=== PATIENT | male | born 1960 | race Hispanic/Latino ===

== ENCOUNTER 2021-01-08 10:44 | Inpatient (IN) | payer OTHER ==
[2021-01-08] MEDS ORDERED: SODIUM CHLORIDE 0.9% 1000 ML 1,000 ML IV ONE (10:59)
[2021-01-08] MEDS ORDERED: NORepinephrine/NS 4 MG-250 ML 4 MG/250 ML BAG IV ONE ×2 (11:27→15:09)
[2021-01-08] MEDS: NORepinephrine/NS 4 MG-250 ML 4 MG/250 ML BAG IV SCH ×2 (11:29→19:00)
--- NOTE | 2021-01-08 11:44 | XRay Report ---
CHEST 1 VIEW 01/08/2021 10:37 AM INDICATION / CLINICAL INFORMATION: post-arrest. COMPARISON: None available. FINDINGS: SUPPORT DEVICES: ET tube tip is at the level of the alondra. HEART / MEDIASTINUM: Mild cardiomegaly. LUNGS / PLEURA: Mild perihilar opacification. No pneumothorax. ADDITIONAL FINDINGS: No significant additional findings. IMPRESSION: 1. Mild perihilar opacification likely indicating mild pulmonary edema. 2. Mild cardiomegaly. 3. ET tube tip is at the level of the alondra. Retraction by 4 cm is recommended. Signer Name: Julius Ho MD Signed: 01/08/2021 11:40 AM Workstation Name: [id number]
--- NOTE | 2021-01-08 11:46 | XRay Report ---
XR foot 2V LT INDICATION: swelling, great toe. COMPARISON: None available. FINDINGS: There is significant soft tissue swelling and subcutaneous gas in the great toe. There are no radiopa que foreign bodies. There is questionable lysis in the cortex of the distal tuft of the great toe dis darlene phalanx which may indicate osteomyelitis. Signer Name: Julius Ho MD Signed: 01/08/2021 11:41 AM Workstation Name: [id number]
--- NOTE | 2021-01-08 12:22 | Emergency Department Report ---
ED CPR HPI - General Stated Complaint: CARDIAC ARREST Time Seen by Provider: 01/08/21 10:57 Source: EMS - History of Present Illness Initial Comments: 61-year-old male, history of diabetes, sleep apnea, presents to ED following ca rdiac arrest. EMS reports they were called to the home because patient has been having some generalized weakness. EMS reports there was difficulty getting to the patient because of the many items in the home. EMS reports it looks like a "hoarder's house." Upon contacting patient, patient was initially awake and talking somewhat. Patient then became unresponsive and apneic. Chest compressions were initiated. O2 was administered via patient's own CPAP machine. There was approximately a 10-minute delay to intubating and giving medications due to patient's location in the home. They were unable to get patient out of the room through the door, so patient was taken out of the home through the window of the room. Patient was found to be in PEA. He was intubated by EMS. Patient was given epi x1. They achieved ROSC. Patient then lost pulses again. He was given epi x1. Accu-Chek was in the 250s. Patient presents to ED with a pulse. MD Complaint: stopped breathing Place: home Shock Advised: No Initial Findings in the Field: alert ROSC in the Field: Yes Treatments Prior to Arrival: intubation, chest compressions, epinephrine mgs # (2) - Related Data Allergies Allergy/AdvReac Type Severity Reaction Status Date / Time No Known Allergies Allergy Unverified 01/08/21 12:39 ED Review of Systems ROS: Stated complaint: CARDIAC ARREST Other details as noted in HPI Comment: Unobtainable due to pts medical conditions Constitutional: weakness ED Physical Exam - General General appearance: obese - Head Head exam: Present: atraumatic, normocephalic - Eye Eye exam: Present: normal appearance Pupils: Present: other (pinpoint bilaterally) - ENT ENT exam: Present: other (ET tube in place) - Neck Neck exam: Present: normal inspection - Respiratory Respiratory exam: Present: decreased breath sounds (left lung field, tube withdrawn 2 cm for likely R main stem intubation) - Cardiovascular Cardiovascular Exam: Present: normal rhythm, tachycardia - GI/Abdominal GI/Abdominal exam: Present: soft. Absent: distended - Extremities Exam Extremities exam: Present: other (left great toe swollen, fluctuant) - Neurological Exam Neurological exam: Present: other (GCS 4T) - Psychiatric Psychiatric exam: Present: normal affect, normal mood - Skin Skin exam: Present: warm, dry, intact, normal color ED Course Vital Signs 01/08/21 01/08/21 01/08/21 10:10 10:16 10:46 Temperature Pulse Rate 64 63 132 H Respiratory 23 29 H 17 Rate Blood Pressure 150/65 152/57 O2 Sat by Pulse Oximetry 01/08/21 01/08/21 01/08/21 11:00 11:01 11:16 Temperature Pulse Rate 106 H 92 H 96 H Respiratory 16 20 Rate Blood Pressure 106/51 57/31 84/44 O2 Sat by Pulse 99 96 98 Oximetry 01/08/21 01/08/21 01/08/21 11:30 11:45 12:00 Temperature Pulse Rate 92 H 92 H 94 H Respiratory 32 H 22 22 Rate Blood Pressure 57/31 110/69 115/68 O2 Sat by Pulse 98 99 Oximetry 01/08/21 01/08/21 01/08/21 12:15 12:30 12:45 Temperature Pulse Rate 94 H Respiratory 20 20 20 Rate Blood Pressure 129/73 127/73 128/75 O2 Sat by Pulse Oximetry 01/08/21 01/08/21 01/08/21 13:42 13:46 13:51 Temperature 99.3 F Pulse Rate 96 H Respiratory 20 Rate Blood Pressure 127/80 127/80 O2 Sat by Pulse 97 97 Oximetry 01/08/21 01/08/21 01/08/21 14:00 14:16 14:30 Temperature Pulse Rate 98 H 95 H 94 H Respiratory 20 20 21 Rate Blood Pressure 127/63 128/75 128/75 O2 Sat by Pulse 92 93 93 Oximetry 01/08/21 01/08/21 01/08/21 14:46 15:00 15:01 Temperature Pulse Rate 91 H 90 85 Respiratory 23 21 Rate Blood Pressure 118/71 131/62 137/82 O2 Sat by Pulse 93 94 98 Oximetry 01/08/21 01/08/21 01/08/21 15:15 15:30 15:46 Temperature Pulse Rate 92 H 88 86 Respiratory 16 25 H 24 Rate Blood Pressure 138/96 138/96 144/67 O2 Sat by Pulse 100 99 98 Oximetry 08/02/21 08/02/21 08/02/21 16:00 16:15 16:30 Temperature Pulse Rate 85 85 86 Respiratory 25 H 17 25 H Rate Blood Pressure 137/77 124/66 124/66 O2 Sat by Pulse 98 97 99 Oximetry 01/08/21 01/08/21 01/08/21 16:46 17:00 17:16 Temperature Pulse Rate 83 81 81 Respiratory 25 H 25 H 24 Rate Blood Pressure 122/53 111/68 130/55 O2 Sat by Pulse 99 99 98 Oximetry - Reevaluation(s) Reevaluation #1: 01/08/21 12:25 Patient's has presented to the ED. She reports that patient has had some generalized weakness since Friday, 2 days ago. States patient has no other complaints. 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 She reports patient has a history of kidney stones, sleep apnea, diabetes, PE. She believes patient may be on a blood thinner but she is not sure. She denies patient having any history of C AD, CHF, or COPD. She states patient takes about 4-5 medications but she does not know the names of them, she does not have a list with her. She reports patient received both doses of the Fillm COVID-19 vaccine approximately 3 to 4 months ago. Reevaluation #2: 01/08/21 12:28 Respiratory advised to withdraw ET tube 4 cm after viewing CXR report. - Consultations Consultation #1: 01/08/21 13:[address] Hernandez, nephrology. He is aware of patient's BUN and creatinine. Informed him that patient needs a CTA chest. States that he will he will consult on patient. Consultation #2: 01/08/21 14:30 Spoke with [place] physician, Dr. Collier. States patient should stay here at [facility]. Will call tomorrow to check on patient. She was able to tell me that patient has a past medical history of: Hypertension CHF (EF 60-65% in 2017) Staghorn calculi Renal insufficiency (baseline creatinine 1.2 but did increase to 3.2 in July) Sleep apnea " Respiratory insufficiency" Chronic back pain Medications include: Lipitor Coreg Lasix Glucophage Glimepiride Combivent inhaler Lyrica Nortriptyline Hydrocodone Consultation #3: 01/08/21 14:[address] Amaya, farm machine tender. He will consult on the patient. - Central Line Placement Right Femoral Consent Obtained: emergent situation Time Out Performed: Yes Patient Placed on Monitor/Pulse Ox: Yes MD Prep: mask, gown, gloves Central Line Prep: Chlorhexidine scrub Ultrasound Used for Placement: Yes Central Line Lumen Inserted: triple Reason for Insertion: Emergency Venous Access Bloods Obtained for Lab: Yes Central Line Position: good blood return, all ports aspirated, flus, sutured in place with 2-0 Dressing Applied: Tegaderm Patient Tolerated Procedure: well ED Medical Decision Making - Lab Data Result diagrams: 01/08/21 11:55 01/08/21 14:36 - EKG Data -: EKG Interpreted by Nv EKG shows normal: sinus rhythm, axis, intervals, QRS complexes, ST-T waves Rate: tachycardia (rate 106) - EKG Data Interpretation: no acute changes - Radiology Data Radiology results: report reviewed, image reviewed - Medical Decision Making 60-year-old male presents to ED as post cardiac arrest. Initially, patient had normal blood pressure, however he then became hypotensive. Central line was placed, Levophed was initiated. Chest x-ray showed some mild cardiomegaly with mild perihilar opacification. ET tube was at the level of the alondra and was retracted 4 cm. Labs show elevated WBCs of 23.8, with lactic acid of 4.5. Patient has some acute renal failure with BUN of 55 and creatinine of 3.9. Potassium slightly elevated at 5.3. EKG showed no ST changes. Troponin s lightly elevated 0.03. CT head was unremarkable. CTA chest was done given history of PE and unsure if patient is on any blood thinners. CT negative for PE, but shows bilateral pneumonia. Per , patient did receive both doses of the Pfizer COVID-19 vaccine a few months ago. CT abdomen pelvis shows known staghorn calculi with ureteral stent. On exam, patient has discolored left great toe with fluctuance present. X-ray shows evidence of possible osteomyelitis. Blood cultures have been drawn. Patient has been given vancomycin and cefepime, 30/kg bolus of normal saline. Boiler Technician and farm machine tender have been consulted. Patient will be admitted to hospitalist, Dr. Beck, for further management. - Differential Diagnosis PE, CVA, COVID-19, sepsis Critical Care Time: Yes Critical care time in (mins) excluding proc time.: 35 Critical care attestation.: If time is entered above; I have spent that time in minutes in the direct care of this critically ill patient, excluding procedure time. Critical Care Time: 35 min ED Disposition Clinical Impression: Cardiac arrest, Acute renal failure, Sepsis, Pneumonia, Osteomyelitis of great toe of left foot Disposition: OP ADMIT IP TO THIS HOSP Is pt being admited?: Yes Condition: Stable Time of Disposition: 14:44
[2021-01-08 12:29] LABS: INR 1.08 (0.87-1.13)
[2021-01-08 12:30] LABS: Partial Thromboplastin Time 23.3 Sec. (24.2-36.6)
[2021-01-08 12:36] LABS: Albumin 2.6 g/dL (3.9-5); Bilirubin,Direct 0.4 mg/dL (0-0.2); Calcium 7.9 mg/dL (8.4-10.2)
[2021-01-08] MEDS ORDERED: SODIUM CHLORIDE 0.9% 1000 ML IV SOLN IV ONE (12:44)
[2021-01-08 12:47] LABS: Chol/HDL Ratio 2.62 %
[2021-01-08] MEDS ORDERED: CEFEPIME/NS 2 GM/100 ML 2 GM/100 ML BAG IV ONE (13:00)
[2021-01-08] MEDS ORDERED: VANCOMYCIN 2,000 MG in SODIUM CHLORIDE 0.9% 500 ML 500 ML IV ONE (13:00)
[2021-01-08 13:30] LABS: Hematocrit 31.6 % (35.5-45.6); Hemoglobin 10.5 gm/dl (11.8-15.2); Mean Corpuscular Volume 94 fl (84-94); Red Blood Count 3.35 M/mm3 (3.65-5.03)
[2021-01-08 13:31] LABS: Mean Corpuscular HGB Conc 33 % (32-34); Red Cell Distribution Width 15.6 % (13.2-15.2)
[2021-01-08 13:33] LABS: Basophils # (Auto) 0.1 K/mm3 (0.0-0.1); Basophils % (Auto) 0.2 % (0.0-1.8); Lymphocytes % (Auto) 4.1 % (13.4-35.0); Monocytes # (Auto) 1.2 K/mm3 (0.0-0.8); Monocytes % (Auto) 5.2 % (0.0-7.3)
--- NOTE | 2021-01-08 13:53 | Cat Scan Report ---
CT head/brain wo con INDICATION / CLINICAL INFORMATION: 60 years Male; cardiac arrest. TECHNIQUE: Routine CT head without contrast. All CT scans at this location are performed using CT dos e reduction for ALARA by means of automated exposure control. COMPARISON: None. FINDINGS: BRAIN / INTRACRANIAL CONTENTS: The motion degrades the image quality. However, there appears to be mi ld cerebral white matter disease most consistent with microvascular angiopathy. The chavez-white matter differentiation appears maintained on the current study though correlation be needed given history o f cardiac arrest and follow-up as indicated. There is no CT evidence of acute intracranial hemorrhage or significant mass effect. The ventricular system is appropriate in size and configuration. ORBITS: No significant abnormality of visualized orbits. SINUSES / MASTOIDS: The patient is intubated at. There is mild opacification along the posterior righ t sphenoid sinus and within the ethmoid air cells. CRANIOCERVICAL JUNCTION: No significant abnormality. ADDITIONAL FINDINGS: None. IMPRESSION: 1. This mild microvascular angiopathy as described without clear CT evidence of acute intracranial he morrhage. Signer Name: Rafat Huggins MD Signed: 01/08/2021 1:49 PM Workstation Name: [id number]
--- NOTE | 2021-01-08 14:16 | Cat Scan Report ---
CTA CHEST WITH CONTRAST INDICATION / CLINICAL INFORMATION: Cardiac arrest. TECHNIQUE: Axial CT images were obtained through the chest after injection of Omnipaque 350, 100 cc I V contrast. 3 plane MIP and/or 3D reconstructions were produced. All CT scans at this location are pe rformed using CT dose reduction for ALARA by means of automated exposure control. COMPARISON: None available. FINDINGS: PULMONARY ARTERIES: No pulmonary emboli. THORACIC AORTA: No significant abnormality. HEART: No significant abnormality. CORONARY ARTERY CALCIFICATION: None. MEDIASTINUM / TAMRA: No significant abnormality. PLEURA: No pleural effusion. No pneumothorax. LUNGS: Moderate volume loss at both lower lobes. Patchy bilateral consolidation is somewhat nodular i n places. ADDITIONAL FINDINGS: Endotracheal tube in satisfactory position. SKELETAL STRUCTURES: No significant osseous abnormality. IMPRESSION: 1. No CT evidence for pulmonary embolism. 2. Bilateral pneumonia and basilar volume loss. CT ABDOMEN AND PELVIS WITH CONTRAST INDICATION / CLINICAL INFORMATION: Cardiac arrest. Abdominal pain. TECHNIQUE: Axial CT images were obtained through the abdomen and pelvis after Omnipaque 350, 100 cc I V contrast. All CT scans at this location are performed using CT dose reduction for ALARA by means o f automated exposure control. COMPARISON: None available. FINDINGS: LIVER: No significant abnormality. GALLBLADDER: Partially contracted. BILE DUCTS: No significant abnormality. PANCREAS: No significant abnormality. SPLEEN: No significant abnormality. ADRENALS: No significant abnormality. RIGHT KIDNEY / URETER: Staghorn calculus. Cortical scarring. Double-J stent. LEFT KIDNEY / URETER: Staghorn calculus. Dilatation of the upper/mid pole collecting system. Renal co rtical scarring. STOMACH / SMALL BOWEL: No significant abnormality. COLON: No significant abnormality. APPENDIX: No significant abnormality. PERITONEUM: No free fluid. No free air. No fluid collection. LYMPH NODES: No significant adenopathy. VASCULAR STRUCTURES: No significant abnormality. URINARY BLADDER: Cleaning catheter. REPRODUCTIVE ORGANS: Mild diffuse enlargement. ADDITIONAL FINDINGS: None. SKELETAL SYSTEM: No significant abnormality. IMPRESSION: 1. Bilateral staghorn calculi with partial obstruction on the left. Right double-J stent placement. B ilateral cortical scarring. 2. Negative for abdominal mass or fluid collection. Signer Name: Redd Johnson MD Signed: 01/08/2021 2:11 PM Workstation Name: [email or web address]
[2021-01-08 14:51] LABS: Platelet Count 224 K/mm3 (140-440)
[2021-01-08] MEDS ORDERED: NALOXONE 2 MG/2 ML INJ IV ONE (15:01)
[2021-01-08] MEDS ORDERED: SODIUM CHLORIDE 0.9% 1000 ML 1,000 ML ONE (15:03)
--- NOTE | 2021-01-08 15:04 | Consultation ---
History of Present Illness Consult date: 01/08/21 Requesting physician: ROSEMARIE PA Reason for consult: other [facility] History of present illness: PULMONARY/CCM CONSULT NOTE (Full dictation # [id number]) Please see dictated notes for full details Medications and Allergies Allergies Allergy/AdvReac Type Severity Reaction Status Date / Time No Known Allergies Allergy Unverified 01/08/21 12:39 Physical Examination Vital signs: Vital Signs Pulse Resp BP 64 23 150/65 01/08/21 10:10 01/08/21 10:10 01/08/21 10:10 Results - Laboratory Findings CBC and BMP: 01/08/21 11:55 01/08/21 14:36 ABG ABG pH 7.204 (7.320-7.450) L 01/08/21 11:01 POC ABG pCO2 50.7 mmHg (32.0-48.0) H 01/08/21 11:01 POC ABG pO2 94.3 mmHg (83-108) 01/08/21 11:01 POC ABG HCO3 19.5 01/08/21 11:01 ABG O2 Saturation 95.9 (0-100) 01/08/21 11:01 PT/INR, D-dimer PT 14.5 Sec. (12.2-14.9) 01/08/21 11:55 INR 1.08 (0.87-1.13) 01/08/21 11:55 Abnormal lab findings: Abnormal Labs 01/08/21 01/08/21 01/08/21 11:01 11:55 11:55 WBC 23.8 H RBC 3.35 L Hgb 10.5 L Hct 31.6 L RDW 15.6 H Lymph % (Auto) 4.1 L Lymph # (Auto) 1.0 L [place] # (Auto) 1.2 H Seg Neutrophils % 90.5 H Seg Neutrophils # 21.5 H APTT ABG pH 7.204 L POC ABG pCO2 50.7 H ABG Hemoglobin 11.9 L ABG Potassium 5.0 H ABG Chloride 110.0 H ABG Glucose 313 H Carboxyhemoglobin 0.1 L Potassium Chloride Carbon Dioxide BUN Creatinine Glucose Lactic Acid 4.50 H* Calcium Direct Bilirubin AST ALT Troponin T NT-Pro-B Natriuret Pep Total Protein Albumin LDL Cholesterol Direct HDL Cholesterol Arterial Blood Glucose 313 H 01/08/21 01/08/21 01/08/21 11:55 11:55 13:42 WBC RBC Hgb Hct RDW Lymph % (Auto) Lymph # (Auto) [place] # (Auto) Seg Neutrophils % Seg Neutrophils # APTT 23.3 L ABG pH POC ABG pCO2 ABG Hemoglobin ABG Potassium ABG Chloride ABG Glucose Carboxyhemoglobin Potassium 5.3 H Chloride 107.2 H Carbon Dioxide 21 L BUN 55 H Creatinine 3.9 H Glucose 274 H Lactic Acid 2.90 H* Calcium 7.9 L Direct Bilirubin 0.4 H AST 130 H ALT 70 H Troponin T 0.038 H NT-Pro-B Natriuret Pep 1157 H Total Protein 6.0 L Albumin 2.6 L LDL Cholesterol Direct 28 L HDL Cholesterol 24 L Arterial Blood Glucose
[2021-01-08] MEDS ORDERED: SODIUM CHLORIDE 0.9% 500 ML IVPB IV PRN (15:18)
[2021-01-08 15:20] LABS: C-Reactive Protein 25.4 mg/dL (0.00-1.30)
--- NOTE | 2021-01-08 15:58 | Consultation ---
History of Present Illness Consult date: 01/08/21 Requesting physician: ÁNGELA QURESHI Consult reason: cardiac arrest History of present illness: Patient is a 61-year-old male with a significant history of diabetes, sleep apnea on CPAP, unknown cardiomyopathy per . He is previously unknown to our practice and follows with [facility]. Patient presents s/p cardiac arrest PEA with ROSC. He is currently intubated and unresponsive. EMS reports patient was awake and responsive on their arrival before becoming apneic subsequently found to be in PEA and was intubated in the field. He received several rounds of CPR. Post ROSC twelve-lead ECG shows sinus tach 106 with no acute ischemic changes. reports that patient has history of congestive heart failure but last known echocardiogram was 2016 with ejection fraction of 60 to 65%. Initial labs reveal D-dimer of 7000, CTA chest is negative for PTE. Chest x-ray shows mild pulmonary edema. Cardiology is consulted for postarrest care. Patient remains unresponsive and intubated thus HPI is obtained via the chart. Of note patient is fully COVID-19 vaccinated x2 completing second injection several months prior. Past History Past Medical History: other (See HPI) Medications and Allergies Allergies Allergy/AdvReac Type Severity Reaction Status Date / Time No Known Allergies Allergy Unverified 01/08/21 12:39 Active Meds: Active Medications Famotidine (Famotidine 20 Mg/2 Ml Inj) 20 mg IV DAILY MARBELLA Hydrophilic Ointment (Lip Therapy Vaseline) 1 applic TP Q2HR PRN PRN Reason: Dry Lips Propofol (Diprivan 10 Mg/Ml) 1,000 mg in 100 mls @ 4.082 mls/hr IV TITR MARBELLA; Protocol Multi-Ingred Cream/Lotion/Oil/Oint (Mineral Oil/Petrolatum, White Ophth Oint 3.5 Gm) 1 applic OU Q4HR PRN PRN Reason: Dry Eye(s) Senna/Docusate Sodium (Sennosides/Docusate Sodium 8.6/50 Mg Tab) 1 tab FEEDTUBE BID MARBELLA Sodium Chloride (Sodium Chloride 0.9% 500 Ml Ivpb) 5 ml IV DIRECT PRN PRN 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 Review of Systems ROS unobtainable: due to endotracheal tube, due to mental status Physical Examination Last Vital Signs Temp 99.3 F 01/08/21 13:51 Pulse 94 H 01/08/21 12:00 Resp 20 01/08/21 12:30 BP 127/73 01/08/21 12:30 Pulse Ox 99 01/08/21 12:00 General appearance: other (Intubated unresponsive) HEENT: Positive: Normocephaly, Mucus Membranes Moist Neck: Positive: neck supple, trachea midline Cardiac: Positive: Regular Rhythm, S1/S2 Lungs: Positive: Oxygen, Ventilated Respirations Neuro: Positive: Other (Intubated unresponsive) Abdomen: Positive: Unremarkable, Soft Skin: Positive: Wound (Left toe osteomyelitis). Negative: Rash Musculoskeletal: other (Intubated) Extremities: Present: upper extr. pulses, lower extr. pulses. Absent: edema Results 01/08/21 11:55 01/08/21 14:36 Cardiac Enzymes 01/08/21 01/08/21 Range/Units 11:55 14:36 AST 130 H (5-40) units/L Lactate Dehydrogenase 535 H (91-180) units/L Coagulation 01/08/21 Range/Units 11:55 PT 14.5 (12.2-14.9) Sec. INR 1.08 (0.87-1.13) APTT 23.3 L (24.2-36.6) Sec. Lipids 01/08/21 Range/Units 11:55 Triglycerides 104 (2-149) mg/dL Cholesterol 63 (50-199) mg/dL HDL Cholesterol 24 L (40-59) mg/dL Cholesterol/HDL Ratio 2.62 % CBC 01/08/21 Range/Units 11:55 WBC 23.8 H (4.5-11.0) K/mm3 RBC 3.35 L (3.65-5.03) M/mm3 Hgb 10.5 L (11.8-15.2) gm/dl Hct 31.6 L (35.5-45.6) % Plt Count 224 (140-440) K/mm3 Lymph # (Auto) 1.0 L (1.2-5.4) K/mm3 [place] # (Auto) 1.2 H (0.0-0.8) K/mm3 Eos # (Auto) 0.0 (0.0-0.4) K/mm3 Baso # (Auto) 0.1 (0.0-0.1) K/mm3 Comprehensive Metabolic Panel 01/08/21 01/08/21 Range/Units 11:55 14:36 Sodium 143 (137-145) mmol/L Potassium 5.3 H (3.6-5.0) mmol/L Chloride 107.2 H (98-107) mmol/L Carbon Dioxide 21 L (22-30) mmol/L BUN 55 H (9-20) mg/dL Creatinine 3.9 H (0.8-1.3) mg/dL Glucose 274 H 306 H (75-100) mg/dL Calcium 7.9 L (8.4-10.2) mg/dL Direct Bilirubin 0.4 H (0-0.2) mg/dL Indirect Bilirubin 0.2 mg/dL AST 130 H (5-40) units/L ALT 70 H (7-56) units/L Alkaline Phosphatase 106 (35-129) units/L Total Protein 6.0 L (6.3-8.2) g/dL Albumin 2.6 L (3.9-5) g/dL - Imaging and Cardiology Echo: pending, report reviewed (Echocardiogram 2017 reported EF 60 to 65%) EKG: report reviewed, image reviewed EKG interpretations - Telemetry EKG Rhythm: Sinus Tachycardia - EKG Sinus rhythms and dysrhythmias: sinus tachycardia Assessment and Plan Cardiac arrest PEA with ROSC * Post arrest twelve-lead shows sinus tach 106 with no acute ischemic changes. Continue to monitor on telemetry * Troponin mildly elevated 0.03x1, subacute nonspecific. Continue to trend CE's. * Echocardiogram is pending Elevated D-dimer * CTA chest is negative for PTE Acute respiratory failure secondary to suspected sepsis * Currently on vancomycin * Intubated on ventilatory support * Cultures are pending DVT prophylaxis * Management per primary team Echocardiogram is pending. Continue to trend CE's. Will follow This patient was seen in conjunction with Dr Ines Liz who agrees with this assessment and plan of care - Patient Problems (1) Congestive heart failure Current Visit: Yes Status: Chronic (2) Diabetes mellitus type 2 in obese Current Visit: Yes Status: Chronic (3) Elevated d-dimer Current Visit: Yes Status: Acute (4) Acute renal failure Current Visit: Yes Status: Acute (5) Cardiac arrest Current Visit: Yes Status: Acute (6) Osteomyelitis of great toe of left foot Current Visit: Yes Status: Chronic (7) Sepsis Current Visit: Yes Status: Acute (8) Renal insufficiency Current Visit: Yes Status: Chronic
[2021-01-08] MEDS ORDERED: LIP THERAPY VASELINE TP PRN (16:00)
--- NOTE | 2021-01-08 17:02 | XRay Report ---
ABDOMEN, SINGLE VIEW INDICATION / CLINICAL INFORMATION: verify ng placement. COMPARISON: None available. FINDINGS: Radiograph obtained of the lower chest and upper abdomen does not show any NG tube in that location. I suspect NG tube is either in the upper esophagus or possibly the patient's throat. IMPRESSION: No NG tube is visualized in the lower chest or upper abdomen. Signer Name: Taylor Werner MD Signed: 01/08/2021 4:57 PM Workstation Name: [id number]
[2021-01-08] MEDS ORDERED: MINERAL OIL/PETROLATUM, WHITE OPHTH OINT 3.5 GM OU PRN (18:00)
[2021-01-08 18:13] LABS: Bacteria,Urine 3+ /HPF (Negative); Bilirubin,Urine NEG (Negative); Blood,Urine LG (Negative); Color,Urine Red (Yellow); Urobilinogen,Urine < 2.0 mg/dL (<2.0)
[2021-01-08 18:24] LABS: RBC,Urine > 182.0 /HPF (0.0-6.0); WBC,Urine > 182.0 /HPF (0.0-6.0)
--- NOTE | 2021-01-08 19:01 | XRay Report ---
ABDOMEN 1 VIEW(S) INDICATION / CLINICAL INFORMATION: verify ng placement. COMPARISON: None available. FINDINGS: TUBES / LINES: NG tube in satisfactory position. BOWEL GAS PATTERN: No significant abnormality. ADDITIONAL FINDINGS: No significant additional findings. Signer Name: Redd Johnson MD Signed: 01/08/2021 6:56 PM Workstation Name: [id number]
[2021-01-08] MEDS ORDERED: IPRATROPIUM/ALBUTEROL SULFATE 3 ML AMPUL.NEB IH PRN (19:45)
[2021-01-08] MEDS ORDERED: VANCOMYCIN PHARMACY TO DOSE IV SCH (20:00)
[2021-01-08] MEDS ORDERED: ALBUTEROL 2.5 MG/3 ML NEBU IH PRN (20:23)
--- NOTE | 2021-01-08 21:45 | Consultation ---
History of Present Illness - Reason for Consult acute renal failure - History of Present Illness Morbidly obese male with h/o DM, BIBIANA, presented to the ED post cardiac arrest with ROSC after extended period of CPR in the field. Broought in by EMS, now intubated. Labs concerning for acute renal failures, with unclear baseline renal function. Nephrology consulted for further management. Patient apparently had h/o PE reported by , and in setting of cardiac arrest and acute respiratory failure with elevated D-dimer levels, he underwent CTA with contrast indicating no evidence of PE and mild pulmonary edema. Past History Past Medical History: diabetes, hyperlipidemia, other (See HPI) Past Surgical History: No surgical history Social history: no significant social history, , lives with family Family history: no significant family history Medications and Allergies Allergies Allergy/AdvReac Type Severity Reaction Status Date / Time No Known Allergies Allergy Unverified 01/08/21 12:39 Active Meds: Active Medications Albuterol (Albuterol 2.5 Mg/3 Ml Nebu) 2.5 mg IH Q3HRT PRN PRN Reason: Shortness Of Breath Albuterol/Ipratropium (Ipratropium/Albuterol Sulfate 3 Ml Ampul.Neb) 1 ampul IH QIDRT [facility] Famotidine (Famotidine 20 Mg/2 Ml Inj) 20 mg IV DAILY [facility] Famotidine (Famotidine 20 Mg/2 Ml Inj) 20 mg IV BID [facility] Hydrophilic Ointment (Lip Therapy Vaseline) 1 applic TP Q2HR PRN PRN Reason: Dry Lips Propofol (Diprivan 10 Mg/Ml) 1,000 mg in 100 mls @ 4.082 mls/hr IV TITR [facility]; Protocol Last Titration: 01/08/21 19:30 Dose: 10 mcg/kg/min, 8.165 mls/hr Documented by: Norepinephrine (Levophed Drip 4 Mg/Ns 250 Ml) 4 mg in 250 mls @ 75 mls/hr IV TITR [facility]; Protocol Last Admin: 01/08/21 19:00 Dose: 5 mcg/min, 18.75 mls/hr Documented by: Cefepime HCl (Cefepime/Ns 1 Gm/100 Ml) 1 gm in 100 mls @ 200 mls/hr IV QPM [facility]; Protocol Methylprednisolone Sodium Succinate (Methylprednisolone Sod Succinate 125 Mg/2 Ml Inj) 80 mg IV Q8HR [facility] Multi-Ingred Cream/Lotion/Oil/Oint (Mineral Oil/Petrolatum, White Ophth Oint 3.5 Gm) 1 applic OU Q4HR PRN PRN Reason: Dry Eye(s) Senna/Docusate Sodium (Sennosides/Docusate Sodium 8.6/50 Mg Tab) 1 tab FEEDTUBE BID [facility] Sodium Chloride (Sodium Chloride 0.9% 500 Ml Ivpb) 5 ml 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 of Systems ROS unobtainable: due to endotracheal tube Exam - Vital Signs Vital signs: Vital Signs Pulse Resp BP 64 23 150/65 01/08/21 10:10 01/08/21 10:10 01/08/21 10:10 - General Appearance General appearance: obese, chronically ill, intubated EENT: ATNC Neck: Present: neck supple Respiratory: Clear to Ascultation Heart: regular Gastrointestinal: Present: normal Musculoskeletal: Present: deferred Results - Lab Results 01/08/21 11:55 01/08/21 14:36 Most recent lab results ABG pH 7.204 (7.320-7.450) L 01/08/21 11:01 ABG O2 Saturation 95.9 (0-100) 01/08/21 11:01 Calcium 7.9 mg/dL (8.4-10.2) L 01/08/21 11:55 Assessment and Plan - Patient Problems (1) Acute renal failure Current Visit: Yes Status: Acute Plan to address problem: Agree with current regimen. Woudl recommend gentle IVF hydration, maintain MAP >65 mmHg. Avoid nephrotoxins. Renal US ordered. Will also order electrolytes. (2) Cardiac arrest Current Visit: Yes Status: Acute Plan to address problem: Management and further recommendation per cardiology. (3) Elevated d-dimer Current Visit: Yes Status: Acute Plan to address problem: Likely in the setting of pneumonia. Her CTA dhest did not show any evidence of PE. (4) Pneumonia Current Visit: Yes Status: Acute Plan to address problem: Please titrate antibiotics accordingly based on diminished renal function. (5) Diabetes mellitus type 2 in obese Current Visit: Yes Status: Chronic Plan to address problem: DM management per primary attending.
[2021-01-08] MEDS ORDERED: FAMOTIDINE 20 MG/2 ML INJ IV SCH (22:00)
[2021-01-08] MEDS: methylPREDNISolone Sod Succinate 125 MG/2 ML INJ IV SCH (22:18)
[2021-01-08] MEDS: SENNOSIDES/DOCUSATE SODIUM 8.6/50 MG TAB FEEDTUBE SCH (22:29)
[2021-01-09] MEDS ORDERED: ACETAMINOPHEN 325 MG TAB PO ONE (01:44)
[2021-01-09 05:43] LABS: Hematocrit 35.9 % (35.5-45.6); Hemoglobin 11.7 gm/dl (11.8-15.2); Mean Corpuscular HGB Conc 32 % (32-34); Mean Corpuscular Volume 95 fl (84-94); Platelet Count 274 K/mm3 (140-440); Red Blood Count 3.77 M/mm3 (3.65-5.03)
[2021-01-09 06:06] LABS: Calcium 8.1 mg/dL (8.4-10.2)
[2021-01-09] MEDS: methylPREDNISolone Sod Succinate 125 MG/2 ML INJ IV SCH ×3 (06:07→22:37)
--- NOTE | 2021-01-09 07:22 | History and Physical Report ---
History of Present Illness Date of examination: 01/08/21 Date of admission: 01/08/21 14:44 Chief complaint: Unresponsive for 30 minutes prior to EMS arrival History of present illness: 61-year-old salt[place] male with history of diabetes and sleep apnea called EMS towards generalized weakness. When EMS arrived there was difficulty getting to the patient. Because of too many items in the home. Similar to a Hoarder home. Initially patient was awake and talking confused. Then patient became unresponsive and apneic. ACLS protocol was initiated and chest compressions were initiated oxygen was administered and his own CPAP machine was used. Within the next 10 minutes patient was intubated. EMS was unable to get the patient out of the room through the door so patient was taken out of the home through the window of the room. Patient was found to be in PEA. Patient was intubated by EMS they achieved a return of spontaneous circulation. After a few minutes lost her pulse again and was given amlodipine and was revived. Patient presents to the emergency room with a pulse. It is unclear what has precipitated his cardiac arrest. Patient has only diabetes and sleep apnea. No fever or chills. No exposure to coronavirus. Patient was slightly hypotensive and was initiated on Levophed in the emergency room. Levophed is at 10 mics Past History Past Medical History: diabetes, hyperlipidemia, other (See HPI) Past Surgical History: No surgical history Social history: no significant social history, , lives with family Family history: no significant family history Medications and Allergies Allergies Allergy/AdvReac Type Severity Reaction Status Date / Time No Known Allergies Allergy Unverified 01/08/21 12:39 Active Meds: Active Medications Albuterol (Albuterol 2.5 Mg/3 Ml Nebu) 2.5 mg IH Q3HRT PRN PRN Reason: Shortness Of Breath Albuterol/Ipratropium (Ipratropium/Albuterol Sulfate 3 Ml Ampul.Neb) 1 ampul IH QIDRT [facility] Famotidine (Famotidine 20 Mg/2 Ml Inj) 20 mg IV DAILY [facility] Hydrophilic Ointment (Lip Therapy Vaseline) 1 applic TP Q2HR PRN PRN Reason: Dry Lips Propofol (Diprivan 10 Mg/Ml) 1,000 mg in 100 mls @ 4.082 mls/hr IV TITR [facility]; Protocol Last Titration: 01/08/21 19:30 Dose: 10 mcg/kg/min, 8.165 mls/hr Documented by: Norepinephrine (Levophed Drip 4 Mg/Ns 250 Ml) 4 mg in 250 mls @ 75 mls/hr IV TITR [facility]; Protocol Last Admin: 01/08/21 19:00 Dose: 5 mcg/min, 18.75 mls/hr Documented by: Cefepime HCl (Cefepime/Ns 1 Gm/100 Ml) 1 gm in 100 mls @ 200 mls/hr IV QPM [facility]; Protocol Methylprednisolone Sodium Succinate (Methylprednisolone Sod Succinate 125 Mg/2 Ml Inj) 80 mg IV Q8HR [facility] Last Admin: 01/09/21 06:07 Dose: 80 mg Documented by: Multi-Ingred Cream/Lotion/Oil/Oint (Mineral Oil/Petrolatum, White Ophth Oint 3.5 Gm) 1 applic OU Q4HR PRN PRN Reason: Dry Eye(s) Senna/Docusate Sodium (Sennosides/Docusate Sodium 8.6/50 Mg Tab) 1 tab FEEDTUBE BID [facility] Last Admin: 01/08/21 22:29 Dose: 1 tab Documented by: Sodium Chloride (Sodium Chloride 0.9% 500 Ml Ivpb) 5 ml 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 Review of Systems All systems: negative Constitutional: fatigue, lethargy, no weight loss, no weight gain, no fever, no chills, no sweats, no night sweats Ears, nose, mouth and throat: deferred Cardiovascular: shortness of breath, other (Cardiac arrest), no chest pain, no orthopnea, no palpitations, no edema, no syncope Respiratory: no cough, no cough with sputum, no excessive sputum, no hemoptysis, no shortness of breath, no dyspnea on exertion Genitourinary Male: no dysuria, no hematuria, no flank pain, no discharge, no urinary frequency, no urinary hesitancy, no nocturia Rectal: no incontinence, no bleeding Musculoskeletal: no neck stiffness, no neck pain, no shooting arm pain, no arm numbness/tingling, no low back pain, no shooting leg pain, no leg nu mbness/tingling, no redness of joints Integumentary: no rash, no pruritis, no redness, no sores, no wounds, no blisters Neurological: confusion, other Psychiatric: no anxiety, no memory loss Endocrine: no cold intolerance, no heat intolerance, no polyphagia Hematologic/Lymphatic: no easy bruising, no easy bleeding Allergic/Immunologic: no urticaria, no allergic rhinitis, no wheezing Exam - Constitutional Vitals: Temp Pulse Resp BP Pulse Ox 99 F 83 28 H 118/88 95 01/09/21 03:30 01/09/21 06:30 01/09/21 06:30 01/09/21 06:30 01/09/21 06:30 General appearance: Present: no acute distress, well-nourished - EENT Eyes: Present: PERRL ENT: hearing intact, clear oral mucosa - Neck Neck: Present: supple, normal ROM - Respiratory Respiratory effort: normal Respiratory: bilateral: CTA - Cardiovascular Heart rate: 78 Rhythm: regular Heart Sounds: Present: S1 & S2. Absent: rub, click - Extremities Extremities: no ischemia, pulses intact, pulses symmetrical, No edema Peripheral Pulses: within normal limits - Abdominal General gastrointestinal: Present: soft, non-tender, non-distended, normal bowel sounds Male genitourinary: Present: normal - Integumentary Integumentary: Present: clear, warm, dry - Musculoskeletal Musculoskeletal: gait normal, strength equal bilaterally - Psychiatric Psychiatric: appropriate mood/affect, intact judgment & insight - Neurologic Neurologic: CNII-XII intact, moves all extremities HEART Score - HEART Score History: Highly suspicious Age: 45-65 Risk factors: 1-2 risk factors Troponin: Troponin T 0.017 ng/mL (0.00-0.029) 01/09/21 05:18 - Critical Actions Critical Actions: 4-6 pts:12-16.6% risk of adverse cardiac event. Should be admitted Results - Labs CBC & Chem 7: 01/09/21 05:18 01/09/21 05:18 Labs: Laboratory Last Values WBC 19.0 K/mm3 (4.5-11.0) H 01/09/21 05:18 RBC 3.77 M/mm3 (3.65-5.03) 01/09/21 05:18 Hgb 11.7 gm/dl (11.8-15.2) L 01/09/21 05:18 Hct 35.9 % (35.5-45.6) 01/09/21 05:18 MCV 95 fl (84-94) H 01/09/21 05:18 MCH 31 pg (28-32) 01/09/21 05:18 MCHC 32 % (32-34) 01/09/21 05:18 RDW 16.0 % (13.2-15.2) H 01/09/21 05:18 Plt Count 274 K/mm3 (140-440) 01/09/21 05:18 Lymph % (Auto) 4.1 % (13.4-35.0) L 01/08/21 11:55 [place] % (Auto) 5.2 % (0.0-7.3) 01/08/21 11:55 Eos % (Auto) 0.0 % (0.0-4.3) 01/08/21 11:55 Baso % (Auto) 0.2 % (0.0-1.8) 01/08/21 11:55 Lymph # (Auto) 1.0 K/mm3 (1.2-5.4) L 01/08/21 11:55 [place] # (Auto) 1.2 K/mm3 (0.0-0.8) H 01/08/21 11:55 Eos # (Auto) 0.0 K/mm3 (0.0-0.4) 01/08/21 11:55 Baso # (Auto) 0.1 K/mm3 (0.0-0.1) 01/08/21 11:55 Add Manual Diff Complete 01/08/21 11:55 Seg Neutrophils % 90.5 % (40.0-70.0) H 01/08/21 11:55 Seg Neutrophils # 21.5 K/mm3 (1.8-7.7) H 01/08/21 11:55 PT 14.5 Sec. (12.2-14.9) 01/08/21 11:55 INR 1.08 (0.87-1.13) 01/08/21 11:55 APTT 23.3 Sec. (24.2-36.6) L 01/08/21 11:55 D-Dimer 7104.83 ng/mlDDU (0-234) H 01/08/21 14:36 ABG pH 7.323 (7.320-7.450) 01/09/21 05:02 POC ABG pCO2 33.8 mmHg (32.0-48.0) 01/09/21 05:02 POC ABG pO2 82.7 mmHg (83-108) L 01/09/21 05:02 POC ABG HCO3 17.1 01/09/21 05:02 ABG O2 Saturation 95.8 (0-100) 01/09/21 05:02 POC ABG Base Excess -8.0 01/09/21 05:02 ABG Hemoglobin 12.2 (12.0-17.5) 01/09/21 05:02 ABG Oxyhemoglobin 95.2 (94-98) 01/09/21 05:02 ABG Methemoglobin 0.3 (0.0-1.5) 01/09/21 05:02 ABG Sodium 142.6 mmol/L (136.0-145.0) 01/09/21 05:02 ABG Potassium 4.8 mmol/L (3.40-4.50) H 01/09/21 05:02 ABG Chloride 114.0 mmol/L (98-107) H 01/09/21 05:02 ABG Glucose 283 mg/dL (65-95) H 01/09/21 05:02 Carboxyhemoglobin 0.3 (0.5-1.5) L 01/09/21 05:02 FiO2 % 86.0 01/09/21 05:02 Sodium 146 mmol/L (137-145) H 01/09/21 05:18 Potassium 5.1 mmol/L (3.6-5.0) H 01/09/21 05:18 Chloride 112.0 mmol/L (98-107) H 01/09/21 05:18 Carbon Dioxide 20 mmol/L (22-30) L 01/09/21 05:18 Anion Gap 19 mmol/L 01/09/21 05:18 BUN 63 mg/dL (9-20) H 01/09/21 05:18 Creatinine 3.0 mg/dL (0.8-1.3) H 01/09/21 05:18 Estimated GFR 21 ml/min 01/09/21 05:18 BUN/Creatinine Ratio 21 % 01/09/21 05:18 Glucose 282 mg/dL (75-100) H 01/09/21 05:18 Lactic Acid 2.90 mmol/L (0.7-2.0) H* 01/08/21 13:42 Calcium 8.1 mg/dL (8.4-10.2) L 01/09/21 05:18 Ferritin 624.8 ng/mL (30.0-300.0) H 01/08/21 14:36 Total Bilirubin 0.60 mg/dL (0.1-1.2) 01/08/21 11:55 Direct Bilirubin 0.4 mg/dL (0-0.2) H 01/08/21 11:55 Indirect Bilirubin 0.2 mg/dL 01/08/21 11:55 AST 130 units/L (5-40) H 01/08/21 11:55 ALT 70 units/L (7-56) H 01/08/21 11:55 Alkaline Phosphatase 106 units/L (35-129) 01/08/21 11:55 Lactate Dehydrogenase 535 units/L (91-180) H 01/08/21 14:36 Troponin T 0.017 ng/mL (0.00-0.029) 01/09/21 05:18 C-Reactive Protein 25.40 mg/dL (0.00-1.30) H 01/08/21 14:36 NT-Pro-B Natriuret Pep 1157 pg/mL (0-900) H 01/08/21 11:55 Total Protein 6.0 g/dL (6.3-8.2) L 01/08/21 11:55 Albumin 2.6 g/dL (3.9-5) L 01/08/21 11:55 Albumin/Globulin Ratio 0.8 % 01/08/21 11:55 Triglycerides 104 mg/dL (2-149) 01/08/21 11:55 Cholesterol 63 mg/dL (50-199) 01/08/21 11:55 LDL Cholesterol Direct 28 mg/dL (50-130) L 01/08/21 11:55 HDL Cholesterol 24 mg/dL (40-59) L 01/08/21 11:55 Cholesterol/HDL Ratio 2.62 % 01/08/21 11:55 Arterial Blood Glucose 283 mg/dL (65-95) H 01/09/21 05:02 Urine Color Red (Yellow) 01/08/21 Unknown Urine Turbidity Turbid (Clear) 01/08/21 Unknown Urine pH 7.0 (5.0-7.0) 01/08/21 Unknown Ur Specific [place] 1.013 (1.003-1.030) 01/08/21 Unknown Urine Protein 100 mg/dl mg/dL (Negative) 01/08/21 Unknown Urine Glucose (UA) Neg mg/dL (Negative) 01/08/21 Unknown Urine Ketones Neg mg/dL (Negative) 01/08/21 Unknown Urine Blood Lg (Negative) 01/08/21 Unknown Urine Nitrite Neg (Negative) 01/08/21 Unknown Urine Bilirubin Neg (Negative) 01/08/21 Unknown Urine Urobilinogen < 2.0 mg/dL (<2.0) 01/08/21 Unknown Ur Leukocyte Esterase Mod (Negative) 01/08/21 Unknown Urine WBC (Auto) > 182.0 /HPF (0.0-6.0) H 01/08/21 Unknown Urine RBC (Auto) > 182.0 /HPF (0.0-6.0) 01/08/21 Unknown Urine Bacteria (Auto) 3+ /HPF (Negative) 01/08/21 Unknown Urine WBC Clumps 3+ /HPF 01/08/21 Unknown Urine Yeast (Budding) 3+ /HPF 01/08/21 Unknown Short CBC 01/08/21 01/09/21 Range/Units 11:55 05:18 WBC 23.8 H 19.0 H (4.5-11.0) K/mm3 Hgb 10.5 L 11.7 L (11.8-15.2) gm/dl Hct 31.6 L 35.9 (35.5-45.6) % Plt Count 224 274 (140-440) K/mm3 BMP 01/08/21 01/08/21 01/09/21 11:55 14:36 05:18 Sodium 143 146 H Potassium 5.3 H 5.1 H Chloride 107.2 H 112.0 H Carbon Dioxide 21 L 20 L BUN 55 H 63 H Creatinine 3.9 H 3.0 H Glucose 274 H 306 H 282 H Calcium 7.9 L 8.1 L Cardiac Enzymes 01/08/21 01/09/21 Range/Units 11:55 05:18 Troponin T 0.038 H 0.017 (0.00-0.029) ng/mL Liver Function 01/08/21 Range/Units 11:55 Total Bilirubin 0.60 (0.1-1.2) mg/dL Direct Bilirubin 0.4 H (0-0.2) mg/dL AST 130 H (5-40) units/L ALT 70 H (7-56) units/L Alkaline Phosphatase 106 (35-129) units/L Albumin 2.6 L (3.9-5) g/dL Urine 01/08/21 Range/Units Unknown Urine Color Red (Yellow) Urine pH 7.0 (5.0-7.0) Ur Specific [place] 1.013 (1.003-1.030) Urine Protein 100 mg/dl (Negative) mg/dL Urine Glucose (UA) Neg (Negative) mg/dL Microbiology: Microbiology 01/08/21 11:55 Peripheral/Venous Blood Culture - Preliminary Culture in Progress 01/08/21 11:55 Peripheral/Venous Blood Culture - Preliminary Culture in Progress - Imaging and Cardiology EKG: report reviewed (Sinus tachycardia no acute ST-T wave changes) Imaging and Cardiology: Chest x-ray Mild perihilar opacification likely indicating mild pulmonary edema Mild cardiomegaly Foot x-ray left Abdominal pelvis CT no No CT evidence of pulmonary embolism Bilateral pneumonia and basilar volume loss CT of the chest Bilateral staghorn calculi with obstruction of the left right double-J stent placement bilateral cortical scarring Negative for abdominal mass or fluid collection Head CT There is mild microvascular angiopathy as described without clear CT evidence of acute intracranial hemorrhage There is significant soft tissue swelling and subcutaneous gas in the great toe. There are no radiopaque foreign bodies. There is questionable lighters in the cortex of the distal tuft of the great toe distal phalanx which may indicate osteomyelitis Assessment and Plan Assessment and plan: Critical care statement The high probability OF a clinically significant sudden or life-threatening deterioration of the cardiorespiratory system and endocrine system required my full and direct attention, intervention and postoperative management. The aggregate critical care time was 40 minutes. The time is in addition to time spent performing reported procedures but includes the followin: Data review and interpretation 2: Patient assessment and monitoring of vital signs 3: Documentation 4:: Medication orders and management Advance Directives: Yes (Full code) VTE prophylaxis?: Chemical Plan of care discussed with patient/family: No - Patient Problems (1) Acute respiratory failure with hypoxia and hypercapnia Current Visit: Yes Status: Acute Plan to address problem: Patient on vent Patient has history of COPD Patient initiated on duo nebs [id number] and as needed IV Solu-Medrol 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 (2) Cardiac arrest Current Visit: Yes Status: Acute Plan to address problem: S/p cardiac arrest Revived Hypotensive On Levophed at 10 mics Possible septic shock with hypotension Vent support and IV antibiotics (3) Septic shock Current Visit: Yes Status: Acute Plan to address problem: Patient on IV antibiotics and Levophed Patient has bilateral pneumonia Possible aspiration pneumonia Patient initiated on cefepime and vancomycin ID consult requested (4) Bilateral pneumonia Current Visit: Yes Status: Acute Plan to address problem: Differential diagnosis of community-acquired pneumonia/aspiration pneumonia/Covid pneumonia IV antibiotics and IV steroids for now ID consult requested (5) Urinary tract infection Current Visit: Yes Status: Acute Qualifiers: Urinary tract infection type: acute cystitis Plan to address problem: Patient is on cefepime and vancomycin for the pneumonia Wait for urine cultures (6) Acute kidney injury superimposed on CKD Current Visit: Yes Status: Acute Plan to address problem: Gentle IV hydration for now Nephrology consulted (7) Congestive heart failure Current Visit: Yes Status: Chronic Qualifiers: Heart failure type: combined systolic and diastolic Plan to address problem: We will get echocardiogram for ejection fraction BNP is elevated at 1157 (8) Transaminitis Current Visit: Yes Status: Acute Plan to address problem: Possible secondary to sepsis Check to get hepatitis panel (9) Elevated troponin Current Visit: Yes Status: Acute Plan to address problem: Secondary to cardiac arrest and possible troponin leak We will get CK and CK-MB (10) Person under investigation for COVID-19 Current Visit: Yes Status: Acute Plan to address problem: Coronavirus PCR requested Possible Covid pneumonia (11) Malnutrition Current Visit: Yes Status: Chronic Qualifiers: Protein-calorie malnutrition severity: mild Plan to address problem: Albumin is 2.7 Dietary supplements once extubated (12) DVT prophylaxis Current Visit: Yes Status: Acute Plan to address problem: On heparin GI prophylaxis
--- NOTE | 2021-01-09 10:17 | XRay Report ---
CHEST 1 VIEW 01/09/2021 9:05 AM INDICATION / CLINICAL INFORMATION: follow up respiratory failure. COMPARISON: 01/08/2021 FINDINGS: SUPPORT DEVICES: Endotracheal tube is in good position approximately 5 cm proximal to the alondra. Eso phagogastric tube is in place. HEART / MEDIASTINUM: Stable. LUNGS / PLEURA: Bilateral patchy airspace opacities have slightly worsened. Left basilar atelectasis versus small effusion. No pneumothorax ADDITIONAL FINDINGS: No significant additional findings. IMPRESSION: 1. Interval slight worsening of bilateral patchy airspace opacities. Signer Name: David Mckeon MD Signed: 01/09/2021 10:12 AM Workstation Name: [id number]
--- NOTE | 2021-01-09 11:32 | Progress Note ---
Assessment and Plan Cardiac Arrest with ROSC Acute Hypooxemic Respiratory Failure Septic Shock Bilateral pneumonia SHERICE BIBIANA Morbid Obesity Urinary tract infection Congestive heart failure Transaminitis NSTEMI / Elevated troponin Person under investigation for COVID-19 - get bilateral lower extremity dopplers to complete VTE w/up - neurology evaluation ongoing - continue Daily SAT and SBT assessment as tolerated - continue to wean supplemental oxygen for target O2 sat's > 90% acutely - VAP bundle addressed - continue lung protective strategies - continue bronchodilators with pulmonary hygiene per RT - wean per pulmonary driven protocols otherwise - continue accuchecks with glycemic control per SSI (While critically ill target blood glucose of 140-180 mg/dL; avoid hypoglycemia) - sedation prn for target RASS 0 to -1 - avoid nephrotoxins, renally dose all medications - continue to avoid benzodiazepine's, reduce the possibility of delirium - complete AB's per ID rec's - prn analgesia per CPOT score - Maintenance of sleep-wake cycle, avoid delirium - continue enteral nutritional support at goal rate as tolerated - G.I. & VTE prophylaxis - PT/OT/ROM exercises - continue mobility protocols for pressure ulcer prophylaxis - Monitor hemodynamics closely - continue other care per attending / other consultants - discharge planning ongoing concurrently COVID SPECIFIC INTERVENTIONS - continue empiric contact and airborne isolation - await COVID-19 test result .... Re-evaluate in am & prn CONDITION: CRITICAL PROGNOSIS: GUARDED CODE STATUS: FULL CODE The high probability of a clinically significant, sudden or life-threatening deterioration of the [respiratory, cardiovascular, renal & neurologic] system(s) required my full and direct attention, intervention and personal management. The aggregate critical care time was [35] minutes without overlap. Time includes spent on; [x] Data Review and interpretation [x] Patient assessment and monitoring of vital signs [x] Documentation [x] Medication orders and management Subjective Date of service: 01/09/21 Principal diagnosis: Cardiac Arrest; Ac Hypoxemic Resp Failure; SepticShock; PNA; SHERICE; PUI COVID Interval history: Patient is seen today for: Cardiac Arrest with ROSC; Acute Hypoxemic Respiratory Failure; Septic Shock; Pneumonia; SHERICE; UTI; CHF; PUI COVID-19 Seen and examined at bedside; 24hour events reviewed; nursing and respiratory care staff consulted; no adverse overnight events reported to me; resting in bed; remains on MVS; AMS is persistent; no seizures; remains on Propofol and Levophed; no emesis or overt aspiration Objective Vital Signs - 12hr 01/09/21 01/09/21 01/09/21 00:00 00:30 01:00 Temperature Pulse Rate 85 85 84 Respiratory 12 25 H 25 H Rate Blood Pressure 117/78 111/71 114/71 O2 Sat by Pulse 98 96 96 Oximetry 01/09/21 01/09/21 01/09/21 01:30 02:00 02:30 Temperature 101.3 F H Pulse Rate 85 85 84 Respiratory 19 27 H 25 H Rate Blood Pressure 115/72 116/73 119/74 O2 Sat by Pulse 96 96 96 Oximetry 01/09/21 01/09/21 01/09/21 03:00 03:30 04:00 Temperature 99 F Pulse Rate 82 83 80 Respiratory 25 H 28 H 25 H Rate Blood Pressure 116/75 111/69 124/77 O2 Sat by Pulse 96 96 97 Oximetry 01/09/21 01/09/21 01/09/21 04:30 05:00 05:30 Temperature Pulse Rate 80 78 78 Respiratory 27 H 23 18 Rate Blood Pressure 126/78 129/79 124/82 O2 Sat by Pulse 97 97 96 Oximetry 01/09/21 01/09/21 01/09/21 06:00 06:30 07:00 Temperature Pulse Rate 83 83 80 Respiratory 19 28 H 32 H Rate Blood Pressure 118/88 118/88 136/80 O2 Sat by Pulse 95 95 95 Oximetry 01/09/21 01/09/21 01/09/21 07:30 08:00 08:30 Temperature Pulse Rate 80 80 78 Respiratory 29 H 30 H 27 H Rate Blood Pressure 134/78 139/87 141/87 O2 Sat by Pulse 96 96 95 Oximetry 01/09/21 01/09/21 01/09/21 08:56 09:00 09:30 Temperature Pulse Rate 80 78 78 Respiratory 29 H 30 H Rate Blood Pressure 142/83 142/84 143/84 O2 Sat by Pulse 96 96 96 Oximetry 01/09/21 10:00 Temperature Pulse Rate 79 Respiratory 31 H Rate Blood Pressure 153/93 O2 Sat by Pulse 96 Oximetry Constitutional: other (elderly obese male with mildly increased respiratory effort at rest on MVS) Eyes: non-icteric ENT: oropharynx moist, other (ETT 24 cm ASHA) Neck: supple, no lymphadenopathy, no JVD Effort: mildly labored Ascultation: Bilateral: diminished breath sounds, rhonchi Percussion: Bilateral: not dull Cardiovascular: regular rate and rhythm Gastrointestinal: normoactive bowel sounds, soft, non-tender, non-distended Integumentary: erythema (patchy mild) Extremities: no cyanosis, pink and warm, pulses normal, no ischemia or petechiae, edema (trace) Neurologic: pupils equal and round, unable to assess Psychiatric: other (encephalopathic) CBC and BMP: 01/10/21 10:46 01/10/21 10:46 ABG, PT/INR, D-dimer: ABG ABG pH 7.323 (7.320-7.450) 01/09/21 05:02 POC ABG pCO2 33.8 mmHg (32.0-48.0) 01/09/21 05:02 POC ABG pO2 82.7 mmHg (83-108) L 01/09/21 05:02 POC ABG HCO3 17.1 01/09/21 05:02 ABG O2 Saturation 95.8 (0-100) 01/09/21 05:02 PT/INR, D-dimer PT 14.5 Sec. (12.2-14.9) 01/08/21 11:55 INR 1.08 (0.87-1.13) 01/08/21 11:55 D-Dimer 7104.83 ng/mlDDU (0-234) H 01/08/21 14:36 Abnormal lab findings: Abnormal Labs 01/08/21 01/08/21 01/08/21 11:01 11:55 11:55 WBC 23.8 H RBC 3.35 L Hgb 10.5 L Hct 31.6 L MCV RDW 15.6 H Lymph % (Auto) 4.1 L Lymph # (Auto) 1.0 L Young # (Auto) 1.2 H Seg Neutrophils % 90.5 H Seg Neutrophils # 21.5 H APTT D-Dimer ABG pH 7.204 L POC ABG pCO2 50.7 H POC ABG pO2 ABG Hemoglobin 11.9 L ABG Potassium 5.0 H ABG Chloride 110.0 H ABG Glucose 313 H Carboxyhemoglobin 0.1 L Sodium Potassium Chloride Carbon Dioxide BUN Creatinine Glucose Lactic Acid 4.50 H* Calcium Ferritin Direct Bilirubin AST ALT Lactate Dehydrogenase Troponin T C-Reactive Protein NT-Pro-B Natriuret Pep Total Protein Albumin LDL Cholesterol Direct HDL Cholesterol Arterial Blood Glucose 313 H Urine WBC (Auto) 01/08/21 01/08/21 01/08/21 11:55 11:55 13:42 WBC RBC Hgb Hct MCV RDW Lymph % (Auto) Lymph # (Auto) Young # (Auto) Seg Neutrophils % Seg Neutrophils # APTT 23.3 L D-Dimer ABG pH POC ABG pCO2 POC ABG pO2 ABG Hemoglobin ABG Potassium ABG Chloride ABG Glucose Carboxyhemoglobin Sodium Potassium 5.3 H Chloride 107.2 H Carbon Dioxide 21 L BUN 55 H Creatinine 3.9 H Glucose 274 H Lactic Acid 2.90 H* Calcium 7.9 L Ferritin Direct Bilirubin 0.4 H AST 130 H ALT 70 H Lactate Dehydrogenase Troponin T 0.038 H C-Reactive Protein NT-Pro-B Natriuret Pep 1157 H Total Protein 6.0 L Albumin 2.6 L LDL Cholesterol Direct 28 L HDL Cholesterol 24 L Arterial Blood Glucose Urine WBC (Auto) 01/08/21 01/08/21 01/08/21 14:36 14:36 14:36 WBC RBC Hgb Hct MCV RDW Lymph % (Auto) Lymph # (Auto) Young # (Auto) Seg Neutrophils % Seg Neutrophils # APTT D-Dimer 7104.83 H ABG pH POC ABG pCO2 POC ABG pO2 ABG Hemoglobin ABG Potassium ABG Chloride ABG Glucose Carboxyhemoglobin Sodium Potassium Chloride Carbon Dioxide BUN Creatinine Glucose 306 H Lactic Acid Calcium Ferritin 624.8 H Direct Bilirubin AST ALT Lactate Dehydrogenase 535 H Troponin T C-Reactive Protein 25.40 H NT-Pro-B Natriuret Pep Total Protein Albumin LDL Cholesterol Direct HDL Cholesterol Arterial Blood Glucose Urine WBC (Auto) 01/08/21 01/08/21 01/09/21 21:00 Unknown 05:02 WBC RBC Hgb Hct MCV RDW Lymph % (Auto) Lymph # (Auto) Young # (Auto) Seg Neutrophils % Seg Neutrophils # APTT D-Dimer ABG pH POC ABG pCO2 POC ABG pO2 111.6 H 82.7 L ABG Hemoglobin 11.6 L ABG Potassium 4.6 H 4.8 H ABG Chloride 112.0 H 114.0 H ABG Glucose 256 H 283 H Carboxyhemoglobin 0.3 L 0.3 L Sodium Potassium Chloride Carbon Dioxide BUN Creatinine Glucose Lactic Acid Calcium Ferritin Direct Bilirubin AST ALT Lactate Dehydrogenase Troponin T C-Reactive Protein NT-Pro-B Natriuret Pep Total Protein Albumin LDL Cholesterol Direct HDL Cholesterol Arterial Blood Glucose 256 H 283 H Urine WBC (Auto) > 182.0 H 01/09/21 01/09/21 05:18 05:18 WBC 19.0 H RBC Hgb 11.7 L Hct MCV 95 H RDW 16.0 H Lymph % (Auto) Lymph # (Auto) Young # (Auto) Seg Neutrophils % Seg Neutrophils # APTT D-Dimer ABG pH POC ABG pCO2 POC ABG pO2 ABG Hemoglobin ABG Potassium ABG Chloride ABG Glucose Carboxyhemoglobin Sodium 146 H Potassium 5.1 H Chloride 112.0 H Carbon Dioxide 20 L BUN 63 H Creatinine 3.0 H Glucose 282 H Lactic Acid Calcium 8.1 L Ferritin Direct Bilirubin AST ALT Lactate Dehydrogenase Troponin T C-Reactive Protein NT-Pro-B Natriuret Pep Total Protein Albumin LDL Cholesterol Direct HDL Cholesterol Arterial Blood Glucose Urine WBC (Auto) Chest x-ray: image reviewed (perihilar infiltrate) CT scan - chest: image reviewed (poor contrast timing but no gross Pulmonary Emboli) Prior PFT's, U/S of legs: pending Allied health notes reviewed: nursing
[2021-01-09] MEDS: FAMOTIDINE 20 MG/2 ML INJ IV SCH (13:07)
--- NOTE | 2021-01-09 15:17 | Progress Note ---
Assessment and Plan Critical care statement The high probability OF a clinically significant sudden or life-threatening deterioration of the cardiorespiratory system and endocrine system required my full and direct attention, intervention and postoperative management. The aggregate critical care time was 35 minutes. The time is in addition to time spent performing reported procedures but includes the followin: Data review and interpretation 2: Patient assessment and monitoring of vital signs 3: Documentation 4:: Medication orders and management - Patient Problems (1) Acute respiratory failure with hypoxia and hypercapnia Current Visit: Yes Status: Acute Plan to address problem: Patient on vent Patient has history of COPD Patient initiated on duo nebs [id number] and as needed IV Solu-Medrol Vent support Patient Access Director consult requested (2) Cardiac arrest Current Visit: Yes Status: Acute Plan to address problem: S/p cardiac arrest Revived Hypotensive On Levophed at 10 mics Possible septic shock with hypotension Vent support and IV antibiotics (3) Septic shock Current Visit: Yes Status: Acute Plan to address problem: Patient on IV antibiotics and Levophed Patient has bilateral pneumonia Possible aspiration pneumonia Patient initiated on cefepime and vancomycin ID consult requested (4) Bilateral pneumonia Current Visit: Yes Status: Acute Plan to address problem: Differential diagnosis of community-acquired pneumonia/aspiration pneumoni a/Covid pneumonia IV antibiotics and IV steroids for now ID consult requested (5) Urinary tract infection Current Visit: Yes Status: Acute Qualifiers: Urinary tract infection type: acute cystitis Plan to address problem: Patient is on cefepime and vancomycin for the pneumonia Wait for urine cultures (6) Acute kidney injury superimposed on CKD Current Visit: Yes Status: Acute Plan to address problem: Gentle IV hydration for now Nephrology consulted Some improvement in the creatinine from 3.9-3.0 Per nephrology-- Woudl recommend gentle IVF hydration, maintain MAP >65 mmHg. Avoid nephrotoxins. Renal US did not show any acute abnormalities but likely does have evidence of underlying chronic kidney disease. overall renal function is stable this morning and he remains nonoliguric. We will continue to closely monitor. No acute indications for renal replacement therapy at present time. (7) Congestive heart failure Current Visit: Yes Status: Chronic Qualifiers: Heart failure type: combined systolic and diastolic Plan to address problem: We will get echocardiogram for ejection fraction BNP is elevated at 1157 (8) Transaminitis Current Visit: Yes Status: Acute Plan to address problem: Possible secondary to sepsis Check to get hepatitis panel (9) Elevated troponin Current Visit: Yes Status: Acute Plan to address problem: Secondary to cardiac arrest and possible troponin leak We will get CK and CK-MB (10) Person under investigation for COVID-19 Current Visit: Yes Status: Acute Plan to address problem: Coronavirus PCR positive (11) Malnutrition Current Visit: Yes Status: Chronic Qualifiers: Protein-calorie malnutrition severity: mild Plan to address problem: Albumin is 2.7 Dietary supplements once extubated (12) DVT prophylaxis Current Visit: Yes Status: Acute Plan to address problem: On heparin GI prophylaxis Subjective Date of service: 01/09/21 Principal diagnosis: Cardiac Arrest; Ac Hypoxemic Resp Failure; SepticShock; PNA; SHERICE; PUI COVID Interval history: 61-year-old salt[place] male with history of diabetes and sleep apnea called EMS towards generalized weakness. When EMS arrived there was difficulty getting to the patient. Because of too many items in the home. Similar to a Hoarder home. Initially patient was awake and talking confused. Then patient became unresponsive and apneic. ACLS protocol was initiated and chest compressions were initiated oxygen was administered and his own CPAP machine was used. Within the next 10 minutes patient was intubated. EMS was unable to get the patient out of the room through the door so patient was taken out of the home through the window of the room. Patient was found to be in PEA. Patient was intubated by EMS they achieved a return of spontaneous circulation. After a few minutes lost her pulse again and was given amlodipine and was revived. Patient presents to the emergency room with a pulse. It is unclear what has precipitated his cardiac arrest. Patient has only diabetes and sleep apnea. No fever or chills. No exposure to coronavirus. Patient was slightly hypotensive and was initiated on Levophed in the emergency room. Levophed is at 10 mics 01/09/2021 Patient still intubated Weaning in progress Covid positive Objective - Exam Narrative Exam: Patient is intubated - Constitutional Vitals: Vital Signs - 12hr 01/09/21 01/09/21 01/09/21 03:30 04:00 04:30 Temperature 99 F Pulse Rate 83 80 80 Respiratory 28 H 25 H 27 H Rate Blood Pressure 111/69 124/77 126/78 O2 Sat by Pulse 96 97 97 Oximetry 01/09/21 01/09/2121 05:00 05:30 06:00 Temperature Pulse Rate 78 78 83 Respiratory 23 18 19 Rate Blood Pressure 129/79 124/82 118/88 O2 Sat by Pulse 97 96 95 Oximetry 01/09/21 01/09/21 01/09/21 06:30 07:00 07:30 Temperature Pulse Rate 83 80 80 Respiratory 28 H 32 H 29 H Rate Blood Pressure 118/88 136/80 134/78 O2 Sat by Pulse 95 95 96 Oximetry 01/09/21 01/09/21 01/09/21 08:00 08:30 08:56 Temperature Pulse Rate 80 78 80 Respiratory 30 H 27 H Rate Blood Pressure 139/87 141/87 142/83 O2 Sat by Pulse 96 95 96 Oximetry 01/09/21 01/09/21 01/09/21 09:00 09:30 10:00 Temperature Pulse Rate 78 78 79 Respiratory 29 H 30 H 31 H Rate Blood Pressure 142/84 143/84 153/93 O2 Sat by Pulse 96 96 96 Oximetry 01/09/21 01/09/21 01/09/21 10:30 11:00 11:30 Temperature Pulse Rate 78 79 81 Respiratory 22 28 H 24 Rate Blood Pressure 154/90 150/93 145/88 O2 Sat by Pulse 96 96 96 Oximetry 01/09/21 12:55 Temperature Pulse Rate 79 Respiratory Rate Blood Pressure O2 Sat by Pulse 96 Oximetry General appearance: Present: no acute distress, well-nourished - EENT Eyes: PERRL, EOM intact ENT: hearing intact, clear oral mucosa Ears: bilateral: normal - Neck Neck: supple, normal ROM - Respiratory Respiratory effort: normal Respiratory: bilateral: CTA, rhonchi - Breasts Breasts: normal - Cardiovascular Heart rate: 80 Rhythm: regular Heart Sounds: Present: S1 & S2. Absent: gallop, rub Extremities: pulses intact, No edema, normal color, Full ROM - Gastrointestinal General gastrointestinal: Present: soft, non-tender, non-distended, normal bowel sounds - Genitourinary Male genitourinary: normal - Integumentary Integumentary: clear, warm, dry - Musculoskeletal Musculoskeletal: 1, strength equal bilaterally - Neurologic Neurologic: other (Patient sedated) - Psychiatric Psychiatric: other (Patient sedated) - Labs CBC & Chem 7: 01/09/21 05:18 01/09/21 05:18 Labs: Abnormal lab results 01/08/21 01/08/21 01/08/21 Range/Units 14:36 14:36 14:36 WBC (4.5-11.0) K/mm3 Hgb (11.8-15.2) gm/dl MCV (84-94) fl RDW (13.2-15.2) % D-Dimer 7104.83 H (0-234) ng/mlDDU POC ABG pO2 (83-108) mmHg ABG Hemoglobin (12.0-17.5) ABG Potassium (3.40-4.50) mmol/L ABG Chloride (98-107) mmol/L ABG Glucose (65-95) mg/dL Carboxyhemoglobin (0.5-1.5) Sodium (137-145) mmol/L Potassium (3.6-5.0) mmol/L Chloride (98-107) mmol/L Carbon Dioxide (22-30) mmol/L BUN (9-20) mg/dL Creatinine (0.8-1.3) mg/dL Glucose 306 H (75-100) mg/dL POC Glucose (70-105) mg/dL Calcium (8.4-10.2) mg/dL Ferritin 624.8 H (30.0-300.0) ng/mL Lactate Dehydrogenase 535 H (91-180) units/L C-Reactive Protein 25.40 H (0.00-1.30) mg/dL Arterial Blood Glucose (65-95) mg/dL Urine WBC (Auto) (0.0-6.0) /HPF 01/08/21 01/08/21 01/09/21 Range/Units 21:00 Unknown 05:02 WBC (4.5-11.0) K/mm3 Hgb (11.8-15.2) gm/dl MCV (84-94) fl RDW (13.2-15.2) % D-Dimer (0-234) ng/mlDDU POC ABG pO2 111.6 H 82.7 L (83-108) mmHg ABG Hemoglobin 11.6 L (12.0-17.5) ABG Potassium 4.6 H 4.8 H (3.40-4.50) mmol/L ABG Chloride 112.0 H 114.0 H (98-107) mmol/L ABG Glucose 256 H 283 H (65-95) mg/dL Carboxyhemoglobin 0.3 L 0.3 L (0.5-1.5) Sodium (137-145) mmol/L Potassium (3.6-5.0) mmol/L Chloride (98-107) mmol/L Carbon Dioxide (22-30) mmol/L BUN (9-20) mg/dL Creatinine (0.8-1.3) mg/dL Glucose (75-100) mg/dL POC Glucose (70-105) mg/dL Calcium (8.4-10.2) mg/dL Ferritin (30.0-300.0) ng/mL Lactate Dehydrogenase (91-180) units/L C-Reactive Protein (0.00-1.30) mg/dL Arterial Blood Glucose 256 H 283 H (65-95) mg/dL Urine WBC (Auto) > 182.0 H (0.0-6.0) /HPF 01/09/21 01/09/21 01/09/21 Range/Units 05:18 05:18 13:24 WBC 19.0 H (4.5-11.0) K/mm3 Hgb 11.7 L (11.8-15.2) gm/dl MCV 95 H (84-94) fl RDW 16.0 H (13.2-15.2) % D-Dimer (0-234) ng/mlDDU POC ABG pO2 (83-108) mmHg ABG Hemoglobin (12.0-17.5) ABG Potassium (3.40-4.50) mmol/L ABG Chloride (98-107) mmol/L ABG Glucose (65-95) mg/dL Carboxyhemoglobin (0.5-1.5) Sodium 146 H (137-145) mmol/L Potassium 5.1 H (3.6-5.0) mmol/L Chloride 112.0 H (98-107) mmol/L Carbon Dioxide 20 L (22-30) mmol/L BUN 63 H (9-20) mg/dL Creatinine 3.0 H (0.8-1.3) mg/dL Glucose 282 H (75-100) mg/dL POC Glucose 282 H (70-105) mg/dL Calcium 8.1 L (8.4-10.2) mg/dL Ferritin (30.0-300.0) ng/mL Lactate Dehydrogenase (91-180) units/L C-Reactive Protein (0.00-1.30) mg/dL Arterial Blood Glucose (65-95) mg/dL Urine WBC (Auto) (0.0-6.0) /HPF HEART Score - HEART Score Age: 45-65 Risk factors: 1-2 risk factors Troponin: Troponin T 0.017 ng/mL (0.00-0.029) 01/09/21 05:18 - Critical Actions Critical Actions: 4-6 pts:12-16.6% risk of adverse cardiac event. Should be admitted
--- NOTE | 2021-01-09 15:41 | Progress Note ---
Assessment and Plan Cardiac arrest PEA with ROSC * Post arrest twelve-lead shows sinus tach 106 with no acute ischemic changes. Continue to monitor on telemetry * Troponin mildly elevated 0.03->0.017 subacute nonspecific. Continue to trend CE's. * Echocardiogram is pending Elevated D-dimer * CTA chest is negative for PTE Acute respiratory failure secondary to suspected sepsis * Currently on vancomycin * Intubated on ventilatory support * Cultures are pending DVT prophylaxis * Management per primary team Echocardiogram is pending. Continue to trend CE's. Will follow This patient was seen in conjunction with Dr Ines Liz who agrees with this assessment and plan of care - Patient Problems (1) Acute respiratory failure with hypoxia and hypercapnia Current Visit: Yes Status: Acute (2) Cardiac arrest Current Visit: Yes Status: Acute (3) DVT prophylaxis Current Visit: Yes Status: Acute (4) Elevated d-dimer Current Visit: Yes Status: Acute (5) Elevated troponin Current Visit: Yes Status: Acute (6) Person under investigation for COVID-19 Current Visit: Yes Status: Acute (7) Sepsis Current Visit: Yes Status: Acute (8) Osteomyelitis of great toe of left foot Current Visit: Yes Status: Chronic Subjective Date of service: 01/09/21 Principal diagnosis: Cardiac Arrest; Ac Hypoxemic Resp Failure; SepticShock; PNA; SHERICE; PUI COVID Interval history: Patient intubated Objective Last Vital Signs Temp 99 F 01/09/21 03:30 Pulse 79 01/09/21 15:00 Resp 30 H 01/09/21 15:00 BP 145/87 01/09/21 15:00 Pulse Ox 96 01/09/21 15:00 - Physical Examination General: Other (intubated) HEENT: Positive: Normocephaly, Mucus Membranes Moist Neck: Positive: neck supple Cardiac: Positive: Reg Rate and Rhythm Lungs: Positive: Ventilated Respirations Neuro: Positive: Other (Intubated unresponsive) Abdomen: Positive: Unremarkable, Soft Skin: Positive: Wound (Left toe osteomyelitis). Negative: Rash Musculoskeletal: other (Intubated) Extremities: Present: upper extr. pulses, lower extr. pulses. Absent: edema - Labs and Meds CBC 01/09/21 Range/Units 05:18 WBC 19.0 H (4.5-11.0) K/mm3 RBC 3.77 (3.65-5.03) M/mm3 Hgb 11.7 L (11.8-15.2) gm/dl Hct 35.9 (35.5-45.6) % Plt Count 274 (140-440) K/mm3 Comprehensive Metabolic Panel 01/09/21 Range/Units 05:18 Sodium 146 H (137-145) mmol/L Potassium 5.1 H (3.6-5.0) mmol/L Chloride 112.0 H (98-107) mmol/L Carbon Dioxide 20 L (22-30) mmol/L BUN 63 H (9-20) mg/dL Creatinine 3.0 H (0.8-1.3) mg/dL Glucose 282 H (75-100) mg/dL Calcium 8.1 L (8.4-10.2) mg/dL - Imaging and Cardiology EKG: report reviewed (Sinus tachycardia no acute ST-T wave changes) Echo: pending, report reviewed (Echocardiogram 2017 reported EF 60 to 65%) - Telemetry EKG Rhythm: Sinus Rhythm - EKG Sinus rhythms and dysrhythmias: sinus rhythm - Allied health notes Allied health notes reviewed: nursing
--- NOTE | 2021-01-09 16:03 | Progress Note ---
Assessment and Plan - Patient Problems (1) Acute renal failure Current Visit: Yes Status: Acute Plan to address problem: Agree with current regimen. Woudl recommend gentle IVF hydration, maintain MAP >65 mmHg. Avoid nephrotoxins. Renal US did not show any acute abnormalities but likely does have evidence of underlying chronic kidney disease. overall renal function is stable this morning and he remains nonoliguric. We will continue to closely monitor. No acute indications for renal replacement therapy at present time. (2) Cardiac arrest Current Visit: Yes Status: Acute Plan to address problem: Management and further recommendation per cardiology. (3) Elevated d-dimer Current Visit: Yes Status: Acute Plan to address problem: Likely in the setting of pneumonia. His CTA dhest did not show any evidence of PE. being ruled out for COVID-19 pneumonia at this time. (4) Pneumonia Current Visit: Yes Status: Acute Plan to address problem: Please titrate antibiotics accordingly based on diminished renal function. (5) Diabetes mellitus type 2 in obese Current Visit: Yes Status: Chronic Plan to address problem: DM management per primary attending. Subjective Date of service: 01/09/21 Principal diagnosis: Cardiac Arrest; Ac Hypoxemic Resp Failure; SepticShock; PNA; SHERICE; PUI COVID Interval history: no acute changes overnight. Remains intubated and on pressor support with levophed. blood cultures are showing gram-positive cocci in clusters and are pending sp eciation at this time. Objective - Vital Signs Vital signs: Vital Signs - 12hr 01/09/21 01/09/21 01/09/21 04:30 05:00 05:30 Pulse Rate 80 78 78 Respiratory 27 H 23 18 Rate Blood Pressure 126/78 129/79 124/82 O2 Sat by Pulse 97 97 96 Oximetry 01/09/21 01/09/21 01/09/21 06:00 06:30 07:00 Pulse Rate 83 83 80 Respiratory 19 28 H 32 H Rate Blood Pressure 118/88 118/88 136/80 O2 Sat by Pulse 95 95 95 Oximetry 01/09/21 01/09/21 01/09/21 07:30 08:00 08:30 Pulse Rate 80 80 78 Respiratory 29 H 30 H 27 H Rate Blood Pressure 134/78 139/87 141/87 O2 Sat by Pulse 96 96 95 Oximetry 01/09/21 01/09/21 01/09/21 08:56 09:00 09:30 Pulse Rate 80 78 78 Respiratory 29 H 30 H Rate Blood Pressure 142/83 142/84 143/84 O2 Sat by Pulse 96 96 96 Oximetry 01/09/21 01/09/21 01/09/21 10:00 10:30 11:00 Pulse Rate 79 78 79 Respiratory 31 H 22 28 H Rate Blood Pressure 153/93 154/90 150/93 O2 Sat by Pulse 96 96 96 Oximetry 01/09/21 01/09/21 01/09/21 11:30 12:00 12:30 Pulse Rate 81 79 81 Respiratory 24 26 H 22 Rate Blood Pressure 145/88 143/89 145/93 O2 Sat by Pulse 96 96 96 Oximetry 01/09/21 01/09/21 01/09/21 12:55 13:00 13:30 Pulse Rate 79 78 79 Respiratory 27 H 28 H Rate Blood Pressure 143/87 145/90 O2 Sat by Pulse 96 97 96 Oximetry 01/09/21 01/09/21 01/09/21 14:00 14:30 15:00 Pulse Rate 81 79 79 Respiratory 29 H 22 30 H Rate Blood Pressure 147/88 145/88 145/87 O2 Sat by Pulse 97 96 96 Oximetry 01/09/21 15:47 Pulse Rate 81 Respiratory 6 L Rate Blood Pressure O2 Sat by Pulse 96 Oximetry - General Appearance General appearance: obese, chronically ill, intubated EENT: ATNC Neck: no JVD Respiratory: Present: Decreased Breath Sounds Cardiology: regular Gastrointestinal: normal Musculoskeletal: deferred - Lab 01/09/21 05:18 01/09/21 05:18 Most recent lab results ABG pH 7.323 (7.320-7.450) 01/09/21 05:02 ABG O2 Saturation 95.8 (0-100) 01/09/21 05:02 Calcium 8.1 mg/dL (8.4-10.2) L 01/09/21 05:18 Medications & Allergies - Medications Allergies/Adverse Reactions: Allergies No Known Allergies Allergy (Verified 01/09/21 10:10) Active Medications: Generic Name Dose Route Start Last Admin Trade Name Freq PRN Reason Stop Dose Admin Albuterol 2.5 mg 01/08/21 20:23 Albuterol 2.5 Mg/3 Ml Nebu IH Q3HRT PRN Shortness Of Breath Albuterol/Ipratropium 1 ampul 08/02/21 20:00 Ipratropium/Albuterol Sulfate 3 Ml Ampul.Neb IH QIDRT MARBELLA Famotidine 20 mg 01/09/21 10:00 01/09/21 13:07 Famotidine 20 Mg/2 Ml Inj IV 20 mg DAILY MARBELLA Administration Hydrophilic Ointment 1 applic 01/08/21 16:00 Lip Therapy Vaseline TP Q2HR PRN Dry Lips Propofol 1,000 mg in 100 mls @ 4.082 mls/hr 01/08/21 16:00 01/09/21 15:16 Diprivan 10 Mg/Ml IV 10 mcg/kg/min TITR MARBELLA 8.165 mls/hr Titration Protocol 5 MCG/KG/MIN Norepinephrine 4 mg in 250 mls @ 75 mls/hr 01/08/21 11:28 01/09/21 15:14 Levophed Drip 4 Mg/Ns 250 Ml IV Infused TITR MARBELLA Titration Protocol 20 MCG/MIN Cefepime HCl 1 gm in 100 mls @ 200 mls/hr 01/09/21 18:00 Cefepime/Ns 1 Gm/100 Ml IV QPM MARBELLA Protocol Insulin Human Lispro 0 unit 01/09/21 12:00 Insulin Lispro 100 Unit/Ml SUB-Q Q6HR [facility] Protocol Methylprednisolone Sodium Succinate 80 mg 01/08/21 22:00 01/09/21 13:08 Methylprednisolone Sod Succinate 125 Mg/2 Ml Inj IV 80 mg Q8HR MARBELLA Administration Multi-Ingred Cream/Lotion/Oil/Oint 1 applic 01/08/21 18:00 Mineral Oil/Petrolatum, White Ophth Oint 3.5 Gm OU Q4HR PRN Dry Eye(s) Senna/Docusate Sodium 1 tab 01/08/21 22:00 01/08/21 22:29 Sennosides/Docusate Sodium 8.6/50 Mg Tab FEEDTUBE 1 tab BID MARBELLA Administration Sodium Chloride 5 ml 01/08/21 15:18 Sodium Chloride 0.9% 500 Ml Ivpb IV DIRECT PRN [employer]
--- NOTE | 2021-01-09 18:02 | Consultation ---
DATE OF CONSULTATION: 01/08/2021 PULMONARY CRITICAL CARE CONSULT NOTE CONSULTING PHYSICIAN: Dr. Parham, Emergency Room physician. REASON FOR CONSULTATION: Cardiac arrest with return of spontaneous circulation; acute hypoxemic respiratory failure, on mechanical ventilator. CHIEF COMPLAINT/HISTORY OF PRESENT ILLNESS: As follows: The patient is a now 60-year-old obese male with past medical history significant amongst other things for a diagnosis of obstructive sleep apnea, who was brought in to the Emergency Room following a cardiac arrest. According to the records, EMS was called to the patient's house because he had been having some generalized weakness. Family had been having difficulty trying to get the patient to the hospital. There was a lot of furniture and household items that made it difficult for emergency medical services to get to the house. When they got there, the patient was initially awake and talking. He then became unresponsive, became apneic. CPR was started. Oxygen was administered via the patient's own CPAP machine that was about 10-minute time elapse before he was intubated and given medications due to the patient's location in the home. They were actually only able to get the patient out of the house through a window. He was found to be in PEA. He was intubated by EMS. He received one round of epinephrine. There was return of spontaneous circulation. He lost his pulse again, another round of CPR and epinephrine was given. Accu-Cheks showed blood sugars in the 250s. When he got to the Emergency Room, he had a pulse. He was stabilized, placed on mechanical ventilator. We are asked to assist with management. When I stopped by to see him, he was resting in bed. He was having intermittent myoclonic-type jerks to the right side of the face and body. I do not have any history of vomiting or overt aspiration. I do not see any food particles around his mouth. With regard to the patient's tobacco use/abuse history, that history is unknown. The above is much of the history of presentation as I have. PAST MEDICAL HISTORY: Diabetes, obstructive sleep apnea. He is morbidly obese. PAST SURGICAL HISTORY: Unknown. MEDICATIONS: He was on at the time I stopped by to see him, according to the medication administration record included the following: He was actually at the time I saw him on epinephrine drip. I believe he was going around 16 mcg/min. ALLERGIES: No known drug allergies. DIET: Morbidly obese gentleman, acute weight loss or gain history is unknown. SOCIAL HISTORY: Lives in the community. Alcohol, tobacco or illicit drug use/abuse history unknown. FAMILY HISTORY: Otherwise unknown. REVIEW OF SYSTEMS: Unobtainable secondary to the patient's medical and mental condition. Since he has been in the Emergency Room, no gross hematochezia or melena, no gross hematuria, no hematemesis, no bloody tracheal secretions, no witnessed grand mal seizures. Review of systems otherwise unobtainable or as in body of history above. PHYSICAL EXAMINATION: VITAL SIGNS: Initial temperature 99.3 degrees Fahrenheit, pulse was 64, respiratory rate was 23, blood pressure was 150/65, O2 sats were 93%. When I saw him, he was on the assist control mode of ventilation, tidal volume 450, rate of 20, PEEP of 10 on 100% FiO2. GENERAL: He is a morbidly obese male. Normocephalic, atraumatic, resting on the mechanical ventilator with mildly increased respiratory effort at rest. HEAD, EYES, EARS, NOSE AND THROAT: Anicteric. No conjunctival erythema. Oropharynx was moist. ET tube was taped at the lips around 24 cm. NECK: He has a large neck circumference. No gross jugular venous distention, no thyromegaly. Grossly, there were no palpable lymph nodes in the supraclavicular or submandibular lymph node chains. LUNGS: Auscultation of both lung barone significant mostly for good bilateral breath sounds. Occasional rhonchi/referred upper airway sounds, no wheezing. HEART: Heart sounds 1 and 2 are heard at the time of my evaluation, regular rate and rhythm without overt rubs or murmurs. ABDOMEN: Soft, full, protuberant. Bowel sounds are positive, nontender, no palpable hepatosplenomegaly. EXTREMITIES: Without overt digital clubbing, no cyanosis, no pedal edema. His left great toe was swollen and fluctuant. No actual pus drainage. Pedal pulses were 2+ bilaterally. NEUROLOGIC: Pupils were equal, about 1-2 mm, sluggishly reactive to light. Extraocular muscle movements could not be assessed. He had intermittent myoclonic-type jerks to his upper body and right side. He was not following commands. He did not have spontaneous movements to his extremities otherwise. SKIN: Normal turgor in the areas examined without overt cellulitis or rash. Please see the wound care nurses' notes for full description of his skin. PSYCHIATRIC: Mood and affect could not be assessed. LABORATORY DATA: From my review: White cell count 23,800, hemoglobin 10.5, hematocrit 31.6, platelet count 224. No manual differential. INR 1.08. D-dimer 7104. Arterial blood gas showed a pH of 7.20, pCO2 of 51, pO2 of 94 on the above-mentioned vent settings. Serum sodium was 143, potassium 5.3, chloride 107, bicarbonate 21. BUN 55, creatinine 3.9. Glucose was 274. Lactic acid level on presentation was 4.5, down to 2.9 now. Ferritin 625. AST was 130, ALT was 70. Troponin 0.038. BNP was elevated. Albumin was low at 2.6. LDL cholesterol was 28. Urinalysis showed moderate leukocyte esterase with greater than 182 white cells per high-power field. Two sets of blood cultures were no growth to date Chest x-ray has been reviewed. ET tube taped at the time of review showed the ET tube, I believe it was just at the tip of the right mainstem, mild left lower lobe atelectasis. The film is rotated, very difficult to interpret, defibrillator pads obscuring the view, no gross pneumothorax, no gross bony fracture that I can see. X-rays were done of the foot, suggestive of possible osteomyelitis. No radiopaque foreign bodies. A CT scan of the head had been done. Mild microvascular angiopathy without a clear evidence of an acute intracranial bleed. The CTA of the chest had been done and the report was pending, images pending. ASSESSMENT: 1. Cardiac arrest with return of spontaneous circulation. 2. Acute hypoxemic respiratory failure, on mechanical ventilatory support. 3. Severe sepsis with shock. 4. Possible cardiomyopathy with cardiomegaly. 5. History of diabetes. 6. Morbid obesity. 7. Obstructive sleep apnea. 8. Anemia that is normocytic. 9. Leukocytosis. 10. Mixed acidosis, metabolic and hypercapnic and respiratory. 11. Hyperkalemia. 12. Acute kidney injury, possibly on chronic. 13. Oropharyngeal dysphagia. 14. Acute encephalopathy. 15. Non-ST elevation myocardial infarction. 16. Possible seizure activity. 17. Pneumonia. 18. Urinary tract infection. PLAN: I will begin him on Levaquin for sedation, but also for control of the myoclonic-type jerks. Neurology evaluation is certainly appropriate. Oxygen will be weaned to keep sats greater than or equal to above 92%. The patient under investigation for COVID-19. He will remain in empiric, airborne and contact isolation. We will await the COVID PCR test before further interventions with regard to COVID. I note the elevated D-dimer. We will wait on the CT angiogram. For now, I believe DVT prophylaxis, dosage of anticoagulation appropriate. I will hold on full anticoagulation at this point. He certainly is at risk for possible pulmonary embolus or the venous thromboembolic disorder, but also need to make sure that this pneumonia on the chest x-ray is not the reason for his symptoms. Empiric broad spectrum antibiotic therapy including community-acquired pneumonia coverage will be started. I will be adding azithromycin. I believe he has been started on cefepime. I also note the urinary tract infection. The cefepime should certainly cover for that. I will give him one dose of vancomycin. Infectious Disease consultation will be of benefit. Random vancomycin level will be ordered in the morning. Nephrology consult has been placed. Urine electrolytes will be followed. I will defer to the crime prevention worker in terms of azotemia and management of the hyperkalemia at this time. ER doctor had spoken with crime prevention worker. Volume resuscitation will be continued while keeping an eye on the lactic acid levels as well as his blood pressure. Vasopressors will be weaned to keep mean arterial pressures greater than or equal to about 65 mmHg. I will increase the set minute ventilation, increasing the rate to 25 at this point to try and improve the acidosis, down the CO2. Nonetheless, I will repeat the arterial blood gas later in the evening of my seeing him after about 6 hours and adjust, address as necessary. Enteral nutrition will be the feeding modality of choice. He is on GI prophylaxis with Pepcid. Now, he will be placed on DVT prophylaxis. Flu and pneumonia vaccination will be addressed per protocol. Thank you very much for the consult. We will follow along and make further recommendations as picture progresses/becomes clearer. He is critically ill on life-sustaining interventions including mechanical ventilatory support and vasopressors at very high risk of from cardiopulmonary system and renal system decompensation. At this time, I spent about 40 minutes of critical care time without overlap and excluding any procedural time that may be necessary. Of note, he also has a right femoral central line that was earlier placed. We will try and wean him off pressors and if he is still needing that line in the next 24-48 hours, it will be repositioned to reduce the risk of infection. I then spent about 40 minutes of critical care time without overlap and excluding any procedural time that may be necessary. TID: [id number] RECEIPT: [id number] PRETTY/TUNDE/MARILUZ
--- NOTE | 2021-01-09 18:06 | Electrocardiograph Report ---
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
[2021-01-09] MEDS: IPRATROPIUM/ALBUTEROL SULFATE 3 ML AMPUL.NEB IH SCH ×3 (19:30→23:13)
[2021-01-09] MEDS: INSULIN LISPRO 100 UNIT/ML SUB-Q SCH ×2 (20:16→23:57)
[2021-01-09] MEDS: CEFEPIME/NS 1 GM/100 ML 1 GM/100 ML BAG IV SCH (20:17)
[2021-01-09] MEDS: NORepinephrine/NS 4 MG-250 ML 4 MG/250 ML BAG IV SCH (21:45)
[2021-01-09] MEDS: SENNOSIDES/DOCUSATE SODIUM 8.6/50 MG TAB FEEDTUBE SCH (22:38)
--- NOTE | 2021-01-10 05:20 | XRay Report ---
CHEST 1 VIEW 01/10/2021 4:14 AM INDICATION / CLINICAL INFORMATION: follow up respiratory failure. COMPARISON: 01/09/21 FINDINGS: SUPPORT DEVICES: Unchanged. HEART / MEDIASTINUM: Stable. LUNGS / PLEURA: Bilateral pulmonary opacities are unchanged. No pneumothorax. ADDITIONAL FINDINGS: No significant additional findings. IMPRESSION: 1. No significant change. Signer Name: Abdoulaye Rene MD Signed: 01/10/2021 5:15 AM Workstation Name: [id number]
[2021-01-10] MEDS: methylPREDNISolone Sod Succinate 125 MG/2 ML INJ IV SCH ×2 (05:32→08:34)
[2021-01-10] MEDS: INSULIN LISPRO 100 UNIT/ML SUB-Q SCH ×4 (05:44→19:00)
[2021-01-10] MEDS: IPRATROPIUM/ALBUTEROL SULFATE 3 ML AMPUL.NEB IH SCH ×4 (07:55→19:34)
--- NOTE | 2021-01-10 07:56 | Progress Note ---
Assessment and Plan Critical care statement The high probability OF a clinically significant sudden or life-threatening deterioration of the cardiorespiratory system and endocrine system required my full and direct attention, intervention and postoperative management. The aggregate critical care time was 35 minutes. The time is in addition to time spent performing reported procedures but includes the followin: Data review and interpretation 2: Patient assessment and monitoring of vital signs 3: Documentation 4:: Medication orders and management - Patient Problems (1) Acute respiratory failure with hypoxia and hypercapnia Current Visit: Yes Status: Acute Plan to address problem: Patient on vent Patient has history of COPD Patient initiated on duo nebs [id number] and as needed IV Solu-Medrol Vent support Manager Paid consult requested (2) Cardiac arrest Current Visit: Yes Status: Acute Plan to address problem: S/p cardiac arrest Revived Hypotensive On Levophed at 10 mics Possible septic shock with hypotension Vent support and IV antibiotics (3) Septic shock Current Visit: Yes Status: Acute Plan to address problem: Patient on IV antibiotics and Levophed Patient has bilateral pneumonia Possible aspiration pneumonia Patient initiated on cefepime and vancomycin ID consult requested (4) Bilateral pneumonia Current Visit: Yes Status: Acute Plan to address problem: Differential diagnosis of community-acquired pneumonia/aspiration pneumoni a/Covid pneumonia IV antibiotics and IV steroids for now ID consult requested (5) Urinary tract infection Current Visit: Yes Status: Acute Qualifiers: Urinary tract infection type: acute cystitis Plan to address problem: Patient is on cefepime and vancomycin for the pneumonia Wait for urine cultures (6) Acute kidney injury superimposed on CKD Current Visit: Yes Status: Acute Plan to address problem: Gentle IV hydration for now Nephrology consulted Some improvement in the creatinine from 3.9-3.0 Per nephrology-- Woudl recommend gentle IVF hydration, maintain MAP >65 mmHg. Avoid nephrotoxins. Renal US did not show any acute abnormalities but likely does have evidence of underlying chronic kidney disease. overall renal function is stable this morning and he remains nonoliguric. We will continue to closely monitor. No acute indications for renal replacement therapy at present time. (7) Congestive heart failure Current Visit: Yes Status: Chronic Qualifiers: Heart failure type: combined systolic and diastolic Plan to address problem: We will get echocardiogram for ejection fraction BNP is elevated at 1157 (8) Transaminitis Current Visit: Yes Status: Acute Plan to address problem: Possible secondary to sepsis Check to get hepatitis panel (9) Elevated troponin Current Visit: Yes Status: Acute Plan to address problem: Secondary to cardiac arrest and possible troponin leak We will get CK and CK-MB (10) Person under investigation for COVID-19 Current Visit: Yes Status: Acute Plan to address problem: Coronavirus PCR positive (11) Malnutrition Current Visit: Yes Status: Chronic Qualifiers: Protein-calorie malnutrition severity: mild Plan to address problem: Albumin is 2.7 Dietary supplements once extubated (12) DVT prophylaxis Current Visit: Yes Status: Acute Plan to address problem: On heparin GI prophylaxis Subjective Date of service: 01/10/21 Principal diagnosis: Cardiac Arrest; Ac Hypoxemic Resp Failure; SepticShock; PNA; SHERICE; PUI COVID Interval history: 61-year-old salt[place] male with history of diabetes and sleep apnea called EMS towards generalized weakness. When EMS arrived there was difficulty getting to the patient. Because of too many items in the home. Similar to a Hoarder home. Initially patient was awake and talking confused. Then patient became unresponsive and apneic. ACLS protocol was initiated and chest compressions were initiated oxygen was administered and his own CPAP machine was used. Within the next 10 minutes patient was intubated. EMS was unable to get the patient out of the room through the door so patient was taken out of the home through the window of the room. Patient was found to be in PEA. Patient was intubated by EMS they achieved a return of spontaneous circulation. After a few minutes lost her pulse again and was given amlodipine and was revived. Patient presents to the emergency room with a pulse. It is unclear what has precipitated his cardiac arrest. Patient has only diabetes and sleep apnea. No fever or chills. No exposure to coronavirus. Patient was slightly hypotensive and was initiated on Levophed in the emergency room. Levophed is at 10 mics 01/09/2021 Patient still intubated Weaning in progress Covid positive 01/10/2021 Covid positive Objective - Exam Narrative Exam: Patient is intubated - Constitutional Vitals: Vital Signs - 12hr 01/09/21 01/09/21 01/09/21 20:00 21:32 21:51 Temperature 0 F L Pulse Rate 87 90 Respiratory 25 H 25 H Rate Blood Pressure 127/71 Blood Pressure 130/78 [Right] O2 Sat by Pulse 94 90 Oximetry 01/09/21 01/09/21 01/09/21 21:52 22:06 22:15 Temperature 100.0 F H Pulse Rate 93 H 92 H Respiratory 25 H 25 H Rate Blood Pressure 126/72 Blood Pressure [Right] O2 Sat by Pulse 91 91 Oximetry 01/09/21 01/09/21 01/09/21 22:20 22:30 22:45 Temperature Pulse Rate 91 H 91 H 91 H Respiratory 25 H 26 H 25 H Rate Blood Pressure 127/71 121/72 125/74 Blood Pressure [Right] O2 Sat by Pulse 92 92 96 Oximetry 01/09/21 01/09/21 01/09/21 23:00 23:15 23:30 Temperature Pulse Rate 91 H 90 91 H Respiratory 25 H 26 H 25 H Rate Blood Pressure 124/72 126/71 126/73 Blood Pressure [Right] O2 Sat by Pulse 91 91 92 Oximetry 01/09/21 01/09/21 01/10/21 23:45 23:46 00:00 Temperature 100.2 F H Pulse Rate 91 H 93 H Respiratory 25 H 25 H Rate Blood Pressure 122/73 123/74 Blood Pressure [Right] O2 Sat by Pulse 92 95 Oximetry 01/10/21 01/10/21 01/10/21 00:15 00:30 00:45 Temperature Pulse Rate 92 H 92 H 93 H Respiratory 26 H 25 H 27 H Rate Blood Pressure 125/74 129/74 127/73 Blood Pressure [Right] O2 Sat by Pulse 92 93 92 Oximetry 01/10/21 01/10/21 01/10/21 01:00 01:15 01:30 Temperature Pulse Rate 93 H 93 H 92 H Respiratory 27 H 25 H 26 H Rate Blood Pressure 128/75 127/74 125/74 Blood Pressure [Right] O2 Sat by Pulse 92 92 92 Oximetry 01/10/21 01/10/21 01/10/21 01:45 02:00 02:15 Temperature Pulse Rate 94 H 93 H 94 H Respiratory 26 H 26 H 27 H Rate Blood Pressure 130/77 126/76 133/75 Blood Pressure [Right] O2 Sat by Pulse 92 92 93 Oximetry 01/10/21 01/10/21 01/10/21 02:30 02:45 03:00 Temperature Pulse Rate 100 H 100 H 101 H Respiratory 28 H 27 H 29 H Rate Blood Pressure 121/69 124/73 121/72 Blood Pressure [Right] O2 Sat by Pulse 91 92 Oximetry 01/10/21 01/10/21 01/10/21 03:15 03:30 03:44 Temperature Pulse Rate 102 H 101 H 94 H Respiratory 26 H 29 H Rate Blood Pressure 126/74 128/71 Blood Pressure [Right] O2 Sat by Pulse 92 Oximetry 01/10/21 01/10/21 01/10/21 03:45 04:00 04:15 Temperature 100.2 F H Pulse Rate 101 H 101 H 100 H Respiratory 29 H 29 H 30 H Rate Blood Pressure 123/74 123/73 125/75 Blood Pressure [Right] O2 Sat by Pulse 94 93 93 Oximetry 01/10/21 01/10/21 01/10/21 04:30 04:45 05:00 Temperature Pulse Rate 101 H 99 H 100 H Respiratory 30 H 30 H 29 H Rate Blood Pressure 119/73 123/71 121/73 Blood Pressure [Right] O2 Sat by Pulse 92 93 94 Oximetry 01/10/21 01/10/21 01/10/21 05:15 05:30 05:45 Temperature Pulse Rate 99 H 99 H 106 H Respiratory 29 H 30 H 31 H Rate Blood Pressure 118/71 121/73 118/66 Blood Pressure [Right] O2 Sat by Pulse 92 92 Oximetry 01/10/21 01/10/21 01/10/21 06:00 06:15 06:30 Temperature Pulse Rate 106 H 105 H 106 H Respiratory 29 H 31 H 32 H Rate Blood Pressure 109/66 116/65 116/65 Blood Pressure [Right] O2 Sat by Pulse 93 95 92 Oximetry General appearance: Present: no acute distress, well-nourished - EENT Eyes: PERRL, EOM intact ENT: hearing intact, clear oral mucosa Ears: bilateral: normal - Neck Neck: supple, normal ROM - Respiratory Respiratory effort: normal Respiratory: bilateral: CTA - Breasts Breasts: normal - Cardiovascular Heart rate: 78 Rhythm: regular Heart Sounds: Present: S1 & S2. Absent: gallop, rub Extremities: pulses intact, No edema, normal color, Full ROM - Gastrointestinal General gastrointestinal: Present: soft, non-tender, non-distended, normal bowel sounds - Genitourinary Male genitourinary: normal - Integumentary Integumentary: clear, warm, dry - Musculoskeletal Musculoskeletal: generalized weakness - Neurologic Neurologic: other (Sedated) - Psychiatric Psychiatric: other (Sedated) - Labs CBC & Chem 7: 01/09/21 05:18 01/09/21 05:18 Labs: Abnormal lab results 01/08/21 01/09/21 01/09/21 Range/Units Unknown 13:24 20:05 POC ABG pO2 (83-108) mmHg ABG Oxyhemoglobin (94-98) ABG Sodium (136.0-145.0) mmol/L ABG Potassium (3.40-4.50) mmol/L ABG Chloride (98-107) mmol/L ABG Glucose (65-95) mg/dL Carboxyhemoglobin (0.5-1.5) POC Glucose 282 H 317 H (70-105) mg/dL Arterial Blood Glucose (65-95) mg/dL Coronavirus (PCR) Positive A (Negative) 01/09/21 01/10/21 01/10/21 Range/Units 23:24 02:56 05:31 POC ABG pO2 73.8 L (83-108) mmHg ABG Oxyhemoglobin 93.5 L (94-98) ABG Sodium 149.1 H (136.0-145.0) mmol/L ABG Potassium 4.6 H (3.40-4.50) mmol/L ABG Chloride 119.0 H (98-107) mmol/L ABG Glucose 311 H (65-95) mg/dL Carboxyhemoglobin 0.4 L (0.5-1.5) POC Glucose 325 H 278 H (70-105) mg/dL Arterial Blood Glucose 311 H (65-95) mg/dL Coronavirus (PCR) (Negative) HEART Score - HEART Score Age: 45-65 Risk factors: 1-2 risk factors Troponin: Troponin T 0.017 ng/mL (0.00-0.029) 01/09/21 05:18 - Critical Actions Critical Actions: 4-6 pts:12-16.6% risk of adverse cardiac event. Should be admitted
[2021-01-10] MEDS: SENNOSIDES/DOCUSATE SODIUM 8.6/50 MG TAB FEEDTUBE SCH ×3 (08:33→21:05)
[2021-01-10] MEDS: ACETAMINOPHEN 325 MG/10.15 ML ORAL LIQD UNIT DOSE FEEDTUBE PRN (09:32)
[2021-01-10] MEDS: dexAMETHasone 4 MG/ML VIAL IV SCH (09:35)
[2021-01-10] MEDS: FAMOTIDINE 20 MG/2 ML INJ IV SCH (09:36)
[2021-01-10] MEDS ORDERED: INSULIN GLARGINE 100 UNITS/ML SUB-Q SCH (10:00)
--- NOTE | 2021-01-10 10:53 | Progress Note ---
Assessment and Plan - Patient Problems (1) Acute renal failure Current Visit: Yes Status: Acute Plan to address problem: Agree with current regimen. Avoid nephrotoxins. Renal US did not show any acute abnormalities but likely does have evidence of underlying chronic kidney disease. overall renal function is stable this morning and he remains nonoliguric. We will continue to closely monitor. No acute indications for renal replacement therapy at present time. Pending AM labs today. (2) Cardiac arrest Current Visit: Yes Status: Acute Plan to address problem: Management and further recommendation per cardiology. (3) Elevated d-dimer Current Visit: Yes Status: Acute Plan to address problem: Likely in the setting of pneumonia. His CTA dhest did not show any evidence of PE. being ruled out for COVID-19 pneumonia at this time. (4) Pneumonia Current Visit: Yes Status: Acute Plan to address problem: Please titrate antibiotics accordingly based on diminished renal function. (5) Diabetes mellitus type 2 in obese Current Visit: Yes Status: Chronic Plan to address problem: DM management per primary attending. (6) Pneumonia due to COVID-19 virus Current Visit: Yes Status: Acute Plan to address problem: Treatment per primary team/ID recommendations. (7) Gram-positive bacteremia Current Visit: Yes Status: Acute Plan to address problem: Currently receiving cefepime. Please ensure that antibiotics are dosed based on diminished renal function. Subjective Date of service: 01/10/21 Principal diagnosis: Cardiac Arrest; Ac Hypoxemic Resp Failure; SepticShock; PNA; SHERICE; PUI COVID Interval history: Now has been weaned off pressor support. Remains intubated, FiO2 75%. No acute changes per nursing staff. COVID-19 (+). has penn catheter, and per documentation he has remains non-oliguric over the last 24 hours. Pending am labs. Objective - Exam Narrative Exam: Patient not directly examined in order to preserve PPE and reduce transmission risk of COVID-19. Physical examination by primary team reviewed. - Vital Signs Vital signs: Vital Signs - 12hr 01/09/21 01/09/21 01/09/21 23:00 23:15 23:30 Temperature Pulse Rate 91 H 90 91 H Pulse Rate [ Bilateral Throughout] Respiratory 25 H 26 H 25 H Rate Respiratory Rate [Bilateral Throughout] Blood Pressure 124/72 126/71 126/73 O2 Sat by Pulse 91 91 92 Oximetry 0801/09/21 01/10/21 23:45 23:46 00:00 Temperature 100.2 F H Pulse Rate 91 H 93 H Pulse Rate [ Bilateral Throughout] Respiratory 25 H 25 H Rate Respiratory Rate [Bilateral Throughout] Blood Pressure 122/73 123/74 O2 Sat by Pulse 92 95 Oximetry 01/10/21 01/10/21 01/10/21 00:15 00:30 00:45 Temperature Pulse Rate 92 H 92 H 93 H Pulse Rate [ Bilateral Throughout] Respiratory 26 H 25 H 27 H Rate Respiratory Rate [Bilateral Throughout] Blood Pressure 125/74 129/74 127/73 O2 Sat by Pulse 92 93 92 Oximetry 01/10/21 01/10/21 01/10/21 01:00 01:15 01:30 Temperature Pulse Rate 93 H 93 H 92 H Pulse Rate [ Bilateral Throughout] Respiratory 27 H 25 H 26 H Rate Respiratory Rate [Bilateral Throughout] Blood Pressure 128/75 127/74 125/74 O2 Sat by Pulse 92 92 92 Oximetry 01/10/21 01/10/21 01/10/21 01:45 02:00 02:15 Temperature Pulse Rate 94 H 93 H 94 H Pulse Rate [ Bilateral Throughout] Respiratory 26 H 26 H 27 H Rate Respiratory Rate [Bilateral Throughout] Blood Pressure 130/77 126/76 133/75 O2 Sat by Pulse 92 92 93 Oximetry 01/10/21 01/10/21 01/10/21 02:30 02:45 03:00 Temperature Pulse Rate 100 H 100 H 101 H Pulse Rate [ Bilateral Throughout] Respiratory 28 H 27 H 29 H Rate Respiratory Rate [Bilateral Throughout] Blood Pressure 121/69 124/73 121/72 O2 Sat by Pulse 91 92 Oximetry 01/10/21 01/10/21 01/10/21 03:15 03:30 03:44 Temperature Pulse Rate 102 H 101 H 94 H Pulse Rate [ Bilateral Throughout] Respiratory 26 H 29 H Rate Respiratory Rate [Bilateral Throughout] Blood Pressure 126/74 128/71 O2 Sat by Pulse 92 Oximetry 01/10/21 01/10/21 01/10/21 03:45 04:00 04:15 Temperature 100.2 F H Pulse Rate 101 H 101 H 100 H Pulse Rate [ Bilateral Throughout] Respiratory 29 H 29 H 30 H Rate Respiratory Rate [Bilateral Throughout] Blood Pressure 123/74 123/73 125/75 O2 Sat by Pulse 94 93 93 Oximetry 01/10/21 01/10/21 01/10/21 04:30 04:45 05:00 Temperature Pulse Rate 101 H 99 H 100 H Pulse Rate [ Bilateral Throughout] Respiratory 30 H 30 H 29 H Rate Respiratory Rate [Bilateral Throughout] Blood Pressure 119/73 123/71 121/73 O2 Sat by Pulse 92 93 94 Oximetry 01/10/21 01/10/21 01/10/21 05:15 05:30 05:45 Temperature Pulse Rate 99 H 99 H 106 H Pulse Rate [ Bilateral Throughout] Respiratory 29 H 30 H 31 H Rate Respiratory Rate [Bilateral Throughout] Blood Pressure 118/71 121/73 118/66 O2 Sat by Pulse 92 92 Oximetry 01/10/21 01/10/21 01/10/21 06:00 06:15 06:30 Temperature Pulse Rate 106 H 105 H 106 H Pulse Rate [ Bilateral Throughout] Respiratory 29 H 31 H 32 H Rate Respiratory Rate [Bilateral Throughout] Blood Pressure 109/66 116/65 116/65 O2 Sat by Pulse 93 95 92 Oximetry 01/10/21 01/10/21 01/10/21 06:45 07:00 07:15 Temperature Pulse Rate 106 H 108 H 106 H Pulse Rate [ Bilateral Throughout] Respiratory 32 H 35 H 32 H Rate Respiratory Rate [Bilateral Throughout] Blood Pressure 114/68 115/70 117/69 O2 Sat by Pulse 92 91 Oximetry 01/10/21 01/10/21 01/10/21 07:30 07:45 07:55 Temperature Pulse Rate 106 H 108 H Pulse Rate [ 92 H Bilateral Throughout] Respiratory 31 H 32 H Rate Respiratory 30 H Rate [Bilateral Throughout] Blood Pressure 116/69 119/75 O2 Sat by Pulse 93 90 Oximetry 01/10/21 01/10/21 01/10/21 08:00 08:18 08:23 Temperature 101.2 F H Pulse Rate 108 H 106 H 108 H Pulse Rate [ Bilateral Throughout] Respiratory 31 H 74 H Rate Respiratory Rate [Bilateral Throughout] Blood Pressure 111/65 O2 Sat by Pulse 97 92 90 Oximetry - Lab 01/09/21 05:18 01/09/21 05:18 Most recent lab results ABG pH 7.347 (7.320-7.450) 01/10/21 02:56 ABG O2 Saturation 94.2 (0-100) 01/10/21 02:56 Calcium 8.1 mg/dL (8.4-10.2) L 01/09/21 05:18 Medications & Allergies - Medications Allergies/Adverse Reactions: Allergies No Known Allergies Allergy (Verified 01/09/21 10:10) Active Medications: Generic Name Dose Route Start Last Admin Trade Name Freq PRN Reason Stop Dose Admin Acetaminophen 650 mg 01/10/21 08:18 01/10/21 09:32 Acetaminophen 325 Mg/10.15 Ml Oral Liqd Unit Dose FEEDTUBE 650 mg Q6H PRN Administration TEMP >/=100.4 Albuterol 2.5 mg 01/08/21 20:23 Albuterol 2.5 Mg/3 Ml Nebu IH Q3HRT PRN Shortness Of Breath Albuterol/Ipratropium 1 ampul 01/08/21 20:00 01/10/21 07:55 Ipratropium/Albuterol Sulfate 3 Ml Ampul.Neb IH 1 ampul QIDRT MARBELLA Administration Dexamethasone 6 mg 01/10/21 10:00 01/10/21 09:35 Dexamethasone 4 Mg/Ml Vial IV 01/19/21 10:01 6 mg Q24HR MARBELLA Administration Famotidine 20 mg 01/09/21 10:00 01/10/21 09:36 Famotidine 20 Mg/2 Ml Inj IV 20 mg DAILY MARBELLA Administration Hydrophilic Ointment 1 applic 01/08/21 16:00 Lip Therapy Vaseline TP Q2HR PRN Dry Lips Propofol 1,000 mg in 100 mls @ 4.082 mls/hr 01/08/21 16:00 01/10/21 05:32 Diprivan 10 Mg/Ml IV 20 mcg/kg/min TITR MARBELLA 16.329 mls/hr Administration Protocol 5 MCG/KG/MIN Norepinephrine 4 mg in 250 mls @ 75 mls/hr 01/08/21 11:28 01/10/21 02:15 Levophed Drip 4 Mg/Ns 250 Ml IV 0 mcg/min TITR MARBELLA 0 mls/hr Titration Protocol 20 MCG/MIN Cefepime HCl 1 gm in 100 mls @ 200 mls/hr 01/09/21 18:00 01/09/21 20:17 Cefepime/Ns 1 Gm/100 Ml IV 200 mls/hr QPM MARBELLA Administration Protocol Insulin Glargine 5 units 01/10/21 10:00 01/10/21 09:45 Insulin Glargine 100 Units/Ml SUB-Q 5 units DAILY MARBELLA Administration Insulin Human Lispro 0 unit 01/09/21 12:00 01/10/21 08:34 Insulin Lispro 100 Unit/Ml SUB-Q Not Given Q6HR MARBELLA Protocol Multi-Ingred Cream/Lotion/Oil/Oint 1 applic 01/08/21 18:00 Mineral Oil/Petrolatum, White Ophth Oint 3.5 Gm OU Q4HR PRN Dry Eye(s) Senna/Docusate Sodium 1 tab 01/08/21 22:00 01/10/21 09:35 Sennosides/Docusate Sodium 8.6/50 Mg Tab FEEDTUBE 1 tab BID MARBELLA Administration Sodium Chloride 5 ml 01/08/21 15:18 Sodium Chloride 0.9% 500 Ml Ivpb IV DIRECT PRN [employer] IN[employer] SPECIALIST
[2021-01-10 11:20] LABS: Hemoglobin 11.2 gm/dl (11.8-15.2); Mean Corpuscular HGB Conc 32 % (32-34); Mean Corpuscular Volume 94 fl (84-94); Platelet Count 279 K/mm3 (140-440); Red Blood Count 3.72 M/mm3 (3.65-5.03); Red Cell Distribution Width 15.4 % (13.2-15.2)
[2021-01-10 11:46] LABS: Albumin 2.7 g/dL (3.9-5); Calcium 8.7 mg/dL (8.4-10.2)
[2021-01-10 11:48] LABS: C-Reactive Protein 10.5 mg/dL (0.00-1.30)
[2021-01-10] MEDS ORDERED: VANCOMYCIN/NS 1 GM/250 ML 1 GM/250 ML BAG IV ONE (14:00)
--- NOTE | 2021-01-10 14:33 | Progress Note ---
Assessment and Plan Cardiac arrest PEA with ROSC * Post arrest twelve-lead shows sinus tach 106 with no acute ischemic changes. Continue to monitor on telemetry * Troponin is nonspecific, subacute trending downward. * Echocardiogram 01/08/21: LVEF 50 to 55%. LV SF normal. Mild diastolic dysfunction. RV normal size. No valvular abnormalities. Elevated D-dimer * CTA chest is negative for PTE Acute respiratory failure in setting of COVID-19 and MRSA sepsis * Currently on vancomycin * Intubated on ventilatory support DVT prophylaxis * Recommend anticoagulation for DVT prophylaxis and positive COVID-19 status. Discussed with primary team who will manage. Will follow This patient was seen in conjunction with Dr Ines Liz who agrees with this assessment and plan of care - Patient Problems (1) Congestive heart failure Current Visit: Yes Status: Chronic Qualifiers: Heart failure type: combined systolic and diastolic (2) Diabetes mellitus type 2 in obese Current Visit: Yes Status: Chronic (3) Elevated d-dimer Current Visit: Yes Status: Acute (4) Acute renal failure Current Visit: Yes Status: Acute (5) Cardiac arrest Current Visit: Yes Status: Acute (6) Osteomyelitis of great toe of left foot Current Visit: Yes Status: Chronic (7) Sepsis Current Visit: Yes Status: Acute (8) Renal insufficiency Current Visit: Yes Status: Chronic Subjective Date of service: 01/10/21 Principal diagnosis: Cardiac Arrest; Ac Hypoxemic Resp Failure; SepticShock; PNA; SHERICE; Covid+ Interval history: Patient remains intubated and sedated Telemetry reviewed: Sinus tach 103. No events Objective Last Vital Signs Temp 99.6 F 01/10/21 12:00 Pulse 101 H 01/10/21 14:30 Resp 33 H 01/10/21 14:30 BP 137/81 01/10/21 14:30 Pulse Ox 92 01/10/21 14:30 - Physical Examination Narrative exam: Patient not directly examined in order to preserve PPE and reduce transmission risk of COVID-19. Physical examination by primary team reviewed. General: Other (intubated) Cardiac: Positive: Regular Rhythm Lungs: Positive: Ventilated Respirations Neuro: Positive: Other (Intubated unresponsive) Skin: Positive: Wound (Left toe osteomyelitis). Negative: Rash Musculoskeletal: other (Intubated) - Labs and Meds Cardiac Enzymes 01/10/21 01/10/21 Range/Units 10:46 10:46 AST 104 H (5-40) units/L Lactate Dehydrogenase 448 H (91-180) units/L CBC 01/10/21 Range/Units 10:46 WBC 22.0 H (4.5-11.0) K/mm3 RBC 3.72 (3.65-5.03) M/mm3 Hgb 11.2 L (11.8-15.2) gm/dl Hct 35.0 L (35.5-45.6) % Plt Count 279 (140-440) K/mm3 Comprehensive Metabolic Panel 01/10/21 Range/Units 10:46 Sodium 155 H D (137-145) mmol/L Potassium 4.7 (3.6-5.0) mmol/L Chloride 121.6 H (98-107) mmol/L Carbon Dioxide 23 (22-30) mmol/L BUN 65 H (9-20) mg/dL Creatinine 2.2 H (0.8-1.3) mg/dL Glucose 330 H (75-100) mg/dL Calcium 8.7 (8.4-10.2) mg/dL AST 104 H (5-40) units/L ALT 63 H (7-56) units/L Alkaline Phosphatase 99 (35-129) units/L Total Protein 6.4 (6.3-8.2) g/dL Albumin 2.7 L (3.9-5) g/dL - Imaging and Cardiology EKG: report reviewed (Sinus tachycardia no acute ST-T wave changes) Echo: pending, report reviewed (Echocardiogram 2017 reported EF 60 to 65%) - Telemetry EKG Rhythm: Sinus Tachycardia - EKG Sinus rhythms and dysrhythmias: sinus rhythm - Allied health notes Allied health notes reviewed: nursing
--- NOTE | 2021-01-10 16:07 | Progress Note ---
Assessment and Plan Cardiac Arrest with ROSC Acute Hypooxemic Respiratory Failure Septic Shock Bilateral pneumonia SHERICE BIBIANA Morbid Obesity Urinary tract infection Congestive heart failure Transaminitis NSTEMI / Elevated troponin Person under investigation for COVID-19 - US tech reports Femoral clot that appears related to groin CVL - will consult vascular team - continue Cefepime and Vancomycin and consult ID (MRSA reported) - get EEG and consult neurologist - get General surgery consult re: right foot / toe - follow bilateral lower extremity dopplers to complete VTE w/up - continue care as below otherwise; - continue Daily SAT and SBT assessment as tolerated - continue to wean supplemental oxygen for target O2 sat's > 90% acutely - VAP bundle addressed - continue lung protective strategies - continue bronchodilators with pulmonary hygiene per RT - wean per pulmonary driven protocols otherwise - continue accuchecks with glycemic control per SSI (While critically ill target blood glucose of 140-180 mg/dL; avoid hypoglycemia) - sedation prn for target RASS 0 to -1 - avoid nephrotoxins, renally dose all medications - continue to avoid benzodiazepine's, reduce the possibility of delirium - complete AB's per ID rec's - prn analgesia per CPOT score - Maintenance of sleep-wake cycle, avoid delirium - continue enteral nutritional support at goal rate as tolerated - G.I. & VTE prophylaxis - PT/OT/ROM exercises - continue mobility protocols for pressure ulcer prophylaxis - Monitor hemodynamics closely - continue other care per attending / other consultants - discharge planning ongoing concurrently COVID SPECIFIC INTERVENTIONS - continue empiric contact and airborne isolation - await COVID-19 test result .... Re-evaluate in am & prn CONDITION: CRITICAL PROGNOSIS: GUARDED CODE STATUS: FULL CODE The high probability of a clinically significant, sudden or life-threatening deterioration of the [respiratory, cardiovascular, renal & neurologic] system(s) required my full and direct attention, intervention and personal management. The aggregate critical care time was [33] minutes without overlap. Time includes spent on; [x] Data Review and interpretation [x] Patient assessment and monitoring of vital signs [x] Documentation [x] Medication orders and management Subjective Date of service: 01/10/21 Principal diagnosis: Cardiac Arrest; Ac Hypoxemic Resp Failure; SepticShock; PNA ; SHERICE; PUI COVID Interval history: Patient is seen today for: Cardiac Arrest with ROSC; Acute Hypoxemic Respiratory Failure; Septic Shock; Pneumonia; SHERICE; UTI; CHF; PUI COVID-19 Seen and examined at bedside; 24hour events reviewed; nursing and respiratory care staff consulted; no adverse overnight events reported to me; resting in b ed; remains on MVS; AMS is persistent; Right foot and big toe swelling is increased; Objective Vital Signs - 12hr 01/10/21 01/10/21 01/10/21 04:15 04:30 04:45 Temperature Pulse Rate 100 H 101 H 99 H Pulse Rate [ Bilateral Throughout] Respiratory 30 H 30 H 30 H Rate Respiratory Rate [Bilateral Throughout] Blood Pressure 125/75 119/73 123/71 O2 Sat by Pulse 93 92 93 Oximetry 01/10/21 01/10/21 01/10/21 05:00 05:15 05:30 Temperature Pulse Rate 100 H 99 H 99 H Pulse Rate [ Bilateral Throughout] Respiratory 29 H 29 H 30 H Rate Respiratory Rate [Bilateral Throughout] Blood Pressure 121/73 118/71 121/73 O2 Sat by Pulse 94 92 Oximetry 01/10/21 01/10/21 01/10/21 05:45 06:00 06:15 Temperature Pulse Rate 106 H 106 H 105 H Pulse Rate [ Bilateral Throughout] Respiratory 31 H 29 H 31 H Rate Respiratory Rate [Bilateral Throughout] Blood Pressure 118/66 109/66 116/65 O2 Sat by Pulse 92 93 95 Oximetry 01/10/21 01/10/21 01/10/21 06:30 06:45 07:00 Temperature Pulse Rate 106 H 106 H 108 H Pulse Rate [ Bilateral Throughout] Respiratory 32 H 32 H 35 H Rate Respiratory Rate [Bilateral Throughout] Blood Pressure 116/65 114/68 115/70 O2 Sat by Pulse 92 92 91 Oximetry 01/10/21 01/10/21 01/10/21 07:15 07:30 07:45 Temperature Pulse Rate 106 H 106 H 108 H Pulse Rate [ Bilateral Throughout] Respiratory 32 H 31 H 32 H Rate Respiratory Rate [Bilateral Throughout] Blood Pressure 117/69 116/69 119/75 O2 Sat by Pulse 93 90 Oximetry 01/10/21 01/10/21 01/10/21 07:55 08:00 08:18 Temperature 101.2 F H Pulse Rate 108 H 106 H Pulse Rate [ 92 H Bilateral Throughout] Respiratory 31 H Rate Respiratory 30 H Rate [Bilateral Throughout] Blood Pressure 111/65 O2 Sat by Pulse 97 92 Oximetry 08/09/2701/10/21 01/10/21 08:23 08:30 08:45 Temperature Pulse Rate 108 H 109 H 111 H Pulse Rate [ Bilateral Throughout] Respiratory 74 H 77 H 36 H Rate Respiratory Rate [Bilateral Throughout] Blood Pressure 122/66 112/65 O2 Sat by Pulse 90 92 87 Oximetry 01/10/21 01/10/21 01/10/21 09:00 09:15 09:30 Temperature Pulse Rate 108 H 107 H 108 H Pulse Rate [ Bilateral Throughout] Respiratory 34 H 35 H 36 H Rate Respiratory Rate [Bilateral Throughout] Blood Pressure 114/68 117/63 120/69 O2 Sat by Pulse 91 92 Oximetry 01/10/21 01/10/21 01/10/21 09:45 10:00 10:15 Temperature Pulse Rate 106 H 109 H 106 H Pulse Rate [ Bilateral Throughout] Respiratory 31 H 21 31 H Rate Respiratory Rate [Bilateral Throughout] Blood Pressure 112/66 112/66 118/71 O2 Sat by Pulse 92 87 90 Oximetry 01/10/21 01/10/21 01/10/21 10:30 10:45 11:00 Temperature Pulse Rate 105 H 102 H 102 H Pulse Rate [ Bilateral Throughout] Respiratory 30 H 30 H 30 H Rate Respiratory Rate [Bilateral Throughout] Blood Pressure 110/67 116/64 109/67 O2 Sat by Pulse 90 90 92 Oximetry 01/10/21 01/10/21 01/10/21 11:15 11:30 11:39 Temperature Pulse Rate 103 H 102 H Pulse Rate [ 96 H Bilateral Throughout] Respiratory 29 H 32 H Rate Respiratory 30 H Rate [Bilateral Throughout] Blood Pressure 115/64 110/67 O2 Sat by Pulse 91 90 Oximetry 01/10/21 01/10/21 01/10/21 11:45 12:00 12:15 Temperature 99.6 F Pulse Rate 100 H 100 H 98 H Pulse Rate [ Bilateral Throughout] Respiratory 26 H 31 H 31 H Rate Respiratory Rate [Bilateral Throughout] Blood Pressure 118/67 113/65 113/64 O2 Sat by Pulse 93 92 Oximetry 01/10/21 01/10/21 01/10/21 12:30 12:45 13:00 Temperature Pulse Rate 100 H 100 H 99 H Pulse Rate [ Bilateral Throughout] Respiratory 34 H 34 H 30 H Rate Respiratory Rate [Bilateral Throughout] Blood Pressure 124/78 134/80 129/77 O2 Sat by Pulse 92 93 95 Oximetry 01/10/21 01/10/21 01/10/21 13:15 13:30 13:45 Temperature Pulse Rate 100 H 99 H 100 H Pulse Rate [ Bilateral Throughout] Respiratory 32 H 32 H 31 H Rate Respiratory Rate [Bilateral Throughout] Blood Pressure 130/79 132/79 130/80 O2 Sat by Pulse 93 93 93 Oximetry 01/10/21 01/10/21 01/10/21 14:00 14:15 14:30 Temperature Pulse Rate 103 H 100 H 101 H Pulse Rate [ Bilateral Throughout] Respiratory 29 H 32 H 33 H Rate Respiratory Rate [Bilateral Throughout] Blood Pressure 135/83 135/79 137/81 O2 Sat by Pulse 94 93 92 Oximetry 01/10/21 01/10/21 01/10/21 14:45 15:01 15:26 Temperature Pulse Rate 106 H 107 H Pulse Rate [ 97 H Bilateral Throughout] Respiratory 33 H 32 H Rate Respiratory 30 H Rate [Bilateral Throughout] Blood Pressure 127/66 137/72 O2 Sat by Pulse 93 93 Oximetry 01/10/21 15:47 Temperature Pulse Rate 107 H Pulse Rate [ Bilateral Throughout] Respiratory Rate Respiratory Rate [Bilateral Throughout] Blood Pressure O2 Sat by Pulse 93 Oximetry Constitutional: other (elderly obese male with mildly increased respiratory effort at rest on MVS) Eyes: non-icteric ENT: oropharynx moist, other (ETT 24 cm ASHA) Neck: supple, no lymphadenopathy, no JVD Effort: mildly labored Ascultation: Bilateral: diminished breath sounds, rhonchi Percussion: Bilateral: not dull Cardiovascular: regular rate and rhythm Gastrointestinal: normoactive bowel sounds, soft, non-tender, non-distended Integumentary: erythema (patchy mild) Extremities: no cyanosis, pink and warm, pulses normal, no ischemia or petechiae, edema (trace) Neurologic: pupils equal and round, unable to assess Psychiatric: other (encephalopathic) CBC and BMP: 01/11/21 04:50 01/11/21 04:50 ABG, PT/INR, D-dimer: ABG ABG pH 7.347 (7.320-7.450) 01/10/21 02:56 POC ABG pCO2 34.9 mmHg (32.0-48.0) 01/10/21 02:56 POC ABG pO2 73.8 mmHg (83-108) L 01/10/21 02:56 POC ABG HCO3 18.7 01/10/21 02:56 ABG O2 Saturation 94.2 (0-100) 01/10/21 02:56 PT/INR, D-dimer PT 14.5 Sec. (12.2-14.9) 01/08/21 11:55 INR 1.08 (0.87-1.13) 01/08/21 11:55 D-Dimer 5636.29 ng/mlDDU (0-234) H 01/10/21 10:46 Abnormal lab findings: Abnormal Labs 01/08/21 01/08/21 01/08/21 11:01 11:55 11:55 WBC 23.8 H RBC 3.35 L Hgb 10.5 L Hct 31.6 L MCV RDW 15.6 H Lymph % (Auto) 4.1 L Lymph # (Auto) 1.0 L [place] # (Auto) 1.2 H Seg Neutrophils % 90.5 H Seg Neutrophils # 21.5 H APTT D-Dimer ABG pH 7.204 L POC ABG pCO2 50.7 H POC ABG pO2 ABG Hemoglobin 11.9 L ABG Oxyhemoglobin ABG Sodium ABG Potassium 5.0 H ABG Chloride 110.0 H ABG Glucose 313 H Carboxyhemoglobin 0.1 L Sodium Potassium Chloride Carbon Dioxide BUN Creatinine Glucose POC Glucose Lactic Acid 4.50 H* Calcium Ferritin Direct Bilirubin AST ALT Lactate Dehydrogenase Troponin T C-Reactive Protein NT-Pro-B Natriuret Pep Total Protein Albumin LDL Cholesterol Direct HDL Cholesterol Arterial Blood Glucose 313 H Urine WBC (Auto) Coronavirus (PCR) 01/08/21 01/08/21 01/08/21 11:55 11:55 13:42 WBC RBC Hgb Hct MCV RDW Lymph % (Auto) Lymph # (Auto) [place] # (Auto) Seg Neutrophils % Seg Neutrophils # APTT 23.3 L D-Dimer ABG pH POC ABG pCO2 POC ABG pO2 ABG Hemoglobin ABG Oxyhemoglobin ABG Sodium ABG Potassium ABG Chloride ABG Glucose Carboxyhemoglobin Sodium Potassium 5.3 H Chloride 107.2 H Carbon Dioxide 21 L BUN 55 H Creatinine 3.9 H Glucose 274 H POC Glucose Lactic Acid 2.90 H* Calcium 7.9 L Ferritin Direct Bilirubin 0.4 H AST 130 H ALT 70 H Lactate Dehydrogenase Troponin T 0.038 H C-Reactive Protein NT-Pro-B Natriuret Pep 1157 H Total Protein 6.0 L Albumin 2.6 L LDL Cholesterol Direct 28 L HDL Cholesterol 24 L Arterial Blood Glucose Urine WBC (Auto) Coronavirus (PCR) 01/08/21 01/08/21 01/08/21 14:36 14:36 14:36 WBC RBC Hgb Hct MCV RDW Lymph % (Auto) Lymph # (Auto) [place] # (Auto) Seg Neutrophils % Seg Neutrophils # APTT D-Dimer 7104.83 H ABG pH POC ABG pCO2 POC ABG pO2 ABG Hemoglobin ABG Oxyhemoglobin ABG Sodium ABG Potassium ABG Chloride ABG Glucose Carboxyhemoglobin Sodium Potassium Chloride Carbon Dioxide BUN Creatinine Glucose 306 H POC Glucose Lactic Acid Calcium Ferritin 624.8 H Direct Bilirubin AST ALT Lactate Dehydrogenase 535 H Troponin T C-Reactive Protein 25.40 H NT-Pro-B Natriuret Pep Total Protein Albumin LDL Cholesterol Direct HDL Cholesterol Arterial Blood Glucose Urine WBC (Auto) Coronavirus (PCR) 01/08/21 01/08/21 01/08/21 21:00 Unknown Unknown WBC RBC Hgb Hct MCV RDW Lymph % (Auto) Lymph # (Auto) [place] # (Auto) Seg Neutrophils % Seg Neutrophils # APTT D-Dimer ABG pH POC ABG pCO2 POC ABG pO2 111.6 H ABG Hemoglobin 11.6 L ABG Oxyhemoglobin ABG Sodium ABG Potassium 4.6 H ABG Chloride 112.0 H ABG Glucose 256 H Carboxyhemoglobin 0.3 L Sodium Potassium Chloride Carbon Dioxide BUN Creatinine Glucose POC Glucose Lactic Acid Calcium Ferritin Direct Bilirubin AST ALT Lactate Dehydrogenase Troponin T C-Reactive Protein NT-Pro-B Natriuret Pep Total Protein Albumin LDL Cholesterol Direct HDL Cholesterol Arterial Blood Glucose 256 H Urine WBC (Auto) > 182.0 H Coronavirus (PCR) Positive A 01/09/21 01/09/21 01/09/21 05:02 05:18 05:18 WBC 19.0 H RBC Hgb 11.7 L Hct MCV 95 H RDW 16.0 H Lymph % (Auto) Lymph # (Auto) [place] # (Auto) Seg Neutrophils % Seg Neutrophils # APTT D-Dimer ABG pH POC ABG pCO2 POC ABG pO2 82.7 L ABG Hemoglobin ABG Oxyhemoglobin ABG Sodium ABG Potassium 4.8 H ABG Chloride 114.0 H ABG Glucose 283 H Carboxyhemoglobin 0.3 L Sodium 146 H Potassium 5.1 H Chloride 112.0 H Carbon Dioxide 20 L BUN 63 H Creatinine 3.0 H Glucose 282 H POC Glucose Lactic Acid Calcium 8.1 L Ferritin Direct Bilirubin AST ALT Lactate Dehydrogenase Troponin T C-Reactive Protein NT-Pro-B Natriuret Pep Total Protein Albumin LDL Cholesterol Direct HDL Cholesterol Arterial Blood Glucose 283 H Urine WBC (Auto) Coronavirus (PCR) 01/09/21 01/09/21 01/09/21 13:24 20:05 23:24 WBC RBC Hgb Hct MCV RDW Lymph % (Auto) Lymph # (Auto) [place] # (Auto) Seg Neutrophils % Seg Neutrophils # APTT D-Dimer ABG pH POC ABG pCO2 POC ABG pO2 ABG Hemoglobin ABG Oxyhemoglobin ABG Sodium ABG Potassium ABG Chloride ABG Glucose Carboxyhemoglobin Sodium Potassium Chloride Carbon Dioxide BUN Creatinine Glucose POC Glucose 282 H 317 H 325 H Lactic Acid Calcium Ferritin Direct Bilirubin AST ALT Lactate Dehydrogenase Troponin T C-Reactive Protein NT-Pro-B Natriuret Pep Total Protein Albumin LDL Cholesterol Direct HDL Cholesterol Arterial Blood Glucose Urine WBC (Auto) Coronavirus (PCR) 01/10/21 01/10/21 01/10/21 02:56 05:31 10:46 WBC 22.0 H RBC Hgb 11.2 L Hct 35.0 L MCV RDW 15.4 H Lymph % (Auto) Lymph # (Auto) [place] # (Auto) Seg Neutrophils % Seg Neutrophils # APTT D-Dimer ABG pH POC ABG pCO2 POC ABG pO2 73.8 L ABG Hemoglobin ABG Oxyhemoglobin 93.5 L ABG Sodium 149.1 H ABG Potassium 4.6 H ABG Chloride 119.0 H ABG Glucose 311 H Carboxyhemoglobin 0.4 L Sodium Potassium Chloride Carbon Dioxide BUN Creatinine Glucose POC Glucose 278 H Lactic Acid Calcium Ferritin Direct Bilirubin AST ALT Lactate Dehydrogenase Troponin T C-Reactive Protein NT-Pro-B Natriuret Pep Total Protein Albumin LDL Cholesterol Direct HDL Cholesterol Arterial Blood Glucose 311 H Urine WBC (Auto) Coronavirus (PCR) 01/10/21 01/10/21 01/10/21 10:46 10:46 10:46 WBC RBC Hgb Hct MCV RDW Lymph % (Auto) Lymph # (Auto) [place] # (Auto) Seg Neutrophils % Seg Neutrophils # APTT D-Dimer 5636.29 H ABG pH POC ABG pCO2 POC ABG pO2 ABG Hemoglobin ABG Oxyhemoglobin ABG Sodium ABG Potassium ABG Chloride ABG Glucose Carboxyhemoglobin Sodium 155 H D Potassium Chloride 121.6 H Carbon Dioxide BUN 65 H Creatinine 2.2 H Glucose 330 H POC Glucose Lactic Acid Calcium Ferritin 347.2 H Direct Bilirubin AST 104 H ALT 63 H Lactate Dehydrogenase Troponin T C-Reactive Protein NT-Pro-B Natriuret Pep Total Protein Albumin 2.7 L LDL Cholesterol Direct HDL Cholesterol Arterial Blood Glucose Urine WBC (Auto) Coronavirus (PCR) 01/10/21 01/10/21 10:46 11:39 WBC RBC Hgb Hct MCV RDW Lymph % (Auto) Lymph # (Auto) [place] # (Auto) Seg Neutrophils % Seg Neutrophils # APTT D-Dimer ABG pH POC ABG pCO2 POC ABG pO2 ABG Hemoglobin ABG Oxyhemoglobin ABG Sodium ABG Potassium ABG Chloride ABG Glucose Carboxyhemoglobin Sodium Potassium Chloride Carbon Dioxide BUN Creatinine Glucose POC Glucose 289 H Lactic Acid Calcium Ferritin Direct Bilirubin AST ALT Lactate Dehydrogenase 448 H Troponin T C-Reactive Protein 10.50 H NT-Pro-B Natriuret Pep Total Protein Albumin LDL Cholesterol Direct HDL Cholesterol Arterial Blood Glucose Urine WBC (Auto) Coronavirus (PCR) Chest x-ray: image reviewed Allied health notes reviewed: nursing
[2021-01-10] MEDS ORDERED: SIMPLE SYRUP 15 ML FEEDTUBE PRN ×2 (17:40)
[2021-01-10] MEDS ORDERED: SODIUM BICARBONATE 325 MG TAB FEEDTUBE PRN (17:40)
[2021-01-10] MEDS ORDERED: LIPASE 10,500/PROTEASE 25,000/AMYLASE 43,750 (UNITS) DR CAP FEEDTUBE PRN (17:40)
[2021-01-10] MEDS: CEFEPIME/NS 1 GM/100 ML 1 GM/100 ML BAG IV SCH (18:57)
--- NOTE | 2021-01-10 19:11 | Vascular Lab Report ---
DUPLEX DOPPLER LOWER EXTREMITY VEINS, BILATERAL INDICATION / CLINICAL INFORMATION: swelling. TECHNIQUE: Duplex doppler imaging was performed through the veins of both lower extremities using venous vanessa madeline and other maneuvers. COMPARISON: None available. FINDINGS: RIGHT COMMON FEMORAL VEIN: Acute DVT in the right external iliac vein and right common femoral vein RIGHT FEMORAL VEIN: Negative. RIGHT POPLITEAL VEIN: Negative. RIGHT CALF VEINS: Negative. LEFT COMMON FEMORAL VEIN: Negative. LEFT FEMORAL VEIN: Negative. LEFT POPLITEAL VEIN: Negative. LEFT CALF VEINS: Negative. ADDITIONAL FINDINGS: None. IMPRESSION: 1. Acute DVT in the right external iliac vein and right common femoral vein. The sonographic [facility] informed the ordering physician of the findings at the time of the exam. Signer Name: Julius Ho MD Signed: 01/10/2021 7:06 PM Workstation Name: [id number]
--- NOTE | 2021-01-10 20:26 | Consultation ---
History of Present Illness - Reason for Consult Consult date: 01/10/21 Right Lower Extremity DVT Requesting physician: JUD BECKER - History of Present Illness The patient is a 60-year-old male with a history of diabetes, sleep apnea, and morbid obesity who was brought to the emergency department during active CPR. EMS was called to his house secondary to generalized weakness and some mental status changes. When he initially arrived the patient was answering questions however he lost consciousness and went into PEA arrest requiring ACLS protocol. There was an apparent 10-minute delay in administering medications and obtaining the airway via endotracheal tube secondary to a home that looked like a "hoarder's house "that delayed EMS workers from being able to reach the patient. They were eventually able to regain a pulse and the patient has since been in the intensive care unit on pressor support as well as ventilatory support. The patient required central venous access through a triple-lumen catheter in his right femoral vein. He was noted to have some swelling of the right lower extremity and an elevated D-dimer despite no evidence of a pulmonary embolus. A venous duplex of the bilateral lower extremities revealed an acute nonocclusive DVT in the right external iliac vein as well as an acute nonocclusive DVT in the right common femoral vein. There were no additional significant findings on the duplex. Past History Past Medical History: diabetes, hyperlipidemia, other (Morbid obesity, sleep apnea) Past Surgical History: No surgical history Social history: no significant social history, , lives with family Family history: no significant family history Medications and Allergies Allergies Allergy/AdvReac Type Severity Reaction Status Date / Time No Known Allergies Allergy Verified 01/09/21 10:10 Active Meds: Active Medications Acetaminophen (Acetaminophen 325 Mg/10.15 Ml Oral Liqd Unit Dose) 650 mg FEEDTUBE Q6H PRN PRN Reason: TEMP >/=100.4 Last Admin: 01/10/21 09:32 Dose: 650 mg Documented by: Albuterol (Albuterol 2.5 Mg/3 Ml Nebu) 2.5 mg IH Q3HRT PRN PRN Reason: Shortness Of Breath Albuterol/Ipratropium (Ipratropium/Albuterol Sulfate 3 Ml Ampul.Neb) 1 ampul IH QIDRT [facility] Last Admin: 01/10/21 19:34 Dose: 1 ampul Documented by: Lipase/Protease/Amylase (Lipase 10,500/Protease 25,000/Amylase 43,750 (Units) Dr Cap) 1 each FEEDTUBE PRN PRN PRN Reason: For Clogged Feeding Tube Dexamethasone (Dexamethasone 4 Mg/Ml Vial) 6 mg IV Q24HR [facility] Stop: 01/19/21 10:01 Last Admin: 01/10/21 09:35 Dose: 6 mg Documented by: Famotidine (Famotidine 20 Mg/2 Ml Inj) 20 mg IV DAILY [facility] Last Admin: 01/10/21 09:36 Dose: 20 mg Documented by: Heparin Sodium (Porcine) (Heparin 5,000 Unit/1 Ml Vial) 5,000 unit SUB-Q Q12HR [facility] Hydrophilic Ointment (Lip Therapy Vaseline) 1 applic TP Q2HR PRN PRN Reason: Dry Lips Propofol (Diprivan 10 Mg/Ml) 1,000 mg in 100 mls @ 4.082 mls/hr IV TITR [facility]; Protocol Last Admin: 01/10/21 05:32 Dose: 20 mcg/kg/min, 16.329 mls/hr Documented by: Norepinephrine (Levophed Drip 4 Mg/Ns 250 Ml) 4 mg in 250 mls @ 75 mls/hr IV TITR [facility]; Protocol Last Titration: 01/10/21 02:15 Dose: 0 mcg/min, 0 mls/hr Documented by: Cefepime HCl (Cefepime/Ns 1 Gm/100 Ml) 1 gm in 100 mls @ 200 mls/hr IV QPM [facility]; Protocol Last Admin: 01/10/21 18:57 Dose: 200 mls/hr Documented by: Insulin Glargine (Insulin Glargine 100 Units/Ml) 5 units SUB-Q DAILY [facility] Last Admin: 01/10/21 09:45 Dose: 5 units Documented by: Insulin Human Lispro (Insulin Lispro 100 Unit/Ml) 0 unit SUB-Q Q6HR [facility]; Protocol Last Admin: 01/10/21 19:00 Dose: 8 unit Documented by: Multi-Ingred Cream/Lotion/Oil/Oint (Mineral Oil/Petrolatum, White Ophth Oint 3.5 Gm) 1 applic OU Q4HR PRN PRN Reason: Dry Eye(s) Senna/Docusate Sodium (Sennosides/Docusate Sodium 8.6/50 Mg Tab) 1 tab FEEDTUBE BID [facility] Last Admin: 01/10/21 09:35 Dose: 1 tab Documented by: Simple Syrup (Simple Syrup 15 Ml) 15 ml FEEDTUBE PRN PRN PRN Reason: Hypoglycemia Simple Syrup (Simple Syrup 15 Ml) 30 ml FEEDTUBE PRN PRN PRN Reason: Hypoglycemia Sodium Bicarbonate (Sodium Bicarbonate 325 Mg Tab) 325 mg FEEDTUBE PRN PRN PRN Reason: For Clogged Feeding Tube Sodium Chloride (Sodium Chloride 0.9% 500 Ml Ivpb) 5 ml IV DIRECT PRN PRN Reason: [employer]ERIAL SLEEPING [employer] Review of Systems ROS unobtainable: due to endotracheal tube Exam - Constitutional Vitals: Temp Pulse Resp BP Pulse Ox 99.1 F 101 H 30 H 127/78 96 01/10/21 16:00 01/10/21 19:38 01/10/21 19:38 01/10/21 19:36 01/10/21 19:36 General appearance: Present: other (Sedated) - Respiratory Respiratory effort: other (Ventilator assisted) - Cardiovascular Rhythm: regular - Extremities Extremities: pulses intact (Palpable posterior tibial pulses bilaterally) Extremity abnormal: black (Left first toe with ischemic changes and a superficial fluid collection at the distal tip), other (Right leg with dermatosclerosis and changes consistent with chronic venous insufficiency) - Abdominal General gastrointestinal: Present: soft, other (Protuberant) Male genitourinary: Present: deferred - Rectal Rectal Exam: deferred Results - Labs CBC & Chem 7: 01/10/21 10:46 01/10/21 10:46 Labs: Abnormal lab results 01/08/21 01/09/21 01/10/21 Range/Units Unknown 23:24 02:56 WBC (4.5-11.0) K/mm3 Hgb (11.8-15.2) gm/dl Hct (35.5-45.6) % RDW (13.2-15.2) % D-Dimer (0-234) ng/mlDDU POC ABG pO2 73.8 L (83-108) mmHg ABG Oxyhemoglobin 93.5 L (94-98) ABG Sodium 149.1 H (136.0-145.0) mmol/L ABG Potassium 4.6 H (3.40-4.50) mmol/L ABG Chloride 119.0 H (98-107) mmol/L ABG Glucose 311 H (65-95) mg/dL Carboxyhemoglobin 0.4 L (0.5-1.5) Sodium (137-145) mmol/L Chloride (98-107) mmol/L BUN (9-20) mg/dL Creatinine (0.8-1.3) mg/dL Glucose (75-100) mg/dL POC Glucose 325 H (70-105) mg/dL Ferritin (30.0-300.0) ng/mL AST (5-40) units/L ALT (7-56) units/L Lactate Dehydrogenase (91-180) units/L C-Reactive Protein (0.00-1.30) mg/dL Albumin (3.9-5) g/dL Arterial Blood Glucose 311 H (65-95) mg/dL Coronavirus (PCR) Positive A (Negative) 01/10/21 01/10/21 01/10/21 Range/Units 05:31 10:46 10:46 WBC 22.0 H (4.5-11.0) K/mm3 Hgb 11.2 L (11.8-15.2) gm/dl Hct 35.0 L (35.5-45.6) % RDW 15.4 H (13.2-15.2) % D-Dimer (0-234) ng/mlDDU POC ABG pO2 (83-108) mmHg ABG Oxyhemoglobin (94-98) ABG Sodium (136.0-145.0) mmol/L ABG Potassium (3.40-4.50) mmol/L ABG Chloride (98-107) mmol/L ABG Glucose (65-95) mg/dL Carboxyhemoglobin (0.5-1.5) Sodium 155 H D (137-145) mmol/L Chloride 121.6 H (98-107) mmol/L BUN 65 H (9-20) mg/dL Creatinine 2.2 H (0.8-1.3) mg/dL Glucose 330 H (75-100) mg/dL POC Glucose 278 H (70-105) mg/dL Ferritin (30.0-300.0) ng/mL AST 104 H (5-40) units/L ALT 63 H (7-56) units/L Lactate Dehydrogenase (91-180) units/L C-Reactive Protein (0.00-1.30) mg/dL Albumin 2.7 L (3.9-5) g/dL Arterial Blood Glucose (65-95) mg/dL Coronavirus (PCR) (Negative) 01/10/21 01/10/21 01/10/21 Range/Units 10:46 10:46 10:46 WBC (4.5-11.0) K/mm3 Hgb (11.8-15.2) gm/dl Hct (35.5-45.6) % RDW (13.2-15.2) % D-Dimer 5636.29 H (0-234) ng/mlDDU POC ABG pO2 (83-108) mmHg ABG Oxyhemoglobin (94-98) ABG Sodium (136.0-145.0) mmol/L ABG Potassium (3.40-4.50) mmol/L ABG Chloride (98-107) mmol/L ABG Glucose (65-95) mg/dL Carboxyhemoglobin (0.5-1.5) Sodium (137-145) mmol/L Chloride (98-107) mmol/L BUN (9-20) mg/dL Creatinine (0.8-1.3) mg/dL Glucose (75-100) mg/dL POC Glucose (70-105) mg/dL Ferritin 347.2 H (30.0-300.0) ng/mL AST (5-40) units/L ALT (7-56) units/L Lactate Dehydrogenase 448 H (91-180) units/L C-Reactive Protein 10.50 H (0.00-1.30) mg/dL Albumin (3.9-5) g/dL Arterial Blood Glucose (65-95) mg/dL Coronavirus (PCR) (Negative) 01/10/21 01/10/21 Range/Units 11:39 18:06 WBC (4.5-11.0) K/mm3 Hgb (11.8-15.2) gm/dl Hct (35.5-45.6) % RDW (13.2-15.2) % D-Dimer (0-234) ng/mlDDU POC ABG pO2 (83-108) mmHg ABG Oxyhemoglobin (94-98) ABG Sodium (136.0-145.0) mmol/L ABG Potassium (3.40-4.50) mmol/L ABG Chloride (98-107) mmol/L ABG Glucose (65-95) mg/dL Carboxyhemoglobin (0.5-1.5) Sodium (137-145) mmol/L Chloride (98-107) mmol/L BUN (9-20) mg/dL Creatinine (0.8-1.3) mg/dL Glucose (75-100) mg/dL POC Glucose 289 H 294 H (70-105) mg/dL Ferritin (30.0-300.0) ng/mL AST (5-40) units/L ALT (7-56) units/L Lactate Dehydrogenase (91-180) units/L C-Reactive Protein (0.00-1.30) mg/dL Albumin (3.9-5) g/dL Arterial Blood Glucose (65-95) mg/dL Coronavirus (PCR) (Negative) - Imaging and Cardiology Venous US: image reviewed Assessment and Plan The patient is a 60-year-old male diagnosed with COVID infection who required CPR and is now on a ventilator and pressors to support his blood pressure. He required placement of a central venous line in his right femoral vein for fluids and medications. He was found to have an acute nonocclusive DVT in his right external iliac vein that is associated with the right femoral central venous line. I will recommend starting the patient on a heparin drip for the acute DVT, unless there is a contraindication in this patient for anticoagulation. I would not remove the line unless the patient is no longer in need of the line. There is no need for an IVC filter unless the patient is unable to tolerate blood thinners.
[2021-01-10] MEDS ORDERED: HEPARIN 5,000 UNIT/1 ML VIAL SUB-Q SCH (22:00)
[2021-01-11] MEDS: INSULIN LISPRO 100 UNIT/ML SUB-Q SCH ×4 (01:07→19:00)
[2021-01-11] MEDS: ACETAMINOPHEN 325 MG/10.15 ML ORAL LIQD UNIT DOSE FEEDTUBE PRN ×2 (04:16→10:14)
[2021-01-11 05:18] LABS: Hematocrit 35.9 % (35.5-45.6); Hemoglobin 11.2 gm/dl (11.8-15.2); Mean Corpuscular HGB Conc 31 % (32-34); Mean Corpuscular Volume 95 fl (84-94); Platelet Count 300 K/mm3 (140-440); Red Blood Count 3.78 M/mm3 (3.65-5.03); Red Cell Distribution Width 16.5 % (13.2-15.2)
[2021-01-11 05:40] LABS: Albumin 2.7 g/dL (3.9-5)
[2021-01-11] MEDS ORDERED: FREE WATER PO SCH (09:00)
[2021-01-11] MEDS ORDERED: HEPARIN 10,000 UNITS/10 ML VIAL IV PRN (09:09)
--- NOTE | 2021-01-11 09:15 | XRay Report ---
CHEST 1 VIEW INDICATION: follow up respiratory failure. COMPARISON: One day prior. FINDINGS: Support devices: Unchanged. Heart: Stable. Lungs/Pleura: Bilateral airspace disease has significantly improved. No pneumothorax. IMPRESSION: 1. Significant improvement in previously seen bilateral pulmonary opacities. Signer Name: Josue Johnson MD Signed: 01/11/2021 9:11 AM Workstation Name: [email or web address]
[2021-01-11] MEDS ORDERED: HEPARIN 10,000 UNITS/10 ML VIAL IV ONE (09:30)
[2021-01-11] MEDS: IPRATROPIUM/ALBUTEROL SULFATE 3 ML AMPUL.NEB IH SCH ×4 (09:44→20:08)
--- NOTE | 2021-01-11 09:49 | Consultation ---
History of Present Illness Consult date: 01/11/21 Reason for Consult: Post cardiac arrest on 01/08 History of present illness: Unresponsive for 30 minutes prior to EMS arrival History of present illness: 61-year-old male with history of diabetes and sleep apnea called EMS towards generalized weakness. When EMS arrived there was difficulty getting to the patient. Because of too many items in the home. Initially patient was awake and talking confused. Then patient became unresponsive and apneic. ACLS protocol was initiated and chest compressions were initiated oxygen was administered and his own CPAP machine was used. Within the next 10 minutes patient was intubated. EMS was unable to get the patient out of the room through the door so patient was taken out of the home through the window of the room. Patient was found to be in PEA. Patient was intubated by EMS they achieved a return of spontaneous circulation. After a few minutes lost pulse again and was given amlodipine and was revived. Patient presents to the emergency room with a pulse. It is unclear what has precipitated his cardiac arrest. Patient has only diabetes and sleep apnea. No fever or chills. Patient was slightly hypotensive and was initiated on Levophed in the emergency room. Levophed is at 10 mics -In Er Ct brain is remarkable for angiopathy CTA lung is remarkable for bilateral Pneumonia COVID-19 PCR is positive -he is currently ob decadron,propofol# 5 Mc. and levofed -Echo is remarkable for Ef#50-55% Past History Past Medical History: diabetes, hyperlipidemia, other (See HPI) Past Surgical History: No surgical history Social history: no significant social history, , lives with family Family history: no significant family history Medications and Allergies Allergies Allergy/AdvReac Type Severity Reaction Status Date / Time No Known Allergies Allergy Unverified 01/08/21 12:39 Active Meds: Active Medications Albuterol (Albuterol 2.5 Mg/3 Ml Nebu) 2.5 mg IH Q3HRT PRN PRN Reason: Shortness Of Breath Albuterol/Ipratropium (Ipratropium/Albuterol Sulfate 3 Ml Ampul.Neb) 1 ampul IH QIDRT MARBELLA Famotidine (Famotidine 20 Mg/2 Ml Inj) 20 mg IV DAILY MARBELLA Hydrophilic Ointment (Lip Therapy Vaseline) 1 applic TP Q2HR PRN PRN Reason: Dry Lips Propofol (Diprivan 10 Mg/Ml) 1,000 mg in 100 mls @ 4.082 mls/hr IV TITR MARBELLA; Protocol Last Titration: 01/08/21 19:30 Dose: 10 mcg/kg/min, 8.165 mls/hr Documented by: Norepinephrine (Levophed Drip 4 Mg/Ns 250 Ml) 4 mg in 250 mls @ 75 mls/hr IV TITR MARBELLA; Protocol Last Admin: 01/08/21 19:00 Dose: 5 mcg/min, 18.75 mls/hr Documented by: Cefepime HCl (Cefepime/Ns 1 Gm/100 Ml) 1 gm in 100 mls @ 200 mls/hr IV QPM MARBELLA; Protocol Methylprednisolone Sodium Succinate (Methylprednisolone Sod Succinate 125 Mg/2 Ml Inj) 80 mg IV Q8HR MARBELLA Last Admin: 01/09/21 06:07 Dose: 80 mg Documented by: Multi-Ingred Cream/Lotion/Oil/Oint (Mineral Oil/Petrolatum, White Ophth Oint 3.5 Gm) 1 applic OU Q4HR PRN PRN Reason: Dry Eye(s) Senna/Docusate Sodium (Sennosides/Docusate Sodium 8.6/50 Mg Tab) 1 tab FEEDTUBE BID MARBELLA Last Admin: 01/08/21 22:29 Dose: 1 tab Documented by: Sodium Chloride (Sodium Chloride 0.9% 500 Ml Ivpb) 5 ml IV DIRECT PRN 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 Past History Past Medical History: diabetes, hyperlipidemia, other (Morbid obesity, sleep apnea) Past Surgical History: No surgical history Social history: no significant social history, , lives with family Family history: no significant family history Medications and Allergies Allergies Allergy/AdvReac Type Severity Reaction Status Date / Time No Known Allergies Allergy Verified 01/09/21 10:10 Home Medications Medication Instructions Recorded Confirmed Last Taken Type Unobtainable 01/10/21 01/10/21 Unknown History Active Meds: Active Medications Acetaminophen (Acetaminophen 325 Mg/10.15 Ml Oral Liqd Unit Dose) 650 mg FEEDTUBE Q6H PRN PRN Reason: TEMP >/=100.4 Last Admin: 01/11/21 04:16 Dose: 650 mg Documented by: Albuterol (Albuterol 2.5 Mg/3 Ml Nebu) 2.5 mg IH Q3HRT PRN PRN Reason: Shortness Of Breath Albuterol/Ipratropium (Ipratropium/Albuterol Sulfate 3 Ml Ampul.Neb) 1 ampul IH QIDRT MARBELLA Last Admin: 01/11/21 09:44 Dose: 1 ampul Documented by: Lipase/Protease/Amylase (Lipase 10,500/Protease 25,000/Amylase 43,750 (Units) Dr Cap) 1 each FEEDTUBE PRN PRN PRN Reason: For Clogged Feeding Tube Dexamethasone (Dexamethasone 4 Mg/Ml Vial) 6 mg IV Q24HR MARBELLA Stop: 01/19/21 10:01 Last Admin: 01/10/21 09:35 Dose: 6 mg Documented by: Famotidine (Famotidine 20 Mg Tab) 20 mg PO BID MARBELLA Heparin Sodium (Porcine) (Heparin 10,000 Units/10 Ml Vial) 5,400 unit 40 unit/kg (5400 unit) IV Q6H PRN PRN Reason: Anti-Xa Assay < 0.1 units/ml Hydrophilic Ointment (Lip Therapy Vaseline) 1 applic TP Q2HR PRN PRN Reason: Dry Lips Propofol (Diprivan 10 Mg/Ml) 1,000 mg in 100 mls @ 4.082 mls/hr IV TITR MARBELLA; Protocol Last Titration: 01/11/21 08:28 Dose: 5 mcg/kg/min, 4.082 mls/hr Documented by: Norepinephrine (Levophed Drip 4 Mg/Ns 250 Ml) 4 mg in 250 mls @ 75 mls/hr IV TITR MARBELLA; Protocol Last Titration: 01/10/21 02:15 Dose: 0 mcg/min, 0 mls/hr Documented by: Cefepime HCl (Cefepime/Ns 2 Gm/100 Ml) 2 gm in 100 mls @ 200 mls/hr IV Q12H MARBELLA; Protocol Heparin Sodium/Sodium Chloride (Heparin/ 0.45% Nacl-25,000 Unit/500 Ml) 25,000 unit in 500 mls @ 30 mls/hr IV TITR [facility]BELLA; Protocol Insulin Glargine (Insulin Glargine 100 Units/Ml) 15 units SUB-Q DAILY MARBELLA Insulin Human Lispro (Insulin Lispro 100 Unit/Ml) 0 unit SUB-Q Q6HR [facility]BELLA; Protocol Last Admin: 01/11/21 06:04 Dose: 10 unit Documented by: Multi-Ingred Cream/Lotion/Oil/Oint (Mineral Oil/Petrolatum, White Ophth Oint 3.5 Gm) 1 applic OU Q4HR PRN PRN Reason: Dry Eye(s) Senna/Docusate Sodium (Sennosides/Docusate Sodium 8.6/50 Mg Tab) 1 tab FEEDTUBE BID MARBELLA Last Admin: 01/10/21 21:05 Dose: 1 tab Documented by: Simple Syrup (Simple Syrup 15 Ml) 15 ml FEEDTUBE PRN PRN PRN Reason: Hypoglycemia Simple Syrup (Simple Syrup 15 Ml) 30 ml FEEDTUBE PRN PRN PRN Reason: Hypoglycemia Sodium Bicarbonate (Sodium Bicarbonate 325 Mg Tab) 325 mg FEEDTUBE PRN PRN PRN Reason: For Clogged Feeding Tube Sodium Chloride (Sodium Chloride 0.9% 500 Ml Ivpb) 5 ml IV DIRECT PRN PRN 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 Physical Examination - Vital Signs Vital Signs: Vital Signs Pulse Resp BP 64 23 150/65 01/08/21 10:10 01/08/21 10:10 01/08/21 10:10 - Constitutional General appearance: comfortable, other (intubated and sedated) - EENT EENT: Present: PERRL, mucous membranes moist - Respiratory Respiratory: Present: chest non-tender, lungs clear, rhonchi - Cardiovascular Cardiovascular: Present: regular rate, normal S1, normal S2 Extremities: Present: no peripheral edema bilatateraly, no clubbing, cyanosis - Gastrointestinal Gastrointestinal: Present: normoactive bowel sounds - Integumentary Integumentary: Present: normal - Neurologic Cranial nerve examination: PERRL, other (absent EOM and corneal reflexes pupil 2mm constricted reactive, no gag reflex is noted) Sensorimotor examination: other (no movment to sternal rub.planter is down going) Results - Laboratory Findings CBC and BMP: 01/11/21 04:50 01/11/21 04:50 Abnormal Lab Findings: Abnormal Labs 01/08/21 01/08/21 01/08/21 11:01 11:55 11:55 WBC 23.8 H RBC 3.35 L Hgb 10.5 L Hct 31.6 L MCV MCHC RDW 15.6 H Lymph % (Auto) 4.1 L Lymph # (Auto) 1.0 L [place] # (Auto) 1.2 H Seg Neutrophils % 90.5 H Seg Neutrophils # 21.5 H APTT D-Dimer ABG pH 7.204 L POC ABG pCO2 50.7 H POC ABG pO2 ABG Hemoglobin 11.9 L ABG Oxyhemoglobin ABG Sodium ABG Potassium 5.0 H ABG Chloride 110.0 H ABG Glucose 313 H Carboxyhemoglobin 0.1 L Sodium Potassium Chloride Carbon Dioxide BUN Creatinine Glucose POC Glucose Lactic Acid 4.50 H* Calcium Ferritin Direct Bilirubin AST ALT Lactate Dehydrogenase Troponin T C-Reactive Protein NT-Pro-B Natriuret Pep Total Protein Albumin Triglycerides LDL Cholesterol Direct HDL Cholesterol Arterial Blood Glucose 313 H Urine WBC (Auto) Coronavirus (PCR) 01/08/21 01/08/21 01/08/21 11:55 11:55 13:42 WBC RBC Hgb Hct MCV MCHC RDW Lymph % (Auto) Lymph # (Auto) [place] # (Auto) Seg Neutrophils % Seg Neutrophils # APTT 23.3 L D-Dimer ABG pH POC ABG pCO2 POC ABG pO2 ABG Hemoglobin ABG Oxyhemoglobin ABG Sodium ABG Potassium ABG Chloride ABG Glucose Carboxyhemoglobin Sodium Potassium 5.3 H Chloride 107.2 H Carbon Dioxide 21 L BUN 55 H Creatinine 3.9 H Glucose 274 H POC Glucose Lactic Acid 2.90 H* Calcium 7.9 L Ferritin Direct Bilirubin 0.4 H AST 130 H ALT 70 H Lactate Dehydrogenase Troponin T 0.038 H C-Reactive Protein NT-Pro-B Natriuret Pep 1157 H Total Protein 6.0 L Albumin 2.6 L Triglycerides LDL Cholesterol Direct 28 L HDL Cholesterol 24 L Arterial Blood Glucose Urine WBC (Auto) Coronavirus (PCR) 01/08/21 01/08/21 01/08/21 14:36 14:36 14:36 WBC RBC Hgb Hct MCV MCHC RDW Lymph % (Auto) Lymph # (Auto) [place] # (Auto) Seg Neutrophils % Seg Neutrophils # APTT D-Dimer 7104.83 H ABG pH POC ABG pCO2 POC ABG pO2 ABG Hemoglobin ABG Oxyhemoglobin ABG Sodium ABG Potassium ABG Chloride ABG Glucose Carboxyhemoglobin Sodium Potassium Chloride Carbon Dioxide BUN Creatinine Glucose 306 H POC Glucose Lactic Acid Calcium Ferritin 624.8 H Direct Bilirubin AST ALT Lactate Dehydrogenase 535 H Troponin T C-Reactive Protein 25.40 H NT-Pro-B Natriuret Pep Total Protein Albumin Triglycerides LDL Cholesterol Direct HDL Cholesterol Arterial Blood Glucose Urine WBC (Auto) Coronavirus (PCR) 01/08/21 01/08/21 01/08/21 21:00 Unknown Unknown WBC RBC Hgb Hct MCV MCHC RDW Lymph % (Auto) Lymph # (Auto) [place] # (Auto) Seg Neutrophils % Seg Neutrophils # APTT D-Dimer ABG pH POC ABG pCO2 POC ABG pO2 111.6 H ABG Hemoglobin 11.6 L ABG Oxyhemoglobin ABG Sodium ABG Potassium 4.6 H ABG Chloride 112.0 H ABG Glucose 256 H Carboxyhemoglobin 0.3 L Sodium Potassium Chloride Carbon Dioxide BUN Creatinine Glucose POC Glucose Lactic Acid Calcium Ferritin Direct Bilirubin AST ALT Lactate Dehydrogenase Troponin T C-Reactive Protein NT-Pro-B Natriuret Pep Total Protein Albumin Triglycerides LDL Cholesterol Direct HDL Cholesterol Arterial Blood Glucose 256 H Urine WBC (Auto) > 182.0 H Coronavirus (PCR) Positive A 01/09/21 01/09/21 01/09/21 05:02 05:18 05:18 WBC 19.0 H RBC Hgb 11.7 L Hct MCV 95 H MCHC RDW 16.0 H Lymph % (Auto) Lymph # (Auto) [place] # (Auto) Seg Neutrophils % Seg Neutrophils # APTT D-Dimer ABG pH POC ABG pCO2 POC ABG pO2 82.7 L ABG Hemoglobin ABG Oxyhemoglobin ABG Sodium ABG Potassium 4.8 H ABG Chloride 114.0 H ABG Glucose 283 H Carboxyhemoglobin 0.3 L Sodium 146 H Potassium 5.1 H Chloride 112.0 H Carbon Dioxide 20 L BUN 63 H Creatinine 3.0 H Glucose 282 H POC Glucose Lactic Acid Calcium 8.1 L Ferritin Direct Bilirubin AST ALT Lactate Dehydrogenase Troponin T C-Reactive Protein NT-Pro-B Natriuret Pep Total Protein Albumin Triglycerides LDL Cholesterol Direct HDL Cholesterol Arterial Blood Glucose 283 H Urine WBC (Auto) Coronavirus (PCR) 01/09/21 01/09/21 01/09/21 13:24 20:05 23:24 WBC RBC Hgb Hct MCV MCHC RDW Lymph % (Auto) Lymph # (Auto) [place] # (Auto) Seg Neutrophils % Seg Neutrophils # APTT D-Dimer ABG pH POC ABG pCO2 POC ABG pO2 ABG Hemoglobin ABG Oxyhemoglobin ABG Sodium ABG Potassium ABG Chloride ABG Glucose Carboxyhemoglobin Sodium Potassium Chloride Carbon Dioxide BUN Creatinine Glucose POC Glucose 282 H 317 H 325 H Lactic Acid Calcium Ferritin Direct Bilirubin AST ALT Lactate Dehydrogenase Troponin T C-Reactive Protein NT-Pro-B Natriuret Pep Total Protein Albumin Triglycerides LDL Cholesterol Direct HDL Cholesterol Arterial Blood Glucose Urine WBC (Auto) Coronavirus (PCR) 01/10/21 01/10/21 01/10/21 02:56 05:31 10:46 WBC 22.0 H RBC Hgb 11.2 L Hct 35.0 L MCV MCHC RDW 15.4 H Lymph % (Auto) Lymph # (Auto) [place] # (Auto) Seg Neutrophils % Seg Neutrophils # APTT D-Dimer ABG pH POC ABG pCO2 POC ABG pO2 73.8 L ABG Hemoglobin ABG Oxyhemoglobin 93.5 L ABG Sodium 149.1 H ABG Potassium 4.6 H ABG Chloride 119.0 H ABG Glucose 311 H Carboxyhemoglobin 0.4 L Sodium Potassium Chloride Carbon Dioxide BUN Creatinine Glucose POC Glucose 278 H Lactic Acid Calcium Ferritin Direct Bilirubin AST ALT Lactate Dehydrogenase Troponin T C-Reactive Protein NT-Pro-B Natriuret Pep Total Protein Albumin Triglycerides LDL Cholesterol Direct HDL Cholesterol Arterial Blood Glucose 311 H Urine WBC (Auto) Coronavirus (PCR) 01/10/21 01/10/21 01/10/21 10:46 10:46 10:46 WBC RBC Hgb Hct MCV MCHC RDW Lymph % (Auto) Lymph # (Auto) [place] # (Auto) Seg Neutrophils % Seg Neutrophils # APTT D-Dimer 5636.29 H ABG pH POC ABG pCO2 POC ABG pO2 ABG Hemoglobin ABG Oxyhemoglobin ABG Sodium ABG Potassium ABG Chloride ABG Glucose Carboxyhemoglobin Sodium 155 H D Potassium Chloride 121.6 H Carbon Dioxide BUN 65 H Creatinine 2.2 H Glucose 330 H POC Glucose Lactic Acid Calcium Ferritin 347.2 H Direct Bilirubin AST 104 H ALT 63 H Lactate Dehydrogenase Troponin T C-Reactive Protein NT-Pro-B Natriuret Pep Total Protein Albumin 2.7 L Triglycerides LDL Cholesterol Direct HDL Cholesterol Arterial Blood Glucose Urine WBC (Auto) Coronavirus (PCR) 01/10/21 01/10/21 01/10/21 10:46 11:39 18:06 WBC RBC Hgb Hct MCV MCHC RDW Lymph % (Auto) Lymph # (Auto) [place] # (Auto) Seg Neutrophils % Seg Neutrophils # APTT D-Dimer ABG pH POC ABG pCO2 POC ABG pO2 ABG Hemoglobin ABG Oxyhemoglobin ABG Sodium ABG Potassium ABG Chloride ABG Glucose Carboxyhemoglobin Sodium Potassium Chloride Carbon Dioxide BUN Creatinine Glucose POC Glucose 289 H 294 H Lactic Acid Calcium Ferritin Direct Bilirubin AST ALT Lactate Dehydrogenase 448 H Troponin T C-Reactive Protein 10.50 H NT-Pro-B Natriuret Pep Total Protein Albumin Triglycerides LDL Cholesterol Direct HDL Cholesterol Arterial Blood Glucose Urine WBC (Auto) Coronavirus (PCR) 01/11/21 01/11/21 01/11/21 00:57 03:09 04:50 WBC 23.8 H RBC Hgb 11.2 L Hct MCV 95 H MCHC 31 L RDW 16.5 H Lymph % (Auto) Lymph # (Auto) [place] # (Auto) Seg Neutrophils % Seg Neutrophils # APTT D-Dimer ABG pH POC ABG pCO2 POC ABG pO2 ABG Hemoglobin ABG Oxyhemoglobin ABG Sodium 154.3 H ABG Potassium 4.8 H ABG Chloride 124.0 H ABG Glucose 381 H Carboxyhemoglobin Sodium Potassium Chloride Carbon Dioxide BUN Creatinine Glucose POC Glucose 300 H Lactic Acid Calcium Ferritin Direct Bilirubin AST ALT Lactate Dehydrogenase Troponin T C-Reactive Protein NT-Pro-B Natriuret Pep Total Protein Albumin Triglycerides LDL Cholesterol Direct HDL Cholesterol Arterial Blood Glucose 381 H Urine WBC (Auto) Coronavirus (PCR) 01/11/21 01/11/21 04:50 05:46 WBC RBC Hgb Hct MCV MCHC RDW Lymph % (Auto) Lymph # (Auto) [place] # (Auto) Seg Neutrophils % Seg Neutrophils # APTT D-Dimer ABG pH POC ABG pCO2 POC ABG pO2 ABG Hemoglobin ABG Oxyhemoglobin ABG Sodium ABG Potassium ABG Chloride ABG Glucose Carboxyhemoglobin Sodium 158 H Potassium Chloride 124.1 H Carbon Dioxide BUN 72 H Creatinine 2.1 H Glucose 371 H POC Glucose 384 H Lactic Acid Calcium Ferritin Direct Bilirubin AST 78 H ALT Lactate Dehydrogenase Troponin T C-Reactive Protein NT-Pro-B Natriuret Pep Total Protein Albumin 2.7 L Triglycerides 394 H LDL Cholesterol Direct HDL Cholesterol Arterial Blood Glucose Urine WBC (Auto) Coronavirus (PCR) Assessment and Plan Assessment and Plan Assessment and plan: - Patient Problems # Post Cardiac arrest -S/p cardiac arrest -Revived -Hypotensive -On Levophed at 10 mics -Possible septic shock with hypotension -Vent support and IV antibiotics -Need EEG and Brain MRI when stable -Hold Sedation as possible. # Acute respiratory failure with hypoxia and hypercapnia -Patient on vent -Patient has history of COPD -IV Solu-Medrol -Vent support #COVID-19 positive -Coronavirus PCR is positive -Possible Covid pneumonia -See CTA lung # Septic shock -Patient on IV antibiotics and Levophed -Patient has bilateral pneumonia -Patient initiated on cefepime and vancomycin # Bilateral pneumonia -Differential diagnosis of community-acquired pneumonia/aspiration pneumonia/Covid pneumonia -IV antibiotics and IV steroids for now -ID consult requested # Urinary tract infection -Patient is on cefepime and vancomycin for the pneumonia -Wait for urine cultures -Creat#2.1 -Hypernatremia with NA#155 # Acute kidney injury superimposed on CKD -Gentle IV hydration for now # Congestive heart failure -Echocardiogram Ef#50-55% -BNP is elevated at 1157 # Transaminitis -Possible secondary to sepsis -Check to get hepatitis panel # Elevated troponin -Secondary to cardiac arrest and possible troponin leak - CK and CK-MB noted # Malnutrition -Albumin is 2.7 -Dietary supplements once extubated # DVT prophylaxis -On heparin SC. GI prophylaxis Critical care statement The high probability OF a clinically significant sudden or life-threatening deterioration of the cardiorespiratory system and endocrine system required my full and direct attention, intervention and postoperative management. The aggregate critical care time was 40 minutes. The time is in addition to time spent performing reported procedures but includes the followin: Data review and interpretation 2: Patient assessment and monitoring of vital signs 3: Documentation 4:: Medication orders and management Advance Directives: Yes (Full code) VTE prophylaxis?: Chemical Plan of care discussed with patient/family: No PLAN 1= EEG 2- Hold sedation if possible 3- MRI brain when stable 4- Treat underlying infection 5- Correct electrolytes abn. will follow
[2021-01-11] MEDS ORDERED: CEFEPIME/NS 2 GM/100 ML 2 GM/100 ML BAG IV SCH (10:00)
[2021-01-11] MEDS: dexAMETHasone 4 MG/ML VIAL IV SCH (10:15)
[2021-01-11] MEDS: SENNOSIDES/DOCUSATE SODIUM 8.6/50 MG TAB FEEDTUBE SCH ×2 (10:16→21:25)
[2021-01-11] MEDS: INSULIN GLARGINE 100 UNITS/ML SUB-Q SCH (10:17)
[2021-01-11] MEDS: FAMOTIDINE 20 MG TAB PO SCH ×2 (10:17→21:25)
[2021-01-11] MEDS: HEPARIN/ 0.45% NACL DRIP 25,000 UNIT/500 ML BAG IV SCH (10:25)
[2021-01-11 10:51] LABS: INR 1.15 (0.87-1.13)
--- NOTE | 2021-01-11 12:57 | Progress Note ---
Assessment and Plan Cardiac arrest PEA with ROSC * Post arrest twelve-lead shows sinus tach 106 with no acute ischemic changes. Continue to monitor on telemetry * Troponin mildly elevated 0.03->0.017 subacute nonspecific. Continue to trend CE's. * Echocardiogram 01/08/21: LVEF 50 to 55%. LV SF normal. Mild diastolic dysfunction. RV normal size. No valvular abnormalities. Elevated D-dimer * CTA chest is negative for PTE Acute respiratory failure secondary Sepsis * Currently on cefepime * Intubated on ventilatory support * Cultures found to be positive for MRSA DVT prophylaxis * Management per primary team * On heparin gtt Will follow continue to follow. This patient was seen in conjunction with Dr Ines Liz who agrees with this assessment and plan of care 30min of critical care time spent for care and coordination of this patient - Patient Problems (1) Acute respiratory failure with hypoxia and hypercapnia Current Visit: Yes Status: Acute (2) Cardiac arrest Current Visit: Yes Status: Acute (3) DVT prophylaxis Current Visit: Yes Status: Acute (4) Elevated d-dimer Current Visit: Yes Status: Acute (5) Elevated troponin Current Visit: Yes Status: Acute (6) Person under investigation for COVID-19 Current Visit: Yes Status: Acute (7) Sepsis Current Visit: Yes Status: Acute (8) Osteomyelitis of great toe of left foot Current Visit: Yes Status: Chronic Subjective Date of service: 01/11/21 Principal diagnosis: Cardiac Arrest; Ac Hypoxemic Resp Failure; SepticShock; PNA; SHERICE; PUI COVID Interval history: Patient intubated sinus tachy 100s on monitor Objective Last Vital Signs Temp 100.8 F H 01/11/21 12:00 Pulse 96 H 01/11/21 12:15 Resp 30 H 01/11/21 12:15 BP 109/57 01/11/21 12:15 Pulse Ox 99 01/11/21 12:15 - Physical Examination General: Other (intubated) HEENT: Positive: Normocephaly, Mucus Membranes Moist Neck: Positive: neck supple Cardiac: Positive: Reg Rate and Rhythm Lungs: Positive: Ventilated Respirations Neuro: Positive: Other (Intubated unresponsive) Abdomen: Positive: Unremarkable, Soft Skin: Positive: Wound (Left toe osteomyelitis). Negative: Rash Musculoskeletal: other (Intubated) Extremities: Present: upper extr. pulses, lower extr. pulses. Absent: edema - Labs and Meds Cardiac Enzymes 01/11/21 Range/Units 04:50 AST 78 H (5-40) units/L Coagulation 01/11/21 Range/Units 10:05 PT 15.2 H (12.2-14.9) Sec. INR 1.15 H (0.87-1.13) Lipids 01/11/21 Range/Units 04:50 Triglycerides 394 H (2-149) mg/dL CBC 01/11/21 Range/Units 04:50 WBC 23.8 H (4.5-11.0) K/mm3 RBC 3.78 (3.65-5.03) M/mm3 Hgb 11.2 L (11.8-15.2) gm/dl Hct 35.9 (35.5-45.6) % Plt Count 300 (140-440) K/mm3 Comprehensive Metabolic Panel 01/11/21 Range/Units 04:50 Sodium 158 H (137-145) mmol/L Potassium 5.0 (3.6-5.0) mmol/L Chloride 124.1 H (98-107) mmol/L Carbon Dioxide 23 (22-30) mmol/L BUN 72 H (9-20) mg/dL Creatinine 2.1 H (0.8-1.3) mg/dL Glucose 371 H (75-100) mg/dL Calcium 9.0 (8.4-10.2) mg/dL AST 78 H (5-40) units/L ALT 54 (7-56) units/L Alkaline Phosphatase 94 (35-129) units/L Total Protein 6.3 (6.3-8.2) g/dL Albumin 2.7 L (3.9-5) g/dL - Imaging and Cardiology EKG: report reviewed (Sinus tachycardia no acute ST-T wave changes) Echo: pending, report reviewed (Echocardiogram 2017 reported EF 60 to 65%) - Telemetry EKG Rhythm: Sinus Rhythm - EKG Sinus rhythms and dysrhythmias: sinus rhythm - Allied health notes Allied health notes reviewed: nursing
--- NOTE | 2021-01-11 13:57 | Consultation ---
History of Present Illness - Reason for Consult Consult date: 01/11/21 - History of Present Illness 51-year-old male past medical history diabetes, morbid obesity, sleep apnea presented to hospital with generalized weakness. It is noted that EMS was struggling to get to the patient due being in a hoarder home. He was confused when EMS arrived and then became unresponsive and apneic. Resuscitation was started and was intubated in the field. Remains persistently with a 23.8. Covid positive. Decreased renal function. Elevated procalcitonin. Currently on cefepime, dexamethasone, vancomycin. Imaging personally reviewed: Chest CTA: No PE; bilateral PNA Chest x-ray: Improving bilateral Past History Past Medical History: diabetes, hyperlipidemia, other (Morbid obesity, sleep apnea) Past Surgical History: No surgical history Social history: no significant social history, , lives with family Family history: no significant family history Medications and Allergies Allergies Allergy/AdvReac Type Severity Reaction Status Date / Time No Known Allergies Allergy Verified 01/09/21 10:10 Home Medications Medication Instructions Recorded Confirmed Last Taken Type Unobtainable 01/10/21 01/10/21 Unknown History Active Meds: Active Medications Acetaminophen (Acetaminophen 325 Mg/10.15 Ml Oral Liqd Unit Dose) 650 mg FEEDTUBE Q6H PRN PRN Reason: TEMP >/=100.4 Last Admin: 01/11/21 10:14 Dose: 650 mg Documented by: Albuterol (Albuterol 2.5 Mg/3 Ml Nebu) 2.5 mg IH Q3HRT PRN PRN Reason: Shortness Of Breath Albuterol/Ipratropium (Ipratropium/Albuterol Sulfate 3 Ml Ampul.Neb) 1 ampul IH QIDRT [facility] Last Admin: 01/11/21 11:26 Dose: Not Given Documented by: Lipase/Protease/Amylase (Lipase 10,500/Protease 25,000/Amylase 43,750 (Units) Dr Kearney) 1 each FEEDTUBE PRN PRN PRN Reason: For Clogged Feeding Tube Dexamethasone (Dexamethasone 4 Mg/Ml Vial) 6 mg IV Q24HR [facility] Stop: 01/19/21 10:01 Last Admin: 01/11/21 10:15 Dose: 6 mg Documented by: Famotidine (Famotidine 20 Mg Tab) 20 mg PO BID [facility] Last Admin: 01/11/21 10:17 Dose: 20 mg Documented by: Heparin Sodium (Porcine) (Heparin 10,000 Units/10 Ml Vial) 5,400 unit 40 unit/k g (5400 unit) IV Q6H PRN PRN Reason: Anti-Xa Assay < 0.1 units/ml Hydrophilic Ointment (Lip Therapy Vaseline) 1 applic TP Q2HR PRN PRN Reason: Dry Lips Propofol (Diprivan 10 Mg/Ml) 1,000 mg in 100 mls @ 4.082 mls/hr IV TITR [facility]; Protocol Last Admin: 01/11/21 13:10 Dose: 5 mcg/kg/min, 4.082 mls/hr Documented by: Norepinephrine (Levophed Drip 4 Mg/Ns 250 Ml) 4 mg in 250 mls @ 75 mls/hr IV T ITR [facility]; Protocol Last Titration: 01/10/21 02:15 Dose: 0 mcg/min, 0 mls/hr Documented by: Cefepime HCl (Cefepime/Ns 2 Gm/100 Ml) 2 gm in 100 mls @ 200 mls/hr IV Q12H [facility]; Protocol Last Admin: 01/11/21 10:16 Dose: 200 mls/hr Documented by: Heparin Sodium/Sodium Chloride (Heparin/ 0.45% Nacl-25,000 Unit/500 Ml) 25,000 unit in 500 mls @ 30 mls/hr IV TITR [facility]; Protocol Last Admin: 01/11/21 10:25 Dose: 1,500 units/hr, 30 mls/hr Documented by: Insulin Glargine (Insulin Glargine 100 Units/Ml) 15 units SUB-Q DAILY [facility] Last Admin: 01/11/21 10:17 Dose: 15 units Documented by: Insulin Human Lispro (Insulin Lispro 100 Unit/Ml) 0 unit SUB-Q Q6HR [facility]; Protocol Last Admin: 01/11/21 12:50 Dose: 10 unit Documented by: Multi-Ingred Cream/Lotion/Oil/Oint (Mineral Oil/Petrolatum, White Ophth Oint 3.5 Gm) 1 applic OU Q4HR PRN PRN Reason: Dry Eye(s) Senna/Docusate Sodium (Sennosides/Docusate Sodium 8.6/50 Mg Tab) 1 tab FEEDTUBE BID [facility] Last Admin: 01/11/21 10:16 Dose: 1 tab Documented by: Simple Syrup (Simple Syrup 15 Ml) 15 ml FEEDTUBE PRN PRN PRN Reason: Hypoglycemia Simple Syrup (Simple Syrup 15 Ml) 30 ml FEEDTUBE PRN PRN PRN Reason: Hypoglycemia Sodium Bicarbonate (Sodium Bicarbonate 325 Mg Tab) 325 mg FEEDTUBE PRN PRN PRN Reason: For Clogged Feeding Tube Sodium Chloride (Sodium Chloride 0.9% 500 Ml Ivpb) 5 ml IV 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 Please refer to primary team's note. - Constitutional Vitals: Vital Signs Temp Pulse Resp BP Pulse Ox 100.8 F H 94 H 28 H 109/59 98 01/11/21 12:00 01/11/21 13:15 01/11/21 13:15 01/11/21 13:15 01/11/21 13:15 Temperature -Last 24 Hours Temperature 100.8 F Temperature 100.8 F Temperature 101.1 F Temperature 102.9 F Temperature 101.1 F Temperature 100.8 F Temperature 100.2 F Temperature 99.7 F Temperature 99.1 F Results - Labs CBC & Chem 7: 01/11/21 04:50 01/11/21 04:50 Labs: Abnormal lab results 01/10/21 01/11/21 01/11/21 Range/Units 18:06 00:57 03:09 WBC (4.5-11.0) K/mm3 Hgb (11.8-15.2) gm/dl MCV (84-94) fl MCHC (32-34) % RDW (13.2-15.2) % PT (12.2-14.9) Sec. INR (0.87-1.13) ABG Sodium 154.3 H (136.0-145.0) mmol/L ABG Potassium 4.8 H (3.40-4.50) mmol/L ABG Chloride 124.0 H (98-107) mmol/L ABG Glucose 381 H (65-95) mg/dL Sodium (137-145) mmol/L Chloride (98-107) mmol/L BUN (9-20) mg/dL Creatinine (0.8-1.3) mg/dL Glucose (75-100) mg/dL POC Glucose 294 H 300 H (70-105) mg/dL AST (5-40) units/L Albumin (3.9-5) g/dL Triglycerides (2-149) mg/dL Arterial Blood Glucose 381 H (65-95) mg/dL 01/11/21 01/11/21 01/11/21 Range/Units 04:50 04:50 05:46 WBC 23.8 H (4.5-11.0) K/mm3 Hgb 11.2 L (11.8-15.2) gm/dl MCV 95 H (84-94) fl MCHC 31 L (32-34) % RDW 16.5 H (13.2-15.2) % PT (12.2-14.9) Sec. INR (0.87-1.13) ABG Sodium (136.0-145.0) mmol/L ABG Potassium (3.40-4.50) mmol/L ABG Chloride (98-107) mmol/L ABG Glucose (65-95) mg/dL Sodium 158 H (137-145) mmol/L Chloride 124.1 H (98-107) mmol/L BUN 72 H (9-20) mg/dL Creatinine 2.1 H (0.8-1.3) mg/dL Glucose 371 H (75-100) mg/dL POC Glucose 384 H (70-105) mg/dL AST 78 H (5-40) units/L Albumin 2.7 L (3.9-5) g/dL Triglycerides 394 H (2-149) mg/dL Arterial Blood Glucose (65-95) mg/dL 01/11/21 01/11/21 Range/Units 10:05 12:04 WBC (4.5-11.0) K/mm3 Hgb (11.8-15.2) gm/dl MCV (84-94) fl MCHC (32-34) % RDW (13.2-15.2) % PT 15.2 H (12.2-14.9) Sec. INR 1.15 H (0.87-1.13) ABG Sodium (136.0-145.0) mmol/L ABG Potassium (3.40-4.50) mmol/L ABG Chloride (98-107) mmol/L ABG Glucose (65-95) mg/dL Sodium (137-145) mmol/L Chloride (98-107) mmol/L BUN (9-20) mg/dL Creatinine (0.8-1.3) mg/dL Glucose (75-100) mg/dL POC Glucose 351 H (70-105) mg/dL AST (5-40) units/L Albumin (3.9-5) g/dL Triglycerides (2-149) mg/dL Arterial Blood Glucose (65-95) mg/dL Assessment and Plan Cultures: Blood culture 01/08/21 MRSA COVID PCE: positive A/P: 60-year-old man past medical history diabetes, sleep apnea admitted with COVID-19 pneumonia #Severe COVID-19 pneumonia: Patient presented with a week of symptoms, chest x- ray with diffuse bilateral infiltrates, arrived intubated. Inflammatory markers elevated #Acute hypoxemic respiratory failure: Likely secondary to COVID-19 infection. Currently on the vent #MRSA bacteremia: unclear source. #Diabetes: tight glycemic control for best outcomes. #Morbid obesity #SHERICE: renally dose medications Recs: -Steroids per pulmonary for 10 days -Borderline renal function, if continues to improve would start remdesivir. -Given MRSA bacteremia not a candidate for Actemra at present. -Obtain q48-72h inflammatory markers - ferritin, Ddimer, CRP, LDH -Continue vancomycin goal trough 10-20 -Ordered repeat blood cultures -Ordered TTE -Stopped cefepime. -Anticoagulation per hospital protocol -Proning as able Thank you for the consult, we will continue to follow. MD Angela [facility] ([facility] O: [phone] F: [phone]
--- NOTE | 2021-01-11 15:46 | Ultrasound Report ---
ULTRASOUND RENAL INDICATION / CLINICAL INFORMATION: SHERICE. COMPARISON: CT dated 01/08/2021. FINDINGS: Right kidney measures 12.7 x 6.8 x 5.6 cm. There is mild cortical thinning. Extensive staghorn calcul us obscures findings in the renal hilum. No definite hydronephrosis. No right ureteral stent is not v isualized. No solid renal mass. Portions of the left kidney are obscured due to shadowing bowel gas. Left kidney measures 14.2 x 6.2 x 5.3 cm. Mild cortical thinning. Extensive staghorn calculus obscures findings in the left renal hil um. No definite hydronephrosis. No evidence of solid renal mass. 2 cm left renal cyst. Cleaning catheter decompresses the bladder. IMPRESSION: 1. Bilateral staghorn calculi, which appears findings in the renal do. No definite hydronephrosis. 2. Mild bilateral renal atrophy. Signer Name: Ashkan Crews MD Signed: 01/11/2021 2:16 PM Workstation Name: [id number]
--- NOTE | 2021-01-11 16:15 | Progress Note ---
Assessment and Plan Cardiac Arrest with ROSC Acute Hypooxemic Respiratory Failure Septic Shock Bilateral pneumonia SHERICE BIBIANA Morbid Obesity Urinary tract infection Congestive heart failure Transaminitis NSTEMI / Elevated troponin Person under investigation for COVID-19 - pull Right groin CVL - await surgery input - hold IV heparin if surgery planned - H&H stable despite hematuria; will continue for now - begin Nepro @ 45 cc/hr till re-evaluated by banquet lead - repeat BC's X 2 - ID evaluation ongoing - vascular surgery input noted - continue Cefepime and Vancomycin for now - follow EEG - Neurology evaluation ongoing - continue care as below otherwise; - continue Daily SAT and SBT assessment as tolerated - continue to wean supplemental oxygen for target O2 sat's > 90% acutely - VAP bundle addressed - continue lung protective strategies - continue bronchodilators with pulmonary hygiene per RT - wean per pulmonary driven protocols otherwise - continue accuchecks with glycemic control per SSI (While critically ill target blood glucose of 140-180 mg/dL; avoid hypoglycemia) - sedation prn for target RASS 0 to -1 - avoid nephrotoxins, renally dose all medications - continue to avoid benzodiazepine's, reduce the possibility of delirium - complete AB's per ID rec's - prn analgesia per CPOT score - Maintenance of sleep-wake cycle, avoid delirium - continue enteral nutritional support at goal rate as tolerated - G.I. & VTE prophylaxis - PT/OT/ROM exercises - continue mobility protocols for pressure ulcer prophylaxis - Monitor hemodynamics closely - continue other care per attending / other consultants - discharge planning ongoing concurrently COVID SPECIFIC INTERVENTIONS - continue empiric contact and airborne isolation - await COVID-19 test result .... Re-evaluate in am & prn CONDITION: CRITICAL PROGNOSIS: GUARDED CODE STATUS: FULL CODE The high probability of a clinically significant, sudden or life-threatening deterioration of the [respiratory, cardiovascular, renal & neurologic] system(s) required my full and direct attention, intervention and personal management. The aggregate critical care time was [35] minutes without overlap. Time includes spent on; [x] Data Review and interpretation [x] Patient assessment and monitoring of vital signs [x] Documentation [x] Medication orders and management Subjective Date of service: 01/11/21 Principal diagnosis: Cardiac Arrest; Ac Hypoxemic Resp Failure; SepticShock; PNA; SHERICE; PUI COVID Interval history: Patient is seen today for: Cardiac Arrest with ROSC; Acute Hypoxemic Respiratory Failure; Septic Shock; Pneumonia; SHERICE; UTI; CHF; PUI COVID-19 Seen and examined at bedside; 24hour events reviewed; nursing and respiratory care staff consulted; no adverse overnight events reported to me; resting in bed; remains on MVS; AMS is persistent; + hematuria; await surgery evaluation of right foot; growing MRSA in 2 bottles Objective Vital Signs - 12hr 01/11/21 01/11/21 01/11/21 04:30 04:45 05:00 Temperature Pulse Rate 105 H 104 H 103 H Pulse Rate [ Bilateral Throughout] Pulse Rate [ From Monitor] Respiratory 29 H 29 H 29 H Rate Respiratory Rate [Bilateral Throughout] Blood Pressure 114/64 112/68 112/68 O2 Sat by Pulse 96 96 97 Oximetry 01/11/21 01/11/21 01/11/21 05:15 05:30 05:45 Temperature Pulse Rate 105 H 105 H 103 H Pulse Rate [ Bilateral Throughout] Pulse Rate [ From Monitor] Respiratory 27 H 29 H 27 H Rate Respiratory Rate [Bilateral Throughout] Blood Pressure 115/64 109/65 104/63 O2 Sat by Pulse 96 96 96 Oximetry 01/11/21 01/11/21 01/11/21 06:00 06:15 06:30 Temperature Pulse Rate 103 H 102 H 100 H Pulse Rate [ Bilateral Throughout] Pulse Rate [ From Monitor] Respiratory 27 H 27 H 29 H Rate Respiratory Rate [Bilateral Throughout] Blood Pressure 103/62 105/61 106/67 O2 Sat by Pulse 95 94 94 Oximetry 01/11/21 01/11/21 01/11/21 06:45 07:00 07:15 Temperature 102.9 F H Pulse Rate 101 H 101 H 100 H Pulse Rate [ Bilateral Throughout] Pulse Rate [ From Monitor] Respiratory 27 H 27 H 29 H Rate Respiratory Rate [Bilateral Throughout] Blood Pressure 115/63 106/63 108/64 O2 Sat by Pulse 95 95 95 Oximetry 01/11/21 01/11/21 01/11/21 07:30 07:45 08:00 Temperature Pulse Rate 102 H 102 H 102 H Pulse Rate [ Bilateral Throughout] Pulse Rate [ From Monitor] Respiratory 29 H 29 H 30 H Rate Respiratory Rate [Bilateral Throughout] Blood Pressure 108/62 102/53 119/70 O2 Sat by Pulse 98 98 99 Oximetry 01/11/21 01/11/21 01/11/21 08:01 08:15 08:30 Temperature Pulse Rate 102 H 102 H 98 H Pulse Rate [ Bilateral Throughout] Pulse Rate [ 100 H From Monitor] Respiratory 29 H 29 H Rate Respiratory Rate [Bilateral Throughout] Blood Pressure 119/70 102/61 O2 Sat by Pulse 99 98 Oximetry 01/11/21 01/11/21 01/11/21 08:34 08:45 09:00 Temperature 101.1 F H Pulse Rate 100 H 98 H Pulse Rate [ Bilateral Throughout] Pulse Rate [ From Monitor] Respiratory 29 H 28 H Rate Respiratory Rate [Bilateral Throughout] Blood Pressure 110/65 109/61 O2 Sat by Pulse 99 98 Oximetry 01/11/21 01/11/21 01/11/21 09:15 09:30 09:45 Temperature Pulse Rate 97 H 98 H 98 H Pulse Rate [ Bilateral Throughout] Pulse Rate [ From Monitor] Respiratory 28 H 29 H 33 H Rate Respiratory Rate [Bilateral Throughout] Blood Pressure 109/65 105/65 110/66 O2 Sat by Pulse 98 100 98 Oximetry 01/11/21 01/11/21 01/11/21 09:46 10:00 10:15 Temperature Pulse Rate 96 H 98 H Pulse Rate [ 96 H Bilateral Throughout] Pulse Rate [ From Monitor] Respiratory 28 H 28 H Rate Respiratory 30 H Rate [Bilateral Throughout] Blood Pressure 113/65 108/64 O2 Sat by Pulse 98 100 Oximetry 01/11/21 01/11/21 01/11/21 10:30 10:45 11:00 Temperature Pulse Rate 103 H 104 H 102 H Pulse Rate [ Bilateral Throughout] Pulse Rate [ From Monitor] Respiratory 27 H 24 25 H Rate Respiratory Rate [Bilateral Throughout] Blood Pressure 111/58 118/71 106/59 O2 Sat by Pulse 99 95 100 Oximetry 01/11/21 01/11/21 01/11/21 11:15 11:17 11:30 Temperature Pulse Rate 100 H 96 H 100 H Pulse Rate [ Bilateral Throughout] Pulse Rate [ From Monitor] Respiratory 26 H 26 H Rate Respiratory Rate [Bilateral Throughout] Blood Pressure 102/62 113/65 112/58 O2 Sat by Pulse 99 98 100 Oximetry 01/11/21 01/11/21 01/11/21 11:45 12:00 12:08 Temperature 100.8 F H Pulse Rate 97 H 96 H Pulse Rate [ Bilateral Throughout] Pulse Rate [ 98 H From Monitor] Respiratory 30 H 26 H 28 H Rate Respiratory Rate [Bilateral Throughout] Blood Pressure 101/59 105/58 O2 Sat by Pulse 99 98 100 Oximetry 01/11/21 01/11/21 01/11/21 12:15 12:30 12:45 Temperature Pulse Rate 96 H 97 H 97 H Pulse Rate [ Bilateral Throughout] Pulse Rate [ From Monitor] Respiratory 30 H 26 H 24 Rate Respiratory Rate [Bilateral Throughout] Blood Pressure 109/57 107/54 108/53 O2 Sat by Pulse 99 99 98 Oximetry 01/11/21 01/11/21 01/11/21 13:00 13:15 13:30 Temperature Pulse Rate 97 H 94 H 93 H Pulse Rate [ Bilateral Throughout] Pulse Rate [ From Monitor] Respiratory 27 H 28 H 27 H Rate Respiratory Rate [Bilateral Throughout] Blood Pressure 114/55 109/59 122/56 O2 Sat by Pulse 98 98 99 Oximetry 01/11/21 01/11/21 01/11/21 13:45 14:00 14:15 Temperature Pulse Rate 93 H 94 H 94 H Pulse Rate [ Bilateral Throughout] Pulse Rate [ From Monitor] Respiratory 27 H 29 H 26 H Rate Respiratory Rate [Bilateral Throughout] Blood Pressure 114/61 109/58 106/57 O2 Sat by Pulse 98 98 98 Oximetry 01/11/21 01/11/21 01/11/21 14:30 14:45 15:00 Temperature Pulse Rate 96 H 96 H 95 H Pulse Rate [ Bilateral Throughout] Pulse Rate [ From Monitor] Respiratory 29 H 29 H 27 H Rate Respiratory Rate [Bilateral Throughout] Blood Pressure 116/59 106/57 114/55 O2 Sat by Pulse 98 99 98 Oximetry 01/11/21 15:50 Temperature Pulse Rate 98 H Pulse Rate [ Bilateral Throughout] Pulse Rate [ From Monitor] Respiratory Rate Respiratory Rate [Bilateral Throughout] Blood Pressure 114/55 O2 Sat by Pulse 98 Oximetry Constitutional: appears uncomfortable, other (elderly obese male with mildly increased respiratory effort at rest on MVS) Eyes: non-icteric ENT: oropharynx moist, other (ETT 24 cm ASHA) Neck: supple, no lymphadenopathy, no JVD Effort: mildly labored Ascultation: Bilateral: diminished breath sounds, rhonchi Percussion: Bilateral: not dull Cardiovascular: regular rate and rhythm Gastrointestinal: normoactive bowel sounds, soft, non-tender, non-distended Integumentary: erythema (patchy mild) Extremities: no cyanosis, pink and warm, pulses normal, no ischemia or petechiae, edema (trace) Neurologic: pupils equal and round, unable to assess Psychiatric: other (encephalopathic) CBC and BMP: 01/12/21 04:29 01/12/21 04:29 ABG, PT/INR, D-dimer: ABG ABG pH 7.385 (7.320-7.450) 01/11/21 03:09 POC ABG pCO2 32.7 mmHg (32.0-48.0) 01/11/21 03:09 POC ABG pO2 88.8 mmHg (83-108) 01/11/21 03:09 POC ABG HCO3 19.1 01/11/21 03:09 ABG O2 Saturation 96.7 (0-100) 01/11/21 03:09 PT/INR, D-dimer PT 15.2 Sec. (12.2-14.9) H 01/11/21 10:05 INR 1.15 (0.87-1.13) H 01/11/21 10:05 D-Dimer 5636.29 ng/mlDDU (0-234) H 01/10/21 10:46 Abnormal lab findings: Abnormal Labs 01/08/21 01/08/21 01/08/21 11:01 11:55 11:55 WBC 23.8 H RBC 3.35 L Hgb 10.5 L Hct 31.6 L MCV MCHC RDW 15.6 H Lymph % (Auto) 4.1 L Lymph # (Auto) 1.0 L [place] # (Auto) 1.2 H Seg Neutrophils % 90.5 H Seg Neutrophils # 21.5 H PT INR APTT D-Dimer ABG pH 7.204 L POC ABG pCO2 50.7 H POC ABG pO2 ABG Hemoglobin 11.9 L ABG Oxyhemoglobin ABG Sodium ABG Potassium 5.0 H ABG Chloride 110.0 H ABG Glucose 313 H Carboxyhemoglobin 0.1 L Sodium Potassium Chloride Carbon Dioxide BUN Creatinine Glucose POC Glucose Lactic Acid 4.50 H* Calcium Ferritin Direct Bilirubin AST ALT Lactate Dehydrogenase Troponin T C-Reactive Protein NT-Pro-B Natriuret Pep Total Protein Albumin Triglycerides LDL Cholesterol Direct HDL Cholesterol Arterial Blood Glucose 313 H Urine WBC (Auto) Coronavirus (PCR) 01/08/21 01/08/21 01/08/21 11:55 11:55 13:42 WBC RBC Hgb Hct MCV MCHC RDW Lymph % (Auto) Lymph # (Auto) [place] # (Auto) Seg Neutrophils % Seg Neutrophils # PT INR APTT 23.3 L D-Dimer ABG pH POC ABG pCO2 POC ABG pO2 ABG Hemoglobin ABG Oxyhemoglobin ABG Sodium ABG Potassium ABG Chloride ABG Glucose Carboxyhemoglobin Sodium Potassium 5.3 H Chloride 107.2 H Carbon Dioxide 21 L BUN 55 H Creatinine 3.9 H Glucose 274 H POC Glucose Lactic Acid 2.90 H* Calcium 7.9 L Ferritin Direct Bilirubin 0.4 H AST 130 H ALT 70 H Lactate Dehydrogenase Troponin T 0.038 H C-Reactive Protein NT-Pro-B Natriuret Pep 1157 H Total Protein 6.0 L Albumin 2.6 L Triglycerides LDL Cholesterol Direct 28 L HDL Cholesterol 24 L Arterial Blood Glucose Urine WBC (Auto) Coronavirus (PCR) 01/08/21 01/08/21 01/08/21 14:36 14:36 14:36 WBC RBC Hgb Hct MCV MCHC RDW Lymph % (Auto) Lymph # (Auto) [place] # (Auto) Seg Neutrophils % Seg Neutrophils # PT INR APTT D-Dimer 7104.83 H ABG pH POC ABG pCO2 POC ABG pO2 ABG Hemoglobin ABG Oxyhemoglobin ABG Sodium ABG Potassium ABG Chloride ABG Glucose Carboxyhemoglobin Sodium Potassium Chloride Carbon Dioxide BUN Creatinine Glucose 306 H POC Glucose Lactic Acid Calcium Ferritin 624.8 H Direct Bilirubin AST ALT Lactate Dehydrogenase 535 H Troponin T C-Reactive Protein 25.40 H NT-Pro-B Natriuret Pep Total Protein Albumin Triglycerides LDL Cholesterol Direct HDL Cholesterol Arterial Blood Glucose Urine WBC (Auto) Coronavirus (PCR) 01/08/21 01/08/21 01/08/21 21:00 Unknown Unknown WBC RBC Hgb Hct MCV MCHC RDW Lymph % (Auto) Lymph # (Auto) [place] # (Auto) Seg Neutrophils % Seg Neutrophils # PT INR APTT D-Dimer ABG pH POC ABG pCO2 POC ABG pO2 111.6 H ABG Hemoglobin 11.6 L ABG Oxyhemoglobin ABG Sodium ABG Potassium 4.6 H ABG Chloride 112.0 H ABG Glucose 256 H Carboxyhemoglobin 0.3 L Sodium Potassium Chloride Carbon Dioxide BUN Creatinine Glucose POC Glucose Lactic Acid Calcium Ferritin Direct Bilirubin AST ALT Lactate Dehydrogenase Troponin T C-Reactive Protein NT-Pro-B Natriuret Pep Total Protein Albumin Triglycerides LDL Cholesterol Direct HDL Cholesterol Arterial Blood Glucose 256 H Urine WBC (Auto) > 182.0 H Coronavirus (PCR) Positive A 01/09/21 01/09/21 01/09/21 05:02 05:18 05:18 WBC 19.0 H RBC Hgb 11.7 L Hct MCV 95 H MCHC RDW 16.0 H Lymph % (Auto) Lymph # (Auto) [place] # (Auto) Seg Neutrophils % Seg Neutrophils # PT INR APTT D-Dimer ABG pH POC ABG pCO2 POC ABG pO2 82.7 L ABG Hemoglobin ABG Oxyhemoglobin ABG Sodium ABG Potassium 4.8 H ABG Chloride 114.0 H ABG Glucose 283 H Carboxyhemoglobin 0.3 L Sodium 146 H Potassium 5.1 H Chloride 112.0 H Carbon Dioxide 20 L BUN 63 H Creatinine 3.0 H Glucose 282 H POC Glucose Lactic Acid Calcium 8.1 L Ferritin Direct Bilirubin AST ALT Lactate Dehydrogenase Troponin T C-Reactive Protein NT-Pro-B Natriuret Pep Total Protein Albumin Triglycerides LDL Cholesterol Direct HDL Cholesterol Arterial Blood Glucose 283 H Urine WBC (Auto) Coronavirus (PCR) 01/09/21 01/09/21 01/09/21 13:24 20:05 23:24 WBC RBC Hgb Hct MCV MCHC RDW Lymph % (Auto) Lymph # (Auto) [place] # (Auto) Seg Neutrophils % Seg Neutrophils # PT INR APTT D-Dimer ABG pH POC ABG pCO2 POC ABG pO2 ABG Hemoglobin ABG Oxyhemoglobin ABG Sodium ABG Potassium ABG Chloride ABG Glucose Carboxyhemoglobin Sodium Potassium Chloride Carbon Dioxide BUN Creatinine Glucose POC Glucose 282 H 317 H 325 H Lactic Acid Calcium Ferritin Direct Bilirubin AST ALT Lactate Dehydrogenase Troponin T C-Reactive Protein NT-Pro-B Natriuret Pep Total Protein Albumin Triglycerides LDL Cholesterol Direct HDL Cholesterol Arterial Blood Glucose Urine WBC (Auto) Coronavirus (PCR) 01/10/21 01/10/21 01/10/21 02:56 05:31 10:46 WBC 22.0 H RBC Hgb 11.2 L Hct 35.0 L MCV MCHC RDW 15.4 H Lymph % (Auto) Lymph # (Auto) [place] # (Auto) Seg Neutrophils % Seg Neutrophils # PT INR APTT D-Dimer ABG pH POC ABG pCO2 POC ABG pO2 73.8 L ABG Hemoglobin ABG Oxyhemoglobin 93.5 L ABG Sodium 149.1 H ABG Potassium 4.6 H ABG Chloride 119.0 H ABG Glucose 311 H Carboxyhemoglobin 0.4 L Sodium Potassium Chloride Carbon Dioxide BUN Creatinine Glucose POC Glucose 278 H Lactic Acid Calcium Ferritin Direct Bilirubin AST ALT Lactate Dehydrogenase Troponin T C-Reactive Protein NT-Pro-B Natriuret Pep Total Protein Albumin Triglycerides LDL Cholesterol Direct HDL Cholesterol Arterial Blood Glucose 311 H Urine WBC (Auto) Coronavirus (PCR) 01/10/21 01/10/21 01/10/21 10:46 10:46 10:46 WBC RBC Hgb Hct MCV MCHC RDW Lymph % (Auto) Lymph # (Auto) [place] # (Auto) Seg Neutrophils % Seg Neutrophils # PT INR APTT D-Dimer 5636.29 H ABG pH POC ABG pCO2 POC ABG pO2 ABG Hemoglobin ABG Oxyhemoglobin ABG Sodium ABG Potassium ABG Chloride ABG Glucose Carboxyhemoglobin Sodium 155 H D Potassium Chloride 121.6 H Carbon Dioxide BUN 65 H Creatinine 2.2 H Glucose 330 H POC Glucose Lactic Acid Calcium Ferritin 347.2 H Direct Bilirubin AST 104 H ALT 63 H Lactate Dehydrogenase Troponin T C-Reactive Protein NT-Pro-B Natriuret Pep Total Protein Albumin 2.7 L Triglycerides LDL Cholesterol Direct HDL Cholesterol Arterial Blood Glucose Urine WBC (Auto) Coronavirus (PCR) 01/10/21 01/10/21 01/10/21 10:46 11:39 18:06 WBC RBC Hgb Hct MCV MCHC RDW Lymph % (Auto) Lymph # (Auto) [place] # (Auto) Seg Neutrophils % Seg Neutrophils # PT INR APTT D-Dimer ABG pH POC ABG pCO2 POC ABG pO2 ABG Hemoglobin ABG Oxyhemoglobin ABG Sodium ABG Potassium ABG Chloride ABG Glucose Carboxyhemoglobin Sodium Potassium Chloride Carbon Dioxide BUN Creatinine Glucose POC Glucose 289 H 294 H Lactic Acid Calcium Ferritin Direct Bilirubin AST ALT Lactate Dehydrogenase 448 H Troponin T C-Reactive Protein 10.50 H NT-Pro-B Natriuret Pep Total Protein Albumin Triglycerides LDL Cholesterol Direct HDL Cholesterol Arterial Blood Glucose Urine WBC (Auto) Coronavirus (PCR) 01/11/21 01/11/21 01/11/21 00:57 03:09 04:50 WBC 23.8 H RBC Hgb 11.2 L Hct MCV 95 H MCHC 31 L RDW 16.5 H Lymph % (Auto) Lymph # (Auto) [place] # (Auto) Seg Neutrophils % Seg Neutrophils # PT INR APTT D-Dimer ABG pH POC ABG pCO2 POC ABG pO2 ABG Hemoglobin ABG Oxyhemoglobin ABG Sodium 154.3 H ABG Potassium 4.8 H ABG Chloride 124.0 H ABG Glucose 381 H Carboxyhemoglobin Sodium Potassium Chloride Carbon Dioxide BUN Creatinine Glucose POC Glucose 300 H Lactic Acid Calcium Ferritin Direct Bilirubin AST ALT Lactate Dehydrogenase Troponin T C-Reactive Protein NT-Pro-B Natriuret Pep Total Protein Albumin Triglycerides LDL Cholesterol Direct HDL Cholesterol Arterial Blood Glucose 381 H Urine WBC (Auto) Coronavirus (PCR) 01/11/21 01/11/21 01/11/21 04:50 05:46 10:05 WBC RBC Hgb Hct MCV MCHC RDW Lymph % (Auto) Lymph # (Auto) [place] # (Auto) Seg Neutrophils % Seg Neutrophils # PT 15.2 H INR 1.15 H APTT D-Dimer ABG pH POC ABG pCO2 POC ABG pO2 ABG Hemoglobin ABG Oxyhemoglobin ABG Sodium ABG Potassium ABG Chloride ABG Glucose Carboxyhemoglobin Sodium 158 H Potassium Chloride 124.1 H Carbon Dioxide BUN 72 H Creatinine 2.1 H Glucose 371 H POC Glucose 384 H Lactic Acid Calcium Ferritin Direct Bilirubin AST 78 H ALT Lactate Dehydrogenase Troponin T C-Reactive Protein NT-Pro-B Natriuret Pep Total Protein Albumin 2.7 L Triglycerides 394 H LDL Cholesterol Direct HDL Cholesterol Arterial Blood Glucose Urine WBC (Auto) Coronavirus (PCR) 01/11/21 12:04 WBC RBC Hgb Hct MCV MCHC RDW Lymph % (Auto) Lymph # (Auto) [place] # (Auto) Seg Neutrophils % Seg Neutrophils # PT INR APTT D-Dimer ABG pH POC ABG pCO2 POC ABG pO2 ABG Hemoglobin ABG Oxyhemoglobin ABG Sodium ABG Potassium ABG Chloride ABG Glucose Carboxyhemoglobin Sodium Potassium Chloride Carbon Dioxide BUN Creatinine Glucose POC Glucose 351 H Lactic Acid Calcium Ferritin Direct Bilirubin AST ALT Lactate Dehydrogenase Troponin T C-Reactive Protein NT-Pro-B Natriuret Pep Total Protein Albumin Triglycerides LDL Cholesterol Direct HDL Cholesterol Arterial Blood Glucose Urine WBC (Auto) Coronavirus (PCR) Chest x-ray: image reviewed (no new infiltrate) Allied health notes reviewed: nursing
--- NOTE | 2021-01-11 17:56 | Progress Note ---
Assessment and Plan Critical care statement The high probability OF a clinically significant sudden or life-threatening deterioration of the cardiorespiratory system and endocrine system required my full and direct attention, intervention and postoperative management. The aggregate critical care time was 35 minutes. The time is in addition to time spent performing reported procedures but includes the followin: Data review and interpretation 2: Patient assessment and monitoring of vital signs 3: Documentation 4:: Medication orders and management - Patient Problems (1) Acute respiratory failure with hypoxia and hypercapnia Current Visit: Yes Status: Acute Plan to address problem: Patient on vent Patient has history of COPD Patient initiated on duo nebs [id number] and as needed IV Solu-Medrol Vent support Roll Tube Setter consult requested (2) Cardiac arrest Current Visit: Yes Status: Acute Plan to address problem: S/p cardiac arrest Revived Hypotensive On Levophed at 10 mics Possible septic shock with hypotension Vent support and IV antibiotics (3) Septic shock Current Visit: Yes Status: Acute Plan to address problem: Patient on IV antibiotics and Levophed Patient has bilateral pneumonia Possible aspiration pneumonia Patient initiated on cefepime and vancomycin ID consult requested (4) Bilateral pneumonia Current Visit: Yes Status: Acute Plan to address problem: Differential diagnosis of community-acquired pneumonia/aspiration pneumoni a/Covid pneumonia IV antibiotics and IV steroids for now ID consult requested (5) Urinary tract infection Current Visit: Yes Status: Acute Qualifiers: Urinary tract infection type: acute cystitis Plan to address problem: Patient is on cefepime and vancomycin for the pneumonia Wait for urine cultures (6) Acute kidney injury superimposed on CKD Current Visit: Yes Status: Acute Plan to address problem: Gentle IV hydration for now Nephrology consulted Some improvement in the creatinine from 3.9-3.0 Per nephrology-- Woudl recommend gentle IVF hydration, maintain MAP >65 mmHg. Avoid nephrotoxins. Renal US did not show any acute abnormalities but likely does have evidence of underlying chronic kidney disease. overall renal function is stable this morning and he remains nonoliguric. We will continue to closely monitor. No acute indications for renal replacement therapy at present time. (7) Congestive heart failure Current Visit: Yes Status: Chronic Qualifiers: Heart failure type: combined systolic and diastolic Plan to address problem: We will get echocardiogram for ejection fraction BNP is elevated at 1157 (8) Transaminitis Current Visit: Yes Status: Acute Plan to address problem: Possible secondary to sepsis Check to get hepatitis panel (9) Elevated troponin Current Visit: Yes Status: Acute Plan to address problem: Secondary to cardiac arrest and possible troponin leak We will get CK and CK-MB (10) Person under investigation for COVID-19 Current Visit: Yes Status: Acute Plan to address problem: Coronavirus PCR positive (11) Malnutrition Current Visit: Yes Status: Chronic Qualifiers: Protein-calorie malnutrition severity: mild Plan to address problem: Albumin is 2.7 Dietary supplements once extubated (12) DVT prophylaxis Current Visit: Yes Status: Acute Plan to address problem: On heparin GI prophylaxis Subjective Date of service: 01/11/21 Principal diagnosis: Cardiac Arrest; Ac Hypoxemic Resp Failure; SepticShock; PNA; SHERICE; PUI COVID Interval history: 61-year-old salt[place] male with history of diabetes and sleep apnea called EMS towards generalized weakness. When EMS arrived there was difficulty getting to the patient. Because of too many items in the home. Similar to a Hoarder home. Initially patient was awake and talking confused. Then patient became unresponsive and apneic. ACLS protocol was initiated and chest compressions were initiated oxygen was administered and his own CPAP machine was used. Within the next 10 minutes patient was intubated. EMS was unable to get the patient out of the room through the door so patient was taken out of the home through the window of the room. Patient was found to be in PEA. Patient was intubated by EMS they achieved a return of spontaneous circulation. After a few minutes lost her pulse again and was given amlodipine and was revived. Patient presents to the emergency room with a pulse. It is unclear what has precipitated his cardiac arrest. Patient has only diabetes and sleep apnea. No fever or chills. No exposure to coronavirus. Patient was slightly hypotensive and was initiated on Levophed in the emergency room. Levophed is at 10 mics 01/09/2021 Patient still intubated Weaning in progress Covid positive 01/10/2021 Covid positive 01/11/2021 Covid positive On ventilator Weaning in progress Objective - Exam Narrative Exam: Patient is intubated - Constitutional Vitals: Vital Signs - 12hr 01/11/21 01/11/21 01/11/21 06:00 06:15 06:30 Temperature Pulse Rate 103 H 102 H 100 H Pulse Rate [ Bilateral Throughout] Pulse Rate [ From Monitor] Respiratory 27 H 27 H 29 H Rate Respiratory Rate [Bilateral Throughout] Blood Pressure 103/62 105/61 106/67 O2 Sat by Pulse 95 94 94 Oximetry 01/11/21 01/11/21 01/11/21 06:45 07:00 07:15 Temperature 102.9 F H Pulse Rate 101 H 101 H 100 H Pulse Rate [ Bilateral Throughout] Pulse Rate [ From Monitor] Respiratory 27 H 27 H 29 H Rate Respiratory Rate [Bilateral Throughout] Blood Pressure 115/63 106/63 108/64 O2 Sat by Pulse 95 95 95 Oximetry 01/11/21 01/11/21 01/11/21 07:30 07:45 08:00 Temperature Pulse Rate 102 H 102 H 102 H Pulse Rate [ Bilateral Throughout] Pulse Rate [ From Monitor] Respiratory 29 H 29 H 30 H Rate Respiratory Rate [Bilateral Throughout] Blood Pressure 108/62 102/53 119/70 O2 Sat by Pulse 98 98 99 Oximetry 01/11/21 01/11/21 01/11/21 08:01 08:15 08:30 Temperature Pulse Rate 102 H 102 H 98 H Pulse Rate [ Bilateral Throughout] Pulse Rate [ 100 H From Monitor] Respiratory 29 H 29 H Rate Respiratory Rate [Bilateral Throughout] Blood Pressure 119/70 102/61 O2 Sat by Pulse 99 98 Oximetry 01/11/21 01/11/21 01/11/21 08:34 08:45 09:00 Temperature 101.1 F H Pulse Rate 100 H 98 H Pulse Rate [ Bilateral Throughout] Pulse Rate [ From Monitor] Respiratory 29 H 28 H Rate Respiratory Rate [Bilateral Throughout] Blood Pressure 110/65 109/61 O2 Sat by Pulse 99 98 Oximetry 01/11/21 01/11/21 01/11/21 09:15 09:30 09:45 Temperature Pulse Rate 97 H 98 H 98 H Pulse Rate [ Bilateral Throughout] Pulse Rate [ From Monitor] Respiratory 28 H 29 H 33 H Rate Respiratory Rate [Bilateral Throughout] Blood Pressure 109/65 105/65 110/66 O2 Sat by Pulse 98 100 98 Oximetry 01/11/21 01/11/21 01/11/21 09:46 10:00 10:15 Temperature Pulse Rate 96 H 98 H Pulse Rate [ 96 H Bilateral Throughout] Pulse Rate [ From Monitor] Respiratory 28 H 28 H Rate Respiratory 30 H Rate [Bilateral Throughout] Blood Pressure 113/65 108/64 O2 Sat by Pulse 98 100 Oximetry 01/11/21 01/11/21 01/11/21 10:30 10:45 11:00 Temperature Pulse Rate 103 H 104 H 102 H Pulse Rate [ Bilateral Throughout] Pulse Rate [ From Monitor] Respiratory 27 H 24 25 H Rate Respiratory Rate [Bilateral Throughout] Blood Pressure 111/58 118/71 106/59 O2 Sat by Pulse 99 95 100 Oximetry 01/11/21 01/11/21 01/11/21 11:15 11:17 11:30 Temperature Pulse Rate 100 H 96 H 100 H Pulse Rate [ Bilateral Throughout] Pulse Rate [ From Monitor] Respiratory 26 H 26 H Rate Respiratory Rate [Bilateral Throughout] Blood Pressure 102/62 113/65 112/58 O2 Sat by Pulse 99 98 100 Oximetry 01/11/21 01/11/21 01/11/21 11:45 12:00 12:08 Temperature 100.8 F H Pulse Rate 97 H 96 H Pulse Rate [ Bilateral Throughout] Pulse Rate [ 98 H From Monitor] Respiratory 30 H 26 H 28 H Rate Respiratory Rate [Bilateral Throughout] Blood Pressure 101/59 105/58 O2 Sat by Pulse 99 98 100 Oximetry 01/11/21 01/11/21 01/11/21 12:15 12:30 12:45 Temperature Pulse Rate 96 H 97 H 97 H Pulse Rate [ Bilateral Throughout] Pulse Rate [ From Monitor] Respiratory 30 H 26 H 24 Rate Respiratory Rate [Bilateral Throughout] Blood Pressure 109/57 107/54 108/53 O2 Sat by Pulse 99 99 98 Oximetry 01/11/21 01/11/21 01/11/21 13:00 13:15 13:30 Temperature Pulse Rate 97 H 94 H 93 H Pulse Rate [ Bilateral Throughout] Pulse Rate [ From Monitor] Respiratory 27 H 28 H 27 H Rate Respiratory Rate [Bilateral Throughout] Blood Pressure 114/55 109/59 122/56 O2 Sat by Pulse 98 98 99 Oximetry 01/11/21 01/11/21 01/11/21 13:45 14:00 14:15 Temperature Pulse Rate 93 H 94 H 94 H Pulse Rate [ Bilateral Throughout] Pulse Rate [ From Monitor] Respiratory 27 H 29 H 26 H Rate Respiratory Rate [Bilateral Throughout] Blood Pressure 114/61 109/58 106/57 O2 Sat by Pulse 98 98 98 Oximetry 01/11/21 01/11/21 01/11/21 14:30 14:45 15:00 Temperature Pulse Rate 96 H 96 H 95 H Pulse Rate [ Bilateral Throughout] Pulse Rate [ From Monitor] Respiratory 29 H 29 H 27 H Rate Respiratory Rate [Bilateral Throughout] Blood Pressure 116/59 106/57 114/55 O2 Sat by Pulse 98 99 98 Oximetry 01/11/21 01/11/21 01/11/21 15:15 15:30 15:45 Temperature Pulse Rate 95 H 96 H 101 H Pulse Rate [ Bilateral Throughout] Pulse Rate [ From Monitor] Respiratory 29 H 29 H 27 H Rate Respiratory Rate [Bilateral Throughout] Blood Pressure 105/63 108/60 106/73 O2 Sat by Pulse 99 98 100 Oximetry 01/11/21 01/11/21 01/11/21 15:50 16:00 16:17 Temperature 101.1 F H Pulse Rate 98 H 98 H Pulse Rate [ Bilateral Throughout] Pulse Rate [ 97 H From Monitor] Respiratory 27 H 26 H Rate Respiratory Rate [Bilateral Throughout] Blood Pressure 114/55 108/61 O2 Sat by Pulse 98 99 99 Oximetry General appearance: Present: no acute distress, mild distress, well-nourished - EENT Eyes: PERRL, EOM intact ENT: hearing intact, clear oral mucosa Ears: bilateral: normal - Neck Neck: supple, normal ROM - Respiratory Respiratory effort: normal Respiratory: bilateral: CTA - Breasts Breasts: normal - Cardiovascular Heart rate: 88 Rhythm: regular Heart Sounds: Present: S1 & S2. Absent: gallop, rub Extremities: pulses intact, No edema, normal color, Full ROM - Gastrointestinal General gastrointestinal: Present: soft, non-tender, non-distended, normal bowel sounds - Genitourinary Male genitourinary: normal - Integumentary Integumentary: clear, warm, dry - Musculoskeletal Musculoskeletal: 1, strength equal bilaterally - Neurologic Neurologic: moves all extremities - Psychiatric Psychiatric: memory intact, appropriate mood/affect, intact judgment & insight - Labs CBC & Chem 7: 01/12/21 04:29 01/12/21 04:29 Labs: Abnormal lab results 01/10/21 01/11/21 01/11/21 Range/Units 18:06 00:57 03:09 WBC (4.5-11.0) K/mm3 Hgb (11.8-15.2) gm/dl MCV (84-94) fl MCHC (32-34) % RDW (13.2-15.2) % PT (12.2-14.9) Sec. INR (0.87-1.13) ABG Sodium 154.3 H (136.0-145.0) mmol/L ABG Potassium 4.8 H (3.40-4.50) mmol/L ABG Chloride 124.0 H (98-107) mmol/L ABG Glucose 381 H (65-95) mg/dL Sodium (137-145) mmol/L Chloride (98-107) mmol/L BUN (9-20) mg/dL Creatinine (0.8-1.3) mg/dL Glucose (75-100) mg/dL POC Glucose 294 H 300 H (70-105) mg/dL AST (5-40) units/L Albumin (3.9-5) g/dL Triglycerides (2-149) mg/dL Arterial Blood Glucose 381 H (65-95) mg/dL 01/11/21 01/11/21 01/11/21 Range/Units 04:50 04:50 05:46 WBC 23.8 H (4.5-11.0) K/mm3 Hgb 11.2 L (11.8-15.2) gm/dl MCV 95 H (84-94) fl MCHC 31 L (32-34) % RDW 16.5 H (13.2-15.2) % PT (12.2-14.9) Sec. INR (0.87-1.13) ABG Sodium (136.0-145.0) mmol/L ABG Potassium (3.40-4.50) mmol/L ABG Chloride (98-107) mmol/L ABG Glucose (65-95) mg/dL Sodium 158 H (137-145) mmol/L Chloride 124.1 H (98-107) mmol/L BUN 72 H (9-20) mg/dL Creatinine 2.1 H (0.8-1.3) mg/dL Glucose 371 H (75-100) mg/dL POC Glucose 384 H (70-105) mg/dL AST 78 H (5-40) units/L Albumin 2.7 L (3.9-5) g/dL Triglycerides 394 H (2-149) mg/dL Arterial Blood Glucose (65-95) mg/dL 01/11/21 01/11/2101/11/21 Range/Units 10:05 12:04 17:17 WBC (4.5-11.0) K/mm3 Hgb (11.8-15.2) gm/dl MCV (84-94) fl MCHC (32-34) % RDW (13.2-15.2) % PT 15.2 H (12.2-14.9) Sec. INR 1.15 H (0.87-1.13) ABG Sodium (136.0-145.0) mmol/L ABG Potassium (3.40-4.50) mmol/L ABG Chloride (98-107) mmol/L ABG Glucose (65-95) mg/dL Sodium (137-145) mmol/L Chloride (98-107) mmol/L BUN (9-20) mg/dL Creatinine (0.8-1.3) mg/dL Glucose (75-100) mg/dL POC Glucose 351 H 330 H (70-105) mg/dL AST (5-40) units/L Albumin (3.9-5) g/dL Triglycerides (2-149) mg/dL Arterial Blood Glucose (65-95) mg/dL HEART Score - HEART Score Age: 45-65 Risk factors: 1-2 risk factors Troponin: Troponin T < 0.010 ng/mL (0.00-0.029) 01/10/21 10:46 - Critical Actions Critical Actions: 4-6 pts:12-16.6% risk of adverse cardiac event. Should be admitted
--- NOTE | 2021-01-11 19:04 | Progress Note ---
Assessment and Plan - Patient Problems (1) Acute renal failure Current Visit: Yes Status: Acute Plan to address problem: Agree with current regimen. Avoid nephrotoxins. Renal US did not show any acute abnormalities but likely does have evidence of underlying chronic kidney disease. overall renal function is stable this morning and he remains nonoliguric. We will continue to closely monitor. No acute indications for renal replacement therapy at present time. Labs this am shows improvement in renal function. (2) Cardiac arrest Current Visit: Yes Status: Acute Plan to address problem: Management and further recommendation per cardiology. (3) Elevated d-dimer Current Visit: Yes Status: Acute Plan to address problem: Likely in the setting of pneumonia. His CTA dhest did not show any evidence of PE. being ruled out for COVID-19 pneumonia at this time. (4) Pneumonia Current Visit: Yes Status: Acute Plan to address problem: Please titrate antibiotics accordingly based on diminished renal function. (5) Diabetes mellitus type 2 in obese Current Visit: Yes Status: Chronic Plan to address problem: DM management per primary attending. (6) Pneumonia due to COVID-19 virus Current Visit: Yes Status: Acute Plan to address problem: Treatment per primary team/ID recommendations. (7) Gram-positive bacteremia Current Visit: Yes Status: Acute Plan to address problem: Now on vancomycin and cefepime. Cultures are indicating MRSA. ID recommendations appreciated. Subjective Date of service: 01/11/21 Principal diagnosis: Cardiac Arrest; Ac Hypoxemic Resp Failure; SepticShock; PNA; SHERICE; PUI COVID Interval history: Remains intubated. Continues off pressor support. Labs reviewed, renal function showing improvement. Objective - Exam Narrative Exam: Patient not directly examined in order to preserve PPE and reduce transmission risk of COVID-19. Physical examination by primary team reviewed. - Vital Signs Vital signs: Vital Signs - 12hr 01/11/21 01/11/21 01/11/21 07:15 07:30 07:45 Temperature Pulse Rate 100 H 102 H 102 H Pulse Rate [ Bilateral Throughout] Pulse Rate [ From Monitor] Respiratory 29 H 29 H 29 H Rate Respiratory Rate [Bilateral Throughout] Blood Pressure 108/64 108/62 102/53 O2 Sat by Pulse 95 98 98 Oximetry 01/11/21 01/11/21 01/11/21 08:00 08:01 08:15 Temperature Pulse Rate 102 H 102 H 102 H Pulse Rate [ Bilateral Throughout] Pulse Rate [ From Monitor] Respiratory 30 H 29 H Rate Respiratory Rate [Bilateral Throughout] Blood Pressure 119/70 119/70 O2 Sat by Pulse 99 99 Oximetry 01/11/21 01/11/21 01/11/21 08:30 08:34 08:45 Temperature 101.1 F H Pulse Rate 98 H 100 H Pulse Rate [ Bilateral Throughout] Pulse Rate [ 100 H From Monitor] Respiratory 29 H 29 H Rate Respiratory Rate [Bilateral Throughout] Blood Pressure 102/61 110/65 O2 Sat by Pulse 98 99 Oximetry 01/11/21 01/11/21 01/11/21 09:00 09:15 09:30 Temperature Pulse Rate 98 H 97 H 98 H Pulse Rate [ Bilateral Throughout] Pulse Rate [ From Monitor] Respiratory 28 H 28 H 29 H Rate Respiratory Rate [Bilateral Throughout] Blood Pressure 109/61 109/65 105/65 O2 Sat by Pulse 98 98 100 Oximetry 01/11/21 01/11/21 01/11/21 09:45 09:46 10:00 Temperature Pulse Rate 98 H 96 H Pulse Rate [ 96 H Bilateral Throughout] Pulse Rate [ From Monitor] Respiratory 33 H 28 H Rate Respiratory 30 H Rate [Bilateral Throughout] Blood Pressure 110/66 113/65 O2 Sat by Pulse 98 98 Oximetry 01/11/21 01/11/21 01/11/21 10:15 10:30 10:45 Temperature Pulse Rate 98 H 103 H 104 H Pulse Rate [ Bilateral Throughout] Pulse Rate [ From Monitor] Respiratory 28 H 27 H 24 Rate Respiratory Rate [Bilateral Throughout] Blood Pressure 108/64 111/58 118/71 O2 Sat by Pulse 100 99 95 Oximetry 01/11/21 01/11/21 01/11/21 11:00 11:15 11:17 Temperature Pulse Rate 102 H 100 H 96 H Pulse Rate [ Bilateral Throughout] Pulse Rate [ From Monitor] Respiratory 25 H 26 H Rate Respiratory Rate [Bilateral Throughout] Blood Pressure 106/59 102/62 113/65 O2 Sat by Pulse 100 99 98 Oximetry 01/11/21 01/11/21 01/11/21 11:30 11:45 12:00 Temperature 100.8 F H Pulse Rate 100 H 97 H 96 H Pulse Rate [ Bilateral Throughout] Pulse Rate [ From Monitor] Respiratory 26 H 30 H 26 H Rate Respiratory Rate [Bilateral Throughout] Blood Pressure 112/58 101/59 105/58 O2 Sat by Pulse 100 99 98 Oximetry 01/11/21 01/11/21 01/11/21 12:08 12:15 12:30 Temperature Pulse Rate 96 H 97 H Pulse Rate [ Bilateral Throughout] Pulse Rate [ 98 H From Monitor] Respiratory 28 H 30 H 26 H Rate Respiratory Rate [Bilateral Throughout] Blood Pressure 109/57 107/54 O2 Sat by Pulse 100 99 99 Oximetry 01/11/21 01/11/21 01/11/21 12:45 13:00 13:15 Temperature Pulse Rate 97 H 97 H 94 H Pulse Rate [ Bilateral Throughout] Pulse Rate [ From Monitor] Respiratory 24 27 H 28 H Rate Respiratory Rate [Bilateral Throughout] Blood Pressure 108/53 114/55 109/59 O2 Sat by Pulse 98 98 98 Oximetry 01/11/21 01/11/21 01/11/21 13:30 13:45 14:00 Temperature Pulse Rate 93 H 93 H 94 H Pulse Rate [ Bilateral Throughout] Pulse Rate [ From Monitor] Respiratory 27 H 27 H 29 H Rate Respiratory Rate [Bilateral Throughout] Blood Pressure 122/56 114/61 109/58 O2 Sat by Pulse 99 98 98 Oximetry 01/11/21 01/11/21 01/11/21 14:15 14:30 14:45 Temperature Pulse Rate 94 H 96 H 96 H Pulse Rate [ Bilateral Throughout] Pulse Rate [ From Monitor] Respiratory 26 H 29 H 29 H Rate Respiratory Rate [Bilateral Throughout] Blood Pressure 106/57 116/59 106/57 O2 Sat by Pulse 98 98 99 Oximetry 01/11/21 01/11/21 01/11/21 15:00 15:15 15:30 Temperature Pulse Rate 95 H 95 H 96 H Pulse Rate [ Bilateral Throughout] Pulse Rate [ From Monitor] Respiratory 27 H 29 H 29 H Rate Respiratory Rate [Bilateral Throughout] Blood Pressure 114/55 105/63 108/60 O2 Sat by Pulse 98 99 98 Oximetry 01/11/21 01/11/21 01/11/21 15:45 15:50 16:00 Temperature 101.1 F H Pulse Rate 101 H 98 H 98 H Pulse Rate [ Bilateral Throughout] Pulse Rate [ From Monitor] Respiratory 27 H 27 H Rate Respiratory Rate [Bilateral Throughout] Blood Pressure 106/73 114/55 108/61 O2 Sat by Pulse 100 98 99 Oximetry 01/11/21 16:17 Temperature Pulse Rate Pulse Rate [ Bilateral Throughout] Pulse Rate [ 97 H From Monitor] Respiratory 26 H Rate Respiratory Rate [Bilateral Throughout] Blood Pressure O2 Sat by Pulse 99 Oximetry - Lab 01/11/21 04:50 01/11/21 04:50 Most recent lab results ABG pH 7.385 (7.320-7.450) 01/11/21 03:09 ABG O2 Saturation 96.7 (0-100) 01/11/21 03:09 Calcium 9.0 mg/dL (8.4-10.2) 01/11/21 04:50 Medications & Allergies - Medications Allergies/Adverse Reactions: Allergies No Known Allergies Allergy (Verified 01/09/21 10:10) Home Medications: Home Medications Medication Instructions Recorded Confirmed Last Taken Type Unobtainable 01/10/21 01/10/21 Unknown History Active Medications: Generic Name Dose Route Start Last Admin Trade Name Freq PRN Reason Stop Dose Admin Acetaminophen 650 mg 01/10/21 08:18 01/11/21 10:14 Acetaminophen 325 Mg/10.15 Ml Oral Liqd Unit Dose FEEDTUBE 650 mg Q6H PRN Administration TEMP >/=100.4 Albuterol 2.5 mg 01/08/21 20:23 Albuterol 2.5 Mg/3 Ml Nebu IH Q3HRT PRN Shortness Of Breath Albuterol/Ipratropium 1 ampul 01/08/21 20:00 01/11/21 15:59 Ipratropium/Albuterol Sulfate 3 Ml Ampul.Neb IH Not Given QIDRT MARBELLA Lipase/Protease/Amylase 1 each 01/10/21 17:40 Lipase 10,500/Protease 25,000/Amylase 43,750 (Units) Dr Kearney FEEDTUBE PRN PRN For Clogged Feeding Tube Dexamethasone 6 mg 01/10/21 10:00 01/11/21 10:15 Dexamethasone 4 Mg/Ml Vial IV 01/19/21 10:01 6 mg Q24HR MARBELLA Administration Famotidine 20 mg 01/11/21 10:00 01/11/21 10:17 Famotidine 20 Mg Tab PO 20 mg BID MARBELLA Administration Heparin Sodium (Porcine) 5,400 unit 01/11/21 09:09 Heparin 10,000 Units/10 Ml Vial 40 unit/kg (5400 unit) IV Q6H PRN Anti-Xa Assay < 0.1 units/ml Hydrophilic Ointment 1 applic 08/02/21 16:00 Lip Therapy Vaseline TP Q2HR PRN Dry Lips Propofol 1,000 mg in 100 mls @ 4.082 mls/hr 01/08/21 16:00 01/11/21 13:10 Diprivan 10 Mg/Ml IV 5 mcg/kg/min TITR MARBELLA 4.082 mls/hr Administration Protocol 5 MCG/KG/MIN Norepinephrine 4 mg in 250 mls @ 75 mls/hr 01/08/21 11:28 01/10/21 02:15 Levophed Drip 4 Mg/Ns 250 Ml IV 0 mcg/min TITR MARBELLA 0 mls/hr Titration Protocol 20 MCG/MIN Heparin Sodium/Sodium Chloride 25,000 unit in 500 mls @ 30 mls/hr 01/11/21 10:00 01/11/21 10:25 Heparin/ 0.45% Nacl-25,000 Unit/500 Ml IV 1,500 units/hr TITR MARBELLA 30 mls/hr Administration Protocol 1,500 UNITS/HR Insulin Glargine 15 units 01/11/21 10:00 01/11/21 10:17 Insulin Glargine 100 Units/Ml SUB-Q 15 units DAILY MARBELLA Administration Insulin Human Lispro 0 unit 01/09/21 12:00 01/11/21 12:50 Insulin Lispro 100 Unit/Ml SUB-Q 10 unit Q6HR MARBELLA Administration Protocol Multi-Ingred Cream/Lotion/Oil/Oint 1 applic 01/08/21 18:00 Mineral Oil/Petrolatum, White Ophth Oint 3.5 Gm OU Q4HR PRN Dry Eye(s) Senna/Docusate Sodium 1 tab 01/08/21 22:00 01/11/21 10:16 Sennosides/Docusate Sodium 8.6/50 Mg Tab FEEDTUBE 1 tab BID MARBELLA Administration Simple Syrup 15 ml 01/10/21 17:40 Simple Syrup 15 Ml FEEDTUBE PRN PRN Hypoglycemia Simple Syrup 30 ml 01/10/21 17:40 Simple Syrup 15 Ml FEEDTUBE PRN PRN Hypoglycemia Sodium Bicarbonate 325 mg 01/10/21 17:40 Sodium Bicarbonate 325 Mg Tab FEEDTUBE PRN PRN For Clogged Feeding Tube Sodium Chloride 5 ml 01/08/21 15:18 Sodium Chloride 0.9% 500 Ml Ivpb IV DIRECT PRN ARTERIAL [employer]IG[employer]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
--- NOTE | 2021-01-11 19:15 | Consultation ---
History of Present Illness Consult date: 01/11/21 Chief complaint: Left great toe infection/abscess - History of present illness History of present illness: 60 yo diabetic male with left great toe infection and right external iliac vein DVT diagnosed yesterday. Currently on a Heparin drip. Also on Levophed. Past History Past Medical History: diabetes, hyperlipidemia, other (Morbid obesity, sleep apnea) Past Surgical History: No surgical history Social history: no significant social history, , lives with family Family history: no significant family history Medications and Allergies Allergies Allergy/AdvReac Type Severity Reaction Status Date / Time No Known Allergies Allergy Verified 01/09/21 10:10 Home Medications Medication Instructions Recorded Confirmed Last Taken Type Unobtainable 01/10/21 01/10/21 Unknown History Active Meds: Active Medications Acetaminophen (Acetaminophen 325 Mg/10.15 Ml Oral Liqd Unit Dose) 650 mg FEEDTUBE Q6H PRN PRN Reason: TEMP >/=100.4 Last Admin: 01/11/21 10:14 Dose: 650 mg Documented by: Albuterol (Albuterol 2.5 Mg/3 Ml Nebu) 2.5 mg IH Q3HRT PRN PRN Reason: Shortness Of Breath Albuterol/Ipratropium (Ipratropium/Albuterol Sulfate 3 Ml Ampul.Neb) 1 ampul IH QIDRT [facility] Last Admin: 01/11/21 15:59 Dose: Not Given Documented by: Lipase/Protease/Amylase (Lipase 10,500/Protease 25,000/Amylase 43,750 (Units) Dr Cap) 1 each FEEDTUBE PRN PRN PRN Reason: For Clogged Feeding Tube Dexamethasone (Dexamethasone 4 Mg/Ml Vial) 6 mg IV Q24HR [facility] Stop: 01/19/21 10:01 Last Admin: 01/11/21 10:15 Dose: 6 mg Documented by: Famotidine (Famotidine 20 Mg Tab) 20 mg PO BID [facility] Last Admin: 01/11/21 10:17 Dose: 20 mg Documented by: Heparin Sodium (Porcine) (Heparin 10,000 Units/10 Ml Vial) 5,400 unit 40 unit/kg (5400 unit) IV Q6H PRN PRN Reason: Anti-Xa Assay < 0.1 units/ml Hydrophilic Ointment (Lip Therapy Vaseline) 1 applic TP Q2HR PRN PRN Reason: Dry Lips Propofol (Diprivan 10 Mg/Ml) 1,000 mg in 100 mls @ 4.082 mls/hr IV TITR [facility]; Protocol Last Admin: 01/11/21 13:10 Dose: 5 mcg/kg/min, 4.082 mls/hr Documented by: Norepinephrine (Levophed Drip 4 Mg/Ns 250 Ml) 4 mg in 250 mls @ 75 mls/hr IV TITR [facility]; Protocol Last Titration: 01/10/21 02:15 Dose: 0 mcg/min, 0 mls/hr Documented by: Heparin Sodium/Sodium Chloride (Heparin/ 0.45% Nacl-25,000 Unit/500 Ml) 25,000 unit in 500 mls @ 30 mls/hr IV TITR [facility]; Protocol Last Admin: 01/11/21 10:25 Dose: 1,500 units/hr, 30 mls/hr Documented by: Insulin Glargine (Insulin Glargine 100 Units/Ml) 15 units SUB-Q DAILY [facility] Last Admin: 01/11/21 10:17 Dose: 15 units Documented by: Insulin Human Lispro (Insulin Lispro 100 Unit/Ml) 0 unit SUB-Q Q6HR [facility]; Protocol Last Admin: 01/11/21 19:00 Dose: 10 unit Documented by: Multi-Ingred Cream/Lotion/Oil/Oint (Mineral Oil/Petrolatum, White Ophth Oint 3.5 Gm) 1 applic OU Q4HR PRN PRN Reason: Dry Eye(s) Senna/Docusate Sodium (Sennosides/Docusate Sodium 8.6/50 Mg Tab) 1 tab FEEDTUBE BID [facility] Last Admin: 01/11/21 10:16 Dose: 1 tab Documented by: Simple Syrup (Simple Syrup 15 Ml) 15 ml FEEDTUBE PRN PRN PRN Reason: Hypoglycemia Simple Syrup (Simple Syrup 15 Ml) 30 ml FEEDTUBE PRN PRN PRN Reason: Hypoglycemia Sodium Bicarbonate (Sodium Bicarbonate 325 Mg Tab) 325 mg FEEDTUBE PRN PRN PRN Reason: For Clogged Feeding Tube Sodium Chloride (Sodium Chloride 0.9% 500 Ml Ivpb) 5 ml IV DIRECT PRN PRN Reason: [employer] Review of Systems ROS unobtainable: due to endotracheal tube Exam Vital Signs Pulse Resp BP 64 23 150/65 01/08/21 10:10 01/08/21 10:10 01/08/21 10:10 - General physical appearance Positive: well developed, well nourished, no distress - Eyes Positive: PERRL, normal occular movement - ENT Positive: normal pinna, normal nares, normal mucosa, no hearing loss, no congestion - Neck Positive: no masses, no bruits, trachea midline, no venous distension - Respiratory Positive: normal expansion, normal respiratory effort, clear to auscultation - Cardiovascular Rhythm: regular Heart Sounds: Present: S1 & S2. Absent: rub, click - Extremities Extremities: no ischemia, pulses symmetrical, No edema - Breasts Breasts: normal, no mass, no skin changes - Abdomen Abdomen: Present: soft, bowel sounds normal. Absent: tender, distended Hernia: none - Genitourinary Male Genitourinary: normal Female Genitourinary: normal - Integumentary no rash, no growths, no abnormal pigmentation, other (Left DP pulse is non- palpable. Left foot is edematous. The plantar aspect of the tuft of the left great toe is gangrenous and there is a draining abscess emanating from the lateral aspect of the IP joint of the left great toe.) Results - Labs 01/11/21 04:50 01/11/21 04:50 Abnormal lab results 01/11/21 01/11/21 01/11/21 Range/Units 00:57 03:09 04:50 WBC 23.8 H (4.5-11.0) K/mm3 Hgb 11.2 L (11.8-15.2) gm/dl MCV 95 H (84-94) fl MCHC 31 L (32-34) % RDW 16.5 H (13.2-15.2) % PT (12.2-14.9) Sec. INR (0.87-1.13) ABG Sodium 154.3 H (136.0-145.0) mmol/L ABG Potassium 4.8 H (3.40-4.50) mmol/L ABG Chloride 124.0 H (98-107) mmol/L ABG Glucose 381 H (65-95) mg/dL Sodium (137-145) mmol/L Chloride (98-107) mmol/L BUN (9-20) mg/dL Creatinine (0.8-1.3) mg/dL Glucose (75-100) mg/dL POC Glucose 300 H (70-105) mg/dL AST (5-40) units/L Albumin (3.9-5) g/dL Triglycerides (2-149) mg/dL Arterial Blood Glucose 381 H (65-95) mg/dL 01/11/21 01/11/21 01/11/21 Range/Units 04:50 05:46 10:05 WBC (4.5-11.0) K/mm3 Hgb (11.8-15.2) gm/dl MCV (84-94) fl MCHC (32-34) % RDW (13.2-15.2) % PT 15.2 H (12.2-14.9) Sec. INR 1.15 H (0.87-1.13) ABG Sodium (136.0-145.0) mmol/L ABG Potassium (3.40-4.50) mmol/L ABG Chloride (98-107) mmol/L ABG Glucose (65-95) mg/dL Sodium 158 H (137-145) mmol/L Chloride 124.1 H (98-107) mmol/L BUN 72 H (9-20) mg/dL Creatinine 2.1 H (0.8-1.3) mg/dL Glucose 371 H (75-100) mg/dL POC Glucose 384 H (70-105) mg/dL AST 78 H (5-40) units/L Albumin 2.7 L (3.9-5) g/dL Triglycerides 394 H (2-149) mg/dL Arterial Blood Glucose (65-95) mg/dL 01/11/21 01/11/21 Range/Units 12:04 17:17 WBC (4.5-11.0) K/mm3 Hgb (11.8-15.2) gm/dl MCV (84-94) fl MCHC (32-34) % RDW (13.2-15.2) % PT (12.2-14.9) Sec. INR (0.87-1.13) ABG Sodium (136.0-145.0) mmol/L ABG Potassium (3.40-4.50) mmol/L ABG Chloride (98-107) mmol/L ABG Glucose (65-95) mg/dL Sodium (137-145) mmol/L Chloride (98-107) mmol/L BUN (9-20) mg/dL Creatinine (0.8-1.3) mg/dL Glucose (75-100) mg/dL POC Glucose 351 H 330 H (70-105) mg/dL AST (5-40) units/L Albumin (3.9-5) g/dL Triglycerides (2-149) mg/dL Arterial Blood Glucose (65-95) mg/dL Diabetes panel 01/11/21 Range/Units 04:50 Sodium 158 H (137-145) mmol/L Potassium 5.0 (3.6-5.0) mmol/L Chloride 124.1 H (98-107) mmol/L Carbon Dioxide 23 (22-30) mmol/L BUN 72 H (9-20) mg/dL Creatinine 2.1 H (0.8-1.3) mg/dL Glucose 371 H (75-100) mg/dL Calcium 9.0 (8.4-10.2) mg/dL AST 78 H (5-40) units/L ALT 54 (7-56) units/L Alkaline Phosphatase 94 (35-129) units/L Total Protein 6.3 (6.3-8.2) g/dL Albumin 2.7 L (3.9-5) g/dL Triglycerides 394 H (2-149) mg/dL Calcium panel 01/11/21 Range/Units 04:50 Calcium 9.0 (8.4-10.2) mg/dL Albumin 2.7 L (3.9-5) g/dL Pituitary panel 01/11/21 Range/Units 04:50 Sodium 158 H (137-145) mmol/L Potassium 5.0 (3.6-5.0) mmol/L Chloride 124.1 H (98-107) mmol/L Carbon Dioxide 23 (22-30) mmol/L BUN 72 H (9-20) mg/dL Creatinine 2.1 H (0.8-1.3) mg/dL Glucose 371 H (75-100) mg/dL Calcium 9.0 (8.4-10.2) mg/dL Adrenal panel 01/11/21 Range/Units 04:50 Sodium 158 H (137-145) mmol/L Potassium 5.0 (3.6-5.0) mmol/L Chloride 124.1 H (98-107) mmol/L Carbon Dioxide 23 (22-30) mmol/L BUN 72 H (9-20) mg/dL Creatinine 2.1 H (0.8-1.3) mg/dL Glucose 371 H (75-100) mg/dL Calcium 9.0 (8.4-10.2) mg/dL Total Bilirubin 0.30 (0.1-1.2) mg/dL AST 78 H (5-40) units/L ALT 54 (7-56) units/L Alkaline Phosphatase 94 (35-129) units/L Total Protein 6.3 (6.3-8.2) g/dL Albumin 2.7 L (3.9-5) g/dL - Imaging Additional studies: X-ray of the left foot was reviewed. Assessment and Plan - Patient Problems (1) Abscess of left foot including toes Current Visit: Yes Status: Acute Plan to address problem: 1) NPO after MN 2) Hold Heparin at 0800 am in the morning. 3) LLE arterial dopplers 4) MRI of the LLE without contrast b/o elevated Cr. 5) Drain abscess/debride left great toe tomorrow in the OR.
[2021-01-12] MEDS: ACETAMINOPHEN 325 MG/10.15 ML ORAL LIQD UNIT DOSE FEEDTUBE PRN ×4 (01:03→21:08)
[2021-01-12] MEDS ORDERED: SODIUM CHLORIDE 0.9% 1000 ML 1,000 ML ONE (02:32)
--- NOTE | 2021-01-12 02:55 | XRay Report ---
CHEST 1 VIEW 01/12/2021 1:27 AM INDICATION / CLINICAL INFORMATION: follow up respiratory failure. COMPARISON: 01/11/21 FINDINGS: SUPPORT DEVICES: Unchanged. HEART / MEDIASTINUM: Stable. LUNGS / PLEURA: Bibasilar densities are unchanged. No pneumothorax. ADDITIONAL FINDINGS: No significant additional findings. IMPRESSION: 1. No significant change. Signer Name: Abdoulaye Rene MD Signed: 01/12/2021 2:51 AM Workstation Name: [id number]
[2021-01-12 05:41] LABS: Mean Corpuscular HGB Conc 31 % (32-34); Mean Corpuscular Volume 99 fl (84-94); Platelet Count 279 K/mm3 (140-440); Red Blood Count 3.78 M/mm3 (3.65-5.03)
[2021-01-12 05:45] LABS: Hematocrit 37.2 % (35.5-45.6); Hemoglobin 11.4 gm/dl (11.8-15.2)
[2021-01-12] MEDS: INSULIN LISPRO 100 UNIT/ML SUB-Q SCH ×3 (05:49→18:24)
[2021-01-12] MEDS: IPRATROPIUM/ALBUTEROL SULFATE 3 ML AMPUL.NEB IH SCH ×4 (07:44→22:22)
[2021-01-12] MEDS ORDERED: FUROSEMIDE 40 MG/4 ML INJ IV NR (08:54)
[2021-01-12] MEDS: dexAMETHasone 4 MG/ML VIAL IV SCH (09:09)
[2021-01-12] MEDS: FAMOTIDINE 20 MG TAB PO SCH ×2 (09:09→21:08)
[2021-01-12] MEDS: SENNOSIDES/DOCUSATE SODIUM 8.6/50 MG TAB FEEDTUBE SCH ×2 (09:09→21:08)
[2021-01-12] MEDS: INSULIN GLARGINE 100 UNITS/ML SUB-Q SCH (09:09)
--- NOTE | 2021-01-12 09:28 | Progress Note ---
Assessment and Plan - Patient Problems (1) Acute renal failure Current Visit: Yes Status: Acute Plan to address problem: Agree with current regimen. Avoid nephrotoxins. Renal US did not show any acute abnormalities but likely does have evidence of underlying chronic kidney disease. overall renal function is stable this morning and he remains nonoliguric. We will continue to closely monitor. No acute indications for renal replacement therapy at present time. Labs this am shows stable renal function parameters with hyperkalemia. Will administer dose of lasix 40 mg IV today which should aid in potassium secretion, but also in reviewing latest chest xray. (2) Cardiac arrest Current Visit: Yes Status: Acute Plan to address problem: Management and further recommendation per cardiology. (3) Elevated d-dimer Current Visit: Yes Status: Acute Plan to address problem: Likely in the setting of pneumonia. His CTA dhest did not show any evidence of PE. He is COVID-19 (+). (4) Pneumonia Current Visit: Yes Status: Acute Plan to address problem: Please titrate antibiotics accordingly based on diminished renal function. (5) Diabetes mellitus type 2 in obese Current Visit: Yes Status: Chronic Plan to address problem: DM management per primary attending. (6) Pneumonia due to COVID-19 virus Current Visit: Yes Status: Acute Plan to address problem: Treatment per primary team/ID recommendations. (7) Gram-positive bacteremia Current Visit: Yes Status: Acute Plan to address problem: Now on vancomycin and cefepime. Cultures are indicating MRSA. ID recommendations appreciated. Subjective Date of service: 01/12/21 Principal diagnosis: Cardiac Arrest; Ac Hypoxemic Resp Failure; SepticShock; PNA; SHERICE; PUI COVID Interval history: Events overnight reviewed. Pressures have become more labile and plan is sto restart him on levophed this am. Pending OR for debridement of left great toe ulcer with surgery. Per nursing staff, urine output has become more progressively oliguric over the last 24 hours. Labs noted, renal function stable, but hyperkalemia is present this am. Chest Xray reviewed, with persistent b/l opacities. Remains intubated. Objective - Exam Narrative Exam: Patient not directly examined in order to preserve PPE and reduce transmission risk of COVID-19. Physical examination by primary team reviewed. - Vital Signs Vital signs: Vital Signs - 12hr 01/11/21 01/11/21 01/11/21 21:30 21:45 22:00 Temperature Pulse Rate 100 H 98 H 101 H Pulse Rate [ From Monitor] Respiratory 33 H 35 H 34 H Rate Blood Pressure 111/59 97/59 114/57 O2 Sat by Pulse 98 98 98 Oximetry 01/11/21 01/11/21 01/11/21 22:09 22:15 22:31 Temperature Pulse Rate 102 H 99 H 101 H Pulse Rate [ From Monitor] Respiratory 36 H 35 H 36 H Rate Blood Pressure 114/57 120/61 112/58 O2 Sat by Pulse 99 98 98 Oximetry 01/11/21 01/11/21 01/11/21 22:45 23:00 23:15 Temperature Pulse Rate 101 H 102 H 101 H Pulse Rate [ From Monitor] Respiratory 34 H 34 H 34 H Rate Blood Pressure 116/59 123/56 118/47 O2 Sat by Pulse 98 98 98 Oximetry 01/11/21 01/11/21 01/11/21 23:31 23:43 23:45 Temperature 103.3 F H Pulse Rate 104 H 105 H Pulse Rate [ From Monitor] Respiratory 35 H 35 H Rate Blood Pressure 104/60 107/58 O2 Sat by Pulse 98 97 Oximetry 01/12/21 01/12/21 01/12/21 00:00 00:15 00:30 Temperature Pulse Rate 106 H 106 H 104 H Pulse Rate [ From Monitor] Respiratory 35 H 22 18 Rate Blood Pressure 103/60 111/63 125/59 O2 Sat by Pulse 99 98 97 Oximetry 01/12/21 01/12/21 01/12/21 00:45 01:00 01:15 Temperature Pulse Rate 105 H 107 H 108 H Pulse Rate [ From Monitor] Respiratory 16 18 14 Rate Blood Pressure 112/63 117/58 106/59 O2 Sat by Pulse 98 98 100 Oximetry 01/12/21 01/12/21 01/12/21 01:30 01:45 02:00 Temperature Pulse Rate 110 H 109 H 109 H Pulse Rate [ From Monitor] Respiratory 14 16 28 H Rate Blood Pressure 113/57 118/58 111/51 O2 Sat by Pulse 99 98 98 Oximetry 01/12/21 01/12/21 01/12/21 02:15 02:30 02:45 Temperature Pulse Rate 111 H 109 H 109 H Pulse Rate [ From Monitor] Respiratory 42 H 41 H 43 H Rate Blood Pressure 125/63 124/60 120/63 O2 Sat by Pulse 97 96 96 Oximetry 01/12/21 01/12/21 01/12/21 03:00 03:15 03:20 Temperature 102.8 F H Pulse Rate 109 H 107 H Pulse Rate [ From Monitor] Respiratory 42 H 41 H Rate Blood Pressure 115/63 109/61 O2 Sat by Pulse 95 96 Oximetry 01/12/21 01/12/21 01/12/21 03:30 03:45 04:00 Temperature Pulse Rate 108 H 108 H 108 H Pulse Rate [ From Monitor] Respiratory 41 H 42 H 42 H Rate Blood Pressure 119/62 114/63 114/63 O2 Sat by Pulse 96 96 97 Oximetry 01/12/21 01/12/21 01/12/21 04:15 04:20 04:31 Temperature Pulse Rate 108 H 108 H 108 H Pulse Rate [ From Monitor] Respiratory 13 20 Rate Blood Pressure 121/51 121/44 121/51 O2 Sat by Pulse 97 98 97 Oximetry 01/12/21 01/12/21 01/12/21 04:45 05:01 05:15 Temperature Pulse Rate 110 H 107 H 109 H Pulse Rate [ From Monitor] Respiratory 18 24 25 H Rate Blood Pressure 121/51 121/51 121/51 O2 Sat by Pulse 97 97 98 Oximetry 01/12/21 01/12/21 01/12/21 05:31 05:45 06:01 Temperature Pulse Rate 108 H 106 H 107 H Pulse Rate [ From Monitor] Respiratory 29 H 27 H 28 H Rate Blood Pressure 121/51 121/51 121/51 O2 Sat by Pulse 97 98 97 Oximetry 01/12/21 01/12/21 01/12/21 06:15 06:31 06:46 Temperature Pulse Rate 108 H 109 H 110 H Pulse Rate [ From Monitor] Respiratory 27 H 26 H 26 H Rate Blood Pressure 121/51 121/51 O2 Sat by Pulse 97 97 97 Oximetry 01/12/21 01/12/21 01/12/21 07:01 07:15 07:31 Temperature Pulse Rate 110 H 112 H 111 H Pulse Rate [ From Monitor] Respiratory 27 H 26 H 21 Rate Blood Pressure O2 Sat by Pulse 98 98 97 Oximetry 01/12/21 01/12/21 01/12/21 07:41 07:44 07:45 Temperature 103.2 F H Pulse Rate 111 H 111 H Pulse Rate [ From Monitor] Respiratory 21 Rate Blood Pressure 112/47 O2 Sat by Pulse 96 96 Oximetry 01/12/21 01/12/21 01/12/21 08:01 08:14 08:15 Temperature 102.6 F H Pulse Rate 113 H 116 H Pulse Rate [ From Monitor] Respiratory 38 H 39 H Rate Blood Pressure O2 Sat by Pulse 93 92 Oximetry 01/12/21 01/12/21 01/12/21 08:31 08:45 09:00 Temperature Pulse Rate 114 H 116 H 118 H Pulse Rate [ From Monitor] Respiratory 41 H 39 H 39 H Rate Blood Pressure 114/50 O2 Sat by Pulse 92 92 93 Oximetry 01/12/21 09:10 Temperature Pulse Rate Pulse Rate [ 118 H From Monitor] Respiratory 37 H Rate Blood Pressure O2 Sat by Pulse 92 Oximetry - Lab 01/12/21 04:29 01/12/21 04:29 Most recent lab results ABG pH 7.308 (7.320-7.450) L 01/12/21 01:46 ABG O2 Saturation 95.4 (0-100) 01/12/21 01:46 Calcium 9.0 mg/dL (8.4-10.2) 01/12/21 04:29 Medications & Allergies - Medications Allergies/Adverse Reactions: Allergies No Known Allergies Allergy (Verified 01/09/21 10:10) Home Medications: Home Medications Medication Instructions Recorded Confirmed Last Taken Type Unobtainable 01/10/21 01/10/21 Unknown History Active Medications: Generic Name Dose Route Start Last Admin Trade Name Freq PRN Reason Stop Dose Admin Acetaminophen 650 mg 01/10/21 08:18 01/12/21 09:08 Acetaminophen 325 Mg/10.15 Ml Oral Liqd Unit Dose FEEDTUBE 650 mg Q6H PRN Administration TEMP >/=100.4 Albuterol 2.5 mg 01/08/21 20:23 Albuterol 2.5 Mg/3 Ml Nebu IH Q3HRT PRN Shortness Of Breath Albuterol/Ipratropium 1 ampul 01/08/21 20:00 01/12/21 07:44 Ipratropium/Albuterol Sulfate 3 Ml Ampul.Neb IH Not Given QIDRT [facility] Lipase/Protease/Amylase 1 each 01/10/21 17:40 Lipase 10,500/Protease 25,000/Amylase 43,750 (Units) Dr Cap FEEDTUBE PRN PRN For Clogged Feeding Tube Dexamethasone 6 mg 01/10/21 10:00 01/12/21 09:09 Dexamethasone 4 Mg/Ml Vial IV 01/19/21 10:01 6 mg Q24HR [facility] Administration Famotidine 20 mg 01/11/21 10:00 01/12/21 09:09 Famotidine 20 Mg Tab PO 20 mg BID [facility] Administration Furosemide 40 mg 01/12/21 08:54 01/12/21 09:09 Furosemide 40 Mg/4 Ml Inj IV 01/12/21 12:00 40 mg ONCE NR Administration Heparin Sodium (Porcine) 5,400 unit 01/11/21 09:09 Heparin 10,000 Units/10 Ml Vial 40 unit/kg (5400 unit) IV Q6H PRN Anti-Xa Assay < 0.1 units/ml Hydrophilic Ointment 1 applic 01/08/21 16:00 Lip Therapy Vaseline TP Q2HR PRN Dry Lips Propofol 1,000 mg in 100 mls @ 4.082 mls/hr 01/08/21 16:00 01/11/21 13:10 Diprivan 10 Mg/Ml IV 5 mcg/kg/min TITR [facility] 4.082 mls/hr Administration Protocol 5 MCG/KG/MIN Norepinephrine 4 mg in 250 mls @ 75 mls/hr 01/08/21 11:28 01/10/21 02:15 Levophed Drip 4 Mg/Ns 250 Ml IV 0 mcg/min TITR [facility] 0 mls/hr Titration Protocol 20 MCG/MIN Heparin Sodium/Sodium Chloride 25,000 unit in 500 mls @ 30 mls/hr 01/11/21 10:00 01/11/21 21:27 Heparin/ 0.45% Nacl-25,000 Unit/500 Ml IV 0 units/hr TITR [facility] 0 mls/hr Titration Protocol 1,500 UNITS/HR Insulin Glargine 15 units 01/11/21 10:00 01/12/21 09:09 Insulin Glargine 100 Units/Ml SUB-Q 15 units DAILY [facility] Administration Insulin Human Lispro 0 unit 01/09/21 12:00 01/12/21 05:49 Insulin Lispro 100 Unit/Ml SUB-Q 10 unit Q6HR [facility] Administration Protocol Multi-Ingred Cream/Lotion/Oil/Oint 1 applic 01/08/21 18:00 Mineral Oil/Petrolatum, White Ophth Oint 3.5 Gm OU Q4HR PRN Dry Eye(s) Senna/Docusate Sodium 1 tab 01/08/21 22:00 01/12/21 09:09 Sennosides/Docusate Sodium 8.6/50 Mg Tab FEEDTUBE 1 tab BID [facility] Administration Simple Syrup 15 ml 01/10/21 17:40 Simple Syrup 15 Ml FEEDTUBE PRN PRN Hypoglycemia Simple Syrup 30 ml 01/10/21 17:40 Simple Syrup 15 Ml FEEDTUBE PRN PRN Hypoglycemia Sodium Bicarbonate 325 mg 01/10/21 17:40 Sodium Bicarbonate 325 Mg Tab FEEDTUBE PRN PRN For Clogged Feeding Tube Sodium Chloride 5 ml 01/08/21 15:18 Sodium Chloride 0.9% 500 Ml Ivpb IV DIRECT PRN [employer]
[2021-01-12 09:36] LABS: C-Reactive Protein 4.5 mg/dL (0.00-1.30)
--- NOTE | 2021-01-12 11:45 | Progress Note ---
Assessment and Plan Cultures: Blood culture 01/08/21 MRSA COVID PCE: positive A/P: 60-year-old man past medical history diabetes, sleep apnea admitted with COVID-19 pneumonia #Severe COVID-19 pneumonia: Patient presented with a week of symptoms, chest x- ray with diffuse bilateral infiltrates, arrived intubated. Inflammatory markers elevated #Acute hypoxemic respiratory failure: Likely secondary to COVID-19 infection. Currently on the vent #MRSA bacteremia: Source of the left great toe infection TTE without vegetation. #Left great toe infection: Pending debridement in OR #Diabetes: tight glycemic control for best outcomes. #Morbid obesity #SHERICE: renally dose medications Recs: -Steroids per pulmonary for 10 days -Borderline renal function, if continues to improve would start remdesivir. -Given MRSA bacteremia not a candidate for Actemra at present. -Obtain q48-72h inflammatory markers - ferritin, Ddimer, CRP, LDH -Continue vancomycin goal trough 10-20 -Follow-up repeat blood cultures -Anticoagulation per hospital protocol -Proning as able Thank you for the consult, we will continue to follow. Fran Hubbard MD [facility] O: [phone] F: [phone] Subjective Date of service: 01/12/21 Principal diagnosis: Cardiac Arrest; Ac Hypoxemic Resp Failure; SepticShock; PNA; SHERICE; PUI COVID Interval history: Febrile to 103.2 with a white count of 24. Imaging her cervical Chest x-ray: Bibasilar densities. Objective - Exam Narrative Exam: Physical exam deferred to reduce risk of transmission of COVID-19. Please refer to primary team's note. - Constitutional Vitals: Vital Signs Temp Pulse Resp BP Pulse Ox 102.6 F H 113 H 40 H 104/59 92 01/12/21 08:14 01/12/21 11:30 01/12/21 11:30 01/12/21 11:30 01/12/21 11:30 Temperature -Last 24 Hours Temperature 102.6 F Temperature 103.2 F Temperature 102.8 F Temperature 103.3 F Temperature 102.8 F Temperature 101.1 F Temperature 100.8 F Temperature 100.8 F - Labs CBC & Chem 7: 01/12/21 04:29 01/12/21 04:29 Labs: Abnormal lab results 01/11/21 01/11/21 01/11/21 Range/Units 12:04 17:17 18:55 WBC (4.5-11.0) K/mm3 Hgb (11.8-15.2) gm/dl MCV (84-94) fl MCHC (32-34) % RDW (13.2-15.2) % D-Dimer (0-234) ng/mlDDU Heparin Anti-Xa Level 1.42 H (0.3-0.7) U.I./ml ABG pH (7.320-7.450) ABG Sodium (136.0-145.0) mmol/L ABG Potassium (3.40-4.50) mmol/L ABG Chloride (98-107) mmol/L ABG Glucose (65-95) mg/dL Carboxyhemoglobin (0.5-1.5) Sodium (137-145) mmol/L Potassium (3.6-5.0) mmol/L Chloride (98-107) mmol/L BUN (9-20) mg/dL Creatinine (0.8-1.3) mg/dL Glucose (75-100) mg/dL POC Glucose 351 H 330 H (70-105) mg/dL Ferritin (30.0-300.0) ng/mL Lactate Dehydrogenase (91-180) units/L C-Reactive Protein (0.00-1.30) mg/dL Arterial Blood Glucose (65-95) mg/dL 01/11/21 01/12/21 01/12/21 Range/Units 23:29 01:46 04:29 WBC 24.0 H (4.5-11.0) K/mm3 Hgb 11.4 L (11.8-15.2) gm/dl MCV 99 H (84-94) fl MCHC 31 L (32-34) % RDW 17.0 H (13.2-15.2) % D-Dimer (0-234) ng/mlDDU Heparin Anti-Xa Level (0.3-0.7) U.I./ml ABG pH 7.308 L (7.320-7.450) ABG Sodium 155.1 H (136.0-145.0) mmol/L ABG Potassium 5.2 H (3.40-4.50) mmol/L ABG Chloride 124.0 H (98-107) mmol/L ABG Glucose 399 H (65-95) mg/dL Carboxyhemoglobin 0.2 L (0.5-1.5) Sodium (137-145) mmol/L Potassium (3.6-5.0) mmol/L Chloride (98-107) mmol/L BUN (9-20) mg/dL Creatinine (0.8-1.3) mg/dL Glucose (75-100) mg/dL POC Glucose 328 H (70-105) mg/dL Ferritin (30.0-300.0) ng/mL Lactate Dehydrogenase (91-180) units/L C-Reactive Protein (0.00-1.30) mg/dL Arterial Blood Glucose 399 H (65-95) mg/dL 01/12/21 01/12/21 01/12/21 Range/Units 04:29 05:24 08:30 WBC (4.5-11.0) K/mm3 Hgb (11.8-15.2) gm/dl MCV (84-94) fl MCHC (32-34) % RDW (13.2-15.2) % D-Dimer 4813.23 H (0-234) ng/mlDDU Heparin Anti-Xa Level (0.3-0.7) U.I./ml ABG pH (7.320-7.450) ABG Sodium (136.0-145.0) mmol/L ABG Potassium (3.40-4.50) mmol/L ABG Chloride (98-107) mmol/L ABG Glucose (65-95) mg/dL Carboxyhemoglobin (0.5-1.5) Sodium 155 H (137-145) mmol/L Potassium 5.4 H (3.6-5.0) mmol/L Chloride 121.2 H (98-107) mmol/L BUN 91 H (9-20) mg/dL Creatinine 2.3 H (0.8-1.3) mg/dL Glucose 427 H (75-100) mg/dL POC Glucose 394 H (70-105) mg/dL Ferritin (30.0-300.0) ng/mL Lactate Dehydrogenase (91-180) units/L C-Reactive Protein (0.00-1.30) mg/dL Arterial Blood Glucose (65-95) mg/dL 01/12/21 01/12/21 01/12/21 Range/Units 08:30 08:30 11:32 WBC (4.5-11.0) K/mm3 Hgb (11.8-15.2) gm/dl MCV (84-94) fl MCHC (32-34) % RDW (13.2-15.2) % D-Dimer (0-234) ng/mlDDU Heparin Anti-Xa Level (0.3-0.7) U.I./ml ABG pH (7.320-7.450) ABG Sodium (136.0-145.0) mmol/L ABG Potassium (3.40-4.50) mmol/L ABG Chloride (98-107) mmol/L ABG Glucose (65-95) mg/dL Carboxyhemoglobin (0.5-1.5) Sodium (137-145) mmol/L Potassium (3.6-5.0) mmol/L Chloride (98-107) mmol/L BUN (9-20) mg/dL Creatinine (0.8-1.3) mg/dL Glucose (75-100) mg/dL POC Glucose 385 H (70-105) mg/dL Ferritin 379.5 H (30.0-300.0) ng/mL Lactate Dehydrogenase 576 H (91-180) units/L C-Reactive Protein 4.50 H (0.00-1.30) mg/dL Arterial Blood Glucose (65-95) mg/dL
--- NOTE | 2021-01-12 11:53 | Progress Note ---
Assessment and Plan Cardiac arrest PEA with ROSC * Patient is sinus tach 120s on telemetry. This is most likely physiologic secondary to sepsis. Continue to monitor on telemetry * Post arrest twelve-lead shows sinus tach 106 with no acute ischemic changes. Troponin is currently negative x2. AMI ruled out * Echocardiogram 01/08/21: LVEF 50 to 55%. LV SF normal. Mild diastolic dysfunction. RV normal size. No valvular abnormalities. Elevated D-dimer * CTA chest is negative for PTE Acute respiratory failure in setting of COVID-19 and MRSA sepsis * Currently on vancomycin * Intubated on ventilatory support DVT prophylaxis * Currently on heparin drip. Currently guarded cardiac status. Will follow as needed over the weekend. This patient was seen in conjunction with Dr Ines Liz who agrees with this assessment and plan of care - Patient Problems (1) Congestive heart failure Current Visit: Yes Status: Chronic Qualifiers: Heart failure type: combined systolic and diastolic (2) Diabetes mellitus type 2 in obese Current Visit: Yes Status: Chronic (3) Elevated d-dimer Current Visit: Yes Status: Acute (4) Acute renal failure Current Visit: Yes Status: Acute (5) Cardiac arrest Current Visit: Yes Status: Acute (6) Osteomyelitis of great toe of left foot Current Visit: Yes Status: Chronic (7) Sepsis Current Visit: Yes Status: Acute (8) Renal insufficiency Current Visit: Yes Status: Chronic Subjective Date of service: 01/12/21 Principal diagnosis: Cardiac Arrest; Ac Hypoxemic Resp Failure; SepticShock; PNA; SHERICE; PUI COVID Interval history: Patient remains intubated and sedated. Telemetry reviewed: Sinus tach 120. No events Objective Last Vital Signs Temp 101.7 F H 01/12/21 11:47 Pulse 113 H 01/12/21 11:30 Resp 40 H 01/12/21 11:30 BP 104/59 01/12/21 11:30 Pulse Ox 92 01/12/21 11:30 - Physical Examination General: Other (intubated) HEENT: Positive: Normocephaly, Mucus Membranes Moist Neck: Positive: neck supple Cardiac: Positive: Regular Rhythm, S1/S2 Lungs: Positive: Oxygen, Ventilated Respirations Neuro: Positive: Other (Intubated unresponsive) Abdomen: Positive: Unremarkable, Soft Skin: Positive: Wound (Left toe osteomyelitis). Negative: Rash Musculoskeletal: other (Intubated) Extremities: Present: upper extr. pulses, lower extr. pulses. Absent: edema - Labs and Meds Cardiac Enzymes 01/12/21 Range/Units 08:30 Lactate Dehydrogenase 576 H (91-180) units/L CBC 01/12/21 Range/Units 04:29 WBC 24.0 H (4.5-11.0) K/mm3 RBC 3.78 (3.65-5.03) M/mm3 Hgb 11.4 L (11.8-15.2) gm/dl Hct 37.2 (35.5-45.6) % Plt Count 279 (140-440) K/mm3 Comprehensive Metabolic Panel 01/12/21 Range/Units 04:29 Sodium 155 H (137-145) mmol/L Potassium 5.4 H (3.6-5.0) mmol/L Chloride 121.2 H (98-107) mmol/L Carbon Dioxide 24 (22-30) mmol/L BUN 91 H (9-20) mg/dL Creatinine 2.3 H (0.8-1.3) mg/dL Glucose 427 H (75-100) mg/dL Calcium 9.0 (8.4-10.2) mg/dL - Imaging and Cardiology EKG: report reviewed (Sinus tachycardia no acute ST-T wave changes) Echo: report reviewed (Echocardiogram 01-27: LVEF 50 to 55%. LV normal size. LV SF normal. Mild diastolic dysfunction. RV SF is normal. No valvular abnormalities.) - Telemetry EKG Rhythm: Sinus Tachycardia - EKG Sinus rhythms and dysrhythmias: sinus rhythm - Allied health notes Allied health notes reviewed: nursing
--- NOTE | 2021-01-12 11:57 | Vascular Lab Report ---
DUPLEX DOPPLER LOWER EXTREMITY ARTERIAL, LEFT INDICATION / CLINICAL INFORMATION: Left great toe abscess. TECHNIQUE: Arterial duplex examination of the left lower extremity performed using B-mode, color flow and spectr al Doppler assessment. FINDINGS: LEFT: - Atherosclerotic Plaque & Vessel: There is atherosclerotic calcification in the calf, mild. - Elevated Velocity (>200 cm/s) & Vessel: None. - Abnormal Waveform & Vessel: None. ADDITIONAL FINDINGS: None. LAKISHA was not calculated. IMPRESSION: 1. No significant left lower extremity peripheral artery disease. Signer Name: Josue Johnson MD Signed: 01/12/2021 11:52 AM Workstation Name: [id number]
[2021-01-12] MEDS ORDERED: VANCOMYCIN/NS 1 GM/250 ML 1 GM/250 ML BAG IV ONE (12:00)
[2021-01-12] MEDS ORDERED: HEPARIN 10,000 UNITS/10 ML VIAL IV PRN (12:00)
[2021-01-12] MEDS: NORepinephrine/NS 4 MG-250 ML 4 MG/250 ML BAG IV SCH ×3 (12:02→21:41)
--- NOTE | 2021-01-12 12:10 | Progress Note ---
Assessment and Plan Assessment and Plan Assessment and plan: - Patient Problems # Post Cardiac arrest -S/p cardiac arrest -Revived -Hypotensive -On Levophed at 10 mics -Possible septic shock with hypotension -Vent support and IV antibiotics - EEG is remarkable for diffuse slowing low voltage no seizure - Brain MRI when stable -Hold Sedation as possible.no on 5 mc propofol # Acute respiratory failure with hypoxia and hypercapnia -Patient on vent -Patient has history of COPD -IV Solu-Medrol -Vent support #COVID-19 positive -Coronavirus PCR is positive -Possible Covid pneumonia -See CTA lung # Septic shock -Patient on IV antibiotics and Levophed -Patient has bilateral pneumonia -Patient initiated on cefepime and vancomycin # Bilateral pneumonia -Differential diagnosis of community-acquired pneumonia/aspiration pneumonia/Covid pneumonia -IV antibiotics and IV steroids for now -ID consult requested # Urinary tract infection -Patient is on cefepime and vancomycin for the pneumonia -Wait for urine cultures -Creat#2.1 -Hypernatremia with [id number] # Acute kidney injury superimposed on CKD -Gentle IV hydration for now -Creat#2.3 # Congestive heart failure -Echocardiogram Ef#50-55% -BNP is elevated at 1157 # Transaminitis -Possible secondary to sepsis -Check to get hepatitis panel # Elevated troponin -Secondary to cardiac arrest and possible troponin leak - CK and CK-MB noted # Malnutrition -Albumin is 2.7 -Dietary supplements once extubated # DVT prophylaxis -On heparin SC. GI prophylaxis Critical care statement The high probability OF a clinically significant sudden or life-threatening deterioration of the cardiorespiratory system and endocrine system required my full and direct attention, intervention and postoperative management. The aggregate critical care time was 40 minutes. The time is in addition to time spent performing reported procedures but includes the followin: Data review and interpretation 2: Patient assessment and monitoring of vital signs 3: Documentation 4:: Medication orders and management Advance Directives: Yes (Full code) VTE prophylaxis?: Chemical Plan of care discussed with patient/family: No PLAN 1= EEG noted 2- Hold sedation if possible 3- MRI brain when stable 4- Treat underlying infection 5- Correct electrolytes abn.[id number] Over all prognosis is guarded will follow as needed Subjective Date of service: 01/12/21 Principal diagnosis: Cardiac Arrest; Ac Hypoxemic Resp Failure; SepticShock; PNA; SHERICE; PUI COVID Interval history: status same , only on 4 mc propfol no response to command inflammatory marker are elevated not stable to have MRI Objective - Vital Sign Vital Signs - 12hr 01/12/21 01/12/21 01/12/21 00:15 00:30 00:45 Temperature Pulse Rate 106 H 104 H 105 H Pulse Rate [ From Monitor] Respiratory 22 18 16 Rate Blood Pressure 111/63 125/59 112/63 O2 Sat by Pulse 98 97 98 Oximetry 01/12/21 01/12/21 01/12/21 01:00 01:15 01:30 Temperature Pulse Rate 107 H 108 H 110 H Pulse Rate [ From Monitor] Respiratory 18 14 14 Rate Blood Pressure 117/58 106/59 113/57 O2 Sat by Pulse 98 100 99 Oximetry 01/12/21 01/12/21 01/12/21 01:45 02:00 02:15 Temperature Pulse Rate 109 H 109 H 111 H Pulse Rate [ From Monitor] Respiratory 16 28 H 42 H Rate Blood Pressure 118/58 111/51 125/63 O2 Sat by Pulse 98 98 97 Oximetry 01/12/21 01/12/21 01/12/21 02:30 02:45 03:00 Temperature Pulse Rate 109 H 109 H 109 H Pulse Rate [ From Monitor] Respiratory 41 H 43 H 42 H Rate Blood Pressure 124/60 120/63 115/63 O2 Sat by Pulse 96 96 95 Oximetry 01/12/21 01/12/21 01/12/21 03:15 03:20 03:30 Temperature 102.8 F H Pulse Rate 107 H 108 H Pulse Rate [ From Monitor] Respiratory 41 H 41 H Rate Blood Pressure 109/61 119/62 O2 Sat by Pulse 96 96 Oximetry 01/12/21 01/12/21 01/12/21 03:45 04:00 04:15 Temperature Pulse Rate 108 H 108 H 108 H Pulse Rate [ From Monitor] Respiratory 42 H 42 H 13 Rate Blood Pressure 114/63 114/63 121/51 O2 Sat by Pulse 96 97 97 Oximetry 01/12/21 01/12/21 01/12/21 04:20 04:31 04:45 Temperature Pulse Rate 108 H 108 H 110 H Pulse Rate [ From Monitor] Respiratory 20 18 Rate Blood Pressure 121/44 121/51 121/51 O2 Sat by Pulse 98 97 97 Oximetry 01/12/21 01/12/21 01/12/21 05:01 05:15 05:31 Temperature Pulse Rate 107 H 109 H 108 H Pulse Rate [ From Monitor] Respiratory 24 25 H 29 H Rate Blood Pressure 121/51 121/51 121/51 O2 Sat by Pulse 97 98 97 Oximetry 01/12/21 01/12/21 01/12/21 05:45 06:01 06:15 Temperature Pulse Rate 106 H 107 H 108 H Pulse Rate [ From Monitor] Respiratory 27 H 28 H 27 H Rate Blood Pressure 121/51 121/51 121/51 O2 Sat by Pulse 98 97 97 Oximetry 01/12/21 01/12/21 01/12/21 06:31 06:46 07:01 Temperature Pulse Rate 109 H 110 H 110 H Pulse Rate [ From Monitor] Respiratory 26 H 26 H 27 H Rate Blood Pressure 121/51 O2 Sat by Pulse 97 97 98 Oximetry 01/12/21 01/12/21 01/12/21 07:15 07:31 07:41 Temperature 103.2 F H Pulse Rate 112 H 111 H Pulse Rate [ From Monitor] Respiratory 26 H 21 Rate Blood Pressure O2 Sat by Pulse 98 97 Oximetry 01/12/21 01/12/21 01/12/21 07:44 07:45 08:01 Temperature Pulse Rate 111 H 111 H 113 H Pulse Rate [ From Monitor] Respiratory 21 38 H Rate Blood Pressure 112/47 O2 Sat by Pulse 96 96 93 Oximetry 01/12/21 01/12/21 01/12/21 08:14 08:15 08:31 Temperature 102.6 F H Pulse Rate 116 H 114 H Pulse Rate [ From Monitor] Respiratory 39 H 41 H Rate Blood Pressure O2 Sat by Pulse 92 92 Oximetry 01/12/21 01/12/21 01/12/21 08:45 09:00 09:10 Temperature Pulse Rate 116 H 118 H Pulse Rate [ 118 H From Monitor] Respiratory 39 H 39 H 37 H Rate Blood Pressure 114/50 O2 Sat by Pulse 92 93 92 Oximetry 01/12/21 01/12/21 01/12/21 09:15 09:30 09:45 Temperature Pulse Rate 116 H 117 H 117 H Pulse Rate [ From Monitor] Respiratory 39 H 38 H 37 H Rate Blood Pressure 114/56 111/62 117/56 O2 Sat by Pulse 96 92 92 Oximetry 01/12/21 01/12/21 01/12/21 10:00 10:15 10:30 Temperature Pulse Rate 117 H 117 H 115 H Pulse Rate [ From Monitor] Respiratory 35 H 38 H 37 H Rate Blood Pressure 116/57 114/57 115/58 O2 Sat by Pulse 93 93 93 Oximetry 01/12/21 01/12/21 01/12/21 10:45 11:00 11:10 Temperature 101.7 F H Pulse Rate 115 H 116 H 114 H Pulse Rate [ From Monitor] Respiratory 39 H 39 H Rate Blood Pressure 113/54 121/53 91/31 O2 Sat by Pulse 92 92 92 Oximetry 01/12/21 01/12/21 01/12/21 11:15 11:30 11:47 Temperature 101.7 F H Pulse Rate 114 H 113 H Pulse Rate [ From Monitor] Respiratory 38 H 40 H Rate Blood Pressure 109/52 104/59 O2 Sat by Pulse 93 92 Oximetry - General Apperance Constitutional: uncomfortable, other (on vent.) - EENT EENT: PERRL, mucous membranes moist - Respiratory Respiratory: chest non-tender, lungs clear, rales, rhonchi - Cardiovascular Cardiovascular: regular rate, normal S1, normal S2 Extremities: non-pitting edema, other (ischemia left big toe) - Gastrointestinal Gastrointestinal: normoactive bowel sounds - Integumentary Integumentary: normal - Neurologic Cranial nerve examination: PERRL, intact (left pupil consricted right slightly dilated both reactive , no EOM , no corneal,no gag ) Detailed motor examination: other (no movment to stimuli) - Laboratory Findings CBC and BMP: 01/12/21 04:29 01/12/21 04:29 Abnormal Lab Findings: Abnormal Labs 01/08/21 01/08/21 01/08/21 11:01 11:55 11:55 WBC 23.8 H RBC 3.35 L Hgb 10.5 L Hct 31.6 L MCV MCHC RDW 15.6 H Lymph % (Auto) 4.1 L Lymph # (Auto) 1.0 L Weber # (Auto) 1.2 H Seg Neutrophils % 90.5 H Seg Neutrophils # 21.5 H PT INR APTT D-Dimer Heparin Anti-Xa Level ABG pH 7.204 L POC ABG pCO2 50.7 H POC ABG pO2 ABG Hemoglobin 11.9 L ABG Oxyhemoglobin ABG Sodium ABG Potassium 5.0 H ABG Chloride 110.0 H ABG Glucose 313 H Carboxyhemoglobin 0.1 L Sodium Potassium Chloride Carbon Dioxide BUN Creatinine Glucose POC Glucose Lactic Acid 4.50 H* Calcium Ferritin Direct Bilirubin AST ALT Lactate Dehydrogenase Troponin T C-Reactive Protein NT-Pro-B Natriuret Pep Total Protein Albumin Triglycerides LDL Cholesterol Direct HDL Cholesterol Arterial Blood Glucose 313 H Urine WBC (Auto) Coronavirus (PCR) 01/08/21 01/08/21 01/08/21 11:55 11:55 13:42 WBC RBC Hgb Hct MCV MCHC RDW Lymph % (Auto) Lymph # (Auto) Weber # (Auto) Seg Neutrophils % Seg Neutrophils # PT INR APTT 23.3 L D-Dimer Heparin Anti-Xa Level ABG pH POC ABG pCO2 POC ABG pO2 ABG Hemoglobin ABG Oxyhemoglobin ABG Sodium ABG Potassium ABG Chloride ABG Glucose Carboxyhemoglobin Sodium Potassium 5.3 H Chloride 107.2 H Carbon Dioxide 21 L BUN 55 H Creatinine 3.9 H Glucose 274 H POC Glucose Lactic Acid 2.90 H* Calcium 7.9 L Ferritin Direct Bilirubin 0.4 H AST 130 H ALT 70 H Lactate Dehydrogenase Troponin T 0.038 H C-Reactive Protein NT-Pro-B Natriuret Pep 1157 H Total Protein 6.0 L Albumin 2.6 L Triglycerides LDL Cholesterol Direct 28 L HDL Cholesterol 24 L Arterial Blood Glucose Urine WBC (Auto) Coronavirus (PCR) 01/08/21 01/08/21 01/08/21 14:36 14:36 14:36 WBC RBC Hgb Hct MCV MCHC RDW Lymph % (Auto) Lymph # (Auto) Weber # (Auto) Seg Neutrophils % Seg Neutrophils # PT INR APTT D-Dimer 7104.83 H Heparin Anti-Xa Level ABG pH POC ABG pCO2 POC ABG pO2 ABG Hemoglobin ABG Oxyhemoglobin ABG Sodium ABG Potassium ABG Chloride ABG Glucose Carboxyhemoglobin Sodium Potassium Chloride Carbon Dioxide BUN Creatinine Glucose 306 H POC Glucose Lactic Acid Calcium Ferritin 624.8 H Direct Bilirubin AST ALT Lactate Dehydrogenase 535 H Troponin T C-Reactive Protein 25.40 H NT-Pro-B Natriuret Pep Total Protein Albumin Triglycerides LDL Cholesterol Direct HDL Cholesterol Arterial Blood Glucose Urine WBC (Auto) Coronavirus (PCR) 01/08/21 01/08/21 01/08/21 21:00 Unknown Unknown WBC RBC Hgb Hct MCV MCHC RDW Lymph % (Auto) Lymph # (Auto) Weber # (Auto) Seg Neutrophils % Seg Neutrophils # PT INR APTT D-Dimer Heparin Anti-Xa Level ABG pH POC ABG pCO2 POC ABG pO2 111.6 H ABG Hemoglobin 11.6 L ABG Oxyhemoglobin ABG Sodium ABG Potassium 4.6 H ABG Chloride 112.0 H ABG Glucose 256 H Carboxyhemoglobin 0.3 L Sodium Potassium Chloride Carbon Dioxide BUN Creatinine Glucose POC Glucose Lactic Acid Calcium Ferritin Direct Bilirubin AST ALT Lactate Dehydrogenase Troponin T C-Reactive Protein NT-Pro-B Natriuret Pep Total Protein Albumin Triglycerides LDL Cholesterol Direct HDL Cholesterol Arterial Blood Glucose 256 H Urine WBC (Auto) > 182.0 H Coronavirus (PCR) Positive A 01/09/21 01/09/21 01/09/21 05:02 05:18 05:18 WBC 19.0 H RBC Hgb 11.7 L Hct MCV 95 H MCHC RDW 16.0 H Lymph % (Auto) Lymph # (Auto) Weber # (Auto) Seg Neutrophils % Seg Neutrophils # PT INR APTT D-Dimer Heparin Anti-Xa Level ABG pH POC ABG pCO2 POC ABG pO2 82.7 L ABG Hemoglobin ABG Oxyhemoglobin ABG Sodium ABG Potassium 4.8 H ABG Chloride 114.0 H ABG Glucose 283 H Carboxyhemoglobin 0.3 L Sodium 146 H Potassium 5.1 H Chloride 112.0 H Carbon Dioxide 20 L BUN 63 H Creatinine 3.0 H Glucose 282 H POC Glucose Lactic Acid Calcium 8.1 L Ferritin Direct Bilirubin AST ALT Lactate Dehydrogenase Troponin T C-Reactive Protein NT-Pro-B Natriuret Pep Total Protein Albumin Triglycerides LDL Cholesterol Direct HDL Cholesterol Arterial Blood Glucose 283 H Urine WBC (Auto) Coronavirus (PCR) 01/09/21 01/09/21 01/09/21 13:24 20:05 23:24 WBC RBC Hgb Hct MCV MCHC RDW Lymph % (Auto) Lymph # (Auto) Weber # (Auto) Seg Neutrophils % Seg Neutrophils # PT INR APTT D-Dimer Heparin Anti-Xa Level ABG pH POC ABG pCO2 POC ABG pO2 ABG Hemoglobin ABG Oxyhemoglobin ABG Sodium ABG Potassium ABG Chloride ABG Glucose Carboxyhemoglobin Sodium Potassium Chloride Carbon Dioxide BUN Creatinine Glucose POC Glucose 282 H 317 H 325 H Lactic Acid Calcium Ferritin Direct Bilirubin AST ALT Lactate Dehydrogenase Troponin T C-Reactive Protein NT-Pro-B Natriuret Pep Total Protein Albumin Triglycerides LDL Cholesterol Direct HDL Cholesterol Arterial Blood Glucose Urine WBC (Auto) Coronavirus (PCR) 01/10/21 01/10/21 01/10/21 02:56 05:31 10:46 WBC 22.0 H RBC Hgb 11.2 L Hct 35.0 L MCV MCHC RDW 15.4 H Lymph % (Auto) Lymph # (Auto) Weber # (Auto) Seg Neutrophils % Seg Neutrophils # PT INR APTT D-Dimer Heparin Anti-Xa Level ABG pH POC ABG pCO2 POC ABG pO2 73.8 L ABG Hemoglobin ABG Oxyhemoglobin 93.5 L ABG Sodium 149.1 H ABG Potassium 4.6 H ABG Chloride 119.0 H ABG Glucose 311 H Carboxyhemoglobin 0.4 L Sodium Potassium Chloride Carbon Dioxide BUN Creatinine Glucose POC Glucose 278 H Lactic Acid Calcium Ferritin Direct Bilirubin AST ALT Lactate Dehydrogenase Troponin T C-Reactive Protein NT-Pro-B Natriuret Pep Total Protein Albumin Triglycerides LDL Cholesterol Direct HDL Cholesterol Arterial Blood Glucose 311 H Urine WBC (Auto) Coronavirus (PCR) 01/10/21 01/10/21 01/10/21 10:46 10:46 10:46 WBC RBC Hgb Hct MCV MCHC RDW Lymph % (Auto) Lymph # (Auto) Weber # (Auto) Seg Neutrophils % Seg Neutrophils # PT INR APTT D-Dimer 5636.29 H Heparin Anti-Xa Level ABG pH POC ABG pCO2 POC ABG pO2 ABG Hemoglobin ABG Oxyhemoglobin ABG Sodium ABG Potassium ABG Chloride ABG Glucose Carboxyhemoglobin Sodium 155 H D Potassium Chloride 121.6 H Carbon Dioxide BUN 65 H Creatinine 2.2 H Glucose 330 H POC Glucose Lactic Acid Calcium Ferritin 347.2 H Direct Bilirubin AST 104 H ALT 63 H Lactate Dehydrogenase Troponin T C-Reactive Protein NT-Pro-B Natriuret Pep Total Protein Albumin 2.7 L Triglycerides LDL Cholesterol Direct HDL Cholesterol Arterial Blood Glucose Urine WBC (Auto) Coronavirus (PCR) 01/10/21 01/10/21 01/10/21 10:46 11:39 18:06 WBC RBC Hgb Hct MCV MCHC RDW Lymph % (Auto) Lymph # (Auto) Weber # (Auto) Seg Neutrophils % Seg Neutrophils # PT INR APTT D-Dimer Heparin Anti-Xa Level ABG pH POC ABG pCO2 POC ABG pO2 ABG Hemoglobin ABG Oxyhemoglobin ABG Sodium ABG Potassium ABG Chloride ABG Glucose Carboxyhemoglobin Sodium Potassium Chloride Carbon Dioxide BUN Creatinine Glucose POC Glucose 289 H 294 H Lactic Acid Calcium Ferritin Direct Bilirubin AST ALT Lactate Dehydrogenase 448 H Troponin T C-Reactive Protein 10.50 H NT-Pro-B Natriuret Pep Total Protein Albumin Triglycerides LDL Cholesterol Direct HDL Cholesterol Arterial Blood Glucose Urine WBC (Auto) Coronavirus (PCR) 01/11/21 01/11/21 01/11/21 00:57 03:09 04:50 WBC 23.8 H RBC Hgb 11.2 L Hct MCV 95 H MCHC 31 L RDW 16.5 H Lymph % (Auto) Lymph # (Auto) Weber # (Auto) Seg Neutrophils % Seg Neutrophils # PT INR APTT D-Dimer Heparin Anti-Xa Level ABG pH POC ABG pCO2 POC ABG pO2 ABG Hemoglobin ABG Oxyhemoglobin ABG Sodium 154.3 H ABG Potassium 4.8 H ABG Chloride 124.0 H ABG Glucose 381 H Carboxyhemoglobin Sodium Potassium Chloride Carbon Dioxide BUN Creatinine Glucose POC Glucose 300 H Lactic Acid Calcium Ferritin Direct Bilirubin AST ALT Lactate Dehydrogenase Troponin T C-Reactive Protein NT-Pro-B Natriuret Pep Total Protein Albumin Triglycerides LDL Cholesterol Direct HDL Cholesterol Arterial Blood Glucose 381 H Urine WBC (Auto) Coronavirus (PCR) 01/11/21 01/11/21 01/11/21 04:50 05:46 10:05 WBC RBC Hgb Hct MCV MCHC RDW Lymph % (Auto) Lymph # (Auto) Weber # (Auto) Seg Neutrophils % Seg Neutrophils # PT 15.2 H INR 1.15 H APTT D-Dimer Heparin Anti-Xa Level ABG pH POC ABG pCO2 POC ABG pO2 ABG Hemoglobin ABG Oxyhemoglobin ABG Sodium ABG Potassium ABG Chloride ABG Glucose Carboxyhemoglobin Sodium 158 H Potassium Chloride 124.1 H Carbon Dioxide BUN 72 H Creatinine 2.1 H Glucose 371 H POC Glucose 384 H Lactic Acid Calcium Ferritin Direct Bilirubin AST 78 H ALT Lactate Dehydrogenase Troponin T C-Reactive Protein NT-Pro-B Natriuret Pep Total Protein Albumin 2.7 L Triglycerides 394 H LDL Cholesterol Direct HDL Cholesterol Arterial Blood Glucose Urine WBC (Auto) Coronavirus (PCR) 01/11/21 01/11/21 01/11/21 12:04 17:17 18:55 WBC RBC Hgb Hct MCV MCHC RDW Lymph % (Auto) Lymph # (Auto) Weber # (Auto) Seg Neutrophils % Seg Neutrophils # PT INR APTT D-Dimer Heparin Anti-Xa Level 1.42 H ABG pH POC ABG pCO2 POC ABG pO2 ABG Hemoglobin ABG Oxyhemoglobin ABG Sodium ABG Potassium ABG Chloride ABG Glucose Carboxyhemoglobin Sodium Potassium Chloride Carbon Dioxide BUN Creatinine Glucose POC Glucose 351 H 330 H Lactic Acid Calcium Ferritin Direct Bilirubin AST ALT Lactate Dehydrogenase Troponin T C-Reactive Protein NT-Pro-B Natriuret Pep Total Protein Albumin Triglycerides LDL Cholesterol Direct HDL Cholesterol Arterial Blood Glucose Urine WBC (Auto) Coronavirus (PCR) 01/11/21 01/12/21 01/12/21 23:29 01:46 04:29 WBC 24.0 H RBC Hgb 11.4 L Hct MCV 99 H MCHC 31 L RDW 17.0 H Lymph % (Auto) Lymph # (Auto) Weber # (Auto) Seg Neutrophils % Seg Neutrophils # PT INR APTT D-Dimer Heparin Anti-Xa Level ABG pH 7.308 L POC ABG pCO2 POC ABG pO2 ABG Hemoglobin ABG Oxyhemoglobin ABG Sodium 155.1 H ABG Potassium 5.2 H ABG Chloride 124.0 H ABG Glucose 399 H Carboxyhemoglobin 0.2 L Sodium Potassium Chloride Carbon Dioxide BUN Creatinine Glucose POC Glucose 328 H Lactic Acid Calcium Ferritin Direct Bilirubin AST ALT Lactate Dehydrogenase Troponin T C-Reactive Protein NT-Pro-B Natriuret Pep Total Protein Albumin Triglycerides LDL Cholesterol Direct HDL Cholesterol Arterial Blood Glucose 399 H Urine WBC (Auto) Coronavirus (PCR) 01/12/21 01/12/21 01/12/21 04:29 05:24 08:30 WBC RBC Hgb Hct MCV MCHC RDW Lymph % (Auto) Lymph # (Auto) Weber # (Auto) Seg Neutrophils % Seg Neutrophils # PT INR APTT D-Dimer 4813.23 H Heparin Anti-Xa Level ABG pH POC ABG pCO2 POC ABG pO2 ABG Hemoglobin ABG Oxyhemoglobin ABG Sodium ABG Potassium ABG Chloride ABG Glucose Carboxyhemoglobin Sodium 155 H Potassium 5.4 H Chloride 121.2 H Carbon Dioxide BUN 91 H Creatinine 2.3 H Glucose 427 H POC Glucose 394 H Lactic Acid Calcium Ferritin Direct Bilirubin AST ALT Lactate Dehydrogenase Troponin T C-Reactive Protein NT-Pro-B Natriuret Pep Total Protein Albumin Triglycerides LDL Cholesterol Direct HDL Cholesterol Arterial Blood Glucose Urine WBC (Auto) Coronavirus (PCR) 01/12/21 01/12/21 01/12/21 08:30 08:30 11:32 WBC RBC Hgb Hct MCV MCHC RDW Lymph % (Auto) Lymph # (Auto) Weber # (Auto) Seg Neutrophils % Seg Neutrophils # PT INR APTT D-Dimer Heparin Anti-Xa Level ABG pH POC ABG pCO2 POC ABG pO2 ABG Hemoglobin ABG Oxyhemoglobin ABG Sodium ABG Potassium ABG Chloride ABG Glucose Carboxyhemoglobin Sodium Potassium Chloride Carbon Dioxide BUN Creatinine Glucose POC Glucose 385 H Lactic Acid Calcium Ferritin 379.5 H Direct Bilirubin AST ALT Lactate Dehydrogenase 576 H Troponin T C-Reactive Protein 4.50 H NT-Pro-B Natriuret Pep Total Protein Albumin Triglycerides LDL Cholesterol Direct HDL Cholesterol Arterial Blood Glucose Urine WBC (Auto) Coronavirus (PCR)
--- NOTE | 2021-01-12 13:39 | Progress Note ---
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 - follow repeat BC's - Neurology evaluation ongoing - continue care as below otherwise; - continue Daily SAT and SBT assessment as tolerated - continue to wean supplemental oxygen for target O2 sat's > 90% acutely - VAP bundle addressed - continue lung protective strategies - continue bronchodilators with pulmonary hygiene per RT - wean per pulmonary driven protocols otherwise - continue accuchecks with glycemic control per SSI (While critically ill target blood glucose of 140-180 mg/dL; avoid hypoglycemia) - sedation prn for target RASS 0 to -1 - avoid nephrotoxins, renally dose all medications - continue to avoid benzodiazepine's, reduce the possibility of delirium - complete AB's per ID rec's - prn analgesia per CPOT score - Maintenance of sleep-wake cycle, avoid delirium - continue enteral nutritional support at goal rate as tolerated - G.I. & VTE prophylaxis - PT/OT/ROM exercises - continue mobility protocols for pressure ulcer prophylaxis - Monitor hemodynamics closely - continue other care per attending / other consultants - discharge planning ongoing concurrently COVID SPECIFIC INTERVENTIONS - continue empiric contact and airborne isolation - await COVID-19 test result .... Re-evaluate in am & prn CONDITION: CRITICAL PROGNOSIS: GUARDED CODE STATUS: FULL CODE The high probability of a clinically significant, sudden or life-threatening deterioration of the [respiratory, cardiovascular, renal & neurologic] system(s) required my full and direct attention, intervention and personal management. The aggregate critical care time was [32] minutes without overlap. Time includes spent on; [x] Data Review and interpretation [x] Patient assessment and monitoring of vital signs [x] Documentation [x] Medication orders and management Subjective Date of service: 01/12/21 Principal diagnosis: Cardiac Arrest; Ac Hypoxemic Resp Failure; SepticShock; PNA; SHERICE; PUI COVID Interval history: Patient is seen today for: Cardiac Arrest with ROSC; Acute Hypoxemic Respiratory Failure; Septic Shock; Pneumonia; SHERICE; UTI; CHF; PUI COVID-19 Seen and examined at bedside; 24hour events reviewed; nursing and respiratory care staff consulted; no adverse overnight events reported to me; resting in bed; remains on MVS; AMS is persistent; BP's labile; for surgical intervention today Objective Vital Signs - 12hr 01/12/21 01/12/21 01/12/21 01:45 02:00 02:15 Temperature Pulse Rate 109 H 109 H 111 H Pulse Rate [ From Monitor] Respiratory 16 28 H 42 H Rate Blood Pressure 118/58 111/51 125/63 O2 Sat by Pulse 98 98 97 Oximetry 01/12/21 01/12/21 01/12/21 02:30 02:45 03:00 Temperature Pulse Rate 109 H 109 H 109 H Pulse Rate [ From Monitor] Respiratory 41 H 43 H 42 H Rate Blood Pressure 124/60 120/63 115/63 O2 Sat by Pulse 96 96 95 Oximetry 01/12/21 01/12/21 01/12/21 03:15 03:20 03:30 Temperature 102.8 F H Pulse Rate 107 H 108 H Pulse Rate [ From Monitor] Respiratory 41 H 41 H Rate Blood Pressure 109/61 119/62 O2 Sat by Pulse 96 96 Oximetry 01/12/21 01/12/21 01/12/21 03:45 04:00 04:15 Temperature Pulse Rate 108 H 108 H 108 H Pulse Rate [ From Monitor] Respiratory 42 H 42 H 13 Rate Blood Pressure 114/63 114/63 121/51 O2 Sat by Pulse 96 97 97 Oximetry 01/12/21 01/12/21 01/12/21 04:20 04:31 04:45 Temperature Pulse Rate 108 H 108 H 110 H Pulse Rate [ From Monitor] Respiratory 20 18 Rate Blood Pressure 121/44 121/51 121/51 O2 Sat by Pulse 98 97 97 Oximetry 01/12/21 01/12/21 01/12/21 05:01 05:15 05:31 Temperature Pulse Rate 107 H 109 H 108 H Pulse Rate [ From Monitor] Respiratory 24 25 H 29 H Rate Blood Pressure 121/51 121/51 121/51 O2 Sat by Pulse 97 98 97 Oximetry 01/12/21 01/12/21 01/12/21 05:45 06:01 06:15 Temperature Pulse Rate 106 H 107 H 108 H Pulse Rate [ From Monitor] Respiratory 27 H 28 H 27 H Rate Blood Pressure 121/51 121/51 121/51 O2 Sat by Pulse 98 97 97 Oximetry 01/12/21 01/12/21 01/12/21 06:31 06:46 07:01 Temperature Pulse Rate 109 H 110 H 110 H Pulse Rate [ From Monitor] Respiratory 26 H 26 H 27 H Rate Blood Pressure 121/51 O2 Sat by Pulse 97 97 98 Oximetry 01/12/21 01/12/21 01/12/21 07:15 07:31 07:41 Temperature 103.2 F H Pulse Rate 112 H 111 H Pulse Rate [ From Monitor] Respiratory 26 H 21 Rate Blood Pressure O2 Sat by Pulse 98 97 Oximetry 01/12/21 01/12/21 01/12/21 07:44 07:45 08:01 Temperature Pulse Rate 111 H 111 H 113 H Pulse Rate [ From Monitor] Respiratory 21 38 H Rate Blood Pressure 112/47 O2 Sat by Pulse 96 96 93 Oximetry 01/12/21 01/12/21 01/12/21 08:14 08:15 08:31 Temperature 102.6 F H Pulse Rate 116 H 114 H Pulse Rate [ From Monitor] Respiratory 39 H 41 H Rate Blood Pressure O2 Sat by Pulse 92 92 Oximetry 01/12/21 01/12/21 01/12/21 08:45 09:00 09:10 Temperature Pulse Rate 116 H 118 H Pulse Rate [ 118 H From Monitor] Respiratory 39 H 39 H 37 H Rate Blood Pressure 114/50 O2 Sat by Pulse 92 93 92 Oximetry 01/12/21 01/12/21 01/12/21 09:15 09:30 09:45 Temperature Pulse Rate 116 H 117 H 117 H Pulse Rate [ From Monitor] Respiratory 39 H 38 H 37 H Rate Blood Pressure 114/56 111/62 117/56 O2 Sat by Pulse 96 92 92 Oximetry 01/12/21 01/12/21 01/12/21 10:00 10:15 10:30 Temperature Pulse Rate 117 H 117 H 115 H Pulse Rate [ From Monitor] Respiratory 35 H 38 H 37 H Rate Blood Pressure 116/57 114/57 115/58 O2 Sat by Pulse 93 93 93 Oximetry 01/12/21 01/12/21 01/12/21 10:45 11:00 11:10 Temperature 101.7 F H Pulse Rate 115 H 116 H 114 H Pulse Rate [ From Monitor] Respiratory 39 H 39 H Rate Blood Pressure 113/54 121/53 91/31 O2 Sat by Pulse 92 92 92 Oximetry 01/12/21 01/12/21 01/12/21 11:15 11:30 11:39 Temperature Pulse Rate 114 H 113 H 114 H Pulse Rate [ From Monitor] Respiratory 38 H 40 H Rate Blood Pressure 109/52 104/59 O2 Sat by Pulse 93 92 Oximetry 01/12/21 01/12/21 01/12/21 11:45 11:47 12:00 Temperature 101.7 F H Pulse Rate 111 H 110 H Pulse Rate [ From Monitor] Respiratory 36 H 39 H Rate Blood Pressure 108/54 110/57 O2 Sat by Pulse 92 93 Oximetry 01/12/21 01/12/21 01/12/21 12:10 12:15 12:30 Temperature Pulse Rate 111 H 107 H Pulse Rate [ 113 H From Monitor] Respiratory 38 H 36 H 41 H Rate Blood Pressure 104/56 119/58 O2 Sat by Pulse 92 94 94 Oximetry 01/12/21 01/12/21 12:45 13:00 Temperature Pulse Rate 104 H 105 H Pulse Rate [ From Monitor] Respiratory 39 H 38 H Rate Blood Pressure 127/68 122/66 O2 Sat by Pulse 93 95 Oximetry Constitutional: appears uncomfortable, other (elderly obese male with mildly increased respiratory effort at rest on MVS) Eyes: non-icteric ENT: oropharynx moist, other (ETT 24 cm ASHA) Neck: supple, no lymphadenopathy, no JVD Effort: mildly labored Ascultation: Bilateral: diminished breath sounds, rhonchi Percussion: Bilateral: not dull Cardiovascular: regular rate and rhythm Gastrointestinal: normoactive bowel sounds, soft, non-tender, non-distended Integumentary: erythema (patchy mild) Extremities: no cyanosis, pink and warm, pulses normal, no ischemia or petechiae , edema (trace) Neurologic: pupils equal and round, unable to assess Psychiatric: other (encephalopathic) CBC and BMP: 01/15/21 07:00 01/15/21 07:00 ABG, PT/INR, D-dimer: ABG ABG pH 7.308 (7.320-7.450) L 01/12/21 01:46 POC ABG pCO2 41.3 mmHg (32.0-48.0) 01/12/21 01:46 POC ABG pO2 83.1 mmHg (83-108) 01/12/21 01:46 POC ABG HCO3 20.2 01/12/21 01:46 ABG O2 Saturation 95.4 (0-100) 01/12/21 01:46 PT/INR, D-dimer PT 15.2 Sec. (12.2-14.9) H 01/11/21 10:05 INR 1.15 (0.87-1.13) H 01/11/21 10:05 D-Dimer 4813.23 ng/mlDDU (0-234) H 01/12/21 08:30 Abnormal lab findings: Abnormal Labs 01/08/21 01/08/21 01/08/21 11:01 11:55 11:55 WBC 23.8 H RBC 3.35 L Hgb 10.5 L Hct 31.6 L MCV MCHC RDW 15.6 H Lymph % (Auto) 4.1 L Lymph # (Auto) 1.0 L [place] # (Auto) 1.2 H Seg Neutrophils % 90.5 H Seg Neutrophils # 21.5 H PT INR APTT D-Dimer Heparin Anti-Xa Level ABG pH 7.204 L POC ABG pCO2 50.7 H POC ABG pO2 ABG Hemoglobin 11.9 L ABG Oxyhemoglobin ABG Sodium ABG Potassium 5.0 H ABG Chloride 110.0 H ABG Glucose 313 H Carboxyhemoglobin 0.1 L Sodium Potassium Chloride Carbon Dioxide BUN Creatinine Glucose POC Glucose Lactic Acid 4.50 H* Calcium Ferritin Direct Bilirubin AST ALT Lactate Dehydrogenase Troponin T C-Reactive Protein NT-Pro-B Natriuret Pep Total Protein Albumin Triglycerides LDL Cholesterol Direct HDL Cholesterol Arterial Blood Glucose 313 H Urine WBC (Auto) Coronavirus (PCR) 01/08/21 01/08/21 01/08/21 11:55 11:55 13:42 WBC RBC Hgb Hct MCV MCHC RDW Lymph % (Auto) Lymph # (Auto) [place] # (Auto) Seg Neutrophils % Seg Neutrophils # PT INR APTT 23.3 L D-Dimer Heparin Anti-Xa Level ABG pH POC ABG pCO2 POC ABG pO2 ABG Hemoglobin ABG Oxyhemoglobin ABG Sodium ABG Potassium ABG Chloride ABG Glucose Carboxyhemoglobin Sodium Potassium 5.3 H Chloride 107.2 H Carbon Dioxide 21 L BUN 55 H Creatinine 3.9 H Glucose 274 H POC Glucose Lactic Acid 2.90 H* Calcium 7.9 L Ferritin Direct Bilirubin 0.4 H AST 130 H ALT 70 H Lactate Dehydrogenase Troponin T 0.038 H C-Reactive Protein NT-Pro-B Natriuret Pep 1157 H Total Protein 6.0 L Albumin 2.6 L Triglycerides LDL Cholesterol Direct 28 L HDL Cholesterol 24 L Arterial Blood Glucose Urine WBC (Auto) Coronavirus (PCR) 01/08/21 01/08/21 01/08/21 14:36 14:36 14:36 WBC RBC Hgb Hct MCV MCHC RDW Lymph % (Auto) Lymph # (Auto) [place] # (Auto) Seg Neutrophils % Seg Neutrophils # PT INR APTT D-Dimer 7104.83 H Heparin Anti-Xa Level ABG pH POC ABG pCO2 POC ABG pO2 ABG Hemoglobin ABG Oxyhemoglobin ABG Sodium ABG Potassium ABG Chloride ABG Glucose Carboxyhemoglobin Sodium Potassium Chloride Carbon Dioxide BUN Creatinine Glucose 306 H POC Glucose Lactic Acid Calcium Ferritin 624.8 H Direct Bilirubin AST ALT Lactate Dehydrogenase 535 H Troponin T C-Reactive Protein 25.40 H NT-Pro-B Natriuret Pep Total Protein Albumin Triglycerides LDL Cholesterol Direct HDL Cholesterol Arterial Blood Glucose Urine WBC (Auto) Coronavirus (PCR) 01/08/21 01/08/21 01/08/21 21:00 Unknown Unknown WBC RBC Hgb Hct MCV MCHC RDW Lymph % (Auto) Lymph # (Auto) [place] # (Auto) Seg Neutrophils % Seg Neutrophils # PT INR APTT D-Dimer Heparin Anti-Xa Level ABG pH POC ABG pCO2 POC ABG pO2 111.6 H ABG Hemoglobin 11.6 L ABG Oxyhemoglobin ABG Sodium ABG Potassium 4.6 H ABG Chloride 112.0 H ABG Glucose 256 H Carboxyhemoglobin 0.3 L Sodium Potassium Chloride Carbon Dioxide BUN Creatinine Glucose POC Glucose Lactic Acid Calcium Ferritin Direct Bilirubin AST ALT Lactate Dehydrogenase Troponin T C-Reactive Protein NT-Pro-B Natriuret Pep Total Protein Albumin Triglycerides LDL Cholesterol Direct HDL Cholesterol Arterial Blood Glucose 256 H Urine WBC (Auto) > 182.0 H Coronavirus (PCR) Positive A 01/09/21 01/09/21 01/09/21 05:02 05:18 05:18 WBC 19.0 H RBC Hgb 11.7 L Hct MCV 95 H MCHC RDW 16.0 H Lymph % (Auto) Lymph # (Auto) [place] # (Auto) Seg Neutrophils % Seg Neutrophils # PT INR APTT D-Dimer Heparin Anti-Xa Level ABG pH POC ABG pCO2 POC ABG pO2 82.7 L ABG Hemoglobin ABG Oxyhemoglobin ABG Sodium ABG Potassium 4.8 H ABG Chloride 114.0 H ABG Glucose 283 H Carboxyhemoglobin 0.3 L Sodium 146 H Potassium 5.1 H Chloride 112.0 H Carbon Dioxide 20 L BUN 63 H Creatinine 3.0 H Glucose 282 H POC Glucose Lactic Acid Calcium 8.1 L Ferritin Direct Bilirubin AST ALT Lactate Dehydrogenase Troponin T C-Reactive Protein NT-Pro-B Natriuret Pep Total Protein Albumin Triglycerides LDL Cholesterol Direct HDL Cholesterol Arterial Blood Glucose 283 H Urine WBC (Auto) Coronavirus (PCR) 01/09/21 01/09/21 01/09/21 13:24 20:05 23:24 WBC RBC Hgb Hct MCV MCHC RDW Lymph % (Auto) Lymph # (Auto) [place] # (Auto) Seg Neutrophils % Seg Neutrophils # PT INR APTT D-Dimer Heparin Anti-Xa Level ABG pH POC ABG pCO2 POC ABG pO2 ABG Hemoglobin ABG Oxyhemoglobin ABG Sodium ABG Potassium ABG Chloride ABG Glucose Carboxyhemoglobin Sodium Potassium Chloride Carbon Dioxide BUN Creatinine Glucose POC Glucose 282 H 317 H 325 H Lactic Acid Calcium Ferritin Direct Bilirubin AST ALT Lactate Dehydrogenase Troponin T C-Reactive Protein NT-Pro-B Natriuret Pep Total Protein Albumin Triglycerides LDL Cholesterol Direct HDL Cholesterol Arterial Blood Glucose Urine WBC (Auto) Coronavirus (PCR) 01/10/21 01/10/21 01/10/21 02:56 05:31 10:46 WBC 22.0 H RBC Hgb 11.2 L Hct 35.0 L MCV MCHC RDW 15.4 H Lymph % (Auto) Lymph # (Auto) [place] # (Auto) Seg Neutrophils % Seg Neutrophils # PT INR APTT D-Dimer Heparin Anti-Xa Level ABG pH POC ABG pCO2 POC ABG pO2 73.8 L ABG Hemoglobin ABG Oxyhemoglobin 93.5 L ABG Sodium 149.1 H ABG Potassium 4.6 H ABG Chloride 119.0 H ABG Glucose 311 H Carboxyhemoglobin 0.4 L Sodium Potassium Chloride Carbon Dioxide BUN Creatinine Glucose POC Glucose 278 H Lactic Acid Calcium Ferritin Direct Bilirubin AST ALT Lactate Dehydrogenase Troponin T C-Reactive Protein NT-Pro-B Natriuret Pep Total Protein Albumin Triglycerides LDL Cholesterol Direct HDL Cholesterol Arterial Blood Glucose 311 H Urine WBC (Auto) Coronavirus (PCR) 01/10/21 01/10/21 01/10/21 10:46 10:46 10:46 WBC RBC Hgb Hct MCV MCHC RDW Lymph % (Auto) Lymph # (Auto) [place] # (Auto) Seg Neutrophils % Seg Neutrophils # PT INR APTT D-Dimer 5636.29 H Heparin Anti-Xa Level ABG pH POC ABG pCO2 POC ABG pO2 ABG Hemoglobin ABG Oxyhemoglobin ABG Sodium ABG Potassium ABG Chloride ABG Glucose Carboxyhemoglobin Sodium 155 H D Potassium Chloride 121.6 H Carbon Dioxide BUN 65 H Creatinine 2.2 H Glucose 330 H POC Glucose Lactic Acid Calcium Ferritin 347.2 H Direct Bilirubin AST 104 H ALT 63 H Lactate Dehydrogenase Troponin T C-Reactive Protein NT-Pro-B Natriuret Pep Total Protein Albumin 2.7 L Triglycerides LDL Cholesterol Direct HDL Cholesterol Arterial Blood Glucose Urine WBC (Auto) Coronavirus (PCR) 01/10/21 01/10/21 01/10/21 10:46 11:39 18:06 WBC RBC Hgb Hct MCV MCHC RDW Lymph % (Auto) Lymph # (Auto) [place] # (Auto) Seg Neutrophils % Seg Neutrophils # PT INR APTT D-Dimer Heparin Anti-Xa Level ABG pH POC ABG pCO2 POC ABG pO2 ABG Hemoglobin ABG Oxyhemoglobin ABG Sodium ABG Potassium ABG Chloride ABG Glucose Carboxyhemoglobin Sodium Potassium Chloride Carbon Dioxide BUN Creatinine Glucose POC Glucose 289 H 294 H Lactic Acid Calcium Ferritin Direct Bilirubin AST ALT Lactate Dehydrogenase 448 H Troponin T C-Reactive Protein 10.50 H NT-Pro-B Natriuret Pep Total Protein Albumin Triglycerides LDL Cholesterol Direct HDL Cholesterol Arterial Blood Glucose Urine WBC (Auto) Coronavirus (PCR) 01/11/21 01/11/21 01/11/21 00:57 03:09 04:50 WBC 23.8 H RBC Hgb 11.2 L Hct MCV 95 H MCHC 31 L RDW 16.5 H Lymph % (Auto) Lymph # (Auto) [place] # (Auto) Seg Neutrophils % Seg Neutrophils # PT INR APTT D-Dimer Heparin Anti-Xa Level ABG pH POC ABG pCO2 POC ABG pO2 ABG Hemoglobin ABG Oxyhemoglobin ABG Sodium 154.3 H ABG Potassium 4.8 H ABG Chloride 124.0 H ABG Glucose 381 H Carboxyhemoglobin Sodium Potassium Chloride Carbon Dioxide BUN Creatinine Glucose POC Glucose 300 H Lactic Acid Calcium Ferritin Direct Bilirubin AST ALT Lactate Dehydrogenase Troponin T C-Reactive Protein NT-Pro-B Natriuret Pep Total Protein Albumin Triglycerides LDL Cholesterol Direct HDL Cholesterol Arterial Blood Glucose 381 H Urine WBC (Auto) Coronavirus (PCR) 01/11/21 01/11/21 01/11/21 04:50 05:46 10:05 WBC RBC Hgb Hct MCV MCHC RDW Lymph % (Auto) Lymph # (Auto) [place] # (Auto) Seg Neutrophils % Seg Neutrophils # PT 15.2 H INR 1.15 H APTT D-Dimer Heparin Anti-Xa Level ABG pH POC ABG pCO2 POC ABG pO2 ABG Hemoglobin ABG Oxyhemoglobin ABG Sodium ABG Potassium ABG Chloride ABG Glucose Carboxyhemoglobin Sodium 158 H Potassium Chloride 124.1 H Carbon Dioxide BUN 72 H Creatinine 2.1 H Glucose 371 H POC Glucose 384 H Lactic Acid Calcium Ferritin Direct Bilirubin AST 78 H ALT Lactate Dehydrogenase Troponin T C-Reactive Protein NT-Pro-B Natriuret Pep Total Protein Albumin 2.7 L Triglycerides 394 H LDL Cholesterol Direct HDL Cholesterol Arterial Blood Glucose Urine WBC (Auto) Coronavirus (PCR) 01/11/21 01/11/21 01/11/21 12:04 17:17 18:55 WBC RBC Hgb Hct MCV MCHC RDW Lymph % (Auto) Lymph # (Auto) [place] # (Auto) Seg Neutrophils % Seg Neutrophils # PT INR APTT D-Dimer Heparin Anti-Xa Level 1.42 H ABG pH POC ABG pCO2 POC ABG pO2 ABG Hemoglobin ABG Oxyhemoglobin ABG Sodium ABG Potassium ABG Chloride ABG Glucose Carboxyhemoglobin Sodium Potassium Chloride Carbon Dioxide BUN Creatinine Glucose POC Glucose 351 H 330 H Lactic Acid Calcium Ferritin Direct Bilirubin AST ALT Lactate Dehydrogenase Troponin T C-Reactive Protein NT-Pro-B Natriuret Pep Total Protein Albumin Triglycerides LDL Cholesterol Direct HDL Cholesterol Arterial Blood Glucose Urine WBC (Auto) Coronavirus (PCR) 01/11/21 01/12/21 01/12/21 23:29 01:46 04:29 WBC 24.0 H RBC Hgb 11.4 L Hct MCV 99 H MCHC 31 L RDW 17.0 H Lymph % (Auto) Lymph # (Auto) [place] # (Auto) Seg Neutrophils % Seg Neutrophils # PT INR APTT D-Dimer Heparin Anti-Xa Level ABG pH 7.308 L POC ABG pCO2 POC ABG pO2 ABG Hemoglobin ABG Oxyhemoglobin ABG Sodium 155.1 H ABG Potassium 5.2 H ABG Chloride 124.0 H ABG Glucose 399 H Carboxyhemoglobin 0.2 L Sodium Potassium Chloride Carbon Dioxide BUN Creatinine Glucose POC Glucose 328 H Lactic Acid Calcium Ferritin Direct Bilirubin AST ALT Lactate Dehydrogenase Troponin T C-Reactive Protein NT-Pro-B Natriuret Pep Total Protein Albumin Triglycerides LDL Cholesterol Direct HDL Cholesterol Arterial Blood Glucose 399 H Urine WBC (Auto) Coronavirus (PCR) 01/12/21 01/12/21 01/12/21 04:29 05:24 08:30 WBC RBC Hgb Hct MCV MCHC RDW Lymph % (Auto) Lymph # (Auto) [place] # (Auto) Seg Neutrophils % Seg Neutrophils # PT INR APTT D-Dimer 4813.23 H Heparin Anti-Xa Level ABG pH POC ABG pCO2 POC ABG pO2 ABG Hemoglobin ABG Oxyhemoglobin ABG Sodium ABG Potassium ABG Chloride ABG Glucose Carboxyhemoglobin Sodium 155 H Potassium 5.4 H Chloride 121.2 H Carbon Dioxide BUN 91 H Creatinine 2.3 H Glucose 427 H POC Glucose 394 H Lactic Acid Calcium Ferritin Direct Bilirubin AST ALT Lactate Dehydrogenase Troponin T C-Reactive Protein NT-Pro-B Natriuret Pep Total Protein Albumin Triglycerides LDL Cholesterol Direct HDL Cholesterol Arterial Blood Glucose Urine WBC (Auto) Coronavirus (PCR) 01/12/21 01/12/21 01/12/21 08:30 08:30 11:32 WBC RBC Hgb Hct MCV MCHC RDW Lymph % (Auto) Lymph # (Auto) [place] # (Auto) Seg Neutrophils % Seg Neutrophils # PT INR APTT D-Dimer Heparin Anti-Xa Level ABG pH POC ABG pCO2 POC ABG pO2 ABG Hemoglobin ABG Oxyhemoglobin ABG Sodium ABG Potassium ABG Chloride ABG Glucose Carboxyhemoglobin Sodium Potassium Chloride Carbon Dioxide BUN Creatinine Glucose POC Glucose 385 H Lactic Acid Calcium Ferritin 379.5 H Direct Bilirubin AST ALT Lactate Dehydrogenase 576 H Troponin T C-Reactive Protein 4.50 H NT-Pro-B Natriuret Pep Total Protein Albumin Triglycerides LDL Cholesterol Direct HDL Cholesterol Arterial Blood Glucose Urine WBC (Auto) Coronavirus (PCR) Chest x-ray: image reviewed Allied health notes reviewed: nursing
[2021-01-12] MEDS ORDERED: BUPIVACAINE/PF (0.5%) 5 MG/1 ML 30 ML VIAL INFILTRATI ONE ×2 (14:29)
[2021-01-12] MEDS ORDERED: SODIUM HYPOCHLORITE, DAKIN'S 1/2 STRENGTH (0.25%) 473 ML TOPICAL SOLN IR ONE (16:00)
--- NOTE | 2021-01-12 16:01 | Progress Note ---
Assessment and Plan Assessment and plan: --Cardiac arrest[outside the hospital cardiac arrest] Current Visit: Yes Status: Acute S/p cardiac arrests/p CPR per ACLS protocol Acute hypoxic respiratory failure intubated on vent Severe COVID-19 pneumonia Severe sepsis, Septic shock on pressors Vent support and IV antibiotics --Acute respiratory failure with hypoxia and hypercapnia Current Visit: Yes Status: Acute Intubated on vent Patient has history of COPD Patient initiated on duo nebs [id number] and as needed IV Solu-Medrol, Vent support Derrick [employer] consult requested Wean as tolerated and extubate --COVID-19 infection; Current Visit: Yes Status: Acute Contact and droplet isolation Dexamethasone per pulmonary for 10 days Borderline renal function, if continues to improve would start remdesivir. As patient has MRSA bacteremia, not a candidate for Actemra at present. Obtain q48-72h inflammatory markers - ferritin, Ddimer, CRP, LDH Continue vancomycin goal trough 10-20 Follow-up repeat blood cultures Proning position as tolerated --Severe sepsis; MRSA/ COVID-19 pneumonia Current Visit: Yes Status: Acute Continue contact and droplet isolation Continue vancomycin, ID following --Septic shock Current Visit: Yes Status: Acute Plan to address problem: Patient on IV antibiotics and Levophed Patient has bilateral pneumonia Possible aspiration pneumonia Patient initiated on cefepime and vancomycin ID consult requested --Bilateral pneumonia Current Visit: Yes Status: Acute Differential diagnosis of community-acquired pneumonia/aspiration pneumonia/Covid pneumonia IV antibiotics and IV steroids for now ID consult requested -- Urinary tract infection Current Visit: Yes Status: Acute Patient is on cefepime and vancomycin for the pneumonia Wait for urine cultures --Acute kidney injury superimposed on CKD Current Visit: Yes Status: Acute Gentle IV hydration for now Nephrology consulted Some improvement in the creatinine from 3.9-3.0 Per nephrology-- Woudl recommend gentle IVF hydration, maintain MAP >65 mmHg. Avoid nephrotoxins. Renal US did not show any acute abnormalities but likely does have evidence of underlying chronic kidney disease. overall renal function is stable this morning and he remains nonoliguric. We will continue to closely monitor. No acute indications for renal replacement therapy at present time. --Congestive heart failure Current Visit: Yes Status: Chronic We will get echocardiogram for ejection fraction BNP is elevated at 1157 --Transaminitis Current Visit: Yes Status: Acute Possible secondary to sepsis Check to get hepatitis panel -- Elevated troponin Current Visit: Yes Status: Acute Secondary to cardiac arrest and possible troponin leak We will get CK and CK-MB --Person under investigation for COVID-19 Current Visit: Yes Status: Acute Coronavirus PCR positive --Malnutrition Current Visit: Yes Status: Chronic Albumin is 2.7 Dietary supplements once extubated -- DVT prophylaxis Current Visit: Yes Status: Acute On heparin GI prophylaxis Critical care statement The high probability OF a clinically significant sudden or life-threatening deterioration of the cardiorespiratory system and endocrine system required my full and direct attention, intervention and postoperative management. The aggregate critical care time was 35 minutes. The time is in addition to time spent performing reported procedures but includes the followin: Data review and interpretation 2: Patient assessment and monitoring of vital signs 3: Documentation 4:: Medication orders and management Brief history and daily hospital course: 61-year-old salt[place] male with history of diabetes and sleep apnea called EMS towards generalized weakness. When EMS arrived there was difficulty getting to the patient. Because of too many items in the home. Similar to a Hoarder home. Initially patient was awake and talking confused. Then patient became unresponsive and apneic. ACLS protocol was initiated and chest compressions were initiated oxygen was administered and his own CPAP machine was used. Within the next 10 minutes patient was intubated. EMS was unable to get the patient out of the room through the door so patient was taken out of the home through the window of the room. Patient was found to be in PEA. Patient was intubated by EMS they achieved a return of spontaneous circulation. After a few minutes lost her pulse again and was given amlodipine and was revived. Patient presents to the emergency room with a pulse. It is unclear what has precipitated his cardiac arrest. Patient has only diabetes and sleep apnea. No fever or chills. No exposure to coronavirus. Patient was slightly hypotensive and was initiated on Levophed in the emergency room. Levophed is at 10 mics 01/09/2021 Patient still intubated Weaning in progress Covid positive 01/10/2021 Covid positive 01/11/2021 Covid positive On ventilator Weaning in progress 01/12/2021; Severely hypotensive septic shock On Levophed, add vasopressin if needed I called [place] physician Dr. Parsons at [phone] and discussed in detail patient's critical condition, all the diagnosis, tests and reports, consultants recommendation, poor prognosis, answered all her questions, she recommended to continue current management here in the hospital as he is critically ill. I answered all her questions, and I informed the patient's nurse of my conversation with [place] physician. History Interval history: I have seen and examined the patient at the bedside this morning Patient's chart and medications reviewed Patient with cardiac arrest, anoxic brain injury , acute hypoxic respiratory failure Patient is severely hypotensive in shock requiring vasopressors Patient is noncommunicative Intubated on ventilatory support Vital signs reviewed Hospitalist Physical - Constitutional Vitals: Temp Pulse Resp BP Pulse Ox 101.7 F H 105 H 38 H 122/66 95 01/12/21 11:47 01/12/21 13:00 01/12/21 13:00 01/12/21 13:00 01/12/21 13:00 General appearance: Present: mild distress, well-nourished, other (Intubated on ventilatory support) - EENT Eyes: Present: PERRL, EOM intact - Neck Neck: Present: other (ET tube and Dobbhoff in place) - Respiratory Respiratory effort: labored Respiratory: bilateral: diminished, rhonchi, negative: rales, wheezing - Cardiovascular Rhythm: regular Heart Sounds: Present: S1 & S2 - Extremities Extremities: no ischemia, No edema - Abdominal General gastrointestinal: soft, non-tender, non-distended, normal bowel sounds - Integumentary Integumentary: Present: clear, warm - Psychiatric Psychiatric: other (Intubated on vent) - Neurologic Neurologic: other (Intubated on vent noncommunicative) HEART Score - HEART Score Age: 45-65 Risk factors: 1-2 risk factors Troponin: Troponin T < 0.010 ng/mL (0.00-0.029) 01/10/21 10:46 - Critical Actions Critical Actions: 4-6 pts:12-16.6% risk of adverse cardiac event. Should be admitted Results - Labs CBC & Chem 7: 01/12/21 04:29 01/12/21 04:29 Labs: Laboratory Last Values WBC 24.0 K/mm3 (4.5-11.0) H 01/12/21 04:29 RBC 3.78 M/mm3 (3.65-5.03) 01/12/21 04:29 Hgb 11.4 gm/dl (11.8-15.2) L 01/12/21 04:29 Hct 37.2 % (35.5-45.6) 01/12/21 04:29 MCV 99 fl (84-94) H 01/12/21 04:29 MCH 30 pg (28-32) 01/12/21 04:29 MCHC 31 % (32-34) L 01/12/21 04:29 RDW 17.0 % (13.2-15.2) H 01/12/21 04:29 Plt Count 279 K/mm3 (140-440) 01/12/21 04:29 Lymph % (Auto) 4.1 % (13.4-35.0) L 01/08/21 11:55 [place] % (Auto) 5.2 % (0.0-7.3) 01/08/21 11:55 Eos % (Auto) 0.0 % (0.0-4.3) 01/08/21 11:55 Baso % (Auto) 0.2 % (0.0-1.8) 01/08/21 11:55 Lymph # (Auto) 1.0 K/mm3 (1.2-5.4) L 01/08/21 11:55 [place] # (Auto) 1.2 K/mm3 (0.0-0.8) H 01/08/21 11:55 Eos # (Auto) 0.0 K/mm3 (0.0-0.4) 01/08/21 11:55 Baso # (Auto) 0.1 K/mm3 (0.0-0.1) 01/08/21 11:55 Add Manual Diff Complete 01/08/21 11:55 Seg Neutrophils % 90.5 % (40.0-70.0) H 01/08/21 11:55 Seg Neutrophils # 21.5 K/mm3 (1.8-7.7) H 01/08/21 11:55 PT 15.2 Sec. (12.2-14.9) H 01/11/21 10:05 INR 1.15 (0.87-1.13) H 01/11/21 10:05 APTT 23.3 Sec. (24.2-36.6) L 01/08/21 11:55 D-Dimer 4813.23 ng/mlDDU (0-234) H 01/12/21 08:30 Heparin Anti-Xa Level 1.42 U.I./ml (0.3-0.7) H 01/11/21 18:55 ABG pH 7.308 (7.320-7.450) L 01/12/21 01:46 POC ABG pCO2 41.3 mmHg (32.0-48.0) 01/12/21 01:46 POC ABG pO2 83.1 mmHg (83-108) 01/12/21 01:46 POC ABG HCO3 20.2 01/12/21 01:46 ABG O2 Saturation 95.4 (0-100) 01/12/21 01:46 POC ABG Base Excess -5.7 01/12/21 01:46 ABG Hemoglobin 12.2 (12.0-17.5) 01/12/21 01:46 ABG Oxyhemoglobin 95.1 (94-98) 01/12/21 01:46 ABG Methemoglobin 0.1 (0.0-1.5) 01/12/21 01:46 ABG Sodium 155.1 mmol/L (136.0-145.0) H 01/12/21 01:46 ABG Potassium 5.2 mmol/L (3.40-4.50) H 01/12/21 01:46 ABG Chloride 124.0 mmol/L (98-107) H 01/12/21 01:46 ABG Glucose 399 mg/dL (65-95) H 01/12/21 01:46 Carboxyhemoglobin 0.2 (0.5-1.5) L 01/12/21 01:46 FiO2 % 75.0 01/12/21 01:46 Sodium 155 mmol/L (137-145) H 01/12/21 04:29 Potassium 5.4 mmol/L (3.6-5.0) H 01/12/21 04:29 Chloride 121.2 mmol/L (98-107) H 01/12/21 04:29 Carbon Dioxide 24 mmol/L (22-30) 01/12/21 04:29 Anion Gap 15 mmol/L 01/12/21 04:29 BUN 91 mg/dL (9-20) H 01/12/21 04:29 Creatinine 2.3 mg/dL (0.8-1.3) H 01/12/21 04:29 Estimated GFR 29 ml/min 01/12/21 04:29 BUN/Creatinine Ratio 40 % 01/12/21 04:29 Glucose 427 mg/dL (75-100) H 01/12/21 04:29 POC Glucose 385 mg/dL (70-105) H 01/12/21 11:32 Lactic Acid 1.50 mmol/L (0.7-2.0) 01/10/21 00:44 Calcium 9.0 mg/dL (8.4-10.2) 01/12/21 04:29 Ferritin 379.5 ng/mL (30.0-300.0) H 01/12/21 08:30 Total Bilirubin 0.30 mg/dL (0.1-1.2) 01/11/21 04:50 Direct Bilirubin 0.4 mg/dL (0-0.2) H 01/08/21 11:55 Indirect Bilirubin 0.2 mg/dL 01/08/21 11:55 AST 78 units/L (5-40) H 01/11/21 04:50 ALT 54 units/L (7-56) 01/11/21 04:50 Alkaline Phosphatase 94 units/L (35-129) 01/11/21 04:50 Lactate Dehydrogenase 576 units/L (91-180) H 01/12/21 08:30 Troponin T < 0.010 ng/mL (0.00-0.029) 01/10/21 10:46 C-Reactive Protein 4.50 mg/dL (0.00-1.30) H 01/12/21 08:30 NT-Pro-B Natriuret Pep 1157 pg/mL (0-900) H 01/08/21 11:55 Total Protein 6.3 g/dL (6.3-8.2) 01/11/21 04:50 Albumin 2.7 g/dL (3.9-5) L 01/11/21 04:50 Albumin/Globulin Ratio 0.8 % 01/11/21 04:50 Triglycerides 394 mg/dL (2-149) H 01/11/21 04:50 Cholesterol 63 mg/dL (50-199) 01/08/21 11:55 LDL Cholesterol Direct 28 mg/dL (50-130) L 01/08/21 11:55 HDL Cholesterol 24 mg/dL (40-59) L 01/08/21 11:55 Cholesterol/HDL Ratio 2.62 % 01/08/21 11:55 Procalcitonin 24.79 ng/mL (<0.15) 01/08/21 14:36 Arterial Blood Glucose 399 mg/dL (65-95) H 01/12/21 01:46 Arterial Blood Ionized Calcium 5.0 mg/dL (4.6-5.3) 01/12/21 01:46 Urine Color Red (Yellow) 01/08/21 Unknown Urine Turbidity Turbid (Clear) 01/08/21 Unknown Urine pH 7.0 (5.0-7.0) 01/08/21 Unknown Ur Specific [place] 1.013 (1.003-1.030) 01/08/21 Unknown Urine Protein 100 mg/dl mg/dL (Negative) 01/08/21 Unknown Urine Glucose (UA) Neg mg/dL (Negative) 01/08/21 Unknown Urine Ketones Neg mg/dL (Negative) 01/08/21 Unknown Urine Blood Lg (Negative) 01/08/21 Unknown Urine Nitrite Neg (Negative) 01/08/21 Unknown Urine Bilirubin Neg (Negative) 01/08/21 Unknown Urine Urobilinogen < 2.0 mg/dL (<2.0) 01/08/21 Unknown Ur Leukocyte Esterase Mod (Negative) 01/08/21 Unknown Urine WBC (Auto) > 182.0 /HPF (0.0-6.0) H 01/08/21 Unknown Urine RBC (Auto) > 182.0 /HPF (0.0-6.0) 01/08/21 Unknown Urine Bacteria (Auto) 3+ /HPF (Negative) 01/08/21 Unknown Urine WBC Clumps 3+ /HPF 01/08/21 Unknown Urine Yeast (Budding) 3+ /HPF 01/08/21 Unknown Random Vancomycin 14.1 ug/mL (0-40.0) 01/11/21 10:05 Coronavirus (PCR) Positive (Negative) A 01/08/21 Unknown Microbiology: Microbiology 01/11/21 16:28 Peripheral/Venous Blood Culture - Preliminary 01/08/21 Unknown Sputum - Endotracheal Wash Sputum Culture - Preliminary Staphylococcus Aureus 01/08/21 11:55 Peripheral/Venous Blood Culture - Preliminary Methicillin Resist S. Aureus 01/11/21 16:28 Peripheral/Venous Blood Culture - Preliminary Culture in Progress Cleaning/IV: Voiding Method Indwelling Catheter Active Medications - Current Medications Current Medications: Generic Name Dose Route Start Last Admin Trade Name Freq PRN Reason Stop Dose Admin Acetaminophen 650 mg 01/10/21 08:18 01/12/21 12:08 Acetaminophen 325 Mg/10.15 Ml Oral Liqd Unit Dose FEEDTUBE 650 mg Q6H PRN Administration TEMP >/=100.4 Albuterol 2.5 mg 01/08/21 20:23 Albuterol 2.5 Mg/3 Ml Nebu IH Q3HRT PRN Shortness Of Breath Albuterol/Ipratropium 1 ampul 01/08/21 20:00 01/12/21 15:11 Ipratropium/Albuterol Sulfate 3 Ml Ampul.Neb IH Not Given QIDRT MARBELLA Lipase/Protease/Amylase 1 each 01/10/21 17:40 Lipase 10,500/Protease 25,000/Amylase 43,750 (Units) Dr Cap FEEDTUBE PRN PRN For Clogged Feeding Tube Dexamethasone 6 mg 01/10/21 10:00 01/12/21 09:09 Dexamethasone 4 Mg/Ml Vial IV 01/19/21 10:01 6 mg Q24HR MARBELLA Administration Famotidine 20 mg 01/11/21 10:00 01/12/21 09:09 Famotidine 20 Mg Tab PO 20 mg BID MARBELLA Administration Heparin Sodium (Porcine) 5,000 unit 01/12/21 12:00 Heparin 10,000 Units/10 Ml Vial IV Q6H PRN Anti-Xa Assay < 0.1 units/ml Hydrophilic Ointment 1 applic 01/08/21 16:00 Lip Therapy Vaseline TP Q2HR PRN Dry Lips Propofol 1,000 mg in 100 mls @ 4.082 mls/hr 01/08/21 16:00 01/12/21 13:11 Diprivan 10 Mg/Ml IV 10 mcg/kg/min TITR MARBELLA 8.165 mls/hr Administration Protocol 5 MCG/KG/MIN Norepinephrine 4 mg in 250 mls @ 75 mls/hr 01/08/21 11:28 01/12/21 13:00 Levophed Drip 4 Mg/Ns 250 Ml IV 14 mcg/min TITR MARBELLA 52.5 mls/hr Titration Protocol 20 MCG/MIN Heparin Sodium/Sodium Chloride 25,000 unit in 500 mls @ 30 mls/hr 01/11/21 10:00 01/11/21 21:27 Heparin/ 0.45% Nacl-25,000 Unit/500 Ml IV 0 units/hr TITR MARBELLA 0 mls/hr Titration Protocol 1,500 UNITS/HR Vasopressin 20 unit/ Sodium 101 mls @ 9.09 mls/hr 01/12/21 14:00 Chloride IV TITR MARBELLA Protocol 0.03 UNITS/MIN Insulin Glargine 15 units 01/11/21 10:00 01/12/21 09:09 Insulin Glargine 100 Units/Ml SUB-Q 15 units DAILY MARBELLA Administration Insulin Human Lispro 0 unit 01/09/21 12:00 01/12/21 12:07 Insulin Lispro 100 Unit/Ml SUB-Q 10 unit Q6HR MARBELLA Administration Protocol Multi-Ingred Cream/Lotion/Oil/Oint 1 applic 01/08/21 18:00 Mineral Oil/Petrolatum, White Ophth Oint 3.5 Gm OU Q4HR PRN Dry Eye(s) Senna/Docusate Sodium 1 tab 01/08/21 22:00 01/12/21 09:09 Sennosides/Docusate Sodium 8.6/50 Mg Tab FEEDTUBE 1 tab BID MARBELLA Administration Simple Syrup 15 ml 01/10/21 17:40 Simple Syrup 15 Ml FEEDTUBE PRN PRN Hypoglycemia Simple Syrup 30 ml 01/10/21 17:40 Simple Syrup 15 Ml FEEDTUBE PRN PRN Hypoglycemia Sodium Bicarbonate 325 mg 01/10/21 17:40 Sodium Bicarbonate 325 Mg Tab FEEDTUBE PRN PRN For Clogged Feeding Tube Sodium Chloride 5 ml 01/08/21 15:18 Sodium Chloride 0.9% 500 Ml Ivpb IV DIRECT PRN ARTERIAL CHEMICAL PUMPER Nutrition/Malnutrition Assess - Dietary Evaluation Nutrition/Malnutrition Findings: Nutrition Notes Start: 01/09/21 15:14 Freq: Status: Active Protocol: Document 01/11/21 13:47 (Rec: 01/11/21 14:02 [email or web address]) Nutrition Notes Initial or Follow up Reassessment Current Diagnosis Acute Kidney Injury,CKD(stage I-IV),Diabetes,Heart Failure, Hyperlipidemia Other Pertinent Diagnosis Cardiac arrest, Bilat pneu, r/ o COVID-19 (+), UTI, Sleep apnea Current Diet Vital HP at 75 ml/hr Labs/Tests Na 158 BUN 72 Cr 2.1 BG 371 K 5 (WNL) Pertinent Medications Propofol at 4.082 ml/hr Height 5 ft 11 in Weight 136.078 kg [place] Body Weight (kg) 78.18 BMI 41.8 Weight Status Morbidly Obese Subjective/Other Information No indication for HD at this time however, pt with increasing K. Will change TF. Burn Absent Trauma Absent Current % PO Negligible Minimum of two criteria No #1 Nutrition Diagnosis Inadequate oral intake Diagnosis Progress(for reassessment Continues documentation) Is patient on ventilator? Yes Is Patient Ambulatory and/or Out of Bed No REE-([facility]-confined to bed) 2623.800 Kcal/Kg value to use for calculation 14 Approximate Energy Requirements Using 1905 kcal/Kg Calculation Used for Recommendations Kcal/kg Additional Notes Pro needs 2.5g/kg IBW: up to 195g/day Fluid needs 1ml/kcal Nutrition Intervention Change Diet Order: Change TF Nutrition Support: Nepro 1.8 at 40 ml/hr Flush 175 ml q4h or per MD Kcal 1,728 Protein (gm) 78 Fluid (mL) 698 Goal #1 Meet at least 75% of energy and protein needs as best as possible via TF Anticipated Discharge Needs: Unable to identify at this time Follow-Up By: 01/15/21 Additional Comments F/U: new TF, vent status, propofol
[2021-01-12] MEDS ORDERED: SODIUM HYPOCHLORITE, DAKIN'S FULL STRENGTH (0.5%) 473 ML TOPICAL SOLN IR ONE (16:04)
[2021-01-12] MEDS ORDERED: SODIUM CHLORIDE 0.9% IRR 1,500 ML BOTTLE IR ONE ×2 (16:04)
--- NOTE | 2021-01-12 16:22 | Event Note ---
Date: 01/12/21 I called Kenton Parsons at [phone] and discussed in detail patient's critical condition, all the diagnosis, tests and reports, consultants recommendation, poor prognosis, answered all her questions, she recommended to continue current management here in the hospital as he is critically ill. I answered all her questions, and I informed the patient's nurse of my conversation with Kenton alberts.
--- NOTE | 2021-01-12 16:50 | Procedure Note ---
Date of procedure: 01/12/21 Pre-op diagnosis: Abscess of left great toe Post-op diagnosis: same (With probable left great toe osteomyelitis) Procedure: 1) I&D of left great toe abscess 2) Amputation of left great toe Description of procedure: Procedure was performed in the ICU at the recommendation of anesthesia and the OR staff secondary to the pt's Covid + status. Pt was on the ventilator and on a Propofol drip. Pt is also on 2 IV vasopressor medications. Left foot was prepped and draped. Necrotic skin on the left great toe was excised to better reveal the extent of the infectious process. This revealed wet gangrene of the plantar aspect of the great toe distally to the IP joint. The skin proximal to the IP joint to the base of the toe was also gangrenous. Necrotic skin, SQ tissue and fascia was sharply debrided with drainage of a deep toe abscess. Purulent fluid was collected and was sent for C&S. There appeared to be osteomyelitis of the distal phalanx and because of this, I decided to amputate the toe at the MTP joint. A formal TMA could not be performed for lack of a bone saw or large enough bone cutters. The amputation was performed with scalpel and scissors. Bleeding was minimal. Prior to terminating the procedure, I decided to excise the additional ischemic/gangrenous skin and this was accomplished with scissors. The skin was excised at the level of the MTP joint. This resulted in minimal oozing which was readily controlled with the Raul vie. Wound was irrigated and packed open with a 0.5% Dakin's moistened Kerlix roll followed by dry 4 X 4's, Kerlix wrap and Coban wrap. Pt tolerated the procedure well. Anesthesia: GETA Surgeon: MARION BURNS Estimated blood loss: minimal Pathology: list (1) C&S 2) Left great toe, distal phalanx 3) Left great toe, proximal phalanx) Specimen disposition: to lab Condition: stable Disposition: no change
[2021-01-12] MEDS ORDERED: SODIUM HYPOCHLORITE, DAKIN'S FULL STRENGTH (0.5%) 473 ML TOPICAL SOLN TP PRN (17:00)
[2021-01-12] MEDS: VASOPRESSIN 20 UNIT in SODIUM CHLORIDE 0.9% 100 ML IV SCH (18:10)
[2021-01-12] MEDS ORDERED: fentaNYL 100 MCG/2 ML INJ IV PRN (18:13)
[2021-01-12] MEDS: fentaNYL DRIP Premix 2,000 MCG/100 ML BAG IV SCH (19:02)
[2021-01-13] MEDS: INSULIN LISPRO 100 UNIT/ML SUB-Q SCH ×6 (00:55→17:41)
[2021-01-13] MEDS: fentaNYL DRIP Premix 2,000 MCG/100 ML BAG IV SCH ×3 (00:59→16:23)
[2021-01-13] MEDS: NORepinephrine/NS 4 MG-250 ML 4 MG/250 ML BAG IV SCH ×4 (02:07→17:42)
[2021-01-13] MEDS: ACETAMINOPHEN 325 MG/10.15 ML ORAL LIQD UNIT DOSE FEEDTUBE PRN ×3 (02:22→16:54)
[2021-01-13] MEDS: VASOPRESSIN 20 UNIT in SODIUM CHLORIDE 0.9% 100 ML IV SCH ×2 (02:26→12:59)
--- NOTE | 2021-01-13 02:53 | XRay Report ---
CHEST - 1 VIEW INDICATION: follow up respiratory failure COMPARISON: Yesterday FINDINGS: SUPPORT DEVICES: Stable support device positioning. HEART: Stable cardiomediastinal silhouette. LUNGS/PLEURA: Persistent patchy bibasilar predominant airspace disease. ADDITIONAL FINDINGS: None. IMPRESSION: Unchanged exam. Signer Name: Jamar Faith MD Signed: 01/13/2021 2:49 AM Workstation Name: [id number]
--- NOTE | 2021-01-13 05:17 | Progress Note ---
Assessment and Plan Cardiac Arrest with ROSC Acute Hypoxemic Respiratory Failure Septic Shock Bilateral pneumonia COVID PNA SHERICE BIBIANA Morbid Obesity Urinary tract infection Congestive heart failure Transaminitis NSTEMI / Elevated troponin - continue Daily SAT and SBT assessment as tolerated - continue to titrate supplemental oxygen to keep SpO2 89-92% - VAP bundle addressed, aspiration precautions HOB >30 - continue lung protective strategies - continue bronchodilators with pulmonary hygiene per RT - continue accuchecks with glycemic control per SSI (While critically ill target blood glucose of 140-180 mg/dL; avoid hypoglycemia) - sedation prn for target RASS 0 to -1 - avoid nephrotoxins, dose all medications fro GFR and CrCL - continue to avoid benzodiazepines, reduce the possibility of delirium -Maintain sleep-wake cycle - complete antibiotics per ID recommendation (Continue vancomycin goal trough 10-20) -Wound care -Follow-up repeat blood cultures - prn analgesia per CPOT score - Maintenance of sleep-wake cycle, avoid delirium - continue enteral nutritional support at goal rate as tolerated, free water flushes to treat hypernatremia - Stress ulcer prophylaxis - PT/OT/ROM exercises - continue mobility per faciity protocol, off loading and frequent turning to avoid for pressure ulcers - Monitor hemodynamics closely, conservative fluid management as tolerated by hemodynamics and renal function - continue other care per attending / other consultants COVID SPECIFIC INTERVENTION -Steroids to complete 10 days of therapy -Remesivir was not given secondary to renal failure -Trend q48-72h inflammatory markers - ferritin, Ddimer, CRP, LDH -Anticoagulation per hospital protocol -Critical care proning as clinically indicated -Contieu with contact and airborne precautions per facility protocol CONDITION: CRITICAL PROGNOSIS: GUARDED CODE STATUS: FULL CODE The high probability of a clinically significant, sudden or life-threatening deterioration of the [respiratory, cardiovascular, renal and neurologic] system(s) required my full and direct attention, intervention and personal management. The aggregate critical care time was [45] minutes without overlap. Time includes spent on; [x] Data Review and interpretation [x] Patient assessment and monitoring of vital signs [x] Documentation [x] Medication orders and management Subjective Date of service: 01/13/21 Principal diagnosis: Cardiac Arrest; Ac Hypoxemic Resp Failure; SepticShock; PNA; SHERICE; PUI COVID Interval history: SUMMARY 61-year-old salt[place] male with history of diabetes and sleep apnea called EMS towards generalized weakness. When EMS arrived there was difficulty getting to the patient. Because of too many items in the home. Similar to a Hoarder home. Initially patient was awake and talking confused. Then patient became unresponsive and apneic. ACLS protocol was initiated and chest compressions were initiated oxygen was administered and his own CPAP machine was used. Within the next 10 minutes patient was intubated. EMS was unable to get the patient out of the room through the door so patient was taken out of the home through the window of the room. Patient was found to be in PEA. Patient was intubated by EMS they achieved a return of spontaneous circulation. After a few minutes lost her pulse again and was given amlodipine and was revived. Patient presents to the emergency room with a pulse. It is unclear what has precipitated his cardiac arrest. Patient has only diabetes and sleep apnea. No fever or chills. No exposure to coronavirus. Patient was slightly hypotensive and was initiated on Levophed in the emergency room. Patient is seen today for: Cardiac Arrest with ROSC; Acute Hypoxemic Respiratory Failure; Septic Shock; Pneumonia; SHERICE; UTI; CHF; COVID-19 Seen and examined at bedside; 24hour events reviewed; nursing and respiratory care staff consulted; no adverse overnight events reported to me; resting in bed; remains on MVS; AMS is persistent; foot; growing MRSA in 2 bottles s/p I&D of left great toe abscess and Amputation of left great toe Objective Vital Signs - 12hr 01/12/21 01/12/21 01/12/21 17:27 17:31 17:45 Temperature 102.0 F H Pulse Rate 107 H 108 H Pulse Rate [ From Monitor] Respiratory 34 H 32 H Rate Blood Pressure 104/49 101/44 O2 Sat by Pulse 92 91 Oximetry 01/12/21 01/12/21 01/12/21 18:00 18:15 18:30 Temperature Pulse Rate 106 H 94 H 92 H Pulse Rate [ From Monitor] Respiratory 32 H 30 H 31 H Rate Blood Pressure 92/48 147/69 147/72 O2 Sat by Pulse 92 94 94 Oximetry 01/12/21 01/12/21 01/12/21 18:45 19:00 19:15 Temperature Pulse Rate 102 H 92 H 90 Pulse Rate [ From Monitor] Respiratory 31 H 32 H 31 H Rate Blood Pressure 111/53 150/71 147/68 O2 Sat by Pulse 93 93 93 Oximetry 01/12/21 01/12/21 01/12/21 19:30 19:31 19:45 Temperature 98.9 F Pulse Rate 95 H 93 H Pulse Rate [ From Monitor] Respiratory 30 H 30 H Rate Blood Pressure 146/70 143/60 O2 Sat by Pulse 91 90 Oximetry 01/12/21 01/12/21 01/12/21 20:00 20:15 20:30 Temperature Pulse Rate 91 H 91 H 90 Pulse Rate [ 92 H From Monitor] Respiratory 30 H 30 H 30 H Rate Blood Pressure 141/66 141/67 138/66 O2 Sat by Pulse 90 90 90 Oximetry 01/12/21 01/12/21 01/12/21 20:45 21:00 21:15 Temperature Pulse Rate 90 92 H 95 H Pulse Rate [ From Monitor] Respiratory 30 H 30 H 30 H Rate Blood Pressure 140/68 142/68 148/69 O2 Sat by Pulse 90 91 91 Oximetry 01/12/21 01/12/21 01/12/21 21:18 21:30 23:44 Temperature 103.1 F H Pulse Rate 95 H 89 Pulse Rate [ From Monitor] Respiratory 30 H Rate Blood Pressure 148/69 137/65 O2 Sat by Pulse 91 91 Oximetry 01/13/21 01/13/21 01/13/21 00:55 02:52 04:43 Temperature 100.8 F H Pulse Rate 84 87 Pulse Rate [ From Monitor] Respiratory Rate Blood Pressure 135/60 131/64 O2 Sat by Pulse 92 90 Oximetry Constitutional: no acute distress, other (elderly obese male with mildly increased respiratory effort at rest on MVS) Eyes: non-icteric ENT: oropharynx moist, other (ETT 24 cm ASHA) Neck: supple, no lymphadenopathy, no JVD Effort: mildly labored Ascultation: Bilateral: diminished breath sounds, rhonchi Percussion: Bilateral: not dull Cardiovascular: regular rate and rhythm, other (S1,S2) Gastrointestinal: normoactive bowel sounds, soft, non-tender, non-distended Integumentary: erythema (patchy mild) Extremities: no cyanosis, pink and warm, pulses normal, no ischemia or petechiae, edema (trace), other (s/p amputation of left great toe wiht clean dry pressure dressing) Neurologic: pupils equal and round, unable to assess Psychiatric: other (encephalopathic) CBC and BMP: 01/13/21 Unknown 01/14/21 04:00 ABG, PT/INR, D-dimer: ABG ABG pH 7.325 (7.320-7.450) 01/13/21 03:40 POC ABG pCO2 34.4 mmHg (32.0-48.0) 01/13/21 03:40 POC ABG pO2 66.6 mmHg (83-108) L 01/13/21 03:40 POC ABG HCO3 17.5 01/13/21 03:40 ABG O2 Saturation 92.6 (0-100) 01/13/21 03:40 PT/INR, D-dimer PT 15.2 Sec. (12.2-14.9) H 01/11/21 10:05 INR 1.15 (0.87-1.13) H 01/11/21 10:05 D-Dimer 4813.23 ng/mlDDU (0-234) H 01/12/21 08:30 Abnormal lab findings: Abnormal Labs 01/08/21 01/08/21 01/08/21 11:01 11:55 11:55 WBC 23.8 H RBC 3.35 L Hgb 10.5 L Hct 31.6 L MCV MCHC RDW 15.6 H Lymph % (Auto) 4.1 L Lymph # (Auto) 1.0 L [place] # (Auto) 1.2 H Seg Neutrophils % 90.5 H Seg Neutrophils # 21.5 H PT INR APTT D-Dimer Heparin Anti-Xa Level ABG pH 7.204 L POC ABG pCO2 50.7 H POC ABG pO2 ABG Hemoglobin 11.9 L ABG Oxyhemoglobin ABG Sodium ABG Potassium 5.0 H ABG Chloride 110.0 H ABG Glucose 313 H Carboxyhemoglobin 0.1 L Sodium Potassium Chloride Carbon Dioxide BUN Creatinine Glucose POC Glucose Lactic Acid 4.50 H* Calcium Ferritin Direct Bilirubin AST ALT Lactate Dehydrogenase Troponin T C-Reactive Protein NT-Pro-B Natriuret Pep Total Protein Albumin Triglycerides LDL Cholesterol Direct HDL Cholesterol Arterial Blood Glucose 313 H Urine WBC (Auto) Coronavirus (PCR) 01/08/21 01/08/21 01/08/21 11:55 11:55 13:42 WBC RBC Hgb Hct MCV MCHC RDW Lymph % (Auto) Lymph # (Auto) [place] # (Auto) Seg Neutrophils % Seg Neutrophils # PT INR APTT 23.3 L D-Dimer Heparin Anti-Xa Level ABG pH POC ABG pCO2 POC ABG pO2 ABG Hemoglobin ABG Oxyhemoglobin ABG Sodium ABG Potassium ABG Chloride ABG Glucose Carboxyhemoglobin Sodium Potassium 5.3 H Chloride 107.2 H Carbon Dioxide 21 L BUN 55 H Creatinine 3.9 H Glucose 274 H POC Glucose Lactic Acid 2.90 H* Calcium 7.9 L Ferritin Direct Bilirubin 0.4 H AST 130 H ALT 70 H Lactate Dehydrogenase Troponin T 0.038 H C-Reactive Protein NT-Pro-B Natriuret Pep 1157 H Total Protein 6.0 L Albumin 2.6 L Triglycerides LDL Cholesterol Direct 28 L HDL Cholesterol 24 L Arterial Blood Glucose Urine WBC (Auto) Coronavirus (PCR) 01/08/21 01/08/21 01/08/21 14:36 14:36 14:36 WBC RBC Hgb Hct MCV MCHC RDW Lymph % (Auto) Lymph # (Auto) [place] # (Auto) Seg Neutrophils % Seg Neutrophils # PT INR APTT D-Dimer 7104.83 H Heparin Anti-Xa Level ABG pH POC ABG pCO2 POC ABG pO2 ABG Hemoglobin ABG Oxyhemoglobin ABG Sodium ABG Potassium ABG Chloride ABG Glucose Carboxyhemoglobin Sodium Potassium Chloride Carbon Dioxide BUN Creatinine Glucose 306 H POC Glucose Lactic Acid Calcium Ferritin 624.8 H Direct Bilirubin AST ALT Lactate Dehydrogenase 535 H Troponin T C-Reactive Protein 25.40 H NT-Pro-B Natriuret Pep Total Protein Albumin Triglycerides LDL Cholesterol Direct HDL Cholesterol Arterial Blood Glucose Urine WBC (Auto) Coronavirus (PCR) 01/08/21 01/08/21 01/08/21 21:00 Unknown Unknown WBC RBC Hgb Hct MCV MCHC RDW Lymph % (Auto) Lymph # (Auto) [place] # (Auto) Seg Neutrophils % Seg Neutrophils # PT INR APTT D-Dimer Heparin Anti-Xa Level ABG pH POC ABG pCO2 POC ABG pO2 111.6 H ABG Hemoglobin 11.6 L ABG Oxyhemoglobin ABG Sodium ABG Potassium 4.6 H ABG Chloride 112.0 H ABG Glucose 256 H Carboxyhemoglobin 0.3 L Sodium Potassium Chloride Carbon Dioxide BUN Creatinine Glucose POC Glucose Lactic Acid Calcium Ferritin Direct Bilirubin AST ALT Lactate Dehydrogenase Troponin T C-Reactive Protein NT-Pro-B Natriuret Pep Total Protein Albumin Triglycerides LDL Cholesterol Direct HDL Cholesterol Arterial Blood Glucose 256 H Urine WBC (Auto) > 182.0 H Coronavirus (PCR) Positive A 01/09/21 01/09/21 01/09/21 05:02 05:18 05:18 WBC 19.0 H RBC Hgb 11.7 L Hct MCV 95 H MCHC RDW 16.0 H Lymph % (Auto) Lymph # (Auto) [place] # (Auto) Seg Neutrophils % Seg Neutrophils # PT INR APTT D-Dimer Heparin Anti-Xa Level ABG pH POC ABG pCO2 POC ABG pO2 82.7 L ABG Hemoglobin ABG Oxyhemoglobin ABG Sodium ABG Potassium 4.8 H ABG Chloride 114.0 H ABG Glucose 283 H Carboxyhemoglobin 0.3 L Sodium 146 H Potassium 5.1 H Chloride 112.0 H Carbon Dioxide 20 L BUN 63 H Creatinine 3.0 H Glucose 282 H POC Glucose Lactic Acid Calcium 8.1 L Ferritin Direct Bilirubin AST ALT Lactate Dehydrogenase Troponin T C-Reactive Protein NT-Pro-B Natriuret Pep Total Protein Albumin Triglycerides LDL Cholesterol Direct HDL Cholesterol Arterial Blood Glucose 283 H Urine WBC (Auto) Coronavirus (PCR) 01/09/21 01/09/21 01/09/21 13:24 20:05 23:24 WBC RBC Hgb Hct MCV MCHC RDW Lymph % (Auto) Lymph # (Auto) [place] # (Auto) Seg Neutrophils % Seg Neutrophils # PT INR APTT D-Dimer Heparin Anti-Xa Level ABG pH POC ABG pCO2 POC ABG pO2 ABG Hemoglobin ABG Oxyhemoglobin ABG Sodium ABG Potassium ABG Chloride ABG Glucose Carboxyhemoglobin Sodium Potassium Chloride Carbon Dioxide BUN Creatinine Glucose POC Glucose 282 H 317 H 325 H Lactic Acid Calcium Ferritin Direct Bilirubin AST ALT Lactate Dehydrogenase Troponin T C-Reactive Protein NT-Pro-B Natriuret Pep Total Protein Albumin Triglycerides LDL Cholesterol Direct HDL Cholesterol Arterial Blood Glucose Urine WBC (Auto) Coronavirus (PCR) 01/10/21 01/10/21 01/10/21 02:56 05:31 10:46 WBC 22.0 H RBC Hgb 11.2 L Hct 35.0 L MCV MCHC RDW 15.4 H Lymph % (Auto) Lymph # (Auto) [place] # (Auto) Seg Neutrophils % Seg Neutrophils # PT INR APTT D-Dimer Heparin Anti-Xa Level ABG pH POC ABG pCO2 POC ABG pO2 73.8 L ABG Hemoglobin ABG Oxyhemoglobin 93.5 L ABG Sodium 149.1 H ABG Potassium 4.6 H ABG Chloride 119.0 H ABG Glucose 311 H Carboxyhemoglobin 0.4 L Sodium Potassium Chloride Carbon Dioxide BUN Creatinine Glucose POC Glucose 278 H Lactic Acid Calcium Ferritin Direct Bilirubin AST ALT Lactate Dehydrogenase Troponin T C-Reactive Protein NT-Pro-B Natriuret Pep Total Protein Albumin Triglycerides LDL Cholesterol Direct HDL Cholesterol Arterial Blood Glucose 311 H Urine WBC (Auto) Coronavirus (PCR) 01/10/21 01/10/21 01/10/21 10:46 10:46 10:46 WBC RBC Hgb Hct MCV MCHC RDW Lymph % (Auto) Lymph # (Auto) [place] # (Auto) Seg Neutrophils % Seg Neutrophils # PT INR APTT D-Dimer 5636.29 H Heparin Anti-Xa Level ABG pH POC ABG pCO2 POC ABG pO2 ABG Hemoglobin ABG Oxyhemoglobin ABG Sodium ABG Potassium ABG Chloride ABG Glucose Carboxyhemoglobin Sodium 155 H D Potassium Chloride 121.6 H Carbon Dioxide BUN 65 H Creatinine 2.2 H Glucose 330 H POC Glucose Lactic Acid Calcium Ferritin 347.2 H Direct Bilirubin AST 104 H ALT 63 H Lactate Dehydrogenase Troponin T C-Reactive Protein NT-Pro-B Natriuret Pep Total Protein Albumin 2.7 L Triglycerides LDL Cholesterol Direct HDL Cholesterol Arterial Blood Glucose Urine WBC (Auto) Coronavirus (PCR) 01/10/21 01/10/21 01/10/21 10:46 11:39 18:06 WBC RBC Hgb Hct MCV MCHC RDW Lymph % (Auto) Lymph # (Auto) [place] # (Auto) Seg Neutrophils % Seg Neutrophils # PT INR APTT D-Dimer Heparin Anti-Xa Level ABG pH POC ABG pCO2 POC ABG pO2 ABG Hemoglobin ABG Oxyhemoglobin ABG Sodium ABG Potassium ABG Chloride ABG Glucose Carboxyhemoglobin Sodium Potassium Chloride Carbon Dioxide BUN Creatinine Glucose POC Glucose 289 H 294 H Lactic Acid Calcium Ferritin Direct Bilirubin AST ALT Lactate Dehydrogenase 448 H Troponin T C-Reactive Protein 10.50 H NT-Pro-B Natriuret Pep Total Protein Albumin Triglycerides LDL Cholesterol Direct HDL Cholesterol Arterial Blood Glucose Urine WBC (Auto) Coronavirus (PCR) 01/11/21 01/11/21 01/11/21 00:57 03:09 04:50 WBC 23.8 H RBC Hgb 11.2 L Hct MCV 95 H MCHC 31 L RDW 16.5 H Lymph % (Auto) Lymph # (Auto) [place] # (Auto) Seg Neutrophils % Seg Neutrophils # PT INR APTT D-Dimer Heparin Anti-Xa Level ABG pH POC ABG pCO2 POC ABG pO2 ABG Hemoglobin ABG Oxyhemoglobin ABG Sodium 154.3 H ABG Potassium 4.8 H ABG Chloride 124.0 H ABG Glucose 381 H Carboxyhemoglobin Sodium Potassium Chloride Carbon Dioxide BUN Creatinine Glucose POC Glucose 300 H Lactic Acid Calcium Ferritin Direct Bilirubin AST ALT Lactate Dehydrogenase Troponin T C-Reactive Protein NT-Pro-B Natriuret Pep Total Protein Albumin Triglycerides LDL Cholesterol Direct HDL Cholesterol Arterial Blood Glucose 381 H Urine WBC (Auto) Coronavirus (PCR) 01/11/21 01/11/21 01/11/21 04:50 05:46 10:05 WBC RBC Hgb Hct MCV MCHC RDW Lymph % (Auto) Lymph # (Auto) [place] # (Auto) Seg Neutrophils % Seg Neutrophils # PT 15.2 H INR 1.15 H APTT D-Dimer Heparin Anti-Xa Level ABG pH POC ABG pCO2 POC ABG pO2 ABG Hemoglobin ABG Oxyhemoglobin ABG Sodium ABG Potassium ABG Chloride ABG Glucose Carboxyhemoglobin Sodium 158 H Potassium Chloride 124.1 H Carbon Dioxide BUN 72 H Creatinine 2.1 H Glucose 371 H POC Glucose 384 H Lactic Acid Calcium Ferritin Direct Bilirubin AST 78 H ALT Lactate Dehydrogenase Troponin T C-Reactive Protein NT-Pro-B Natriuret Pep Total Protein Albumin 2.7 L Triglycerides 394 H LDL Cholesterol Direct HDL Cholesterol Arterial Blood Glucose Urine WBC (Auto) Coronavirus (PCR) 01/11/21 01/11/21 01/11/21 12:04 17:17 18:55 WBC RBC Hgb Hct MCV MCHC RDW Lymph % (Auto) Lymph # (Auto) [place] # (Auto) Seg Neutrophils % Seg Neutrophils # PT INR APTT D-Dimer Heparin Anti-Xa Level 1.42 H ABG pH POC ABG pCO2 POC ABG pO2 ABG Hemoglobin ABG Oxyhemoglobin ABG Sodium ABG Potassium ABG Chloride ABG Glucose Carboxyhemoglobin Sodium Potassium Chloride Carbon Dioxide BUN Creatinine Glucose POC Glucose 351 H 330 H Lactic Acid Calcium Ferritin Direct Bilirubin AST ALT Lactate Dehydrogenase Troponin T C-Reactive Protein NT-Pro-B Natriuret Pep Total Protein Albumin Triglycerides LDL Cholesterol Direct HDL Cholesterol Arterial Blood Glucose Urine WBC (Auto) Coronavirus (PCR) 01/11/21 01/12/21 01/12/21 23:29 01:46 04:29 WBC 24.0 H RBC Hgb 11.4 L Hct MCV 99 H MCHC 31 L RDW 17.0 H Lymph % (Auto) Lymph # (Auto) [place] # (Auto) Seg Neutrophils % Seg Neutrophils # PT INR APTT D-Dimer Heparin Anti-Xa Level ABG pH 7.308 L POC ABG pCO2 POC ABG pO2 ABG Hemoglobin ABG Oxyhemoglobin ABG Sodium 155.1 H ABG Potassium 5.2 H ABG Chloride 124.0 H ABG Glucose 399 H Carboxyhemoglobin 0.2 L Sodium Potassium Chloride Carbon Dioxide BUN Creatinine Glucose POC Glucose 328 H Lactic Acid Calcium Ferritin Direct Bilirubin AST ALT Lactate Dehydrogenase Troponin T C-Reactive Protein NT-Pro-B Natriuret Pep Total Protein Albumin Triglycerides LDL Cholesterol Direct HDL Cholesterol Arterial Blood Glucose 399 H Urine WBC (Auto) Coronavirus (PCR) 01/12/21 01/12/21 01/12/21 04:29 05:24 08:30 WBC RBC Hgb Hct MCV MCHC RDW Lymph % (Auto) Lymph # (Auto) [place] # (Auto) Seg Neutrophils % Seg Neutrophils # PT INR APTT D-Dimer 4813.23 H Heparin Anti-Xa Level ABG pH POC ABG pCO2 POC ABG pO2 ABG Hemoglobin ABG Oxyhemoglobin ABG Sodium ABG Potassium ABG Chloride ABG Glucose Carboxyhemoglobin Sodium 155 H Potassium 5.4 H Chloride 121.2 H Carbon Dioxide BUN 91 H Creatinine 2.3 H Glucose 427 H POC Glucose 394 H Lactic Acid Calcium Ferritin Direct Bilirubin AST ALT Lactate Dehydrogenase Troponin T C-Reactive Protein NT-Pro-B Natriuret Pep Total Protein Albumin Triglycerides LDL Cholesterol Direct HDL Cholesterol Arterial Blood Glucose Urine WBC (Auto) Coronavirus (PCR) 01/12/21 01/12/21 01/12/21 08:30 08:30 11:32 WBC RBC Hgb Hct MCV MCHC RDW Lymph % (Auto) Lymph # (Auto) [place] # (Auto) Seg Neutrophils % Seg Neutrophils # PT INR APTT D-Dimer Heparin Anti-Xa Level ABG pH POC ABG pCO2 POC ABG pO2 ABG Hemoglobin ABG Oxyhemoglobin ABG Sodium ABG Potassium ABG Chloride ABG Glucose Carboxyhemoglobin Sodium Potassium Chloride Carbon Dioxide BUN Creatinine Glucose POC Glucose 385 H Lactic Acid Calcium Ferritin 379.5 H Direct Bilirubin AST ALT Lactate Dehydrogenase 576 H Troponin T C-Reactive Protein 4.50 H NT-Pro-B Natriuret Pep Total Protein Albumin Triglycerides LDL Cholesterol Direct HDL Cholesterol Arterial Blood Glucose Urine WBC (Auto) Coronavirus (PCR) 01/12/21 01/12/21 01/13/21 16:48 23:20 03:40 WBC RBC Hgb Hct MCV MCHC RDW Lymph % (Auto) Lymph # (Auto) [place] # (Auto) Seg Neutrophils % Seg Neutrophils # PT INR APTT D-Dimer Heparin Anti-Xa Level ABG pH POC ABG pCO2 POC ABG pO2 66.6 L ABG Hemoglobin ABG Oxyhemoglobin 92.1 L ABG Sodium 158.0 H ABG Potassium 5.0 H ABG Chloride 129.0 H ABG Glucose 266 H Carboxyhemoglobin 0.2 L Sodium Potassium Chloride Carbon Dioxide BUN Creatinine Glucose POC Glucose 313 H 260 H Lactic Acid Calcium Ferritin Direct Bilirubin AST ALT Lactate Dehydrogenase Troponin T C-Reactive Protein NT-Pro-B Natriuret Pep Total Protein Albumin Triglycerides LDL Cholesterol Direct HDL Cholesterol Arterial Blood Glucose 266 H Urine WBC (Auto) Coronavirus (PCR) 01/13/21 04:53 WBC RBC Hgb Hct MCV MCHC RDW Lymph % (Auto) Lymph # (Auto) [place] # (Auto) Seg Neutrophils % Seg Neutrophils # PT INR APTT D-Dimer Heparin Anti-Xa Level ABG pH POC ABG pCO2 POC ABG pO2 ABG Hemoglobin ABG Oxyhemoglobin ABG Sodium ABG Potassium ABG Chloride ABG Glucose Carboxyhemoglobin Sodium Potassium Chloride Carbon Dioxide BUN Creatinine Glucose POC Glucose 221 H Lactic Acid Calcium Ferritin Direct Bilirubin AST ALT Lactate Dehydrogenase Troponin T C-Reactive Protein NT-Pro-B Natriuret Pep Total Protein Albumin Triglycerides LDL Cholesterol Direct HDL Cholesterol Arterial Blood Glucose Urine WBC (Auto) Coronavirus (PCR) Chest x-ray: image reviewed Allied health notes reviewed: RT
[2021-01-13 06:29] LABS: Hematocrit 34.5 % (35.5-45.6); Hemoglobin 10.9 gm/dl (11.8-15.2)
[2021-01-13] MEDS: IPRATROPIUM/ALBUTEROL SULFATE 3 ML AMPUL.NEB IH SCH ×4 (07:44→20:20)
--- NOTE | 2021-01-13 09:10 | Progress Note ---
Assessment and Plan Assessment and plan: --Abscess left great toe Surgeon Dr. Costa's evaluated , had surgical procedures 1) I&D of left great toe abscess 2) Amputation of left great toe And is already on vancomycin, ID following --Cardiac arrest[outside the hospital cardiac arrest] Current Visit: Yes Status: Acute S/p cardiac arrests/p CPR per ACLS protocol Acute hypoxic respiratory failure intubated on vent Severe COVID-19 pneumonia Severe sepsis, Septic shock on pressors Vent support and IV antibiotics --Acute respiratory failure with hypoxia and hypercapnia Current Visit: Yes Status: Acute Intubated on vent Patient has history of COPD Patient initiated on duo nebs [id number] and as needed IV Solu-Medrol, Vent support 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 As patient has MRSA bacteremia, not a candidate for Actemra at present. Obtain q48-72h inflammatory markers - ferritin, Ddimer, CRP, LDH Continue vancomycin goal trough 10-20 Follow-up repeat blood cultures Proning position as tolerated --Severe sepsis; MRSA/ COVID-19 pneumonia Current Visit: Yes Status: Acute Continue contact and droplet isolation Continue vancomycin, ID following --Septic shock Current Visit: Yes Status: Acute Plan to address problem: Patient on IV antibiotics and Levophed Patient has bilateral pneumonia Possible aspiration pneumonia Patient initiated on cefepime and vancomycin ID consult requested --Bilateral pneumonia Current Visit: Yes Status: Acute Differential diagnosis of community-acquired pneumonia/aspiration pneumonia/Covid pneumonia IV antibiotics and IV steroids for now ID consult requested -- Urinary tract infection Current Visit: Yes Status: Acute Patient is on cefepime and vancomycin for the pneumonia Wait for urine cultures --Acute kidney injury superimposed on CKD Current Visit: Yes Status: Acute Gentle IV hydration for now Nephrology consulted Some improvement in the creatinine from 3.9-3.0 Per nephrology-- Woudl recommend gentle IVF hydration, maintain MAP >65 mmHg. Avoid nephrotoxins. Renal US did not show any acute abnormalities but likely does have evidence of underlying chronic kidney disease. overall renal function is stable this morning and he remains nonoliguric. We will continue to closely monitor. No acute indications for renal replacement therapy at present time. --Congestive heart failure Current Visit: Yes Status: Chronic We will get echocardiogram for ejection fraction BNP is elevated at 1157 --Transaminitis Current Visit: Yes Status: Acute Possible secondary to sepsis Check to get hepatitis panel -- Elevated troponin Current Visit: Yes Status: Acute Secondary to cardiac arrest and possible troponin leak We will get CK and CK-MB --Person under investigation for COVID-19 Current Visit: Yes Status: Acute Coronavirus PCR positive --Malnutrition Current Visit: Yes Status: Chronic Albumin is 2.7 Dietary supplements once extubated -- DVT prophylaxis Current Visit: Yes Status: Acute On heparin GI prophylaxis Critical care statement The high probability OF a clinically significant sudden or life-threatening deterioration of the cardiorespiratory system and endocrine system required my full and direct attention, intervention and postoperative management. The aggregate critical care time was 35 minutes. The time is in addition to time spent performing reported procedures but includes the followin: Data review and interpretation 2: Patient assessment and monitoring of vital signs 3: Documentation 4:: Medication orders and management Brief history and daily hospital course: 61-year-old salt[place] male with history of diabetes and sleep apnea called EMS towards generalized weakness. When EMS arrived there was difficulty getting to the patient. Because of too many items in the home. Similar to a Hoarder home. Initially patient was awake and talking confused. Then patient became unresponsive and apneic. ACLS protocol was initiated and chest compressions were initiated oxygen was administered and his own CPAP machine was used. Within the next 10 minutes patient was intubated. EMS was unable to get the patient out of the room through the door so patient was taken out of the home through the window of the room. Patient was found to be in PEA. Patient was intubated by EMS they achieved a return of spontaneous circulation. After a few minutes lost her pulse again and was given amlodipine and was revived. Patient presents to the emergency room with a pulse. It is unclear what has precipit ated his cardiac arrest. Patient has only diabetes and sleep apnea. No fever or chills. No exposure to coronavirus. Patient was slightly hypotensive and was initiated on Levophed in the emergency room. Levophed is at 10 mics 01/09/2021 Patient still intubated Weaning in progress Covid positive 01/10/2021 Covid positive 01/11/2021 Covid positive On ventilator Weaning in progress 01/12/2021; Severely hypotensive septic shock On Levophed, add vasopressin if needed I called [place] physician Dr. Parsons at [phone] and discussed in detail patient's critical condition, all the diagnosis, tests and reports, consultants recommendation, poor prognosis, answered all her questions, she recommended to continue current management here in the hospital as he is critically ill. I answered all her questions, and I informed the patient's nurse of my conversation with [place] physician. 01/13/2021; Patient remains in septic shock on nor epi and vasopressin Intubated on vent, very poor prognosis Surgical procedure I&D of abscess great toe Amputation of left great toe History Interval history: Patient had surgical procedures yesterday 1) I&D of left great toe abscess 2) Amputation of left great toe I seen and examined the patient at the bedside in ICU this morning Patient is noncommunicative intubated on ventilatory support Status post cardiac arrest anoxic brain brain injury very poor prognosis Intubated on vent Vital signs noted Hospitalist Physical - Constitutional Vitals: Temp Pulse Resp BP Pulse Ox 102.7 F H 90 28 H 142/88 92 01/13/21 07:26 01/13/21 08:03 01/13/21 07:45 01/13/21 08:03 01/13/21 08:03 General appearance: Present: mild distress, well-nourished, other (Intubated on ventilatory support) - EENT Eyes: Present: PERRL, EOM intact - Neck Neck: Present: supple, normal ROM - Respiratory Respiratory effort: normal Respiratory: bilateral: diminished, rhonchi, negative: rales, wheezing - Cardiovascular Rhythm: regular Heart Sounds: Present: S1 & S2 - Extremities Extremities: no ischemia, abnormal (Surgical dressing in place) Extremity abnormal: edema - Abdominal General gastrointestinal: soft, non-tender, non-distended, normal bowel sounds - Integumentary Integumentary: Present: clear, warm - Psychiatric Psychiatric: other (Intubated on vent) - Neurologic Neurologic: other HEART Score - HEART Score Age: 45-65 Risk factors: 1-2 risk factors Troponin: Troponin T < 0.010 ng/mL (0.00-0.029) 01/10/21 10:46 - Critical Actions Critical Actions: 4-6 pts:12-16.6% risk of adverse cardiac event. Should be admitted Results - Labs CBC & Chem 7: 01/13/21 Unknown 01/14/21 04:00 Labs: Laboratory Last Values WBC 24.0 K/mm3 (4.5-11.0) H 01/12/21 04:29 RBC 3.78 M/mm3 (3.65-5.03) 01/12/21 04:29 Hgb 10.9 gm/dl (11.8-15.2) L 01/13/21 Unknown Hct 34.5 % (35.5-45.6) L 01/13/21 Unknown MCV 99 fl (84-94) H 01/12/21 04:29 MCH 30 pg (28-32) 01/12/21 04:29 MCHC 31 % (32-34) L 01/12/21 04:29 RDW 17.0 % (13.2-15.2) H 01/12/21 04:29 Plt Count 280 K/mm3 (140-440) 01/13/21 Unknown Lymph % (Auto) 4.1 % (13.4-35.0) L 01/08/21 11:55 [place] % (Auto) 5.2 % (0.0-7.3) 01/08/21 11:55 Eos % (Auto) 0.0 % (0.0-4.3) 01/08/21 11:55 Baso % (Auto) 0.2 % (0.0-1.8) 01/08/21 11:55 Lymph # (Auto) 1.0 K/mm3 (1.2-5.4) L 01/08/21 11:55 [place] # (Auto) 1.2 K/mm3 (0.0-0.8) H 01/08/21 11:55 Eos # (Auto) 0.0 K/mm3 (0.0-0.4) 01/08/21 11:55 Baso # (Auto) 0.1 K/mm3 (0.0-0.1) 01/08/21 11:55 Add Manual Diff Complete 01/08/21 11:55 Seg Neutrophils % 90.5 % (40.0-70.0) H 01/08/21 11:55 Seg Neutrophils # 21.5 K/mm3 (1.8-7.7) H 01/08/21 11:55 PT 15.2 Sec. (12.2-14.9) H 01/11/21 10:05 INR 1.15 (0.87-1.13) H 01/11/21 10:05 APTT 23.3 Sec. (24.2-36.6) L 01/08/21 11:55 D-Dimer 4813.23 ng/mlDDU (0-234) H 01/12/21 08:30 Heparin Anti-Xa Level 1.42 U.I./ml (0.3-0.7) H 01/11/21 18:55 ABG pH 7.325 (7.320-7.450) 01/13/21 03:40 POC ABG pCO2 34.4 mmHg (32.0-48.0) 01/13/21 03:40 POC ABG pO2 66.6 mmHg (83-108) L 01/13/21 03:40 POC ABG HCO3 17.5 01/13/21 03:40 ABG O2 Saturation 92.6 (0-100) 01/13/21 03:40 POC ABG Base Excess -7.6 01/13/21 03:40 ABG Hemoglobin 12.4 (12.0-17.5) 01/13/21 03:40 ABG Oxyhemoglobin 92.1 (94-98) L 01/13/21 03:40 ABG Methemoglobin 0.3 (0.0-1.5) 01/13/21 03:40 ABG Sodium 158.0 mmol/L (136.0-145.0) H 01/13/21 03:40 ABG Potassium 5.0 mmol/L (3.40-4.50) H 01/13/21 03:40 ABG Chloride 129.0 mmol/L (98-107) H 01/13/21 03:40 ABG Glucose 266 mg/dL (65-95) H 01/13/21 03:40 Carboxyhemoglobin 0.2 (0.5-1.5) L 01/13/21 03:40 FiO2 % 75.0 01/13/21 03:40 Sodium 155 mmol/L (137-145) H 01/12/21 04:29 Potassium 5.4 mmol/L (3.6-5.0) H 01/12/21 04:29 Chloride 121.2 mmol/L (98-107) H 01/12/21 04:29 Carbon Dioxide 24 mmol/L (22-30) 01/12/21 04:29 Anion Gap 15 mmol/L 01/12/21 04:29 BUN 91 mg/dL (9-20) H 01/12/21 04:29 Creatinine 2.3 mg/dL (0.8-1.3) H 01/12/21 04:29 Estimated GFR 29 ml/min 01/12/21 04:29 BUN/Creatinine Ratio 40 % 01/12/21 04:29 Glucose 427 mg/dL (75-100) H 01/12/21 04:29 POC Glucose 221 mg/dL (70-105) H 01/13/21 04:53 Lactic Acid 1.50 mmol/L (0.7-2.0) 01/10/21 00:44 Calcium 9.0 mg/dL (8.4-10.2) 01/12/21 04:29 Ferritin 379.5 ng/mL (30.0-300.0) H 01/12/21 08:30 Total Bilirubin 0.30 mg/dL (0.1-1.2) 01/11/21 04:50 Direct Bilirubin 0.4 mg/dL (0-0.2) H 01/08/21 11:55 Indirect Bilirubin 0.2 mg/dL 01/08/21 11:55 AST 78 units/L (5-40) H 01/11/21 04:50 ALT 54 units/L (7-56) 01/11/21 04:50 Alkaline Phosphatase 94 units/L (35-129) 01/11/21 04:50 Lactate Dehydrogenase 576 units/L (91-180) H 01/12/21 08:30 Troponin T < 0.010 ng/mL (0.00-0.029) 01/10/21 10:46 C-Reactive Protein 4.50 mg/dL (0.00-1.30) H 01/12/21 08:30 NT-Pro-B Natriuret Pep 1157 pg/mL (0-900) H 01/08/21 11:55 Total Protein 6.3 g/dL (6.3-8.2) 01/11/21 04:50 Albumin 2.7 g/dL (3.9-5) L 01/11/21 04:50 Albumin/Globulin Ratio 0.8 % 01/11/21 04:50 Triglycerides 394 mg/dL (2-149) H 01/11/21 04:50 Cholesterol 63 mg/dL (50-199) 01/08/21 11:55 LDL Cholesterol Direct 28 mg/dL (50-130) L 01/08/21 11:55 HDL Cholesterol 24 mg/dL (40-59) L 01/08/21 11:55 Cholesterol/HDL Ratio 2.62 % 01/08/21 11:55 Procalcitonin 24.79 ng/mL (<0.15) 01/08/21 14:36 Arterial Blood Glucose 266 mg/dL (65-95) H 01/13/21 03:40 Arterial Blood Ionized Calcium 4.8 mg/dL (4.6-5.3) 01/13/21 03:40 Urine Color Red (Yellow) 01/08/21 Unknown Urine Turbidity Turbid (Clear) 01/08/21 Unknown Urine pH 7.0 (5.0-7.0) 01/08/21 Unknown Ur Specific [place] 1.013 (1.003-1.030) 01/08/21 Unknown Urine Protein 100 mg/dl mg/dL (Negative) 01/08/21 Unknown Urine Glucose (UA) Neg mg/dL (Negative) 01/08/21 Unknown Urine Ketones Neg mg/dL (Negative) 01/08/21 Unknown Urine Blood Lg (Negative) 01/08/21 Unknown Urine Nitrite Neg (Negative) 01/08/21 Unknown Urine Bilirubin Neg (Negative) 01/08/21 Unknown Urine Urobilinogen < 2.0 mg/dL (<2.0) 01/08/21 Unknown Ur Leukocyte Esterase Mod (Negative) 01/08/21 Unknown Urine WBC (Auto) > 182.0 /HPF (0.0-6.0) H 01/08/21 Unknown Urine RBC (Auto) > 182.0 /HPF (0.0-6.0) 01/08/21 Unknown Urine Bacteria (Auto) 3+ /HPF (Negative) 01/08/21 Unknown Urine WBC Clumps 3+ /HPF 01/08/21 Unknown Urine Yeast (Budding) 3+ /HPF 01/08/21 Unknown Random Vancomycin 13.4 ug/mL (0-40.0) 01/13/21 Unknown Coronavirus (PCR) Positive (Negative) A 01/08/21 Unknown Microbiology: Microbiology 01/11/21 16:28 Peripheral/Venous Blood Culture - Preliminary NO GROWTH AFTER 24 HOURS 01/11/21 16:28 Peripheral/Venous Blood Culture - Preliminary 01/08/21 Unknown Sputum - Endotracheal Wash Sputum Culture - Preliminary Staphylococcus Aureus 01/08/21 11:55 Peripheral/Venous Blood Culture - Preliminary Methicillin Resist S. Aureus Cleaning/IV: Voiding Method Indwelling Catheter Active Medications - Current Medications Current Medications: Generic Name Dose Route Start Last Admin Trade Name Freq PRN Reason Stop Dose Admin Acetaminophen 650 mg 01/10/21 08:18 01/13/21 02:22 Acetaminophen 325 Mg/10.15 Ml Oral Liqd Unit Dose FEEDTUBE 650 mg Q6H PRN Administration TEMP >/=100.4 Albuterol 2.5 mg 01/08/21 20:23 Albuterol 2.5 Mg/3 Ml Nebu IH Q3HRT PRN Shortness Of Breath Albuterol/Ipratropium 1 ampul 01/08/21 20:00 01/13/21 07:44 Ipratropium/Albuterol Sulfate 3 Ml Ampul.Neb IH 1 ampul QIDRT MARBELLA Administration Lipase/Protease/Amylase 1 each 01/10/21 17:40 Lipase 10,500/Protease 25,000/Amylase 43,750 (Units) Dr Cap FEEDTUBE PRN PRN For Clogged Feeding Tube Dexamethasone 6 mg 01/10/21 10:00 01/12/21 09:09 Dexamethasone 4 Mg/Ml Vial IV 01/19/21 10:01 6 mg Q24HR MARBELLA Administration Famotidine 20 mg 01/11/21 10:00 01/12/21 21:08 Famotidine 20 Mg Tab PO 20 mg BID MARBELLA Administration Fentanyl 50 mcg 01/12/21 18:13 Fentanyl 100 Mcg/2 Ml Inj IV Q10MIN PRN ANALGESIA Heparin Sodium (Porcine) 5,000 unit 01/12/21 12:00 Heparin 10,000 Units/10 Ml Vial IV Q6H PRN Anti-Xa Assay < 0.1 units/ml Hydrophilic Ointment 1 applic 01/08/21 16:00 Lip Therapy Vaseline TP Q2HR PRN Dry Lips Propofol 1,000 mg in 100 mls @ 4.082 mls/hr 01/08/21 16:00 01/13/21 00:58 Diprivan 10 Mg/Ml IV 10 mcg/kg/min TITR MARBELLA 8.165 mls/hr Administration Protocol 5 MCG/KG/MIN Norepinephrine 4 mg in 250 mls @ 75 mls/hr 01/08/21 11:28 01/13/21 06:55 Levophed Drip 4 Mg/Ns 250 Ml IV 14 mcg/min TITR MARBELLA 52.5 mls/hr Administration Protocol 20 MCG/MIN Heparin Sodium/Sodium Chloride 25,000 unit in 500 mls @ 30 mls/hr 01/11/21 10:00 01/11/21 21:27 Heparin/ 0.45% Nacl-25,000 Unit/500 Ml IV 0 units/hr TITR MARBELLA 0 mls/hr Titration Protocol 1,500 UNITS/HR Vasopressin 20 unit/ Sodium 101 mls @ 9.09 mls/hr 01/12/21 14:00 01/13/21 02:26 Chloride IV 0.03 units/min TITR MARBELLA 9.09 mls/hr Administration Protocol 0.03 UNITS/MIN Fentanyl Citrate 2,000 mcg in 100 mls @ 6.804 mls/hr 01/12/21 19:00 01/13/21 00:59 Fentanyl Drip Premix IV 2 mcg/kg/hr TITR MARBELLA 13.608 mls/hr Administration Protocol 1 MCG/KG/HR Insulin Glargine 15 units 01/11/21 10:00 01/12/21 09:09 Insulin Glargine 100 Units/Ml SUB-Q 15 units DAILY [facility] Administration Insulin Human Lispro 0 unit 01/09/21 12:00 01/13/21 06:54 Insulin Lispro 100 Unit/Ml SUB-Q 4 unit Q6HR [facility] Administration Protocol Multi-Ingred Cream/Lotion/Oil/Oint 1 applic 01/08/21 18:00 Mineral Oil/Petrolatum, White Ophth Oint 3.5 Gm OU Q4HR PRN Dry Eye(s) Senna/Docusate Sodium 1 tab 01/08/21 22:00 01/12/21 21:08 Sennosides/Docusate Sodium 8.6/50 Mg Tab FEEDTUBE 1 tab BID MARBELLA Administration Simple Syrup 15 ml 01/10/21 17:40 Simple Syrup 15 Ml FEEDTUBE PRN PRN Hypoglycemia Simple Syrup 30 ml 01/10/21 17:40 Simple Syrup 15 Ml FEEDTUBE PRN PRN Hypoglycemia Sodium Bicarbonate 325 mg 01/10/21 17:40 Sodium Bicarbonate 325 Mg Tab FEEDTUBE PRN PRN For Clogged Feeding Tube Sodium Chloride 5 ml 01/08/21 15:18 Sodium Chloride 0.9% 500 Ml Ivpb IV DIRECT PRN ARTERIAL TIRE WRAPPER Sodium Hypochlorite 1 applic 01/12/21 17:00 Sodium Hypochlorite, Dakin's Full Strength (0.5%) 473 Ml Topical Soln TP Q12H PRN Wound Care Nutrition/Malnutrition Assess - Dietary Evaluation Nutrition/Malnutrition Findings: Nutrition Notes Start: 01/09/21 15:14 Freq: Status: Active Protocol: Document 01/11/21 13:47 (Rec: 01/11/21 14:02 [email or web address]) Nutrition Notes Initial or Follow up Reassessment Current Diagnosis Acute Kidney Injury,CKD(stage I-IV),Diabetes,Heart Failure, Hyperlipidemia Other Pertinent Diagnosis Cardiac arrest, Bilat pneu, r/ o COVID-19 (+), UTI, Sleep apnea Current Diet Vital HP at 75 ml/hr Labs/Tests Na 158 BUN 72 Cr 2.1 BG 371 K 5 (WNL) Pertinent Medications Propofol at 4.082 ml/hr Height 5 ft 11 in Weight 136.078 kg [place] Body Weight (kg) 78.18 BMI 41.8 Weight Status Morbidly Obese Subjective/Other Information No indication for HD at this time however, pt with increasing K. Will change TF. Burn Absent Trauma Absent Current % PO Negligible Minimum of two criteria No #1 Nutrition Diagnosis Inadequate oral intake Diagnosis Progress(for reassessment Continues documentation) Is patient on ventilator? Yes Is Patient Ambulatory and/or Out of Bed No REE-([facility]-confined to bed) 2623.800 Kcal/Kg value to use for calculation 14 Approximate Energy Requirements Using 1905 kcal/Kg Calculation Used for Recommendations Kcal/kg Additional Notes Pro needs 2.5g/kg IBW: up to 195g/day Fluid needs 1ml/kcal Nutrition Intervention Change Diet Order: Change TF Nutrition Support: Nepro 1.8 at 40 ml/hr Flush 175 ml q4h or per MD Kcal 1,728 Protein (gm) 78 Fluid (mL) 698 Goal #1 Meet at least 75% of energy and protein needs as best as possible via TF Anticipated Discharge Needs: Unable to identify at this time Follow-Up By: 01/15/21 Additional Comments F/U: new TF, vent status, propofol
[2021-01-13] MEDS: dexAMETHasone 4 MG/ML VIAL IV SCH (09:39)
[2021-01-13] MEDS: SENNOSIDES/DOCUSATE SODIUM 8.6/50 MG TAB FEEDTUBE SCH ×2 (09:39→21:44)
[2021-01-13] MEDS: FAMOTIDINE 20 MG TAB PO SCH ×2 (09:40→21:44)
[2021-01-13] MEDS: INSULIN GLARGINE 100 UNITS/ML SUB-Q SCH (09:40)
--- NOTE | 2021-01-13 11:10 | Progress Note ---
Assessment and Plan - Patient Problems (1) Acute renal failure Current Visit: Yes Status: Acute Plan to address problem: overall renal function is stable this morning and he remains nonoliguric. We will continue to closely monitor. No acute indications for renal replacement therapy at present time. Cont supportive care for ATN, avoid further nephro toxins, NSAIDs, IV contrast Renal US did not show any acute abnormalities but likely does have evidence of underlying chronic kidney disease. Lasix was given for volume control and Kaliuretic effect. will monitor BMP and make further recommendations. (2) Hypernatremia Current Visit: Yes Status: Acute Plan to address problem: cont free water flushes 300ml q4hr (3) Cardiac arrest Current Visit: Yes Status: Acute Plan to address problem: Management and further recommendation per cardiology. (4) Elevated d-dimer Current Visit: Yes Status: Acute Plan to address problem: Likely in the setting of pneumonia. His CTA chest did not show any evidence of PE. He is COVID-19 (+). (5) Bilateral pneumonia Current Visit: Yes Status: Acute Plan to address problem: Please titrate antibiotics accordingly based on diminished renal function. (6) Diabetes mellitus type 2 in obese Current Visit: Yes Status: Chronic Plan to address problem: DM management per primary attending. (7) Pneumonia due to COVID-19 virus Current Visit: Yes Status: Acute Plan to address problem: Treatment per primary team/ID recommendations. (8) Gram-positive bacteremia Current Visit: Yes Status: Acute Plan to address problem: on vancomycin and cefepime. Cultures are indicating MRSA. ID recommendations appreciated. Subjective Date of service: 01/13/21 Principal diagnosis: Cardiac Arrest; Ac Hypoxemic Resp Failure; SepticShock; PNA; SHERICE; PUI COVID Interval history: Events overnight reviewed. BMP pending this AM, hyperkalemia was treated medically. Persistent hypernatremia, pt is receiving free water flushes. Chest Xray reviewed, with persistent b/l opacities. Remains intubated. Objective - Exam Narrative Exam: Patient not directly examined in order to preserve PPE and reduce transmission risk of COVID-19. Physical examination by primary team reviewed. - Vital Signs Vital signs: Vital Signs - 12hr 01/12/21 01/12/21 01/12/21 23:15 23:30 23:44 Temperature 103.1 F H Pulse Rate 87 84 Pulse Rate [ Bilateral Throughout] Pulse Rate [ From Monitor] Respiratory 31 H 30 H Rate Respiratory Rate [Bilateral Throughout] Blood Pressure 134/65 134/63 O2 Sat by Pulse 91 89 Oximetry 01/12/21 01/13/21 01/13/21 23:45 00:00 00:15 Temperature Pulse Rate 87 89 85 Pulse Rate [ Bilateral Throughout] Pulse Rate [ 89 From Monitor] Respiratory 30 H 30 H 32 H Rate Respiratory Rate [Bilateral Throughout] Blood Pressure 127/65 125/65 137/64 O2 Sat by Pulse 91 90 90 Oximetry 01/13/21 01/13/21 01/13/21 00:30 00:45 00:55 Temperature Pulse Rate 84 89 84 Pulse Rate [ Bilateral Throughout] Pulse Rate [ From Monitor] Respiratory 30 H 31 H Rate Respiratory Rate [Bilateral Throughout] Blood Pressure 123/63 135/60 135/60 O2 Sat by Pulse 91 91 92 Oximetry 01/13/21 01/13/21 01/13/21 01:00 01:15 01:30 Temperature Pulse Rate 84 83 84 Pulse Rate [ Bilateral Throughout] Pulse Rate [ From Monitor] Respiratory 31 H 30 H 31 H Rate Respiratory Rate [Bilateral Throughout] Blood Pressure 147/65 141/67 144/57 O2 Sat by Pulse 91 91 92 Oximetry 01/13/21 01/13/21 01/13/21 01:45 02:00 02:15 Temperature Pulse Rate 87 91 H 104 H Pulse Rate [ Bilateral Throughout] Pulse Rate [ From Monitor] Respiratory 31 H 30 H 30 H Rate Respiratory Rate [Bilateral Throughout] Blood Pressure 131/61 126/58 126/58 O2 Sat by Pulse 92 90 Oximetry 01/13/21 01/13/21 01/13/21 02:31 02:45 02:52 Temperature 100.8 F H Pulse Rate 94 H 92 H Pulse Rate [ Bilateral Throughout] Pulse Rate [ From Monitor] Respiratory 30 H 31 H Rate Respiratory Rate [Bilateral Throughout] Blood Pressure 147/75 152/68 O2 Sat by Pulse 94 92 Oximetry 01/13/21 01/13/21 01/13/21 03:00 03:15 03:30 Temperature Pulse Rate 91 H 86 86 Pulse Rate [ Bilateral Throughout] Pulse Rate [ From Monitor] Respiratory 30 H 30 H 30 H Rate Respiratory Rate [Bilateral Throughout] Blood Pressure 146/72 140/68 145/69 O2 Sat by Pulse 92 91 92 Oximetry 08/12/2701/13/21 01/13/21 03:45 04:00 04:15 Temperature Pulse Rate 87 87 88 Pulse Rate [ Bilateral Throughout] Pulse Rate [ 87 From Monitor] Respiratory 30 H 30 H 31 H Rate Respiratory Rate [Bilateral Throughout] Blood Pressure 143/66 141/67 144/67 O2 Sat by Pulse 92 91 92 Oximetry 01/13/21 01/13/21 01/13/21 04:30 04:43 04:45 Temperature Pulse Rate 86 87 84 Pulse Rate [ Bilateral Throughout] Pulse Rate [ From Monitor] Respiratory 30 H 30 H Rate Respiratory Rate [Bilateral Throughout] Blood Pressure 141/67 131/64 145/67 O2 Sat by Pulse 91 90 91 Oximetry 01/13/21 01/13/21 01/13/21 05:00 05:15 05:30 Temperature Pulse Rate 86 87 81 Pulse Rate [ Bilateral Throughout] Pulse Rate [ From Monitor] Respiratory 32 H 30 H 30 H Rate Respiratory Rate [Bilateral Throughout] Blood Pressure 131/64 125/59 146/68 O2 Sat by Pulse 91 92 92 Oximetry 01/13/21 01/13/21 01/13/21 05:45 06:01 06:15 Temperature Pulse Rate 82 96 H 98 H Pulse Rate [ Bilateral Throughout] Pulse Rate [ From Monitor] Respiratory 30 H 30 H 30 H Rate Respiratory Rate [Bilateral Throughout] Blood Pressure 139/66 86/30 89/38 O2 Sat by Pulse 91 89 90 Oximetry 01/13/21 01/13/21 01/13/21 06:30 06:45 07:01 Temperature Pulse Rate 96 H 91 H 92 H Pulse Rate [ Bilateral Throughout] Pulse Rate [ From Monitor] Respiratory 30 H 30 H 18 Rate Respiratory Rate [Bilateral Throughout] Blood Pressure 90/44 87/44 153/76 O2 Sat by Pulse 91 91 95 Oximetry 01/13/21 01/13/21 01/13/21 07:15 07:26 07:30 Temperature 102.7 F H Pulse Rate 92 H 90 Pulse Rate [ Bilateral Throughout] Pulse Rate [ From Monitor] Respiratory 30 H 30 H Rate Respiratory Rate [Bilateral Throughout] Blood Pressure 155/75 152/74 O2 Sat by Pulse 93 93 Oximetry 01/13/21 01/13/21 01/13/21 07:45 08:00 08:03 Temperature Pulse Rate 90 91 H 90 Pulse Rate [ 108 H Bilateral Throughout] Pulse Rate [ 91 H From Monitor] Respiratory 30 H 30 H Rate Respiratory 28 H Rate [Bilateral Throughout] Blood Pressure 151/72 142/68 142/88 O2 Sat by Pulse 92 92 92 Oximetry 01/13/21 01/13/21 01/13/21 08:15 08:30 08:45 Temperature Pulse Rate 90 90 90 Pulse Rate [ Bilateral Throughout] Pulse Rate [ From Monitor] Respiratory 30 H 30 H 30 H Rate Respiratory Rate [Bilateral Throughout] Blood Pressure 144/72 146/70 147/68 O2 Sat by Pulse 92 93 92 Oximetry 01/13/21 01/13/21 01/13/21 09:00 09:15 09:30 Temperature Pulse Rate 90 90 90 Pulse Rate [ Bilateral Throughout] Pulse Rate [ From Monitor] Respiratory 30 H 30 H 30 H Rate Respiratory Rate [Bilateral Throughout] Blood Pressure 147/69 144/70 142/70 O2 Sat by Pulse 92 92 91 Oximetry 01/13/21 01/13/21 01/13/21 09:45 10:00 10:15 Temperature Pulse Rate 90 88 88 Pulse Rate [ Bilateral Throughout] Pulse Rate [ From Monitor] Respiratory 30 H 30 H 30 H Rate Respiratory Rate [Bilateral Throughout] Blood Pressure 147/70 142/67 145/69 O2 Sat by Pulse 91 90 90 Oximetry - Lab 01/13/21 Unknown 01/12/21 04:29 Most recent lab results ABG pH 7.325 (7.320-7.450) 01/13/21 03:40 ABG O2 Saturation 92.6 (0-100) 01/13/21 03:40 Calcium 9.0 mg/dL (8.4-10.2) 01/12/21 04:29 Medications & Allergies - Medications Allergies/Adverse Reactions: Allergies No Known Allergies Allergy (Verified 01/09/21 10:10) Home Medications: Home Medications Medication Instructions Recorded Confirmed Last Taken Type Unobtainable 01/10/21 01/10/21 Unknown History Active Medications: Generic Name Dose Route Start Last Admin Trade Name Freq PRN Reason Stop Dose Admin Acetaminophen 650 mg 01/10/21 08:18 01/13/21 02:22 Acetaminophen 325 Mg/10.15 Ml Oral Liqd Unit Dose FEEDTUBE 650 mg Q6H PRN Administration TEMP >/=100.4 Albuterol 2.5 mg 01/08/21 20:23 Albuterol 2.5 Mg/3 Ml Nebu IH Q3HRT PRN Shortness Of Breath Albuterol/Ipratropium 1 ampul 01/08/21 20:00 01/13/21 07:44 Ipratropium/Albuterol Sulfate 3 Ml Ampul.Neb IH 1 ampul QIDRT MARBELLA Administration Lipase/Protease/Amylase 1 each 01/10/21 17:40 Lipase 10,500/Protease 25,000/Amylase 43,750 (Units) Dr Cap FEEDTUBE PRN PRN For Clogged Feeding Tube Dexamethasone 6 mg 01/10/21 10:00 01/13/21 09:39 Dexamethasone 4 Mg/Ml Vial IV 01/19/21 10:01 6 mg Q24HR MARBELLA Administration Famotidine 20 mg 01/11/21 10:00 01/13/21 09:40 Famotidine 20 Mg Tab PO 20 mg BID MARBELLA Administration Fentanyl 50 mcg 01/12/21 18:13 Fentanyl 100 Mcg/2 Ml Inj IV Q10MIN PRN ANALGESIA Heparin Sodium (Porcine) 5,000 unit 01/12/21 12:00 Heparin 10,000 Units/10 Ml Vial IV Q6H PRN Anti-Xa Assay < 0.1 units/ml Hydrophilic Ointment 1 applic 01/08/21 16:00 Lip Therapy Vaseline TP Q2HR PRN Dry Lips Propofol 1,000 mg in 100 mls @ 4.082 mls/hr 01/08/21 16:00 01/13/21 00:58 Diprivan 10 Mg/Ml IV 10 mcg/kg/min TITR MARBELLA 8.165 mls/hr Administration Protocol 5 MCG/KG/MIN Norepinephrine 4 mg in 250 mls @ 75 mls/hr 01/08/21 11:28 01/13/21 06:55 Levophed Drip 4 Mg/Ns 250 Ml IV 14 mcg/min TITR MARBELLA 52.5 mls/hr Administration Protocol 20 MCG/MIN Heparin Sodium/Sodium Chloride 25,000 unit in 500 mls @ 30 mls/hr 01/11/21 10:00 01/11/21 21:27 Heparin/ 0.45% Nacl-25,000 Unit/500 Ml IV 0 units/hr TITR MARBELLA 0 mls/hr Titration Protocol 1,500 UNITS/HR Vasopressin 20 unit/ Sodium 101 mls @ 9.09 mls/hr 01/12/21 14:00 01/13/21 02:26 Chloride IV 0.03 units/min TITR MARBELLA 9.09 mls/hr Administration Protocol 0.03 UNITS/MIN Fentanyl Citrate 2,000 mcg in 100 mls @ 6.804 mls/hr 01/12/21 19:00 01/13/21 09:39 Fentanyl Drip Premix IV 2 mcg/kg/hr TITR MARBELLA 13.608 mls/hr Administration Protocol 1 MCG/KG/HR Insulin Glargine 15 units 01/11/21 10:00 01/13/21 09:40 Insulin Glargine 100 Units/Ml SUB-Q 15 units DAILY MARBELLA Administration Insulin Human Lispro 0 unit 01/09/21 12:00 01/13/21 06:54 Insulin Lispro 100 Unit/Ml SUB-Q 4 unit Q6HR MARBELLA Administration Protocol Multi-Ingred Cream/Lotion/Oil/Oint 1 applic 01/08/21 18:00 Mineral Oil/Petrolatum, White Ophth Oint 3.5 Gm OU Q4HR PRN Dry Eye(s) Senna/Docusate Sodium 1 tab 01/08/21 22:00 01/13/21 09:39 Sennosides/Docusate Sodium 8.6/50 Mg Tab FEEDTUBE 1 tab BID MARBELLA Administration Simple Syrup 15 ml 01/10/21 17:40 Simple Syrup 15 Ml FEEDTUBE PRN PRN Hypoglycemia Simple Syrup 30 ml 01/10/21 17:40 Simple Syrup 15 Ml FEEDTUBE PRN PRN Hypoglycemia Sodium Bicarbonate 325 mg 01/10/21 17:40 Sodium Bicarbonate 325 Mg Tab FEEDTUBE PRN PRN For Clogged Feeding Tube Sodium Chloride 5 ml 01/08/21 15:18 Sodium Chloride 0.9% 500 Ml Ivpb IV DIRECT PRN 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
--- NOTE | 2021-01-13 12:15 | Progress Note ---
Assessment and Plan Assessment and Plan Assessment and plan: - Patient Problems # Post Cardiac arrest -S/p cardiac arrest -Revived -Hypotensive -On Levophed at 10 mics -Possible septic shock with hypotension -Vent support and IV antibiotics - EEG is remarkable for diffuse slowing low voltage no seizure - Brain MRI when stable -Hold Sedation as possible # Acute respiratory failure with hypoxia and hypercapnia -Patient on vent -Patient has history of COPD -IV Solu-Medrol -Vent support #COVID-19 positive -Coronavirus PCR is positive -Possible Covid pneumonia -See CTA lung # Septic shock -Patient on IV antibiotics and Levophed -Patient has bilateral pneumonia -Patient initiated on cefepime and vancomycin # Bilateral pneumonia -Differential diagnosis of community-acquired pneumonia/aspiration pneumonia/Covid pneumonia -IV antibiotics and IV steroids for now -ID consult requested # Urinary tract infection -Patient is on cefepime and vancomycin for the pneumonia -Wait for urine cultures -Creat#2.1 -Hypernatremia with NA#155 # Acute kidney injury superimposed on CKD -Gentle IV hydration for now -Creat#2.3 # Congestive heart failure -Echocardiogram Ef#50-55% -BNP is elevated at 1157 # Transaminitis -Possible secondary to sepsis -Check to get hepatitis panel # Elevated troponin -Secondary to cardiac arrest and possible troponin leak - CK and CK-MB noted # Malnutrition -Albumin is 2.7 -Dietary supplements once extubated # DVT prophylaxis -On heparin SC. GI prophylaxis Critical care statement The high probability OF a clinically significant sudden or life-threatening deterioration of the cardiorespiratory system and endocrine system required my full and direct attention, intervention and postoperative management. The aggregate critical care time was 40 minutes. The time is in addition to time spent performing reported procedures but includes the followin: Data review and interpretation 2: Patient assessment and monitoring of vital signs 3: Documentation 4:: Medication orders and management Advance Directives: Yes (Full code) VTE prophylaxis?: Chemical Plan of care discussed with patient/family: No PLAN 1= EEG noted 2- Hold sedation if possible 3- MRI brain when stable 4- Treat underlying infection 5- Correct electrolytes 6- Over all prognosis is quarded will follow as needed Subjective Date of service: 01/13/21 Principal diagnosis: Cardiac Arrest; Hypoxemic Resp Failure; Septic Shock; PNA; SHERICE; PUI COVID Interval history: status same , only on 10 mc propfol and 4mc Fentanyl no response to command inflammatory marker are elevated not stable to have MRI Had left foot surgery yesterday Objective - Vital Sign Vital Signs - 12hr 01/13/21 01/13/21 01/13/21 00:15 00:30 00:45 Temperature Pulse Rate 85 84 89 Pulse Rate [ Bilateral Throughout] Pulse Rate [ From Monitor] Respiratory 32 H 30 H 31 H Rate Respiratory Rate [Bilateral Throughout] Blood Pressure 137/64 123/63 135/60 O2 Sat by Pulse 90 91 91 Oximetry 01/13/21 01/13/21 01/13/21 00:55 01:00 01:15 Temperature Pulse Rate 84 84 83 Pulse Rate [ Bilateral Throughout] Pulse Rate [ From Monitor] Respiratory 31 H 30 H Rate Respiratory Rate [Bilateral Throughout] Blood Pressure 135/60 147/65 141/67 O2 Sat by Pulse 92 91 91 Oximetry 01/13/21 01/13/21 01/13/21 01:30 01:45 02:00 Temperature Pulse Rate 84 87 91 H Pulse Rate [ Bilateral Throughout] Pulse Rate [ From Monitor] Respiratory 31 H 31 H 30 H Rate Respiratory Rate [Bilateral Throughout] Blood Pressure 144/57 131/61 126/58 O2 Sat by Pulse 92 92 90 Oximetry 01/13/21 01/13/21 01/13/21 02:15 02:31 02:45 Temperature Pulse Rate 104 H 94 H 92 H Pulse Rate [ Bilateral Throughout] Pulse Rate [ From Monitor] Respiratory 30 H 30 H 31 H Rate Respiratory Rate [Bilateral Throughout] Blood Pressure 126/58 147/75 152/68 O2 Sat by Pulse 94 92 Oximetry 01/13/21 01/13/21 01/13/21 02:52 03:00 03:15 Temperature 100.8 F H Pulse Rate 91 H 86 Pulse Rate [ Bilateral Throughout] Pulse Rate [ From Monitor] Respiratory 30 H 30 H Rate Respiratory Rate [Bilateral Throughout] Blood Pressure 146/72 140/68 O2 Sat by Pulse 92 91 Oximetry 01/13/21 01/13/21 01/13/21 03:30 03:45 04:00 Temperature Pulse Rate 86 87 87 Pulse Rate [ Bilateral Throughout] Pulse Rate [ 87 From Monitor] Respiratory 30 H 30 H 30 H Rate Respiratory Rate [Bilateral Throughout] Blood Pressure 145/69 143/66 141/67 O2 Sat by Pulse 92 92 91 Oximetry 01/13/21 01/13/21 01/13/21 04:15 04:30 04:43 Temperature Pulse Rate 88 86 87 Pulse Rate [ Bilateral Throughout] Pulse Rate [ From Monitor] Respiratory 31 H 30 H Rate Respiratory Rate [Bilateral Throughout] Blood Pressure 144/67 141/67 131/64 O2 Sat by Pulse 92 91 90 Oximetry 01/13/21 01/13/21 01/13/21 04:45 05:00 05:15 Temperature Pulse Rate 84 86 87 Pulse Rate [ Bilateral Throughout] Pulse Rate [ From Monitor] Respiratory 30 H 32 H 30 H Rate Respiratory Rate [Bilateral Throughout] Blood Pressure 145/67 131/64 125/59 O2 Sat by Pulse 91 91 92 Oximetry 01/13/21 01/13/21 01/13/21 05:30 05:45 06:01 Temperature Pulse Rate 81 82 96 H Pulse Rate [ Bilateral Throughout] Pulse Rate [ From Monitor] Respiratory 30 H 30 H 30 H Rate Respiratory Rate [Bilateral Throughout] Blood Pressure 146/68 139/66 86/30 O2 Sat by Pulse 92 91 89 Oximetry 01/13/21 01/13/21 01/13/21 06:15 06:30 06:45 Temperature Pulse Rate 98 H 96 H 91 H Pulse Rate [ Bilateral Throughout] Pulse Rate [ From Monitor] Respiratory 30 H 30 H 30 H Rate Respiratory Rate [Bilateral Throughout] Blood Pressure 89/38 90/44 87/44 O2 Sat by Pulse 90 91 91 Oximetry 01/13/21 01/13/21 01/13/21 07:01 07:15 07:26 Temperature 102.7 F H Pulse Rate 92 H 92 H Pulse Rate [ Bilateral Throughout] Pulse Rate [ From Monitor] Respiratory 18 30 H Rate Respiratory Rate [Bilateral Throughout] Blood Pressure 153/76 155/75 O2 Sat by Pulse 95 93 Oximetry 01/13/21 01/13/21 01/13/21 07:30 07:45 08:00 Temperature Pulse Rate 90 90 91 H Pulse Rate [ 108 H Bilateral Throughout] Pulse Rate [ 91 H From Monitor] Respiratory 30 H 30 H 30 H Rate Respiratory 28 H Rate [Bilateral Throughout] Blood Pressure 152/74 151/72 142/68 O2 Sat by Pulse 93 92 92 Oximetry 01/13/21 01/13/21 01/13/21 08:03 08:15 08:30 Temperature Pulse Rate 90 90 90 Pulse Rate [ Bilateral Throughout] Pulse Rate [ From Monitor] Respiratory 30 H 30 H Rate Respiratory Rate [Bilateral Throughout] Blood Pressure 142/88 144/72 146/70 O2 Sat by Pulse 92 92 93 Oximetry 01/13/21 01/13/21 01/13/21 08:45 09:00 09:15 Temperature Pulse Rate 90 90 90 Pulse Rate [ Bilateral Throughout] Pulse Rate [ From Monitor] Respiratory 30 H 30 H 30 H Rate Respiratory Rate [Bilateral Throughout] Blood Pressure 147/68 147/69 144/70 O2 Sat by Pulse 92 92 92 Oximetry 01/13/21 01/13/21 01/13/21 09:30 09:45 10:00 Temperature Pulse Rate 90 90 88 Pulse Rate [ Bilateral Throughout] Pulse Rate [ From Monitor] Respiratory 30 H 30 H 30 H Rate Respiratory Rate [Bilateral Throughout] Blood Pressure 142/70 147/70 142/67 O2 Sat by Pulse 91 91 90 Oximetry 01/13/21 01/13/21 01/13/21 10:15 10:30 10:45 Temperature Pulse Rate 88 88 87 Pulse Rate [ Bilateral Throughout] Pulse Rate [ From Monitor] Respiratory 30 H 30 H 30 H Rate Respiratory Rate [Bilateral Throughout] Blood Pressure 145/69 140/70 142/70 O2 Sat by Pulse 90 90 89 Oximetry 01/13/21 01/13/21 01/13/21 11:00 11:11 11:15 Temperature Pulse Rate 93 H 108 H Pulse Rate [ 96 H Bilateral Throughout] Pulse Rate [ From Monitor] Respiratory 30 H 29 H Rate Respiratory 30 H Rate [Bilateral Throughout] Blood Pressure 129/60 119/69 O2 Sat by Pulse 90 90 Oximetry 01/13/21 01/13/21 01/13/21 11:22 11:30 11:45 Temperature Pulse Rate 93 H 83 86 Pulse Rate [ Bilateral Throughout] Pulse Rate [ From Monitor] Respiratory 30 H 30 H Rate Respiratory Rate [Bilateral Throughout] Blood Pressure 129/60 137/67 139/66 O2 Sat by Pulse 90 92 90 Oximetry 01/13/21 01/13/21 01/13/21 11:49 12:00 12:09 Temperature 101.8 F H 102.2 F H Pulse Rate 86 Pulse Rate [ Bilateral Throughout] Pulse Rate [ 88 From Monitor] Respiratory 30 H 30 H Rate Respiratory Rate [Bilateral Throughout] Blood Pressure 136/64 O2 Sat by Pulse 89 90 Oximetry - General Apperance Constitutional: comfortable - EENT EENT: PERRL, mucous membranes moist - Respiratory Respiratory: chest non-tender, lungs clear - Cardiovascular Cardiovascular: regular rate, normal S1, normal S2 Extremities: no peripheral edema bilat, other (left foot surgery) - Gastrointestinal Gastrointestinal: normoactive bowel sounds - Integumentary Integumentary: normal - Neurologic Cranial nerve examination: other (pupils constricted , no facial asymmetry .NO gag , NO corneal no movment) - Laboratory Findings CBC and BMP: 01/13/21 Unknown 01/12/21 04:29 Abnormal Lab Findings: Abnormal Labs 01/08/21 01/08/21 01/08/21 11:01 11:55 11:55 WBC 23.8 H RBC 3.35 L Hgb 10.5 L Hct 31.6 L MCV MCHC RDW 15.6 H Lymph % (Auto) 4.1 L Lymph # (Auto) 1.0 L [place] # (Auto) 1.2 H Seg Neutrophils % 90.5 H Seg Neutrophils # 21.5 H PT INR APTT D-Dimer Heparin Anti-Xa Level ABG pH 7.204 L POC ABG pCO2 50.7 H POC ABG pO2 ABG Hemoglobin 11.9 L ABG Oxyhemoglobin ABG Sodium ABG Potassium 5.0 H ABG Chloride 110.0 H ABG Glucose 313 H Carboxyhemoglobin 0.1 L Sodium Potassium Chloride Carbon Dioxide BUN Creatinine Glucose POC Glucose Lactic Acid 4.50 H* Calcium Ferritin Direct Bilirubin AST ALT Lactate Dehydrogenase Troponin T C-Reactive Protein NT-Pro-B Natriuret Pep Total Protein Albumin Triglycerides LDL Cholesterol Direct HDL Cholesterol Arterial Blood Glucose 313 H Urine WBC (Auto) Coronavirus (PCR) 01/08/21 01/08/21 01/08/21 11:55 11:55 13:42 WBC RBC Hgb Hct MCV MCHC RDW Lymph % (Auto) Lymph # (Auto) [place] # (Auto) Seg Neutrophils % Seg Neutrophils # PT INR APTT 23.3 L D-Dimer Heparin Anti-Xa Level ABG pH POC ABG pCO2 POC ABG pO2 ABG Hemoglobin ABG Oxyhemoglobin ABG Sodium ABG Potassium ABG Chloride ABG Glucose Carboxyhemoglobin Sodium Potassium 5.3 H Chloride 107.2 H Carbon Dioxide 21 L BUN 55 H Creatinine 3.9 H Glucose 274 H POC Glucose Lactic Acid 2.90 H* Calcium 7.9 L Ferritin Direct Bilirubin 0.4 H AST 130 H ALT 70 H Lactate Dehydrogenase Troponin T 0.038 H C-Reactive Protein NT-Pro-B Natriuret Pep 1157 H Total Protein 6.0 L Albumin 2.6 L Triglycerides LDL Cholesterol Direct 28 L HDL Cholesterol 24 L Arterial Blood Glucose Urine WBC (Auto) Coronavirus (PCR) 01/08/21 01/08/21 01/08/21 14:36 14:36 14:36 WBC RBC Hgb Hct MCV MCHC RDW Lymph % (Auto) Lymph # (Auto) [place] # (Auto) Seg Neutrophils % Seg Neutrophils # PT INR APTT D-Dimer 7104.83 H Heparin Anti-Xa Level ABG pH POC ABG pCO2 POC ABG pO2 ABG Hemoglobin ABG Oxyhemoglobin ABG Sodium ABG Potassium ABG Chloride ABG Glucose Carboxyhemoglobin Sodium Potassium Chloride Carbon Dioxide BUN Creatinine Glucose 306 H POC Glucose Lactic Acid Calcium Ferritin 624.8 H Direct Bilirubin AST ALT Lactate Dehydrogenase 535 H Troponin T C-Reactive Protein 25.40 H NT-Pro-B Natriuret Pep Total Protein Albumin Triglycerides LDL Cholesterol Direct HDL Cholesterol Arterial Blood Glucose Urine WBC (Auto) Coronavirus (PCR) 01/08/21 01/08/21 01/08/21 21:00 Unknown Unknown WBC RBC Hgb Hct MCV MCHC RDW Lymph % (Auto) Lymph # (Auto) [place] # (Auto) Seg Neutrophils % Seg Neutrophils # PT INR APTT D-Dimer Heparin Anti-Xa Level ABG pH POC ABG pCO2 POC ABG pO2 111.6 H ABG Hemoglobin 11.6 L ABG Oxyhemoglobin ABG Sodium ABG Potassium 4.6 H ABG Chloride 112.0 H ABG Glucose 256 H Carboxyhemoglobin 0.3 L Sodium Potassium Chloride Carbon Dioxide BUN Creatinine Glucose POC Glucose Lactic Acid Calcium Ferritin Direct Bilirubin AST ALT Lactate Dehydrogenase Troponin T C-Reactive Protein NT-Pro-B Natriuret Pep Total Protein Albumin Triglycerides LDL Cholesterol Direct HDL Cholesterol Arterial Blood Glucose 256 H Urine WBC (Auto) > 182.0 H Coronavirus (PCR) Positive A 01/09/21 01/09/21 01/09/21 05:02 05:18 05:18 WBC 19.0 H RBC Hgb 11.7 L Hct MCV 95 H MCHC RDW 16.0 H Lymph % (Auto) Lymph # (Auto) [place] # (Auto) Seg Neutrophils % Seg Neutrophils # PT INR APTT D-Dimer Heparin Anti-Xa Level ABG pH POC ABG pCO2 POC ABG pO2 82.7 L ABG Hemoglobin ABG Oxyhemoglobin ABG Sodium ABG Potassium 4.8 H ABG Chloride 114.0 H ABG Glucose 283 H Carboxyhemoglobin 0.3 L Sodium 146 H Potassium 5.1 H Chloride 112.0 H Carbon Dioxide 20 L BUN 63 H Creatinine 3.0 H Glucose 282 H POC Glucose Lactic Acid Calcium 8.1 L Ferritin Direct Bilirubin AST ALT Lactate Dehydrogenase Troponin T C-Reactive Protein NT-Pro-B Natriuret Pep Total Protein Albumin Triglycerides LDL Cholesterol Direct HDL Cholesterol Arterial Blood Glucose 283 H Urine WBC (Auto) Coronavirus (PCR) 01/09/21 01/09/21 01/09/21 13:24 20:05 23:24 WBC RBC Hgb Hct MCV MCHC RDW Lymph % (Auto) Lymph # (Auto) [place] # (Auto) Seg Neutrophils % Seg Neutrophils # PT INR APTT D-Dimer Heparin Anti-Xa Level ABG pH POC ABG pCO2 POC ABG pO2 ABG Hemoglobin ABG Oxyhemoglobin ABG Sodium ABG Potassium ABG Chloride ABG Glucose Carboxyhemoglobin Sodium Potassium Chloride Carbon Dioxide BUN Creatinine Glucose POC Glucose 282 H 317 H 325 H Lactic Acid Calcium Ferritin Direct Bilirubin AST ALT Lactate Dehydrogenase Troponin T C-Reactive Protein NT-Pro-B Natriuret Pep Total Protein Albumin Triglycerides LDL Cholesterol Direct HDL Cholesterol Arterial Blood Glucose Urine WBC (Auto) Coronavirus (PCR) 01/10/21 01/10/21 01/10/21 02:56 05:31 10:46 WBC 22.0 H RBC Hgb 11.2 L Hct 35.0 L MCV MCHC RDW 15.4 H Lymph % (Auto) Lymph # (Auto) [place] # (Auto) Seg Neutrophils % Seg Neutrophils # PT INR APTT D-Dimer Heparin Anti-Xa Level ABG pH POC ABG pCO2 POC ABG pO2 73.8 L ABG Hemoglobin ABG Oxyhemoglobin 93.5 L ABG Sodium 149.1 H ABG Potassium 4.6 H ABG Chloride 119.0 H ABG Glucose 311 H Carboxyhemoglobin 0.4 L Sodium Potassium Chloride Carbon Dioxide BUN Creatinine Glucose POC Glucose 278 H Lactic Acid Calcium Ferritin Direct Bilirubin AST ALT Lactate Dehydrogenase Troponin T C-Reactive Protein NT-Pro-B Natriuret Pep Total Protein Albumin Triglycerides LDL Cholesterol Direct HDL Cholesterol Arterial Blood Glucose 311 H Urine WBC (Auto) Coronavirus (PCR) 01/10/21 01/10/21 01/10/21 10:46 10:46 10:46 WBC RBC Hgb Hct MCV MCHC RDW Lymph % (Auto) Lymph # (Auto) [place] # (Auto) Seg Neutrophils % Seg Neutrophils # PT INR APTT D-Dimer 5636.29 H Heparin Anti-Xa Level ABG pH POC ABG pCO2 POC ABG pO2 ABG Hemoglobin ABG Oxyhemoglobin ABG Sodium ABG Potassium ABG Chloride ABG Glucose Carboxyhemoglobin Sodium 155 H D Potassium Chloride 121.6 H Carbon Dioxide BUN 65 H Creatinine 2.2 H Glucose 330 H POC Glucose Lactic Acid Calcium Ferritin 347.2 H Direct Bilirubin AST 104 H ALT 63 H Lactate Dehydrogenase Troponin T C-Reactive Protein NT-Pro-B Natriuret Pep Total Protein Albumin 2.7 L Triglycerides LDL Cholesterol Direct HDL Cholesterol Arterial Blood Glucose Urine WBC (Auto) Coronavirus (PCR) 01/10/21 01/10/21 01/10/21 10:46 11:39 18:06 WBC RBC Hgb Hct MCV MCHC RDW Lymph % (Auto) Lymph # (Auto) [place] # (Auto) Seg Neutrophils % Seg Neutrophils # PT INR APTT D-Dimer Heparin Anti-Xa Level ABG pH POC ABG pCO2 POC ABG pO2 ABG Hemoglobin ABG Oxyhemoglobin ABG Sodium ABG Potassium ABG Chloride ABG Glucose Carboxyhemoglobin Sodium Potassium Chloride Carbon Dioxide BUN Creatinine Glucose POC Glucose 289 H 294 H Lactic Acid Calcium Ferritin Direct Bilirubin AST ALT Lactate Dehydrogenase 448 H Troponin T C-Reactive Protein 10.50 H NT-Pro-B Natriuret Pep Total Protein Albumin Triglycerides LDL Cholesterol Direct HDL Cholesterol Arterial Blood Glucose Urine WBC (Auto) Coronavirus (PCR) 01/11/21 01/11/21 01/11/21 00:57 03:09 04:50 WBC 23.8 H RBC Hgb 11.2 L Hct MCV 95 H MCHC 31 L RDW 16.5 H Lymph % (Auto) Lymph # (Auto) [place] # (Auto) Seg Neutrophils % Seg Neutrophils # PT INR APTT D-Dimer Heparin Anti-Xa Level ABG pH POC ABG pCO2 POC ABG pO2 ABG Hemoglobin ABG Oxyhemoglobin ABG Sodium 154.3 H ABG Potassium 4.8 H ABG Chloride 124.0 H ABG Glucose 381 H Carboxyhemoglobin Sodium Potassium Chloride Carbon Dioxide BUN Creatinine Glucose POC Glucose 300 H Lactic Acid Calcium Ferritin Direct Bilirubin AST ALT Lactate Dehydrogenase Troponin T C-Reactive Protein NT-Pro-B Natriuret Pep Total Protein Albumin Triglycerides LDL Cholesterol Direct HDL Cholesterol Arterial Blood Glucose 381 H Urine WBC (Auto) Coronavirus (PCR) 01/11/21 01/11/21 01/11/21 04:50 05:46 10:05 WBC RBC Hgb Hct MCV MCHC RDW Lymph % (Auto) Lymph # (Auto) [place] # (Auto) Seg Neutrophils % Seg Neutrophils # PT 15.2 H INR 1.15 H APTT D-Dimer Heparin Anti-Xa Level ABG pH POC ABG pCO2 POC ABG pO2 ABG Hemoglobin ABG Oxyhemoglobin ABG Sodium ABG Potassium ABG Chloride ABG Glucose Carboxyhemoglobin Sodium 158 H Potassium Chloride 124.1 H Carbon Dioxide BUN 72 H Creatinine 2.1 H Glucose 371 H POC Glucose 384 H Lactic Acid Calcium Ferritin Direct Bilirubin AST 78 H ALT Lactate Dehydrogenase Troponin T C-Reactive Protein NT-Pro-B Natriuret Pep Total Protein Albumin 2.7 L Triglycerides 394 H LDL Cholesterol Direct HDL Cholesterol Arterial Blood Glucose Urine WBC (Auto) Coronavirus (PCR) 01/11/21 01/11/21 01/11/21 12:04 17:17 18:55 WBC RBC Hgb Hct MCV MCHC RDW Lymph % (Auto) Lymph # (Auto) [place] # (Auto) Seg Neutrophils % Seg Neutrophils # PT INR APTT D-Dimer Heparin Anti-Xa Level 1.42 H ABG pH POC ABG pCO2 POC ABG pO2 ABG Hemoglobin ABG Oxyhemoglobin ABG Sodium ABG Potassium ABG Chloride ABG Glucose Carboxyhemoglobin Sodium Potassium Chloride Carbon Dioxide BUN Creatinine Glucose POC Glucose 351 H 330 H Lactic Acid Calcium Ferritin Direct Bilirubin AST ALT Lactate Dehydrogenase Troponin T C-Reactive Protein NT-Pro-B Natriuret Pep Total Protein Albumin Triglycerides LDL Cholesterol Direct HDL Cholesterol Arterial Blood Glucose Urine WBC (Auto) Coronavirus (PCR) 01/11/21 01/12/21 01/12/21 23:29 01:46 04:29 WBC 24.0 H RBC Hgb 11.4 L Hct MCV 99 H MCHC 31 L RDW 17.0 H Lymph % (Auto) Lymph # (Auto) [place] # (Auto) Seg Neutrophils % Seg Neutrophils # PT INR APTT D-Dimer Heparin Anti-Xa Level ABG pH 7.308 L POC ABG pCO2 POC ABG pO2 ABG Hemoglobin ABG Oxyhemoglobin ABG Sodium 155.1 H ABG Potassium 5.2 H ABG Chloride 124.0 H ABG Glucose 399 H Carboxyhemoglobin 0.2 L Sodium Potassium Chloride Carbon Dioxide BUN Creatinine Glucose POC Glucose 328 H Lactic Acid Calcium Ferritin Direct Bilirubin AST ALT Lactate Dehydrogenase Troponin T C-Reactive Protein NT-Pro-B Natriuret Pep Total Protein Albumin Triglycerides LDL Cholesterol Direct HDL Cholesterol Arterial Blood Glucose 399 H Urine WBC (Auto) Coronavirus (PCR) 01/12/21 01/12/21 01/12/21 04:29 05:24 08:30 WBC RBC Hgb Hct MCV MCHC RDW Lymph % (Auto) Lymph # (Auto) [place] # (Auto) Seg Neutrophils % Seg Neutrophils # PT INR APTT D-Dimer 4813.23 H Heparin Anti-Xa Level ABG pH POC ABG pCO2 POC ABG pO2 ABG Hemoglobin ABG Oxyhemoglobin ABG Sodium ABG Potassium ABG Chloride ABG Glucose Carboxyhemoglobin Sodium 155 H Potassium 5.4 H Chloride 121.2 H Carbon Dioxide BUN 91 H Creatinine 2.3 H Glucose 427 H POC Glucose 394 H Lactic Acid Calcium Ferritin Direct Bilirubin AST ALT Lactate Dehydrogenase Troponin T C-Reactive Protein NT-Pro-B Natriuret Pep Total Protein Albumin Triglycerides LDL Cholesterol Direct HDL Cholesterol Arterial Blood Glucose Urine WBC (Auto) Coronavirus (PCR) 01/12/21 01/12/21 01/12/21 08:30 08:30 11:32 WBC RBC Hgb Hct MCV MCHC RDW Lymph % (Auto) Lymph # (Auto) [place] # (Auto) Seg Neutrophils % Seg Neutrophils # PT INR APTT D-Dimer Heparin Anti-Xa Level ABG pH POC ABG pCO2 POC ABG pO2 ABG Hemoglobin ABG Oxyhemoglobin ABG Sodium ABG Potassium ABG Chloride ABG Glucose Carboxyhemoglobin Sodium Potassium Chloride Carbon Dioxide BUN Creatinine Glucose POC Glucose 385 H Lactic Acid Calcium Ferritin 379.5 H Direct Bilirubin AST ALT Lactate Dehydrogenase 576 H Troponin T C-Reactive Protein 4.50 H NT-Pro-B Natriuret Pep Total Protein Albumin Triglycerides LDL Cholesterol Direct HDL Cholesterol Arterial Blood Glucose Urine WBC (Auto) Coronavirus (PCR) 01/12/21 01/12/21 01/13/21 16:48 23:20 03:40 WBC RBC Hgb Hct MCV MCHC RDW Lymph % (Auto) Lymph # (Auto) [place] # (Auto) Seg Neutrophils % Seg Neutrophils # PT INR APTT D-Dimer Heparin Anti-Xa Level ABG pH POC ABG pCO2 POC ABG pO2 66.6 L ABG Hemoglobin ABG Oxyhemoglobin 92.1 L ABG Sodium 158.0 H ABG Potassium 5.0 H ABG Chloride 129.0 H ABG Glucose 266 H Carboxyhemoglobin 0.2 L Sodium Potassium Chloride Carbon Dioxide BUN Creatinine Glucose POC Glucose 313 H 260 H Lactic Acid Calcium Ferritin Direct Bilirubin AST ALT Lactate Dehydrogenase Troponin T C-Reactive Protein NT-Pro-B Natriuret Pep Total Protein Albumin Triglycerides LDL Cholesterol Direct HDL Cholesterol Arterial Blood Glucose 266 H Urine WBC (Auto) Coronavirus (PCR) 01/13/21 01/13/21 01/13/21 04:53 11:26 Unknown WBC RBC Hgb 10.9 L Hct 34.5 L MCV MCHC RDW Lymph % (Auto) Lymph # (Auto) [place] # (Auto) Seg Neutrophils % Seg Neutrophils # PT INR APTT D-Dimer Heparin Anti-Xa Level ABG pH POC ABG pCO2 POC ABG pO2 ABG Hemoglobin ABG Oxyhemoglobin ABG Sodium ABG Potassium ABG Chloride ABG Glucose Carboxyhemoglobin Sodium Potassium Chloride Carbon Dioxide BUN Creatinine Glucose POC Glucose 221 H 235 H Lactic Acid Calcium Ferritin Direct Bilirubin AST ALT Lactate Dehydrogenase Troponin T C-Reactive Protein NT-Pro-B Natriuret Pep Total Protein Albumin Triglycerides LDL Cholesterol Direct HDL Cholesterol Arterial Blood Glucose Urine WBC (Auto) Coronavirus (PCR)
[2021-01-13 14:58] LABS: Calcium 8.3 mg/dL (8.4-10.2)
[2021-01-14] MEDS ORDERED: VANCOMYCIN 1,500 MG in SODIUM CHLORIDE 0.9% 500 ML 500 ML IV ONE
[2021-01-14] MEDS: fentaNYL DRIP Premix 2,000 MCG/100 ML BAG IV SCH ×4 (00:32→21:27)
[2021-01-14] MEDS: INSULIN LISPRO 100 UNIT/ML SUB-Q SCH ×5 (00:33→23:54)
[2021-01-14] MEDS: VASOPRESSIN 20 UNIT in SODIUM CHLORIDE 0.9% 100 ML IV SCH ×3 (00:33→21:31)
[2021-01-14] MEDS: NORepinephrine/NS 4 MG-250 ML 4 MG/250 ML BAG IV SCH ×2 (00:34→08:50)
[2021-01-14] MEDS: IPRATROPIUM/ALBUTEROL SULFATE 3 ML AMPUL.NEB IH SCH ×4 (08:21→21:13)
--- NOTE | 2021-01-14 08:47 | Progress Note ---
Assessment and Plan Assessment and plan: --Abscess left great toe Surgeon Dr. Costa's evaluated , had surgical procedures 1) I&D of left great toe abscess 2) Amputation of left great toe And is already on vancomycin, ID following --Uncontrolled diabetes mellitus; Current Visit: Yes Status: Chronic Increase Lantus to 20 units twice a day Check A1c --Hypernatremia; Current Visit: Yes Status: Acute Patient is on Free water flushes, closely monitor electrolytes Nephrology following --Cardiac arrest[outside the hospital cardiac arrest] Current Visit: Yes Status: Acute S/p cardiac arrests/p CPR per ACLS protocol Acute hypoxic respiratory failure intubated on vent Severe COVID-19 pneumonia Severe sepsis, Septic shock on pressors Vent support and IV antibiotics --Acute respiratory failure with hypoxia and hypercapnia Current Visit: Yes Status: Acute Intubated on vent Patient has history of COPD Patient initiated on duo nebs [id number] and as needed IV Solu-Medrol, Vent support Youth Development Specialist consult requested Wean as tolerated and extubate --COVID-19 infection; Current Visit: Yes Status: Acute Contact and droplet isolation Dexamethasone per pulmonary for 10 days Borderline renal function, if continues to improve would start remdesivir. As patient has MRSA bacteremia, not a candidate for Actemra at present. Obtain q48-72h inflammatory markers - ferritin, Ddimer, CRP, LDH Continue vancomycin goal trough 10-20 Follow-up repeat blood cultures Proning position as tolerated --Severe sepsis; MRSA/ COVID-19 pneumonia Current Visit: Yes Status: Acute Continue contact and droplet isolation Continue vancomycin, ID following --Septic shock Current Visit: Yes Status: Acute Plan to address problem: Patient on IV antibiotics and Levophed Patient has bilateral pneumonia Possible aspiration pneumonia Patient initiated on cefepime and vancomycin ID consult requested --Bilateral pneumonia Current Visit: Yes Status: Acute Differential diagnosis of community-acquired pneumonia/aspiration pneumonia/Covid pneumonia IV antibiotics and IV steroids for now ID consult requested -- Urinary tract infection Current Visit: Yes Status: Acute Patient is on cefepime and vancomycin for the pneumonia Wait for urine cultures --Acute kidney injury superimposed on CKD Current Visit: Yes Status: Acute Gentle IV hydration for now Nephrology consulted Some improvement in the creatinine from 3.9-3.0 Per nephrology-- Woudl recommend gentle IVF hydration, maintain MAP >65 mmHg. Avoid nephrotoxins. Renal US did not show any acute abnormalities but likely does have evidence of underlying chronic kidney disease. overall renal function is stable this morning and he remains nonoliguric. We will continue to closely monitor. No acute indications for renal replacement therapy at present time. --Congestive heart failure Current Visit: Yes Status: Chronic We will get echocardiogram for ejection fraction BNP is elevated at 1157 --Transaminitis Current Visit: Yes Status: Acute Possible secondary to sepsis Check to get hepatitis panel -- Elevated troponin Current Visit: Yes Status: Acute Secondary to cardiac arrest and possible troponin leak We will get CK and CK-MB --Malnutrition Current Visit: Yes Status: Chronic Albumin is 2.7 Dietary supplements once extubated -- DVT prophylaxis Current Visit: Yes Status: Acute . Very poor prognosis. On heparin GI prophylaxis --full CODE STATUS We will check with family regarding goals of treatment, CODE STATUS, recommend palliative care and hospice Will closely monitor the patient and adjust management as needed Check with family regarding goals of treatment and CODE STATUS today Very poor prognosis recommend hospice palliative care Plan of care reviewed with the patient's nurse The high probability of a clinically significant, sudden or life threatening deterioration of the [ respiratory, infectious, neurologic, renal, musculoskeletal and GI] system(s) required my full and direct attention, intervention and personal management. The aggregate critical care time was [35] minutes. This time is in addition to time spent performing reported procedures but includes the following: [x] Data Review and interpretation [x] Patient assessment and monitoring of vital signs [x] Documentation [x] Medication orders and management Brief history and daily hospital course: 61-year-old [place] male with history of diabetes and sleep apnea called EMS towards generalized weakness. When EMS arrived there was difficulty getting to the patient. Because of too many items in the home. Similar to a Hoarder home. Initially patient was awake and talking confused. Then patient became unresponsive and apneic. ACLS protocol was initiated and chest compressions were initiated oxygen was administered and his own CPAP machine was used. Within the next 10 minutes patient was intubated. EMS was unable to get the patient out of the room through the door so patient was taken out of the home through the window of the room. Patient was found to be in PEA. Patient was intubated by EMS they achieved a return of spontaneous circulation. After a few minutes lost her pulse again and was given amlodipine and was revived. Patient presents to the emergency room with a pulse. It is unclear what has precipitated his cardiac arrest. Patient has only diabetes and sleep apnea. No fever or chills. No exposure to coronavirus. Patient was slightly hypotensive and was initiated on Levophed in the emergency room. Levophed is at 10 mics 01/09/2021 Patient still intubated Weaning in progress Covid positive 01/10/2021 Covid positive 01/11/2021 Covid positive On ventilator Weaning in progress 01/12/2021; Severely hypotensive septic shock On Levophed, add vasopressin if needed I called [place] physician Dr. Parsons at [phone] and discussed in detail patient's critical condition, all the diagnosis, tests and reports, consultants recommendation, poor prognosis, answered all her questions, she recommended to continue current management here in the hospital as he is critically ill. I answered all her questions, and I informed the patient's nurse of my conv ersation with [place] physician. 01/13/2021; Patient remains in septic shock on nor epi and vasopressin Intubated on vent, very poor prognosis Surgical procedure I&D of abscess great toe Amputation of left great toe 01/14/2021; Uncontrolled blood sugars, increase Lantus to 20 units subcu twice daily Patient also has worsening hypernatremia, continue free water flushes Very poor prognosis, recommend palliative care/hospice History Interval history: Seen and examined the patient at the bedside Isolation precautions PPE protocols followed per COVID-19 guidelines Patient is unresponsive remains intubated on ventilatory support Vital signs noted Hospitalist Physical - Constitutional Vitals: Temp Pulse Resp BP Pulse Ox 98.4 F 103 H 21 123/70 96 01/14/21 07:37 01/14/21 07:30 01/14/21 07:30 01/14/21 07:30 01/14/21 07:30 General appearance: Present: mild distress, well-nourished, other (Intubated on ventilatory support) - EENT Eyes: Present: PERRL, EOM intact - Neck Neck: Present: supple, normal ROM - Respiratory Respiratory effort: normal Respiratory: bilateral: diminished, rhonchi, negative: rales, wheezing - Cardiovascular Rhythm: regular Heart Sounds: Present: S1 & S2 - Extremities Extremities: no ischemia, No edema - Abdominal General gastrointestinal: soft, non-tender, non-distended, normal bowel sounds - Integumentary Integumentary: Present: clear, warm - Psychiatric Psychiatric: other (Intubated on vent) - Neurologic Neurologic: other (Intubated on vent) HEART Score - HEART Score Age: 45-65 Risk factors: 1-2 risk factors Troponin: Troponin T < 0.010 ng/mL (0.00-0.029) 01/10/21 10:46 - Critical Actions Critical Actions: 4-6 pts:12-16.6% risk of adverse cardiac event. Should be admitted Results - Labs CBC & Chem 7: 01/13/21 Unknown 01/14/21 04:00 Labs: Laboratory Last Values WBC 24.0 K/mm3 (4.5-11.0) H 01/12/21 04:29 RBC 3.78 M/mm3 (3.65-5.03) 01/12/21 04:29 Hgb 10.9 gm/dl (11.8-15.2) L 01/13/21 Unknown Hct 34.5 % (35.5-45.6) L 01/13/21 Unknown MCV 99 fl (84-94) H 01/12/21 04:29 MCH 30 pg (28-32) 01/12/21 04:29 MCHC 31 % (32-34) L 01/12/21 04:29 RDW 17.0 % (13.2-15.2) H 01/12/21 04:29 Plt Count 280 K/mm3 (140-440) 01/13/21 Unknown Lymph % (Auto) 4.1 % (13.4-35.0) L 01/08/21 11:55 [place] % (Auto) 5.2 % (0.0-7.3) 01/08/21 11:55 Eos % (Auto) 0.0 % (0.0-4.3) 01/08/21 11:55 Baso % (Auto) 0.2 % (0.0-1.8) 01/08/21 11:55 Lymph # (Auto) 1.0 K/mm3 (1.2-5.4) L 01/08/21 11:55 [place] # (Auto) 1.2 K/mm3 (0.0-0.8) H 01/08/21 11:55 Eos # (Auto) 0.0 K/mm3 (0.0-0.4) 01/08/21 11:55 Baso # (Auto) 0.1 K/mm3 (0.0-0.1) 01/08/21 11:55 Add Manual Diff Complete 01/08/21 11:55 Seg Neutrophils % 90.5 % (40.0-70.0) H 01/08/21 11:55 Seg Neutrophils # 21.5 K/mm3 (1.8-7.7) H 01/08/21 11:55 PT 15.2 Sec. (12.2-14.9) H 01/11/21 10:05 INR 1.15 (0.87-1.13) H 01/11/21 10:05 APTT 23.3 Sec. (24.2-36.6) L 01/08/21 11:55 D-Dimer 4813.23 ng/mlDDU (0-234) H 01/12/21 08:30 Heparin Anti-Xa Level 1.42 U.I./ml (0.3-0.7) H 01/11/21 18:55 ABG pH 7.305 (7.320-7.450) L 01/14/21 03:15 POC ABG pCO2 37.5 mmHg (32.0-48.0) 01/14/21 03:15 POC ABG pO2 89.8 mmHg (83-108) 01/14/21 03:15 POC ABG HCO3 18.2 01/14/21 03:15 ABG O2 Saturation 96.4 (0-100) 01/14/21 03:15 POC ABG Base Excess -7.4 01/14/21 03:15 ABG Hemoglobin 8.6 (12.0-17.5) L 01/14/21 03:15 ABG Oxyhemoglobin 96.1 (94-98) 01/14/21 03:15 ABG Methemoglobin 0.1 (0.0-1.5) 01/14/21 03:15 ABG Sodium 161.0 mmol/L (136.0-145.0) H 01/14/21 03:15 ABG Potassium 5.6 mmol/L (3.40-4.50) H 01/14/21 03:15 ABG Chloride 131.0 mmol/L (98-107) H 01/14/21 03:15 ABG Glucose 517 mg/dL (65-95) H 01/14/21 03:15 Carboxyhemoglobin 0.2 (0.5-1.5) L 01/14/21 03:15 FiO2 % 75.0 01/14/21 03:15 Sodium 159 mmol/L (137-145) H 01/14/21 04:00 Potassium 4.9 mmol/L (3.6-5.0) 01/14/21 04:00 Chloride 131.7 mmol/L (98-107) H 01/14/21 04:00 Carbon Dioxide 19 mmol/L (22-30) L 01/14/21 04:00 Anion Gap 13 mmol/L 01/14/21 04:00 BUN 110 mg/dL (9-20) H 01/14/21 04:00 Creatinine 2.8 mg/dL (0.8-1.3) H 01/14/21 04:00 Estimated GFR 23 ml/min 01/14/21 04:00 BUN/Creatinine Ratio 39 % 01/14/21 04:00 Glucose 434 mg/dL (75-100) H 01/14/21 04:00 POC Glucose 428 mg/dL (70-105) H 01/14/21 05:02 Lactic Acid 1.50 mmol/L (0.7-2.0) 01/10/21 00:44 Calcium 7.0 mg/dL (8.4-10.2) L D 01/14/21 04:00 Ferritin 379.5 ng/mL (30.0-300.0) H 01/12/21 08:30 Total Bilirubin 0.30 mg/dL (0.1-1.2) 01/11/21 04:50 Direct Bilirubin 0.4 mg/dL (0-0.2) H 01/08/21 11:55 Indirect Bilirubin 0.2 mg/dL 01/08/21 11:55 AST 78 units/L (5-40) H 01/11/21 04:50 ALT 54 units/L (7-56) 01/11/21 04:50 Alkaline Phosphatase 94 units/L (35-129) 01/11/21 04:50 Lactate Dehydrogenase 576 units/L (91-180) H 01/12/21 08:30 Troponin T < 0.010 ng/mL (0.00-0.029) 01/10/21 10:46 C-Reactive Protein 4.50 mg/dL (0.00-1.30) H 01/12/21 08:30 NT-Pro-B Natriuret Pep 1157 pg/mL (0-900) H 01/08/21 11:55 Total Protein 6.3 g/dL (6.3-8.2) 01/11/21 04:50 Albumin 2.7 g/dL (3.9-5) L 01/11/21 04:50 Albumin/Globulin Ratio 0.8 % 01/11/21 04:50 Triglycerides 394 mg/dL (2-149) H 01/11/21 04:50 Cholesterol 63 mg/dL (50-199) 01/08/21 11:55 LDL Cholesterol Direct 28 mg/dL (50-130) L 01/08/21 11:55 HDL Cholesterol 24 mg/dL (40-59) L 01/08/21 11:55 Cholesterol/HDL Ratio 2.62 % 01/08/21 11:55 Procalcitonin 24.79 ng/mL (<0.15) 01/08/21 14:36 Arterial Blood Glucose 517 mg/dL (65-95) H 01/14/21 03:15 Arterial Blood Ionized Calcium 4.9 mg/dL (4.6-5.3) 01/14/21 03:15 Urine Color Red (Yellow) 01/08/21 Unknown Urine Turbidity Turbid (Clear) 01/08/21 Unknown Urine pH 7.0 (5.0-7.0) 01/08/21 Unknown Ur Specific [place] 1.013 (1.003-1.030) 01/08/21 Unknown Urine Protein 100 mg/dl mg/dL (Negative) 01/08/21 Unknown Urine Glucose (UA) Neg mg/dL (Negative) 01/08/21 Unknown Urine Ketones Neg mg/dL (Negative) 01/08/21 Unknown Urine Blood Lg (Negative) 01/08/21 Unknown Urine Nitrite Neg (Negative) 01/08/21 Unknown Urine Bilirubin Neg (Negative) 01/08/21 Unknown Urine Urobilinogen < 2.0 mg/dL (<2.0) 01/08/21 Unknown Ur Leukocyte Esterase Mod (Negative) 01/08/21 Unknown Urine WBC (Auto) > 182.0 /HPF (0.0-6.0) H 01/08/21 Unknown Urine RBC (Auto) > 182.0 /HPF (0.0-6.0) 01/08/21 Unknown Urine Bacteria (Auto) 3+ /HPF (Negative) 01/08/21 Unknown Urine WBC Clumps 3+ /HPF 01/08/21 Unknown Urine Yeast (Budding) 3+ /HPF 01/08/21 Unknown Random Vancomycin 13.4 ug/mL (0-40.0) 01/13/21 Unknown Coronavirus (PCR) Positive (Negative) A 01/08/21 Unknown Microbiology: Microbiology 01/12/21 Unknown Foot - Left Surgical Culture - Preliminary 01/08/21 11:55 Peripheral/Venous Blood Culture - Preliminary Methicillin Resist S. Aureus 01/08/21 Unknown Sputum - Endotracheal Wash Sputum Culture - Final Methicillin Resist S. Aureus 01/11/21 16:28 Peripheral/Venous Blood Culture - Preliminary Coag Negative Staphylococcus 01/11/21 16:28 Peripheral/Venous Blood Culture - Preliminary Coag Negative Staphylococcus Cleaning/IV: Voiding Method Indwelling Catheter Active Medications - Current Medications Current Medications: Generic Name Dose Route Start Last Admin Trade Name Freq PRN Reason Stop Dose Admin Acetaminophen 650 mg 01/10/21 08:18 01/13/21 16:54 Acetaminophen 325 Mg/10.15 Ml Oral Liqd Unit Dose FEEDTUBE 650 mg Q6H PRN Administration TEMP >/=100.4 Albuterol 2.5 mg 01/08/21 20:23 Albuterol 2.5 Mg/3 Ml Nebu IH Q3HRT PRN Shortness Of Breath Albuterol/Ipratropium 1 ampul 01/08/21 20:00 01/13/21 20:20 Ipratropium/Albuterol Sulfate 3 Ml Ampul.Neb IH Not Given QIDRT MARBELLA Lipase/Protease/Amylase 1 each 01/10/21 17:40 Lipase 10,500/Protease 25,000/Amylase 43,750 (Units) Dr Cap FEEDTUBE PRN PRN For Clogged Feeding Tube Dexamethasone 6 mg 01/10/21 10:00 01/13/21 09:39 Dexamethasone 4 Mg/Ml Vial IV 01/19/21 10:01 6 mg Q24HR MARBELLA Administration Famotidine 20 mg 01/11/21 10:00 01/13/21 21:44 Famotidine 20 Mg Tab PO 20 mg BID MARBELLA Administration Fentanyl 50 mcg 01/12/21 18:13 Fentanyl 100 Mcg/2 Ml Inj IV Q10MIN PRN ANALGESIA Heparin Sodium (Porcine) 5,000 unit 01/12/21 12:00 Heparin 10,000 Units/10 Ml Vial IV Q6H PRN Anti-Xa Assay < 0.1 units/ml Hydrophilic Ointment 1 applic 01/08/21 16:00 Lip Therapy Vaseline TP Q2HR PRN Dry Lips Propofol 1,000 mg in 100 mls @ 4.082 mls/hr 01/08/21 16:00 01/14/21 02:25 Diprivan 10 Mg/Ml IV 10 mcg/kg/min TITR MARBELLA 8.165 mls/hr Administration Protocol 5 MCG/KG/MIN Norepinephrine 4 mg in 250 mls @ 75 mls/hr 01/08/21 11:28 01/14/21 00:44 Levophed Drip 4 Mg/Ns 250 Ml IV 8 mcg/min TITR MARBELLA 30 mls/hr Titration Protocol 20 MCG/MIN Heparin Sodium/Sodium Chloride 25,000 unit in 500 mls @ 30 mls/hr 01/11/21 10:00 01/11/21 21:27 Heparin/ 0.45% Nacl-25,000 Unit/500 Ml IV 0 units/hr TITR MARBELLA 0 mls/hr Titration Protocol 1,500 UNITS/HR Vasopressin 20 unit/ Sodium 101 mls @ 9.09 mls/hr 01/12/21 14:00 01/14/21 00:33 Chloride IV 0.03 units/min TITR MARBELLA 9.09 mls/hr Administration Protocol 0.03 UNITS/MIN Fentanyl Citrate 2,000 mcg in 100 mls @ 6.804 mls/hr 01/12/21 19:00 01/14/21 07:04 Fentanyl Drip Premix IV 2 mcg/kg/hr TITR MARBELLA 13.608 mls/hr Administration Protocol 1 MCG/KG/HR Insulin Glargine 20 units 01/14/21 10:00 Insulin Glargine 100 Units/Ml SUB-Q DAILY [facility] Insulin Human Lispro 0 unit 01/09/21 12:00 01/14/21 06:55 Insulin Lispro 100 Unit/Ml SUB-Q 10 unit Q6HR MARBELLA Administration Protocol Multi-Ingred Cream/Lotion/Oil/Oint 1 applic 01/08/21 18:00 Mineral Oil/Petrolatum, White Ophth Oint 3.5 Gm OU Q4HR PRN Dry Eye(s) Senna/Docusate Sodium 1 tab 01/08/21 22:00 01/13/21 21:44 Sennosides/Docusate Sodium 8.6/50 Mg Tab FEEDTUBE 1 tab BID MARBELLA Administration Simple Syrup 15 ml 01/10/21 17:40 Simple Syrup 15 Ml FEEDTUBE PRN PRN Hypoglycemia Simple Syrup 30 ml 01/10/21 17:40 Simple Syrup 15 Ml FEEDTUBE PRN PRN Hypoglycemia Sodium Bicarbonate 325 mg 01/10/21 17:40 Sodium Bicarbonate 325 Mg Tab FEEDTUBE PRN PRN For Clogged Feeding Tube Sodium Chloride 5 ml 01/08/21 15:18 Sodium Chloride 0.9% 500 Ml Ivpb IV DIRECT PRN [employer]NER Sodium Hypochlorite 1 applic 01/12/21 17:00 Sodium Hypochlorite, [place]'s Full Strength (0.5%) 473 Ml Topical Soln TP Q12H PRN Wound Care Nutrition/Malnutrition Assess - Dietary Evaluation Nutrition/Malnutrition Findings: Nutrition Notes Start: 01/09/21 15:14 Freq: Status: Active Protocol: Document 01/11/21 13:47 (Rec: 01/11/21 14:02 [id number]) Nutrition Notes Initial or Follow up Reassessment Current Diagnosis Acute Kidney Injury,CKD(stage I-IV),Diabetes,Heart Failure, Hyperlipidemia Other Pertinent Diagnosis Cardiac arrest, Bilat pneu, r/ o COVID-19 (+), UTI, Sleep apnea Current Diet Vital HP at 75 ml/hr Labs/Tests Na 158 BUN 72 Cr 2.1 BG 371 K 5 (WNL) Pertinent Medications Propofol at 4.082 ml/hr Height 5 ft 11 in Weight 136.078 kg [place] Body Weight (kg) 78.18 BMI 41.8 Weight Status Morbidly Obese Subjective/Other Information No indication for HD at this time however, pt with increasing K. Will change TF. Burn Absent Trauma Absent Current % PO Negligible Minimum of two criteria No #1 Nutrition Diagnosis Inadequate oral intake Diagnosis Progress(for reassessment Continues documentation) Is patient on ventilator? Yes Is Patient Ambulatory and/or Out of Bed No REE-([place] [facility]-confined to bed) 2623.800 Kcal/Kg value to use for calculation 14 Approximate Energy Requirements Using 1905 kcal/Kg Calculation Used for Recommendations Kcal/kg Additional Notes Pro needs 2.5g/kg IBW: up to 195g/day Fluid needs 1ml/kcal Nutrition Intervention Change Diet Order: Change TF Nutrition Support: Nepro 1.8 at 40 ml/hr Flush 175 ml q4h or per MD Kcal 1,728 Protein (gm) 78 Fluid (mL) 698 Goal #1 Meet at least 75% of energy and protein needs as best as possible via TF Anticipated Discharge Needs: Unable to identify at this time Follow-Up By: 01/15/21 Additional Comments F/U: new TF, vent status, propofol
--- NOTE | 2021-01-14 09:54 | XRay Report ---
CHEST 1 VIEW 01/14/2021 8:13 AM INDICATION / CLINICAL INFORMATION: follow up respiratory failure. COMPARISON: Previous day. FINDINGS: SUPPORT DEVICES: Unchanged. HEART / MEDIASTINUM: Stable cardiomegaly. LUNGS / PLEURA: Persistent opacity at the mid/lower zones right greater than left with mild worsening . No pneumothorax. ADDITIONAL FINDINGS: No significant additional findings. IMPRESSION: Mild worsening pneumonia. Signer Name: Redd Johnson MD Signed: 01/14/2021 9:49 AM Workstation Name: [id number]
[2021-01-14] MEDS ORDERED: INSULIN GLARGINE 100 UNITS/ML SUB-Q SCH (10:00)
--- NOTE | 2021-01-14 10:01 | Progress Note ---
Assessment and Plan - Patient Problems (1) Acute renal failure Current Visit: Yes Status: Acute Plan to address problem: overall renal function is stable this morning and he remains nonoliguric. We will continue to closely monitor. No acute indications for renal replacement therapy at present time. Cont supportive care for ATN, avoid further nephro toxins, NSAIDs, IV contrast Renal US did not show any acute abnormalities but likely does have evidence of underlying chronic kidney disease. Lasix was given for volume control and Kaliuretic effect. will monitor BMP and make further recommendations. (2) Hypernatremia Current Visit: Yes Status: Acute Plan to address problem: worsening hypernatremia noted, start 1/2 NS at 75ml/hr, cont free water flushes 300ml q4hr, (3) Cardiac arrest Current Visit: Yes Status: Acute Plan to address problem: Management and further recommendation per cardiology. (4) Elevated d-dimer Current Visit: Yes Status: Acute Plan to address problem: Likely in the setting of pneumonia. His CTA chest did not show any evidence of PE. He is COVID-19 (+). (5) Bilateral pneumonia Current Visit: Yes Status: Acute Plan to address problem: Please titrate antibiotics accordingly based on diminished renal function. (6) Diabetes mellitus type 2 in obese Current Visit: Yes Status: Chronic Plan to address problem: DM management per primary attending. (7) Pneumonia due to COVID-19 virus Current Visit: Yes Status: Acute Plan to address problem: Treatment per primary team/ID recommendations. (8) Gram-positive bacteremia Current Visit: Yes Status: Acute Plan to address problem: on vancomycin and cefepime. Cultures are indicating MRSA. ID recommendations appreciated. Subjective Date of service: 01/14/21 Principal diagnosis: Cardiac Arrest; Hypoxemic Resp Failure; Septic Shock; PNA; SHERICE; PUI COVID Interval history: Events overnight reviewed. Hyperkalemia resolved, persistent hypernatremia despite receiving free water flushes. Chest Xray reviewed, with persistent b/l opacities. Remains intubated. Objective - Exam Narrative Exam: Patient not directly examined in order to preserve PPE and reduce transmission risk of COVID-19. Physical examination by primary team reviewed. - Vital Signs Vital signs: Vital Signs - 12hr 01/13/21 01/13/21 01/13/21 22:01 22:15 22:30 Temperature Pulse Rate 97 H 90 93 H Pulse Rate [ From Monitor] Respiratory 30 H 30 H 30 H Rate Blood Pressure 131/54 130/62 130/62 O2 Sat by Pulse 94 95 95 Oximetry 01/13/21 01/13/21 01/13/21 22:45 23:00 23:15 Temperature Pulse Rate 90 86 86 Pulse Rate [ From Monitor] Respiratory 30 H 30 H 30 H Rate Blood Pressure 137/70 132/65 131/67 O2 Sat by Pulse 94 93 93 Oximetry 01/13/21 01/13/21 01/14/21 23:30 23:45 00:00 Temperature 100.2 F H Pulse Rate 84 105 H 92 H Pulse Rate [ 91 H From Monitor] Respiratory 30 H 30 H 24 Rate Blood Pressure 128/67 142/75 132/72 O2 Sat by Pulse 93 97 96 Oximetry 01/14/21 01/14/21 01/14/21 00:15 00:30 00:45 Temperature Pulse Rate 90 85 85 Pulse Rate [ From Monitor] Respiratory 30 H 30 H 30 H Rate Blood Pressure 138/70 128/65 126/64 O2 Sat by Pulse 94 93 93 Oximetry 01/14/21 01/14/21 01/14/21 01:00 01:15 01:30 Temperature Pulse Rate 90 86 90 Pulse Rate [ From Monitor] Respiratory 30 H 30 H 17 Rate Blood Pressure 128/66 124/65 124/68 O2 Sat by Pulse 94 93 95 Oximetry 01/14/21 01/14/21 01/14/21 01:45 02:00 02:15 Temperature Pulse Rate 88 85 89 Pulse Rate [ From Monitor] Respiratory 30 H 30 H 30 H Rate Blood Pressure 129/65 129/64 131/66 O2 Sat by Pulse 94 94 94 Oximetry 01/14/21 01/14/21 01/14/21 02:30 02:45 03:00 Temperature Pulse Rate 85 93 H 91 H Pulse Rate [ From Monitor] Respiratory 30 H 18 30 H Rate Blood Pressure 126/61 116/63 116/63 O2 Sat by Pulse 94 94 94 Oximetry 01/14/21 01/14/21 01/14/21 03:15 03:30 03:45 Temperature Pulse Rate 86 85 99 H Pulse Rate [ From Monitor] Respiratory 30 H 30 H 30 H Rate Blood Pressure 125/63 126/64 129/68 O2 Sat by Pulse 94 95 95 Oximetry 01/14/21 01/14/2101/14/21 04:00 04:15 04:30 Temperature 99.5 F Pulse Rate 89 87 91 H Pulse Rate [ 89 From Monitor] Respiratory 30 H 30 H 30 H Rate Blood Pressure 124/61 124/62 114/69 O2 Sat by Pulse 92 94 94 Oximetry 01/14/21 01/14/21 01/14/21 04:45 05:00 05:15 Temperature Pulse Rate 86 86 84 Pulse Rate [ From Monitor] Respiratory 30 H 30 H 30 H Rate Blood Pressure 128/68 124/67 123/61 O2 Sat by Pulse 94 94 93 Oximetry 01/14/21 01/14/21 01/14/21 05:30 05:45 06:00 Temperature Pulse Rate 95 H 95 H 89 Pulse Rate [ From Monitor] Respiratory 30 H 30 H 30 H Rate Blood Pressure 132/70 131/65 125/64 O2 Sat by Pulse 95 94 93 Oximetry 01/14/21 01/14/21 01/14/21 06:15 06:30 06:45 Temperature Pulse Rate 87 91 H 88 Pulse Rate [ From Monitor] Respiratory 30 H 30 H 30 H Rate Blood Pressure 125/62 128/70 126/65 O2 Sat by Pulse 94 95 94 Oximetry 01/14/21 01/14/21 01/14/21 07:00 07:16 07:30 Temperature Pulse Rate 88 100 H 103 H Pulse Rate [ From Monitor] Respiratory 30 H 8 L 21 Rate Blood Pressure 126/64 125/72 123/70 O2 Sat by Pulse 94 96 Oximetry 01/14/21 07:37 Temperature 98.4 F Pulse Rate Pulse Rate [ From Monitor] Respiratory Rate Blood Pressure O2 Sat by Pulse Oximetry - Lab 01/13/21 Unknown 01/14/21 04:00 Most recent lab results ABG pH 7.305 (7.320-7.450) L 01/14/21 03:15 ABG O2 Saturation 96.4 (0-100) 01/14/21 03:15 Calcium 7.0 mg/dL (8.4-10.2) L D 01/14/21 04:00 Medications & Allergies - Medications Allergies/Adverse Reactions: Allergies No Known Allergies Allergy (Verified 01/09/21 10:10) Home Medications: Home Medications Medication Instructions Recorded Confirmed Last Taken Type Unobtainable 01/10/21 01/10/21 Unknown History Active Medications: Generic Name Dose Route Start Last Admin Trade Name Freq PRN Reason Stop Dose Admin Acetaminophen 650 mg 01/10/21 08:18 01/13/21 16:54 Acetaminophen 325 Mg/10.15 Ml Oral Liqd Unit Dose FEEDTUBE 650 mg Q6H PRN Administration TEMP >/=100.4 Albuterol 2.5 mg 01/08/21 20:23 Albuterol 2.5 Mg/3 Ml Nebu IH Q3HRT PRN Shortness Of Breath Albuterol/Ipratropium 1 ampul 01/08/21 20:00 01/13/21 20:20 Ipratropium/Albuterol Sulfate 3 Ml Ampul.Neb IH Not Given QIDRT MARBELLA Lipase/Protease/Amylase 1 each 01/10/21 17:40 Lipase 10,500/Protease 25,000/Amylase 43,750 (Units) Dr Cap FEEDTUBE PRN PRN For Clogged Feeding Tube Dexamethasone 6 mg 01/10/21 10:00 01/13/21 09:39 Dexamethasone 4 Mg/Ml Vial IV 01/19/21 10:01 6 mg Q24HR MARBELLA Administration Famotidine 20 mg 01/11/21 10:00 01/13/21 21:44 Famotidine 20 Mg Tab PO 20 mg BID MARBELLA Administration Fentanyl 50 mcg 01/12/21 18:13 Fentanyl 100 Mcg/2 Ml Inj IV Q10MIN PRN ANALGESIA Heparin Sodium (Porcine) 5,000 unit 01/12/21 12:00 Heparin 10,000 Units/10 Ml Vial IV Q6H PRN Anti-Xa Assay < 0.1 units/ml Hydrophilic Ointment 1 applic 01/08/21 16:00 Lip Therapy Vaseline TP Q2HR PRN Dry Lips Propofol 1,000 mg in 100 mls @ 4.082 mls/hr 01/08/21 16:00 01/14/21 02:25 Diprivan 10 Mg/Ml IV 10 mcg/kg/min TITR MARBELLA 8.165 mls/hr Administration Protocol 5 MCG/KG/MIN Norepinephrine 4 mg in 250 mls @ 75 mls/hr 01/08/21 11:28 01/14/21 00:44 Levophed Drip 4 Mg/Ns 250 Ml IV 8 mcg/min TITR MARBELLA 30 mls/hr Titration Protocol 20 MCG/MIN Heparin Sodium/Sodium Chloride 25,000 unit in 500 mls @ 30 mls/hr 01/11/21 10:00 01/11/21 21:27 Heparin/ 0.45% Nacl-25,000 Unit/500 Ml IV 0 units/hr TITR AMRBELLA 0 mls/hr Titration Protocol 1,500 UNITS/HR Vasopressin 20 unit/ Sodium 101 mls @ 9.09 mls/hr 01/12/21 14:00 01/14/21 00:33 Chloride IV 0.03 units/min TITR MARBELLA 9.09 mls/hr Administration Protocol 0.03 UNITS/MIN Fentanyl Citrate 2,000 mcg in 100 mls @ 6.804 mls/hr 01/12/21 19:00 01/14/21 07:04 Fentanyl Drip Premix IV 2 mcg/kg/hr TITR MARBELLA 13.608 mls/hr Administration Protocol 1 MCG/KG/HR Sodium Chloride 1,000 mls @ 75 mls/hr 01/14/21 09:00 Nacl 0.45% 1000 Ml IV DIRECT MARBELLA Insulin Glargine 20 units 01/14/21 10:00 Insulin Glargine 100 Units/Ml SUB-Q BID MARBELLA Insulin Human Lispro 0 unit 01/09/21 12:00 01/14/21 06:55 Insulin Lispro 100 Unit/Ml SUB-Q 10 unit Q6HR MARBELLA Administration Protocol Multi-Ingred Cream/Lotion/Oil/Oint 1 applic 01/08/21 18:00 Mineral Oil/Petrolatum, White Ophth Oint 3.5 Gm OU Q4HR PRN Dry Eye(s) Senna/Docusate Sodium 1 tab 01/08/21 22:00 01/13/21 21:44 Sennosides/Docusate Sodium 8.6/50 Mg Tab FEEDTUBE 1 tab BID MARBELLA Administration Simple Syrup 15 ml 01/10/21 17:40 Simple Syrup 15 Ml FEEDTUBE PRN PRN Hypoglycemia Simple Syrup 30 ml 01/10/21 17:40 Simple Syrup 15 Ml FEEDTUBE PRN PRN Hypoglycemia Sodium Bicarbonate 325 mg 01/10/21 17:40 Sodium Bicarbonate 325 Mg Tab FEEDTUBE PRN PRN For Clogged Feeding Tube Sodium Chloride 5 ml 01/08/21 15:18 Sodium Chloride 0.9% 500 Ml Ivpb IV DIRECT PRN [employer] Sodium Hypochlorite 1 applic 01/12/21 17:00 Sodium Hypochlorite, Dakin's Full Strength (0.5%) 473 Ml Topical Soln TP Q12H PRN Wound Care
[2021-01-14] MEDS: INSULIN GLARGINE 100 UNITS/ML SUB-Q SCH ×2 (10:14→22:06)
[2021-01-14] MEDS: dexAMETHasone 4 MG/ML VIAL IV SCH (10:14)
[2021-01-14] MEDS: FAMOTIDINE 20 MG TAB PO SCH (10:16)
[2021-01-14] MEDS: SODIUM CHLORIDE 0.45% 1000 ML 1,000 ML IV SCH ×2 (10:19→22:06)
[2021-01-14 10:42] LABS: C-Reactive Protein 13.9 mg/dL (0.00-1.30)
--- NOTE | 2021-01-14 11:56 | Progress Note ---
Assessment and Plan Assessment and Plan Assessment and plan: - Patient Problems # Post Cardiac arrest -S/p cardiac arrest -Revived -Hypotensive -On Levophed at 10 mics -Possible septic shock with hypotension -Vent support and IV antibiotics - EEG is remarkable for diffuse slowing low voltage no seizure - Brain MRI when stable -Hold Sedation as possible # Acute respiratory failure with hypoxia and hypercapnia -Patient on vent -Patient has history of COPD -IV Solu-Medrol -Vent support #COVID-19 positive -Coronavirus PCR is positive -Possible Covid pneumonia -See CTA lung # Septic shock -Patient on IV antibiotics and Levophed -Patient has bilateral pneumonia -Patient initiated on cefepime and vancomycin # Bilateral pneumonia -Differential diagnosis of community-acquired pneumonia/aspiration pneumonia/Covid pneumonia -IV antibiotics and IV steroids for now -ID consult requested # Urinary tract infection -Patient is on cefepime and vancomycin for the pneumonia -Wait for urine cultures -Creat#2.1 -Hypernatremia with NA#155 # Acute kidney injury superimposed on CKD -Gentle IV hydration for now -Creat#2.3--2.8 # Congestive heart failure -Echocardiogram Ef#50-55% -BNP is elevated at 1157 # Transaminitis -Possible secondary to sepsis -Check to get hepatitis panel # Elevated troponin -Secondary to cardiac arrest and possible troponin leak - CK and CK-MB noted # Malnutrition -Albumin is 2.7 -Dietary supplements once extubated # DVT prophylaxis -On heparin SC. GI prophylaxis Critical care statement The high probability OF a clinically significant sudden or life-threatening deterioration of the cardiorespiratory system and endocrine system required my full and direct attention, intervention and postoperative management. The aggregate critical care time was 40 minutes. The time is in addition to time spent performing reported procedures but includes the followin: Data review and interpretation 2: Patient assessment and monitoring of vital signs 3: Documentation 4:: Medication orders and management Advance Directives: Yes (Full code) VTE prophylaxis?: Chemical Plan of care discussed with patient/family: No PLAN 1= EEG noted 2- Hold sedation if possible 3- MRI brain when stable 4- Treat underlying infection 5- Correct electrolytes 6- Over all prognosis is quarded to poor will follow as needed Subjective Date of service: 01/14/21 Principal diagnosis: Cardiac Arrest; Hypoxemic Resp Failure; Septic Shock; PNA; SHERICE; PUI COVID Interval history: status same , only on 10 mc propfol and 2mc Fentanyl no response to command inflammatory marker are elevated not stable to have MRI Had left foot surgery Objective - Vital Sign Vital Signs - 12hr 01/14/21 01/14/21 01/14/21 00:00 00:15 00:30 Temperature 100.2 F H Pulse Rate 92 H 90 85 Pulse Rate [ Bilateral Throughout] Pulse Rate [ 91 H From Monitor] Respiratory 24 30 H 30 H Rate Respiratory Rate [Bilateral Throughout] Blood Pressure 132/72 138/70 128/65 O2 Sat by Pulse 96 94 93 Oximetry 01/14/21 01/14/21 01/14/21 00:45 01:00 01:15 Temperature Pulse Rate 85 90 86 Pulse Rate [ Bilateral Throughout] Pulse Rate [ From Monitor] Respiratory 30 H 30 H 30 H Rate Respiratory Rate [Bilateral Throughout] Blood Pressure 126/64 128/66 124/65 O2 Sat by Pulse 93 94 93 Oximetry 01/14/21 01/14/21 01/14/21 01:30 01:45 02:00 Temperature Pulse Rate 90 88 85 Pulse Rate [ Bilateral Throughout] Pulse Rate [ From Monitor] Respiratory 17 30 H 30 H Rate Respiratory Rate [Bilateral Throughout] Blood Pressure 124/68 129/65 129/64 O2 Sat by Pulse 95 94 94 Oximetry 01/14/21 01/14/21 01/14/21 02:15 02:30 02:45 Temperature Pulse Rate 89 85 93 H Pulse Rate [ Bilateral Throughout] Pulse Rate [ From Monitor] Respiratory 30 H 30 H 18 Rate Respiratory Rate [Bilateral Throughout] Blood Pressure 131/66 126/61 116/63 O2 Sat by Pulse 94 94 94 Oximetry 01/14/21 01/14/21 01/14/21 03:00 03:15 03:30 Temperature Pulse Rate 91 H 86 85 Pulse Rate [ Bilateral Throughout] Pulse Rate [ From Monitor] Respiratory 30 H 30 H 30 H Rate Respiratory Rate [Bilateral Throughout] Blood Pressure 116/63 125/63 126/64 O2 Sat by Pulse 94 94 95 Oximetry 01/14/21 01/14/21 01/14/21 03:45 04:00 04:15 Temperature 99.5 F Pulse Rate 99 H 89 87 Pulse Rate [ Bilateral Throughout] Pulse Rate [ 89 From Monitor] Respiratory 30 H 30 H 30 H Rate Respiratory Rate [Bilateral Throughout] Blood Pressure 129/68 124/61 124/62 O2 Sat by Pulse 95 92 94 Oximetry 01/14/21 01/14/21 01/14/21 04:30 04:45 05:00 Temperature Pulse Rate 91 H 86 86 Pulse Rate [ Bilateral Throughout] Pulse Rate [ From Monitor] Respiratory 30 H 30 H 30 H Rate Respiratory Rate [Bilateral Throughout] Blood Pressure 114/69 128/68 124/67 O2 Sat by Pulse 94 94 94 Oximetry 01/14/21 01/14/21 01/14/21 05:15 05:30 05:45 Temperature Pulse Rate 84 95 H 95 H Pulse Rate [ Bilateral Throughout] Pulse Rate [ From Monitor] Respiratory 30 H 30 H 30 H Rate Respiratory Rate [Bilateral Throughout] Blood Pressure 123/61 132/70 131/65 O2 Sat by Pulse 93 95 94 Oximetry 01/14/21 01/14/21 01/14/21 06:00 06:15 06:30 Temperature Pulse Rate 89 87 91 H Pulse Rate [ Bilateral Throughout] Pulse Rate [ From Monitor] Respiratory 30 H 30 H 30 H Rate Respiratory Rate [Bilateral Throughout] Blood Pressure 125/64 125/62 128/70 O2 Sat by Pulse 93 94 95 Oximetry 01/14/21 01/14/21 01/14/21 06:45 07:00 07:16 Temperature Pulse Rate 88 88 100 H Pulse Rate [ Bilateral Throughout] Pulse Rate [ From Monitor] Respiratory 30 H 30 H 8 L Rate Respiratory Rate [Bilateral Throughout] Blood Pressure 126/65 126/64 125/72 O2 Sat by Pulse 94 94 Oximetry 01/14/21 01/14/21 01/14/21 07:30 07:37 07:45 Temperature 98.4 F Pulse Rate 103 H 93 H Pulse Rate [ Bilateral Throughout] Pulse Rate [ From Monitor] Respiratory 21 30 H Rate Respiratory Rate [Bilateral Throughout] Blood Pressure 123/70 125/66 O2 Sat by Pulse 96 94 Oximetry 01/14/21 01/14/21 01/14/21 08:00 08:15 08:21 Temperature Pulse Rate 100 H 93 H 97 H Pulse Rate [ 90 Bilateral Throughout] Pulse Rate [ From Monitor] Respiratory 30 H 30 H Rate Respiratory 30 H Rate [Bilateral Throughout] Blood Pressure 138/72 120/63 105/55 O2 Sat by Pulse 96 95 94 Oximetry 01/14/21 01/14/21 01/14/21 08:30 08:45 09:00 Temperature Pulse Rate 89 89 90 Pulse Rate [ Bilateral Throughout] Pulse Rate [ From Monitor] Respiratory 30 H 30 H 30 H Rate Respiratory Rate [Bilateral Throughout] Blood Pressure 123/66 117/64 115/61 O2 Sat by Pulse 94 94 92 Oximetry 01/14/21 01/14/21 01/14/21 09:15 09:30 09:45 Temperature Pulse Rate 90 97 H 95 H Pulse Rate [ Bilateral Throughout] Pulse Rate [ From Monitor] Respiratory 30 H 30 H 23 Rate Respiratory Rate [Bilateral Throughout] Blood Pressure 115/60 117/58 121/61 O2 Sat by Pulse 92 93 93 Oximetry 01/14/21 01/14/21 01/14/21 10:00 10:15 10:30 Temperature Pulse Rate 95 H 94 H 101 H Pulse Rate [ Bilateral Throughout] Pulse Rate [ From Monitor] Respiratory 30 H 30 H 28 H Rate Respiratory Rate [Bilateral Throughout] Blood Pressure 124/62 115/58 118/60 O2 Sat by Pulse 93 92 93 Oximetry 01/14/21 01/14/21 01/14/21 10:45 11:00 11:15 Temperature Pulse Rate 95 H 94 H 94 H Pulse Rate [ Bilateral Throughout] Pulse Rate [ From Monitor] Respiratory 30 H 30 H 30 H Rate Respiratory Rate [Bilateral Throughout] Blood Pressure 102/54 105/55 109/56 O2 Sat by Pulse 90 92 92 Oximetry 01/14/21 01/14/21 11:30 11:47 Temperature 100.7 F H Pulse Rate 88 Pulse Rate [ Bilateral Throughout] Pulse Rate [ From Monitor] Respiratory 30 H Rate Respiratory Rate [Bilateral Throughout] Blood Pressure 99/56 O2 Sat by Pulse 90 Oximetry - General Apperance Constitutional: comfortable - EENT EENT: PERRL, mucous membranes moist - Respiratory Respiratory: chest non-tender, lungs clear, rhonchi - Cardiovascular Cardiovascular: regular rate, normal S1, normal S2 Extremities: no peripheral edema bilat, no clubbing, cyanosis - Gastrointestinal Gastrointestinal: normoactive bowel sounds - Integumentary Integumentary: normal - Neurologic Cranial nerve examination: other (pupil constriced none reactive , No corneal , no EOM .No gag) - Laboratory Findings CBC and BMP: 01/13/21 Unknown 01/14/21 04:00 Abnormal Lab Findings: Abnormal Labs 01/08/21 01/08/21 01/08/21 11:01 11:55 11:55 WBC 23.8 H RBC 3.35 L Hgb 10.5 L Hct 31.6 L MCV MCHC RDW 15.6 H Lymph % (Auto) 4.1 L Lymph # (Auto) 1.0 L [place] # (Auto) 1.2 H Seg Neutrophils % 90.5 H Seg Neutrophils # 21.5 H PT INR APTT D-Dimer Heparin Anti-Xa Level ABG pH 7.204 L POC ABG pCO2 50.7 H POC ABG pO2 ABG Hemoglobin 11.9 L ABG Oxyhemoglobin ABG Sodium ABG Potassium 5.0 H ABG Chloride 110.0 H ABG Glucose 313 H Carboxyhemoglobin 0.1 L Sodium Potassium Chloride Carbon Dioxide BUN Creatinine Glucose POC Glucose Hemoglobin A1c Lactic Acid 4.50 H* Calcium Ferritin Direct Bilirubin AST ALT Lactate Dehydrogenase Troponin T C-Reactive Protein NT-Pro-B Natriuret Pep Total Protein Albumin Triglycerides LDL Cholesterol Direct HDL Cholesterol Arterial Blood Glucose 313 H Urine WBC (Auto) Coronavirus (PCR) 01/08/21 01/08/21 01/08/21 11:55 11:55 13:42 WBC RBC Hgb Hct MCV MCHC RDW Lymph % (Auto) Lymph # (Auto) [place] # (Auto) Seg Neutrophils % Seg Neutrophils # PT INR APTT 23.3 L D-Dimer Heparin Anti-Xa Level ABG pH POC ABG pCO2 POC ABG pO2 ABG Hemoglobin ABG Oxyhemoglobin ABG Sodium ABG Potassium ABG Chloride ABG Glucose Carboxyhemoglobin Sodium Potassium 5.3 H Chloride 107.2 H Carbon Dioxide 21 L BUN 55 H Creatinine 3.9 H Glucose 274 H POC Glucose Hemoglobin A1c Lactic Acid 2.90 H* Calcium 7.9 L Ferritin Direct Bilirubin 0.4 H AST 130 H ALT 70 H Lactate Dehydrogenase Troponin T 0.038 H C-Reactive Protein NT-Pro-B Natriuret Pep 1157 H Total Protein 6.0 L Albumin 2.6 L Triglycerides LDL Cholesterol Direct 28 L HDL Cholesterol 24 L Arterial Blood Glucose Urine WBC (Auto) Coronavirus (PCR) 01/08/21 01/08/21 01/08/21 14:36 14:36 14:36 WBC RBC Hgb Hct MCV MCHC RDW Lymph % (Auto) Lymph # (Auto) [place] # (Auto) Seg Neutrophils % Seg Neutrophils # PT INR APTT D-Dimer 7104.83 H Heparin Anti-Xa Level ABG pH POC ABG pCO2 POC ABG pO2 ABG Hemoglobin ABG Oxyhemoglobin ABG Sodium ABG Potassium ABG Chloride ABG Glucose Carboxyhemoglobin Sodium Potassium Chloride Carbon Dioxide BUN Creatinine Glucose 306 H POC Glucose Hemoglobin A1c Lactic Acid Calcium Ferritin 624.8 H Direct Bilirubin AST ALT Lactate Dehydrogenase 535 H Troponin T C-Reactive Protein 25.40 H NT-Pro-B Natriuret Pep Total Protein Albumin Triglycerides LDL Cholesterol Direct HDL Cholesterol Arterial Blood Glucose Urine WBC (Auto) Coronavirus (PCR) 01/08/21 01/08/21 01/08/21 21:00 Unknown Unknown WBC RBC Hgb Hct MCV MCHC RDW Lymph % (Auto) Lymph # (Auto) [place] # (Auto) Seg Neutrophils % Seg Neutrophils # PT INR APTT D-Dimer Heparin Anti-Xa Level ABG pH POC ABG pCO2 POC ABG pO2 111.6 H ABG Hemoglobin 11.6 L ABG Oxyhemoglobin ABG Sodium ABG Potassium 4.6 H ABG Chloride 112.0 H ABG Glucose 256 H Carboxyhemoglobin 0.3 L Sodium Potassium Chloride Carbon Dioxide BUN Creatinine Glucose POC Glucose Hemoglobin A1c Lactic Acid Calcium Ferritin Direct Bilirubin AST ALT Lactate Dehydrogenase Troponin T C-Reactive Protein NT-Pro-B Natriuret Pep Total Protein Albumin Triglycerides LDL Cholesterol Direct HDL Cholesterol Arterial Blood Glucose 256 H Urine WBC (Auto) > 182.0 H Coronavirus (PCR) Positive A 01/09/21 01/09/21 01/09/21 05:02 05:18 05:18 WBC 19.0 H RBC Hgb 11.7 L Hct MCV 95 H MCHC RDW 16.0 H Lymph % (Auto) Lymph # (Auto) [place] # (Auto) Seg Neutrophils % Seg Neutrophils # PT INR APTT D-Dimer Heparin Anti-Xa Level ABG pH POC ABG pCO2 POC ABG pO2 82.7 L ABG Hemoglobin ABG Oxyhemoglobin ABG Sodium ABG Potassium 4.8 H ABG Chloride 114.0 H ABG Glucose 283 H Carboxyhemoglobin 0.3 L Sodium 146 H Potassium 5.1 H Chloride 112.0 H Carbon Dioxide 20 L BUN 63 H Creatinine 3.0 H Glucose 282 H POC Glucose Hemoglobin A1c Lactic Acid Calcium 8.1 L Ferritin Direct Bilirubin AST ALT Lactate Dehydrogenase Troponin T C-Reactive Protein NT-Pro-B Natriuret Pep Total Protein Albumin Triglycerides LDL Cholesterol Direct HDL Cholesterol Arterial Blood Glucose 283 H Urine WBC (Auto) Coronavirus (PCR) 08/03/21 08/03/21 08/03/21 13:24 20:05 23:24 WBC RBC Hgb Hct MCV MCHC RDW Lymph % (Auto) Lymph # (Auto) [place] # (Auto) Seg Neutrophils % Seg Neutrophils # PT INR APTT D-Dimer Heparin Anti-Xa Level ABG pH POC ABG pCO2 POC ABG pO2 ABG Hemoglobin ABG Oxyhemoglobin ABG Sodium ABG Potassium ABG Chloride ABG Glucose Carboxyhemoglobin Sodium Potassium Chloride Carbon Dioxide BUN Creatinine Glucose POC Glucose 282 H 317 H 325 H Hemoglobin A1c Lactic Acid Calcium Ferritin Direct Bilirubin AST ALT Lactate Dehydrogenase Troponin T C-Reactive Protein NT-Pro-B Natriuret Pep Total Protein Albumin Triglycerides LDL Cholesterol Direct HDL Cholesterol Arterial Blood Glucose Urine WBC (Auto) Coronavirus (PCR) 01/10/21 01/10/21 01/10/21 02:56 05:31 10:46 WBC 22.0 H RBC Hgb 11.2 L Hct 35.0 L MCV MCHC RDW 15.4 H Lymph % (Auto) Lymph # (Auto) [place] # (Auto) Seg Neutrophils % Seg Neutrophils # PT INR APTT D-Dimer Heparin Anti-Xa Level ABG pH POC ABG pCO2 POC ABG pO2 73.8 L ABG Hemoglobin ABG Oxyhemoglobin 93.5 L ABG Sodium 149.1 H ABG Potassium 4.6 H ABG Chloride 119.0 H ABG Glucose 311 H Carboxyhemoglobin 0.4 L Sodium Potassium Chloride Carbon Dioxide BUN Creatinine Glucose POC Glucose 278 H Hemoglobin A1c Lactic Acid Calcium Ferritin Direct Bilirubin AST ALT Lactate Dehydrogenase Troponin T C-Reactive Protein NT-Pro-B Natriuret Pep Total Protein Albumin Triglycerides LDL Cholesterol Direct HDL Cholesterol Arterial Blood Glucose 311 H Urine WBC (Auto) Coronavirus (PCR) 01/10/21 01/10/21 01/10/21 10:46 10:46 10:46 WBC RBC Hgb Hct MCV MCHC RDW Lymph % (Auto) Lymph # (Auto) [place] # (Auto) Seg Neutrophils % Seg Neutrophils # PT INR APTT D-Dimer 5636.29 H Heparin Anti-Xa Level ABG pH POC ABG pCO2 POC ABG pO2 ABG Hemoglobin ABG Oxyhemoglobin ABG Sodium ABG Potassium ABG Chloride ABG Glucose Carboxyhemoglobin Sodium 155 H D Potassium Chloride 121.6 H Carbon Dioxide BUN 65 H Creatinine 2.2 H Glucose 330 H POC Glucose Hemoglobin A1c Lactic Acid Calcium Ferritin 347.2 H Direct Bilirubin AST 104 H ALT 63 H Lactate Dehydrogenase Troponin T C-Reactive Protein NT-Pro-B Natriuret Pep Total Protein Albumin 2.7 L Triglycerides LDL Cholesterol Direct HDL Cholesterol Arterial Blood Glucose Urine WBC (Auto) Coronavirus (PCR) 01/10/21 01/10/21 01/10/21 10:46 11:39 18:06 WBC RBC Hgb Hct MCV MCHC RDW Lymph % (Auto) Lymph # (Auto) [place] # (Auto) Seg Neutrophils % Seg Neutrophils # PT INR APTT D-Dimer Heparin Anti-Xa Level ABG pH POC ABG pCO2 POC ABG pO2 ABG Hemoglobin ABG Oxyhemoglobin ABG Sodium ABG Potassium ABG Chloride ABG Glucose Carboxyhemoglobin Sodium Potassium Chloride Carbon Dioxide BUN Creatinine Glucose POC Glucose 289 H 294 H Hemoglobin A1c Lactic Acid Calcium Ferritin Direct Bilirubin AST ALT Lactate Dehydrogenase 448 H Troponin T C-Reactive Protein 10.50 H NT-Pro-B Natriuret Pep Total Protein Albumin Triglycerides LDL Cholesterol Direct HDL Cholesterol Arterial Blood Glucose Urine WBC (Auto) Coronavirus (PCR) 01/11/21 01/11/21 01/11/21 00:57 03:09 04:50 WBC 23.8 H RBC Hgb 11.2 L Hct MCV 95 H MCHC 31 L RDW 16.5 H Lymph % (Auto) Lymph # (Auto) [place] # (Auto) Seg Neutrophils % Seg Neutrophils # PT INR APTT D-Dimer Heparin Anti-Xa Level ABG pH POC ABG pCO2 POC ABG pO2 ABG Hemoglobin ABG Oxyhemoglobin ABG Sodium 154.3 H ABG Potassium 4.8 H ABG Chloride 124.0 H ABG Glucose 381 H Carboxyhemoglobin Sodium Potassium Chloride Carbon Dioxide BUN Creatinine Glucose POC Glucose 300 H Hemoglobin A1c Lactic Acid Calcium Ferritin Direct Bilirubin AST ALT Lactate Dehydrogenase Troponin T C-Reactive Protein NT-Pro-B Natriuret Pep Total Protein Albumin Triglycerides LDL Cholesterol Direct HDL Cholesterol Arterial Blood Glucose 381 H Urine WBC (Auto) Coronavirus (PCR) 01/11/21 01/11/21 01/11/21 04:50 05:46 10:05 WBC RBC Hgb Hct MCV MCHC RDW Lymph % (Auto) Lymph # (Auto) [place] # (Auto) Seg Neutrophils % Seg Neutrophils # PT 15.2 H INR 1.15 H APTT D-Dimer Heparin Anti-Xa Level ABG pH POC ABG pCO2 POC ABG pO2 ABG Hemoglobin ABG Oxyhemoglobin ABG Sodium ABG Potassium ABG Chloride ABG Glucose Carboxyhemoglobin Sodium 158 H Potassium Chloride 124.1 H Carbon Dioxide BUN 72 H Creatinine 2.1 H Glucose 371 H POC Glucose 384 H Hemoglobin A1c Lactic Acid Calcium Ferritin Direct Bilirubin AST 78 H ALT Lactate Dehydrogenase Troponin T C-Reactive Protein NT-Pro-B Natriuret Pep Total Protein Albumin 2.7 L Triglycerides 394 H LDL Cholesterol Direct HDL Cholesterol Arterial Blood Glucose Urine WBC (Auto) Coronavirus (PCR) 01/11/21 01/11/21 01/11/21 12:04 17:17 18:55 WBC RBC Hgb Hct MCV MCHC RDW Lymph % (Auto) Lymph # (Auto) [place] # (Auto) Seg Neutrophils % Seg Neutrophils # PT INR APTT D-Dimer Heparin Anti-Xa Level 1.42 H ABG pH POC ABG pCO2 POC ABG pO2 ABG Hemoglobin ABG Oxyhemoglobin ABG Sodium ABG Potassium ABG Chloride ABG Glucose Carboxyhemoglobin Sodium Potassium Chloride Carbon Dioxide BUN Creatinine Glucose POC Glucose 351 H 330 H Hemoglobin A1c Lactic Acid Calcium Ferritin Direct Bilirubin AST ALT Lactate Dehydrogenase Troponin T C-Reactive Protein NT-Pro-B Natriuret Pep Total Protein Albumin Triglycerides LDL Cholesterol Direct HDL Cholesterol Arterial Blood Glucose Urine WBC (Auto) Coronavirus (PCR) 01/11/21 01/12/21 01/12/21 23:29 01:46 04:29 WBC 24.0 H RBC Hgb 11.4 L Hct MCV 99 H MCHC 31 L RDW 17.0 H Lymph % (Auto) Lymph # (Auto) [place] # (Auto) Seg Neutrophils % Seg Neutrophils # PT INR APTT D-Dimer Heparin Anti-Xa Level ABG pH 7.308 L POC ABG pCO2 POC ABG pO2 ABG Hemoglobin ABG Oxyhemoglobin ABG Sodium 155.1 H ABG Potassium 5.2 H ABG Chloride 124.0 H ABG Glucose 399 H Carboxyhemoglobin 0.2 L Sodium Potassium Chloride Carbon Dioxide BUN Creatinine Glucose POC Glucose 328 H Hemoglobin A1c Lactic Acid Calcium Ferritin Direct Bilirubin AST ALT Lactate Dehydrogenase Troponin T C-Reactive Protein NT-Pro-B Natriuret Pep Total Protein Albumin Triglycerides LDL Cholesterol Direct HDL Cholesterol Arterial Blood Glucose 399 H Urine WBC (Auto) Coronavirus (PCR) 0801/12/21 01/12/21 04:29 05:24 08:30 WBC RBC Hgb Hct MCV MCHC RDW Lymph % (Auto) Lymph # (Auto) [place] # (Auto) Seg Neutrophils % Seg Neutrophils # PT INR APTT D-Dimer 4813.23 H Heparin Anti-Xa Level ABG pH POC ABG pCO2 POC ABG pO2 ABG Hemoglobin ABG Oxyhemoglobin ABG Sodium ABG Potassium ABG Chloride ABG Glucose Carboxyhemoglobin Sodium 155 H Potassium 5.4 H Chloride 121.2 H Carbon Dioxide BUN 91 H Creatinine 2.3 H Glucose 427 H POC Glucose 394 H Hemoglobin A1c Lactic Acid Calcium Ferritin Direct Bilirubin AST ALT Lactate Dehydrogenase Troponin T C-Reactive Protein NT-Pro-B Natriuret Pep Total Protein Albumin Triglycerides LDL Cholesterol Direct HDL Cholesterol Arterial Blood Glucose Urine WBC (Auto) Coronavirus (PCR) 01/12/21 01/12/21 01/12/21 08:30 08:30 11:32 WBC RBC Hgb Hct MCV MCHC RDW Lymph % (Auto) Lymph # (Auto) [place] # (Auto) Seg Neutrophils % Seg Neutrophils # PT INR APTT D-Dimer Heparin Anti-Xa Level ABG pH POC ABG pCO2 POC ABG pO2 ABG Hemoglobin ABG Oxyhemoglobin ABG Sodium ABG Potassium ABG Chloride ABG Glucose Carboxyhemoglobin Sodium Potassium Chloride Carbon Dioxide BUN Creatinine Glucose POC Glucose 385 H Hemoglobin A1c Lactic Acid Calcium Ferritin 379.5 H Direct Bilirubin AST ALT Lactate Dehydrogenase 576 H Troponin T C-Reactive Protein 4.50 H NT-Pro-B Natriuret Pep Total Protein Albumin Triglycerides LDL Cholesterol Direct HDL Cholesterol Arterial Blood Glucose Urine WBC (Auto) Coronavirus (PCR) 01/12/21 01/12/21 01/13/21 16:48 23:20 03:40 WBC RBC Hgb Hct MCV MCHC RDW Lymph % (Auto) Lymph # (Auto) [place] # (Auto) Seg Neutrophils % Seg Neutrophils # PT INR APTT D-Dimer Heparin Anti-Xa Level ABG pH POC ABG pCO2 POC ABG pO2 66.6 L ABG Hemoglobin ABG Oxyhemoglobin 92.1 L ABG Sodium 158.0 H ABG Potassium 5.0 H ABG Chloride 129.0 H ABG Glucose 266 H Carboxyhemoglobin 0.2 L Sodium Potassium Chloride Carbon Dioxide BUN Creatinine Glucose POC Glucose 313 H 260 H Hemoglobin A1c Lactic Acid Calcium Ferritin Direct Bilirubin AST ALT Lactate Dehydrogenase Troponin T C-Reactive Protein NT-Pro-B Natriuret Pep Total Protein Albumin Triglycerides LDL Cholesterol Direct HDL Cholesterol Arterial Blood Glucose 266 H Urine WBC (Auto) Coronavirus (PCR) 01/13/21 01/13/21 01/13/21 04:53 11:26 14:23 WBC RBC Hgb Hct MCV MCHC RDW Lymph % (Auto) Lymph # (Auto) [place] # (Auto) Seg Neutrophils % Seg Neutrophils # PT INR APTT D-Dimer Heparin Anti-Xa Level ABG pH POC ABG pCO2 POC ABG pO2 ABG Hemoglobin ABG Oxyhemoglobin ABG Sodium ABG Potassium ABG Chloride ABG Glucose Carboxyhemoglobin Sodium 158 H Potassium 5.6 H Chloride 128.9 H Carbon Dioxide 17 L D BUN 119 H Creatinine 3.3 H Glucose 347 H POC Glucose 221 H 235 H Hemoglobin A1c Lactic Acid Calcium 8.3 L Ferritin Direct Bilirubin AST ALT Lactate Dehydrogenase Troponin T C-Reactive Protein NT-Pro-B Natriuret Pep Total Protein Albumin Triglycerides LDL Cholesterol Direct HDL Cholesterol Arterial Blood Glucose Urine WBC (Auto) Coronavirus (PCR) 01/13/21 01/13/21 01/13/21 17:22 23:46 Unknown WBC RBC Hgb 10.9 L Hct 34.5 L MCV MCHC RDW Lymph % (Auto) Lymph # (Auto) [place] # (Auto) Seg Neutrophils % Seg Neutrophils # PT INR APTT D-Dimer Heparin Anti-Xa Level ABG pH POC ABG pCO2 POC ABG pO2 ABG Hemoglobin ABG Oxyhemoglobin ABG Sodium ABG Potassium ABG Chloride ABG Glucose Carboxyhemoglobin Sodium Potassium Chloride Carbon Dioxide BUN Creatinine Glucose POC Glucose 372 H 426 H Hemoglobin A1c Lactic Acid Calcium Ferritin Direct Bilirubin AST ALT Lactate Dehydrogenase Troponin T C-Reactive Protein NT-Pro-B Natriuret Pep Total Protein Albumin Triglycerides LDL Cholesterol Direct HDL Cholesterol Arterial Blood Glucose Urine WBC (Auto) Coronavirus (PCR) 01/14/21 01/14/21 01/14/21 03:15 04:00 05:02 WBC RBC Hgb Hct MCV MCHC RDW Lymph % (Auto) Lymph # (Auto) [place] # (Auto) Seg Neutrophils % Seg Neutrophils # PT INR APTT D-Dimer Heparin Anti-Xa Level ABG pH 7.305 L POC ABG pCO2 POC ABG pO2 ABG Hemoglobin 8.6 L ABG Oxyhemoglobin ABG Sodium 161.0 H ABG Potassium 5.6 H ABG Chloride 131.0 H ABG Glucose 517 H Carboxyhemoglobin 0.2 L Sodium 159 H Potassium Chloride 131.7 H Carbon Dioxide 19 L BUN 110 H Creatinine 2.8 H Glucose 434 H POC Glucose 428 H Hemoglobin A1c Lactic Acid Calcium 7.0 L D Ferritin Direct Bilirubin AST ALT Lactate Dehydrogenase Troponin T C-Reactive Protein NT-Pro-B Natriuret Pep Total Protein Albumin Triglycerides LDL Cholesterol Direct HDL Cholesterol Arterial Blood Glucose 517 H Urine WBC (Auto) Coronavirus (PCR) 01/14/21 01/14/21 01/14/21 10:01 10:01 10:01 WBC RBC Hgb Hct MCV MCHC RDW Lymph % (Auto) Lymph # (Auto) [place] # (Auto) Seg Neutrophils % Seg Neutrophils # PT INR APTT D-Dimer 5398.24 H Heparin Anti-Xa Level ABG pH POC ABG pCO2 POC ABG pO2 ABG Hemoglobin ABG Oxyhemoglobin ABG Sodium ABG Potassium ABG Chloride ABG Glucose Carboxyhemoglobin Sodium Potassium Chloride Carbon Dioxide BUN Creatinine Glucose POC Glucose Hemoglobin A1c Lactic Acid Calcium Ferritin 575.5 H Direct Bilirubin AST ALT Lactate Dehydrogenase 537 H Troponin T C-Reactive Protein 13.90 H NT-Pro-B Natriuret Pep Total Protein Albumin Triglycerides LDL Cholesterol Direct HDL Cholesterol Arterial Blood Glucose Urine WBC (Auto) Coronavirus (PCR) 01/14/21 01/14/21 10:01 11:25 WBC RBC Hgb Hct MCV MCHC RDW Lymph % (Auto) Lymph # (Auto) [place] # (Auto) Seg Neutrophils % Seg Neutrophils # PT INR APTT D-Dimer Heparin Anti-Xa Level ABG pH POC ABG pCO2 POC ABG pO2 ABG Hemoglobin ABG Oxyhemoglobin ABG Sodium ABG Potassium ABG Chloride ABG Glucose Carboxyhemoglobin Sodium Potassium Chloride Carbon Dioxide BUN Creatinine Glucose POC Glucose 396 H Hemoglobin A1c 9.0 H Lactic Acid Calcium Ferritin Direct Bilirubin AST ALT Lactate Dehydrogenase Troponin T C-Reactive Protein NT-Pro-B Natriuret Pep Total Protein Albumin Triglycerides LDL Cholesterol Direct HDL Cholesterol Arterial Blood Glucose Urine WBC (Auto) Coronavirus (PCR)
[2021-01-14] MEDS: SENNOSIDES/DOCUSATE SODIUM 8.6/50 MG TAB FEEDTUBE SCH ×2 (12:04→21:25)
--- NOTE | 2021-01-14 14:52 | Progress Note ---
Assessment and Plan Cardiac Arrest with ROSC Acute Hypoxemic Respiratory Failure Septic Shock Bilateral pneumonia COVID PNA SHERICE BIBIANA Morbid Obesity Urinary tract infection Congestive heart failure Transaminitis NSTEMI / Elevated troponin -Wean vasopressor for MAP >65 - continue accuchecks with glycemic control per SSI (While critically ill target blood glucose of 140-180 mg/dL; avoid hypoglycemia) Glycemic control remains challenging, while he is on steroids and will need hypotonic solution to treat hypernatremia will initiate insulin infusion - continue daily assessment of readiness to wean- at this time his ventilatory demands and hemodynamics preclude weaning - continue enteric nutritional support at goal rate as tolerated, free water flushes to treat hypernatremia - continue to titrate supplemental oxygen to keep SpO2 89-92% - VAP bundle addressed, aspiration precautions HOB >30 - continue lung protective strategies - continue bronchodilators with pulmonary hygiene per RT - sedation prn for target RASS 0 to -1 - avoid nephrotoxins, dose all medications for GFR and CrCL - continue to avoid benzodiazepines, reduce the possibility of delirium -Maintain sleep-wake cycle - complete antibiotics per ID recommendation (Continue vancomycin goal trough 10-20) -Wound care -Follow-up repeat blood cultures - prn analgesia per CPOT score - Maintenance of sleep-wake cycle, avoid delirium - Stress ulcer prophylaxis - PT/OT/ROM exercises - continue mobility per faciity protocol, off loading and frequent turning to avoid for pressure ulcers - Monitor hemodynamics closely, conservative fluid management as tolerated by hemodynamics and renal function - continue other care per attending / other consultants COVID SPECIFIC INTERVENTION -Steroids to complete 10 days of therapy -Remdesivir was not given secondary to renal failure -Trend q48-72h inflammatory markers per facility protocol - ferritin, Ddimer, C RP, LDH -Anticoagulation per hospital protocol -Critical care proning as clinically indicated -Continue with contact and airborne precautions per facility protocol CONDITION: CRITICAL PROGNOSIS: GUARDED-GRAVE CODE STATUS: FULL CODE The high probability of a clinically significant, sudden or life-threatening deterioration of the [respiratory, cardiovascular, renal and neurologic] system(s) required my full and direct attention, intervention and personal management. The aggregate critical care time was [35] minutes without overlap. Time includes spent on; [x] Data Review and interpretation [x] Patient assessment and monitoring of vital signs [x] Documentation [x] Medication orders and management Subjective Date of service: 01/14/21 Principal diagnosis: Cardiac Arrest; Ac Hypoxemic Resp Failure; SepticShock; PNA; SHERICE; PUI COVID Interval history: SUMMARY 61-year-old salt[place] male with history of diabetes and sleep apnea called EMS towards generalized weakness. When EMS arrived there was difficulty getting to the patient. Because of too many items in the home. Similar to a Hoarder home. Initially patient was awake and talking confused. Then patient became unresponsive and apneic. ACLS protocol was initiated and chest compressions were initiated oxygen was administered and his own CPAP machine was used. Within the next 10 minutes patient was intubated. EMS was unable to get the patient out of the room through the door so patient was taken out of the home through the window of the room. Patient was found to be in PEA. Patient was intubated by EMS they achieved a return of spontaneous circulation. After a few minutes lost her pulse again and was given amlodipine and was revived. Patient presents to the emergency room with a pulse. It is unclear what has precipitated his cardiac arrest. Patient has only diabetes and sleep apnea. No fever or chills. No exposure to coronavirus. Patient was slightly hypotensive and was initiated on Levophed in the emergency room. Patient is seen today for: Cardiac Arrest with ROSC; Acute Hypoxemic Respiratory Failure; Septic Shock; Pneumonia; SHERICE; UTI; CHF; COVID-19 s/p I&D of left great toe abscess and Amputation of left great toe Seen and examined at bedside; 24hour events reviewed; nursing and respiratory care staff consulted; no adverse overnight events reported to me; resting in bed; remains on MVS; AMS is persistent; foot; remains in septic shock requiring vasopressor support( 2 pressor shock) no emesis or overt aspiration and no gross bleeding MVS: PEEP +12/FIO2 90% Vasopressin/Norepinephrine Objective Vital Signs - 12hr 01/14/21 01/14/21 01/14/21 03:00 03:15 03:30 Temperature Pulse Rate 91 H 86 85 Pulse Rate [ Bilateral Throughout] Pulse Rate [ From Monitor] Respiratory 30 H 30 H 30 H Rate Respiratory Rate [Bilateral Throughout] Blood Pressure 116/63 125/63 126/64 O2 Sat by Pulse 94 94 95 Oximetry 01/14/21 01/14/21 01/14/21 03:45 04:00 04:15 Temperature 99.5 F Pulse Rate 99 H 89 87 Pulse Rate [ Bilateral Throughout] Pulse Rate [ 89 From Monitor] Respiratory 30 H 30 H 30 H Rate Respiratory Rate [Bilateral Throughout] Blood Pressure 129/68 124/61 124/62 O2 Sat by Pulse 95 92 94 Oximetry 01/14/21 01/14/21 01/14/21 04:30 04:45 05:00 Temperature Pulse Rate 91 H 86 86 Pulse Rate [ Bilateral Throughout] Pulse Rate [ From Monitor] Respiratory 30 H 30 H 30 H Rate Respiratory Rate [Bilateral Throughout] Blood Pressure 114/69 128/68 124/67 O2 Sat by Pulse 94 94 94 Oximetry 01/14/21 01/14/21 01/14/21 05:15 05:30 05:45 Temperature Pulse Rate 84 95 H 95 H Pulse Rate [ Bilateral Throughout] Pulse Rate [ From Monitor] Respiratory 30 H 30 H 30 H Rate Respiratory Rate [Bilateral Throughout] Blood Pressure 123/61 132/70 131/65 O2 Sat by Pulse 93 95 94 Oximetry 01/14/21 01/14/21 01/14/21 06:00 06:15 06:30 Temperature Pulse Rate 89 87 91 H Pulse Rate [ Bilateral Throughout] Pulse Rate [ From Monitor] Respiratory 30 H 30 H 30 H Rate Respiratory Rate [Bilateral Throughout] Blood Pressure 125/64 125/62 128/70 O2 Sat by Pulse 93 94 95 Oximetry 01/14/21 01/14/21 01/14/21 06:45 07:00 07:16 Temperature Pulse Rate 88 88 100 H Pulse Rate [ Bilateral Throughout] Pulse Rate [ From Monitor] Respiratory 30 H 30 H 8 L Rate Respiratory Rate [Bilateral Throughout] Blood Pressure 126/65 126/64 125/72 O2 Sat by Pulse 94 94 Oximetry 01/14/21 01/14/21 01/14/21 07:30 07:37 07:45 Temperature 98.4 F Pulse Rate 103 H 93 H Pulse Rate [ Bilateral Throughout] Pulse Rate [ From Monitor] Respiratory 21 30 H Rate Respiratory Rate [Bilateral Throughout] Blood Pressure 123/70 125/66 O2 Sat by Pulse 96 94 Oximetry 01/14/21 01/14/21 01/14/21 08:00 08:15 08:21 Temperature Pulse Rate 100 H 93 H 97 H Pulse Rate [ 90 Bilateral Throughout] Pulse Rate [ From Monitor] Respiratory 30 H 30 H Rate Respiratory 30 H Rate [Bilateral Throughout] Blood Pressure 138/72 120/63 105/55 O2 Sat by Pulse 96 95 94 Oximetry 01/14/21 01/14/21 01/14/21 08:30 08:45 09:00 Temperature Pulse Rate 89 89 90 Pulse Rate [ Bilateral Throughout] Pulse Rate [ From Monitor] Respiratory 30 H 30 H 30 H Rate Respiratory Rate [Bilateral Throughout] Blood Pressure 123/66 117/64 115/61 O2 Sat by Pulse 94 94 92 Oximetry 01/14/21 01/14/21 01/14/21 09:15 09:30 09:45 Temperature Pulse Rate 90 97 H 95 H Pulse Rate [ Bilateral Throughout] Pulse Rate [ From Monitor] Respiratory 30 H 30 H 23 Rate Respiratory Rate [Bilateral Throughout] Blood Pressure 115/60 117/58 121/61 O2 Sat by Pulse 92 93 93 Oximetry 01/14/21 01/14/21 01/14/21 10:00 10:15 10:30 Temperature Pulse Rate 95 H 94 H 101 H Pulse Rate [ Bilateral Throughout] Pulse Rate [ From Monitor] Respiratory 30 H 30 H 28 H Rate Respiratory Rate [Bilateral Throughout] Blood Pressure 124/62 115/58 118/60 O2 Sat by Pulse 93 92 93 Oximetry 01/14/21 01/14/21 01/14/21 10:45 11:00 11:15 Temperature Pulse Rate 95 H 94 H 94 H Pulse Rate [ Bilateral Throughout] Pulse Rate [ From Monitor] Respiratory 30 H 30 H 30 H Rate Respiratory Rate [Bilateral Throughout] Blood Pressure 102/54 105/55 109/56 O2 Sat by Pulse 90 92 92 Oximetry 01/14/21 01/14/21 01/14/21 11:30 11:47 12:00 Temperature 100.7 F H Pulse Rate 88 85 Pulse Rate [ 91 H Bilateral Throughout] Pulse Rate [ From Monitor] Respiratory 30 H Rate Respiratory 30 H Rate [Bilateral Throughout] Blood Pressure 99/56 103/54 O2 Sat by Pulse 90 93 Oximetry Constitutional: no acute distress, other (elderly obese male with mildly increased respiratory effort at rest on MVS) Eyes: non-icteric ENT: oropharynx moist, other (ETT 24 cm ASHA) Neck: supple, no lymphadenopathy, no JVD Effort: mildly labored Ascultation: Bilateral: diminished breath sounds, rhonchi Percussion: Bilateral: not dull Cardiovascular: regular rate and rhythm, other (S1,S2) Gastrointestinal: normoactive bowel sounds, soft, non-tender, non-distended Integumentary: erythema (patchy mild) Extremities: no cyanosis, pink and warm, pulses normal, no ischemia or petechiae, edema (trace), other (s/p amputation of left great toe wiht clean dry pressure dressing) Neurologic: pupils equal and round, unable to assess Psychiatric: other (unresponsive) CBC and BMP: 01/15/21 07:00 01/15/21 07:00 ABG, PT/INR, D-dimer: ABG ABG pH 7.305 (7.320-7.450) L 01/14/21 03:15 POC ABG pCO2 37.5 mmHg (32.0-48.0) 01/14/21 03:15 POC ABG pO2 89.8 mmHg (83-108) 01/14/21 03:15 POC ABG HCO3 18.2 01/14/21 03:15 ABG O2 Saturation 96.4 (0-100) 01/14/21 03:15 PT/INR, D-dimer PT 15.2 Sec. (12.2-14.9) H 01/11/21 10:05 INR 1.15 (0.87-1.13) H 01/11/21 10:05 D-Dimer 5398.24 ng/mlDDU (0-234) H 01/14/21 10:01 Abnormal lab findings: Abnormal Labs 01/08/21 01/08/21 01/08/21 11:01 11:55 11:55 WBC 23.8 H RBC 3.35 L Hgb 10.5 L Hct 31.6 L MCV MCHC RDW 15.6 H Lymph % (Auto) 4.1 L Lymph # (Auto) 1.0 L [place] # (Auto) 1.2 H Seg Neutrophils % 90.5 H Seg Neutrophils # 21.5 H PT INR APTT D-Dimer Heparin Anti-Xa Level ABG pH 7.204 L POC ABG pCO2 50.7 H POC ABG pO2 ABG Hemoglobin 11.9 L ABG Oxyhemoglobin ABG Sodium ABG Potassium 5.0 H ABG Chloride 110.0 H ABG Glucose 313 H Carboxyhemoglobin 0.1 L Sodium Potassium Chloride Carbon Dioxide BUN Creatinine Glucose POC Glucose Hemoglobin A1c Lactic Acid 4.50 H* Calcium Ferritin Direct Bilirubin AST ALT Lactate Dehydrogenase Troponin T C-Reactive Protein NT-Pro-B Natriuret Pep Total Protein Albumin Triglycerides LDL Cholesterol Direct HDL Cholesterol Arterial Blood Glucose 313 H Urine WBC (Auto) Coronavirus (PCR) 01/08/21 01/08/21 01/08/21 11:55 11:55 13:42 WBC RBC Hgb Hct MCV MCHC RDW Lymph % (Auto) Lymph # (Auto) [place] # (Auto) Seg Neutrophils % Seg Neutrophils # PT INR APTT 23.3 L D-Dimer Heparin Anti-Xa Level ABG pH POC ABG pCO2 POC ABG pO2 ABG Hemoglobin ABG Oxyhemoglobin ABG Sodium ABG Potassium ABG Chloride ABG Glucose Carboxyhemoglobin Sodium Potassium 5.3 H Chloride 107.2 H Carbon Dioxide 21 L BUN 55 H Creatinine 3.9 H Glucose 274 H POC Glucose Hemoglobin A1c Lactic Acid 2.90 H* Calcium 7.9 L Ferritin Direct Bilirubin 0.4 H AST 130 H ALT 70 H Lactate Dehydrogenase Troponin T 0.038 H C-Reactive Protein NT-Pro-B Natriuret Pep 1157 H Total Protein 6.0 L Albumin 2.6 L Triglycerides LDL Cholesterol Direct 28 L HDL Cholesterol 24 L Arterial Blood Glucose Urine WBC (Auto) Coronavirus (PCR) 01/08/21 01/08/21 01/08/21 14:36 14:36 14:36 WBC RBC Hgb Hct MCV MCHC RDW Lymph % (Auto) Lymph # (Auto) [place] # (Auto) Seg Neutrophils % Seg Neutrophils # PT INR APTT D-Dimer 7104.83 H Heparin Anti-Xa Level ABG pH POC ABG pCO2 POC ABG pO2 ABG Hemoglobin ABG Oxyhemoglobin ABG Sodium ABG Potassium ABG Chloride ABG Glucose Carboxyhemoglobin Sodium Potassium Chloride Carbon Dioxide BUN Creatinine Glucose 306 H POC Glucose Hemoglobin A1c Lactic Acid Calcium Ferritin 624.8 H Direct Bilirubin AST ALT Lactate Dehydrogenase 535 H Troponin T C-Reactive Protein 25.40 H NT-Pro-B Natriuret Pep Total Protein Albumin Triglycerides LDL Cholesterol Direct HDL Cholesterol Arterial Blood Glucose Urine WBC (Auto) Coronavirus (PCR) 01/08/21 01/08/21 01/08/21 21:00 Unknown Unknown WBC RBC Hgb Hct MCV MCHC RDW Lymph % (Auto) Lymph # (Auto) [place] # (Auto) Seg Neutrophils % Seg Neutrophils # PT INR APTT D-Dimer Heparin Anti-Xa Level ABG pH POC ABG pCO2 POC ABG pO2 111.6 H ABG Hemoglobin 11.6 L ABG Oxyhemoglobin ABG Sodium ABG Potassium 4.6 H ABG Chloride 112.0 H ABG Glucose 256 H Carboxyhemoglobin 0.3 L Sodium Potassium Chloride Carbon Dioxide BUN Creatinine Glucose POC Glucose Hemoglobin A1c Lactic Acid Calcium Ferritin Direct Bilirubin AST ALT Lactate Dehydrogenase Troponin T C-Reactive Protein NT-Pro-B Natriuret Pep Total Protein Albumin Triglycerides LDL Cholesterol Direct HDL Cholesterol Arterial Blood Glucose 256 H Urine WBC (Auto) > 182.0 H Coronavirus (PCR) Positive A 01/09/21 01/09/21 01/09/21 05:02 05:18 05:18 WBC 19.0 H RBC Hgb 11.7 L Hct MCV 95 H MCHC RDW 16.0 H Lymph % (Auto) Lymph # (Auto) [place] # (Auto) Seg Neutrophils % Seg Neutrophils # PT INR APTT D-Dimer Heparin Anti-Xa Level ABG pH POC ABG pCO2 POC ABG pO2 82.7 L ABG Hemoglobin ABG Oxyhemoglobin ABG Sodium ABG Potassium 4.8 H ABG Chloride 114.0 H ABG Glucose 283 H Carboxyhemoglobin 0.3 L Sodium 146 H Potassium 5.1 H Chloride 112.0 H Carbon Dioxide 20 L BUN 63 H Creatinine 3.0 H Glucose 282 H POC Glucose Hemoglobin A1c Lactic Acid Calcium 8.1 L Ferritin Direct Bilirubin AST ALT Lactate Dehydrogenase Troponin T C-Reactive Protein NT-Pro-B Natriuret Pep Total Protein Albumin Triglycerides LDL Cholesterol Direct HDL Cholesterol Arterial Blood Glucose 283 H Urine WBC (Auto) Coronavirus (PCR) 01/09/21 01/09/21 01/09/21 13:24 20:05 23:24 WBC RBC Hgb Hct MCV MCHC RDW Lymph % (Auto) Lymph # (Auto) [place] # (Auto) Seg Neutrophils % Seg Neutrophils # PT INR APTT D-Dimer Heparin Anti-Xa Level ABG pH POC ABG pCO2 POC ABG pO2 ABG Hemoglobin ABG Oxyhemoglobin ABG Sodium ABG Potassium ABG Chloride ABG Glucose Carboxyhemoglobin Sodium Potassium Chloride Carbon Dioxide BUN Creatinine Glucose POC Glucose 282 H 317 H 325 H Hemoglobin A1c Lactic Acid Calcium Ferritin Direct Bilirubin AST ALT Lactate Dehydrogenase Troponin T C-Reactive Protein NT-Pro-B Natriuret Pep Total Protein Albumin Triglycerides LDL Cholesterol Direct HDL Cholesterol Arterial Blood Glucose Urine WBC (Auto) Coronavirus (PCR) 01/10/21 01/10/21 01/10/21 02:56 05:31 10:46 WBC 22.0 H RBC Hgb 11.2 L Hct 35.0 L MCV MCHC RDW 15.4 H Lymph % (Auto) Lymph # (Auto) [place] # (Auto) Seg Neutrophils % Seg Neutrophils # PT INR APTT D-Dimer Heparin Anti-Xa Level ABG pH POC ABG pCO2 POC ABG pO2 73.8 L ABG Hemoglobin ABG Oxyhemoglobin 93.5 L ABG Sodium 149.1 H ABG Potassium 4.6 H ABG Chloride 119.0 H ABG Glucose 311 H Carboxyhemoglobin 0.4 L Sodium Potassium Chloride Carbon Dioxide BUN Creatinine Glucose POC Glucose 278 H Hemoglobin A1c Lactic Acid Calcium Ferritin Direct Bilirubin AST ALT Lactate Dehydrogenase Troponin T C-Reactive Protein NT-Pro-B Natriuret Pep Total Protein Albumin Triglycerides LDL Cholesterol Direct HDL Cholesterol Arterial Blood Glucose 311 H Urine WBC (Auto) Coronavirus (PCR) 01/10/21 01/10/21 01/10/21 10:46 10:46 10:46 WBC RBC Hgb Hct MCV MCHC RDW Lymph % (Auto) Lymph # (Auto) [place] # (Auto) Seg Neutrophils % Seg Neutrophils # PT INR APTT D-Dimer 5636.29 H Heparin Anti-Xa Level ABG pH POC ABG pCO2 POC ABG pO2 ABG Hemoglobin ABG Oxyhemoglobin ABG Sodium ABG Potassium ABG Chloride ABG Glucose Carboxyhemoglobin Sodium 155 H D Potassium Chloride 121.6 H Carbon Dioxide BUN 65 H Creatinine 2.2 H Glucose 330 H POC Glucose Hemoglobin A1c Lactic Acid Calcium Ferritin 347.2 H Direct Bilirubin AST 104 H ALT 63 H Lactate Dehydrogenase Troponin T C-Reactive Protein NT-Pro-B Natriuret Pep Total Protein Albumin 2.7 L Triglycerides LDL Cholesterol Direct HDL Cholesterol Arterial Blood Glucose Urine WBC (Auto) Coronavirus (PCR) 01/10/21 01/10/21 01/10/21 10:46 11:39 18:06 WBC RBC Hgb Hct MCV MCHC RDW Lymph % (Auto) Lymph # (Auto) [place] # (Auto) Seg Neutrophils % Seg Neutrophils # PT INR APTT D-Dimer Heparin Anti-Xa Level ABG pH POC ABG pCO2 POC ABG pO2 ABG Hemoglobin ABG Oxyhemoglobin ABG Sodium ABG Potassium ABG Chloride ABG Glucose Carboxyhemoglobin Sodium Potassium Chloride Carbon Dioxide BUN Creatinine Glucose POC Glucose 289 H 294 H Hemoglobin A1c Lactic Acid Calcium Ferritin Direct Bilirubin AST ALT Lactate Dehydrogenase 448 H Troponin T C-Reactive Protein 10.50 H NT-Pro-B Natriuret Pep Total Protein Albumin Triglycerides LDL Cholesterol Direct HDL Cholesterol Arterial Blood Glucose Urine WBC (Auto) Coronavirus (PCR) 01/11/21 01/11/21 01/11/21 00:57 03:09 04:50 WBC 23.8 H RBC Hgb 11.2 L Hct MCV 95 H MCHC 31 L RDW 16.5 H Lymph % (Auto) Lymph # (Auto) [place] # (Auto) Seg Neutrophils % Seg Neutrophils # PT INR APTT D-Dimer Heparin Anti-Xa Level ABG pH POC ABG pCO2 POC ABG pO2 ABG Hemoglobin ABG Oxyhemoglobin ABG Sodium 154.3 H ABG Potassium 4.8 H ABG Chloride 124.0 H ABG Glucose 381 H Carboxyhemoglobin Sodium Potassium Chloride Carbon Dioxide BUN Creatinine Glucose POC Glucose 300 H Hemoglobin A1c Lactic Acid Calcium Ferritin Direct Bilirubin AST ALT Lactate Dehydrogenase Troponin T C-Reactive Protein NT-Pro-B Natriuret Pep Total Protein Albumin Triglycerides LDL Cholesterol Direct HDL Cholesterol Arterial Blood Glucose 381 H Urine WBC (Auto) Coronavirus (PCR) 01/11/21 01/11/21 01/11/21 04:50 05:46 10:05 WBC RBC Hgb Hct MCV MCHC RDW Lymph % (Auto) Lymph # (Auto) [place] # (Auto) Seg Neutrophils % Seg Neutrophils # PT 15.2 H INR 1.15 H APTT D-Dimer Heparin Anti-Xa Level ABG pH POC ABG pCO2 POC ABG pO2 ABG Hemoglobin ABG Oxyhemoglobin ABG Sodium ABG Potassium ABG Chloride ABG Glucose Carboxyhemoglobin Sodium 158 H Potassium Chloride 124.1 H Carbon Dioxide BUN 72 H Creatinine 2.1 H Glucose 371 H POC Glucose 384 H Hemoglobin A1c Lactic Acid Calcium Ferritin Direct Bilirubin AST 78 H ALT Lactate Dehydrogenase Troponin T C-Reactive Protein NT-Pro-B Natriuret Pep Total Protein Albumin 2.7 L Triglycerides 394 H LDL Cholesterol Direct HDL Cholesterol Arterial Blood Glucose Urine WBC (Auto) Coronavirus (PCR) 01/11/21 01/11/21 01/11/21 12:04 17:17 18:55 WBC RBC Hgb Hct MCV MCHC RDW Lymph % (Auto) Lymph # (Auto) [place] # (Auto) Seg Neutrophils % Seg Neutrophils # PT INR APTT D-Dimer Heparin Anti-Xa Level 1.42 H ABG pH POC ABG pCO2 POC ABG pO2 ABG Hemoglobin ABG Oxyhemoglobin ABG Sodium ABG Potassium ABG Chloride ABG Glucose Carboxyhemoglobin Sodium Potassium Chloride Carbon Dioxide BUN Creatinine Glucose POC Glucose 351 H 330 H Hemoglobin A1c Lactic Acid Calcium Ferritin Direct Bilirubin AST ALT Lactate Dehydrogenase Troponin T C-Reactive Protein NT-Pro-B Natriuret Pep Total Protein Albumin Triglycerides LDL Cholesterol Direct HDL Cholesterol Arterial Blood Glucose Urine WBC (Auto) Coronavirus (PCR) 01/11/21 01/12/21 01/12/21 23:29 01:46 04:29 WBC 24.0 H RBC Hgb 11.4 L Hct MCV 99 H MCHC 31 L RDW 17.0 H Lymph % (Auto) Lymph # (Auto) [place] # (Auto) Seg Neutrophils % Seg Neutrophils # PT INR APTT D-Dimer Heparin Anti-Xa Level ABG pH 7.308 L POC ABG pCO2 POC ABG pO2 ABG Hemoglobin ABG Oxyhemoglobin ABG Sodium 155.1 H ABG Potassium 5.2 H ABG Chloride 124.0 H ABG Glucose 399 H Carboxyhemoglobin 0.2 L Sodium Potassium Chloride Carbon Dioxide BUN Creatinine Glucose POC Glucose 328 H Hemoglobin A1c Lactic Acid Calcium Ferritin Direct Bilirubin AST ALT Lactate Dehydrogenase Troponin T C-Reactive Protein NT-Pro-B Natriuret Pep Total Protein Albumin Triglycerides LDL Cholesterol Direct HDL Cholesterol Arterial Blood Glucose 399 H Urine WBC (Auto) Coronavirus (PCR) 01/12/21 01/12/21 01/12/21 04:29 05:24 08:30 WBC RBC Hgb Hct MCV MCHC RDW Lymph % (Auto) Lymph # (Auto) [place] # (Auto) Seg Neutrophils % Seg Neutrophils # PT INR APTT D-Dimer 4813.23 H Heparin Anti-Xa Level ABG pH POC ABG pCO2 POC ABG pO2 ABG Hemoglobin ABG Oxyhemoglobin ABG Sodium ABG Potassium ABG Chloride ABG Glucose Carboxyhemoglobin Sodium 155 H Potassium 5.4 H Chloride 121.2 H Carbon Dioxide BUN 91 H Creatinine 2.3 H Glucose 427 H POC Glucose 394 H Hemoglobin A1c Lactic Acid Calcium Ferritin Direct Bilirubin AST ALT Lactate Dehydrogenase Troponin T C-Reactive Protein NT-Pro-B Natriuret Pep Total Protein Albumin Triglycerides LDL Cholesterol Direct HDL Cholesterol Arterial Blood Glucose Urine WBC (Auto) Coronavirus (PCR) 01/12/21 01/12/21 01/12/21 08:30 08:30 11:32 WBC RBC Hgb Hct MCV MCHC RDW Lymph % (Auto) Lymph # (Auto) [place] # (Auto) Seg Neutrophils % Seg Neutrophils # PT INR APTT D-Dimer Heparin Anti-Xa Level ABG pH POC ABG pCO2 POC ABG pO2 ABG Hemoglobin ABG Oxyhemoglobin ABG Sodium ABG Potassium ABG Chloride ABG Glucose Carboxyhemoglobin Sodium Potassium Chloride Carbon Dioxide BUN Creatinine Glucose POC Glucose 385 H Hemoglobin A1c Lactic Acid Calcium Ferritin 379.5 H Direct Bilirubin AST ALT Lactate Dehydrogenase 576 H Troponin T C-Reactive Protein 4.50 H NT-Pro-B Natriuret Pep Total Protein Albumin Triglycerides LDL Cholesterol Direct HDL Cholesterol Arterial Blood Glucose Urine WBC (Auto) Coronavirus (PCR) 01/12/21 01/12/21 01/13/21 16:48 23:20 03:40 WBC RBC Hgb Hct MCV MCHC RDW Lymph % (Auto) Lymph # (Auto) [place] # (Auto) Seg Neutrophils % Seg Neutrophils # PT INR APTT D-Dimer Heparin Anti-Xa Level ABG pH POC ABG pCO2 POC ABG pO2 66.6 L ABG Hemoglobin ABG Oxyhemoglobin 92.1 L ABG Sodium 158.0 H ABG Potassium 5.0 H ABG Chloride 129.0 H ABG Glucose 266 H Carboxyhemoglobin 0.2 L Sodium Potassium Chloride Carbon Dioxide BUN Creatinine Glucose POC Glucose 313 H 260 H Hemoglobin A1c Lactic Acid Calcium Ferritin Direct Bilirubin AST ALT Lactate Dehydrogenase Troponin T C-Reactive Protein NT-Pro-B Natriuret Pep Total Protein Albumin Triglycerides LDL Cholesterol Direct HDL Cholesterol Arterial Blood Glucose 266 H Urine WBC (Auto) Coronavirus (PCR) 01/13/21 01/13/21 01/13/21 04:53 11:26 14:23 WBC RBC Hgb Hct MCV MCHC RDW Lymph % (Auto) Lymph # (Auto) [place] # (Auto) Seg Neutrophils % Seg Neutrophils # PT INR APTT D-Dimer Heparin Anti-Xa Level ABG pH POC ABG pCO2 POC ABG pO2 ABG Hemoglobin ABG Oxyhemoglobin ABG Sodium ABG Potassium ABG Chloride ABG Glucose Carboxyhemoglobin Sodium 158 H Potassium 5.6 H Chloride 128.9 H Carbon Dioxide 17 L D BUN 119 H Creatinine 3.3 H Glucose 347 H POC Glucose 221 H 235 H Hemoglobin A1c Lactic Acid Calcium 8.3 L Ferritin Direct Bilirubin AST ALT Lactate Dehydrogenase Troponin T C-Reactive Protein NT-Pro-B Natriuret Pep Total Protein Albumin Triglycerides LDL Cholesterol Direct HDL Cholesterol Arterial Blood Glucose Urine WBC (Auto) Coronavirus (PCR) 01/13/21 01/13/21 01/13/21 17:22 23:46 Unknown WBC RBC Hgb 10.9 L Hct 34.5 L MCV MCHC RDW Lymph % (Auto) Lymph # (Auto) [place] # (Auto) Seg Neutrophils % Seg Neutrophils # PT INR APTT D-Dimer Heparin Anti-Xa Level ABG pH POC ABG pCO2 POC ABG pO2 ABG Hemoglobin ABG Oxyhemoglobin ABG Sodium ABG Potassium ABG Chloride ABG Glucose Carboxyhemoglobin Sodium Potassium Chloride Carbon Dioxide BUN Creatinine Glucose POC Glucose 372 H 426 H Hemoglobin A1c Lactic Acid Calcium Ferritin Direct Bilirubin AST ALT Lactate Dehydrogenase Troponin T C-Reactive Protein NT-Pro-B Natriuret Pep Total Protein Albumin Triglycerides LDL Cholesterol Direct HDL Cholesterol Arterial Blood Glucose Urine WBC (Auto) Coronavirus (PCR) 01/14/21 01/14/21 01/14/21 03:15 04:00 05:02 WBC RBC Hgb Hct MCV MCHC RDW Lymph % (Auto) Lymph # (Auto) [place] # (Auto) Seg Neutrophils % Seg Neutrophils # PT INR APTT D-Dimer Heparin Anti-Xa Level ABG pH 7.305 L POC ABG pCO2 POC ABG pO2 ABG Hemoglobin 8.6 L ABG Oxyhemoglobin ABG Sodium 161.0 H ABG Potassium 5.6 H ABG Chloride 131.0 H ABG Glucose 517 H Carboxyhemoglobin 0.2 L Sodium 159 H Potassium Chloride 131.7 H Carbon Dioxide 19 L BUN 110 H Creatinine 2.8 H Glucose 434 H POC Glucose 428 H Hemoglobin A1c Lactic Acid Calcium 7.0 L D Ferritin Direct Bilirubin AST ALT Lactate Dehydrogenase Troponin T C-Reactive Protein NT-Pro-B Natriuret Pep Total Protein Albumin Triglycerides LDL Cholesterol Direct HDL Cholesterol Arterial Blood Glucose 517 H Urine WBC (Auto) Coronavirus (PCR) 01/14/21 01/14/21 01/14/21 10:01 10:01 10:01 WBC RBC Hgb Hct MCV MCHC RDW Lymph % (Auto) Lymph # (Auto) [place] # (Auto) Seg Neutrophils % Seg Neutrophils # PT INR APTT D-Dimer 5398.24 H Heparin Anti-Xa Level ABG pH POC ABG pCO2 POC ABG pO2 ABG Hemoglobin ABG Oxyhemoglobin ABG Sodium ABG Potassium ABG Chloride ABG Glucose Carboxyhemoglobin Sodium Potassium Chloride Carbon Dioxide BUN Creatinine Glucose POC Glucose Hemoglobin A1c Lactic Acid Calcium Ferritin 575.5 H Direct Bilirubin AST ALT Lactate Dehydrogenase 537 H Troponin T C-Reactive Protein 13.90 H NT-Pro-B Natriuret Pep Total Protein Albumin Triglycerides LDL Cholesterol Direct HDL Cholesterol Arterial Blood Glucose Urine WBC (Auto) Coronavirus (PCR) 01/14/21 01/14/21 10:01 11:25 WBC RBC Hgb Hct MCV MCHC RDW Lymph % (Auto) Lymph # (Auto) [place] # (Auto) Seg Neutrophils % Seg Neutrophils # PT INR APTT D-Dimer Heparin Anti-Xa Level ABG pH POC ABG pCO2 POC ABG pO2 ABG Hemoglobin ABG Oxyhemoglobin ABG Sodium ABG Potassium ABG Chloride ABG Glucose Carboxyhemoglobin Sodium Potassium Chloride Carbon Dioxide BUN Creatinine Glucose POC Glucose 396 H Hemoglobin A1c 9.0 H Lactic Acid Calcium Ferritin Direct Bilirubin AST ALT Lactate Dehydrogenase Troponin T C-Reactive Protein NT-Pro-B Natriuret Pep Total Protein Albumin Triglycerides LDL Cholesterol Direct HDL Cholesterol Arterial Blood Glucose Urine WBC (Auto) Coronavirus (PCR) Chest x-ray: image reviewed Allied health notes reviewed: RT
--- NOTE | 2021-01-14 17:48 | Event Note ---
Date: 01/14/21 I called [place] physician at [phone] and discussed in detail patient's deteriorating condition, septic shock requiring 2 pressors, no change in neurological status, severe Covid pneumonia and treatment plan, I also discussed consultants recommendations, family's desire to continue full CODE STATUS. Answered all her questions, requested to continue patient's management and [facility]. I informed patient's nurse about this conversation with [place] physician.
[2021-01-14] MEDS: FAMOTIDINE 10 MG TAB PO SCH (21:25)
--- NOTE | 2021-01-15 01:47 | XRay Report ---
CHEST - 1 VIEW INDICATION: follow up respiratory failure COMPARISON: Yesterday FINDINGS: SUPPORT DEVICES: Stable support device positioning. HEART: Stable cardiomediastinal silhouette. LUNGS/PLEURA: Persistent mild patchy multifocal airspace disease. ADDITIONAL FINDINGS: None. IMPRESSION: Unchanged exam. Signer Name: Jamar Faith MD Signed: 01/15/2021 1:43 AM Workstation Name: [email or web address]
[2021-01-15] MEDS: INSULIN LISPRO 100 UNIT/ML SUB-Q SCH ×3 (06:50→17:39)
[2021-01-15] MEDS: fentaNYL DRIP Premix 2,000 MCG/100 ML BAG IV SCH ×4 (07:00→21:08)
[2021-01-15 07:15] LABS: Hematocrit 31.3 % (35.5-45.6); Hemoglobin 9.7 gm/dl (11.8-15.2)
[2021-01-15] MEDS: IPRATROPIUM/ALBUTEROL SULFATE 3 ML AMPUL.NEB IH SCH ×4 (07:27→20:32)
[2021-01-15] MEDS: VASOPRESSIN 20 UNIT in SODIUM CHLORIDE 0.9% 100 ML IV SCH ×2 (09:34→21:07)
[2021-01-15] MEDS: dexAMETHasone 4 MG/ML VIAL IV SCH (09:34)
[2021-01-15] MEDS: SENNOSIDES/DOCUSATE SODIUM 8.6/50 MG TAB FEEDTUBE SCH ×2 (09:35→21:07)
[2021-01-15] MEDS: INSULIN GLARGINE 100 UNITS/ML SUB-Q SCH ×2 (09:35→21:05)
[2021-01-15] MEDS: FAMOTIDINE 10 MG TAB PO SCH ×2 (09:35→21:06)
[2021-01-15] MEDS: HEPARIN/ 0.45% NACL DRIP 25,000 UNIT/500 ML BAG IV SCH (09:37)
[2021-01-15] MEDS: ACETAMINOPHEN 325 MG/10.15 ML ORAL LIQD UNIT DOSE FEEDTUBE PRN ×3 (09:45→22:42)
--- NOTE | 2021-01-15 09:51 | XRay Report ---
XR chest 1V ap INDICATION / CLINICAL INFORMATION: decrease saturation. COMPARISON: Earlier today FINDINGS: SUPPORT DEVICES: Unchanged. HEART /PULMONARY VASCULATURE: Unchanged. LUNGS / PLEURA: No significant change in bilateral pulmonary airspace opacities. No sizable pleural e ffusion. No pneumothorax. IMPRESSION: Stable appearance of the chest. Signer Name: Ashkan Crews MD Signed: 01/15/2021 9:46 AM Workstation Name: [id number]
[2021-01-15] MEDS ORDERED: DEXTROSE 50% IN WATER (25GM) 50 ML SYRINGE IV ONE (10:00)
[2021-01-15] MEDS ORDERED: SODIUM POLYSTYRENE 15 GM/60 ML ORAL LIQD PO ONE (10:00)
[2021-01-15] MEDS ORDERED: INSULIN REGULAR, HUMAN 100 UNITS/1 ML IV ONE (10:00)
[2021-01-15] MEDS: NORepinephrine/NS 4 MG-250 ML 4 MG/250 ML BAG IV SCH ×2 (10:30→14:00)
--- NOTE | 2021-01-15 10:40 | Progress Note ---
Assessment and Plan Cardiac arrest PEA with ROSC * Patient is sinus tach 110s on telemetry. This is most likely physiologic secondary to sepsis. No rate control is recommended at this time. Continue to monitor on telemetry * Post arrest twelve-lead shows sinus tach 106 with no acute ischemic changes. Troponin is currently negative x2. AMI ruled out * Echocardiogram 01/08/21: LVEF 50 to 55%. LV SF normal. Mild diastolic dysfunction. RV normal size. No valvular abnormalities. Elevated D-dimer secondary to acute DVT * CTA chest is negative for PTE * BLE duplex ultrasound reviewed: Acute DVT noted to right external iliac artery and common femoral artery. * Patient is on heparin drip. 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 per general surgery note * Currently on vancomycin Uncontrolled diabetes mellitus type 2 * Management per primary team We will follow This patient was seen in conjunction with Dr Bourne who agrees with this assessment and plan of care - Patient Problems (1) Congestive heart failure Current Visit: Yes Status: Chronic Qualifiers: Heart failure type: combined systolic and diastolic (2) Diabetes mellitus type 2 in obese Current Visit: Yes Status: Chronic (3) Elevated d-dimer Current Visit: Yes Status: Acute (4) Acute renal failure Current Visit: Yes Status: Acute (5) Cardiac arrest Current Visit: Yes Status: Acute (6) Osteomyelitis of great toe of left foot Current Visit: Yes Status: Chronic (7) Sepsis Current Visit: Yes Status: Acute (8) Renal insufficiency Current Visit: Yes Status: Chronic Subjective Date of service: 01/15/21 Principal diagnosis: Cardiac Arrest; Ac Hypoxemic Resp Failure; SepticShock; PNA; SHERICE; PUI COVID Interval history: Patient remains intubated and sedated. Telemetry reviewed: Sinus tach 110. No events Objective Last Vital Signs Temp 100.4 F H 01/15/21 07:31 Pulse 112 H 01/15/21 07:27 Resp 30 H 01/15/21 09:45 BP 106/59 01/15/21 07:27 Pulse Ox 86 01/15/21 07:27 - Physical Examination General: Other (intubated) HEENT: Positive: Normocephaly, Mucus Membranes Moist Neck: Positive: neck supple Cardiac: Positive: Regular Rhythm, S1/S2 Lungs: Positive: Oxygen, Ventilated Respirations Neuro: Positive: Other (Intubated unresponsive) Abdomen: Positive: Unremarkable, Soft Skin: Positive: Wound (Left great toe osteomyelitis s/p amputation). Negative: Rash Musculoskeletal: other (Intubated) Extremities: Present: upper extr. pulses, lower extr. pulses. Absent: edema - Labs and Meds Cardiac Enzymes 01/14/21 Range/Units 10:01 Lactate Dehydrogenase 537 H (91-180) units/L Lipids 01/15/21 Range/Units 07:00 Triglycerides 252 H (2-149) mg/dL CBC 01/15/21 Range/Units 07:00 Hgb 9.7 L (11.8-15.2) gm/dl Hct 31.3 L (35.5-45.6) % Plt Count 181 (140-440) K/mm3 Comprehensive Metabolic Panel 01/15/21 Range/Units 07:00 Sodium 158 H (137-145) mmol/L Potassium 5.8 H (3.6-5.0) mmol/L Chloride 126.7 H (98-107) mmol/L Carbon Dioxide 23 (22-30) mmol/L BUN 132 H (9-20) mg/dL Creatinine 2.9 H (0.8-1.3) mg/dL Glucose 506 H* (75-100) mg/dL Calcium 9.0 D (8.4-10.2) mg/dL - Imaging and Cardiology EKG: report reviewed (Sinus tachycardia no acute ST-T wave changes) Echo: report reviewed (Echocardiogram 01-27: LVEF 50 to 55%. LV normal size. LV SF normal. Mild diastolic dysfunction. RV SF is normal. No valvular abnormalities.) - Telemetry EKG Rhythm: Sinus Tachycardia - EKG Sinus rhythms and dysrhythmias: sinus rhythm - Allied health notes Allied health notes reviewed: RT
--- NOTE | 2021-01-15 11:31 | Progress Note ---
Assessment and Plan Cardiac Arrest with ROSC Acute Hypooxemic Respiratory Failure Septic Shock Bilateral pneumonia SHERICE BIBIANA Morbid Obesity Urinary tract infection Congestive heart failure Transaminitis NSTEMI / Elevated troponin Person under investigation for COVID-19 - peep increased to 18 cm H2O re: hypoxemia - will plan to change out CVL position tomoirrow - hold IV heparinn @ 0500 am - advance ETT 1 cm (riding high on CXR) - begin Proning today - continue to wean Vasopressors for target MAP > 65 mmHg - Neurology evaluation ongoing - continue care as below otherwise; - continue Daily SAT and SBT assessment as tolerated - continue to wean supplemental oxygen for target O2 sat's > 90% acutely - VAP bundle addressed - continue lung protective strategies - continue bronchodilators with pulmonary hygiene per RT - wean per pulmonary driven protocols otherwise - continue accuchecks with glycemic control per SSI (While critically ill target blood glucose of 140-180 mg/dL; avoid hypoglycemia) - sedation prn for target RASS 0 to -1 - avoid nephrotoxins, renally dose all medications - continue to avoid benzodiazepine's, reduce the possibility of delirium - complete AB's per ID rec's - prn analgesia per CPOT score - Maintenance of sleep-wake cycle, avoid delirium - continue enteral nutritional support at goal rate as tolerated - G.I. & VTE prophylaxis - PT/OT/ROM exercises - continue mobility protocols for pressure ulcer prophylaxis - Monitor hemodynamics closely - continue other care per attending / other consultants - discharge planning ongoing concurrently COVID SPECIFIC INTERVENTIONS - continue empiric contact and airborne isolation - await COVID-19 test result .... Re-evaluate in am & prn CONDITION: CRITICAL PROGNOSIS: GUARDED CODE STATUS: FULL CODE The high probability of a clinically significant, sudden or life-threatening deterioration of the [respiratory, cardiovascular, renal & neurologic] system(s) required my full and direct attention, intervention and personal management. The aggregate critical care time was [34] minutes without overlap. Time includes spent on; [x] Data Review and interpretation [x] Patient assessment and monitoring of vital signs [x] Documentation [x] Medication orders and management Subjective Date of service: 01/15/21 Principal diagnosis: Cardiac Arrest; Ac Hypoxemic Resp Failure; SepticShock; PNA; SHERICE; PUI COVID Interval history: Patient is seen today for: Cardiac Arrest with ROSC; Acute Hypoxemic Respiratory Failure; Septic Shock; Pneumonia; SHERICE; UTI; CHF; PUI COVID-19 Seen and examined at bedside; 24hour events reviewed; nursing and respiratory care staff consulted; no adverse overnight events reported to me; resting in bed; remains on MVS; AMS is persistent; BP's low and remains acidotic; no emesis or overt aspiration and no gross bleeding Objective Vital Signs - 12hr 01/14/21 01/14/21 01/15/21 23:45 23:50 00:00 Temperature 101.1 F H Pulse Rate 103 H 103 H 107 H Pulse Rate [ Bilateral Throughout] Pulse Rate [ 104 H From Monitor] Respiratory 30 H 30 H 30 H Rate Respiratory Rate [Bilateral Throughout] Blood Pressure 107/55 107/55 108/56 O2 Sat by Pulse 93 93 94 Oximetry 01/15/21 01/15/21 01/15/21 00:15 00:30 00:45 Temperature Pulse Rate 102 H 107 H 103 H Pulse Rate [ Bilateral Throughout] Pulse Rate [ From Monitor] Respiratory 30 H 30 H 30 H Rate Respiratory Rate [Bilateral Throughout] Blood Pressure 108/55 108/56 103/55 O2 Sat by Pulse 93 96 92 Oximetry 01/15/21 01/15/21 01/15/21 01:00 01:15 01:30 Temperature Pulse Rate 104 H 102 H 105 H Pulse Rate [ Bilateral Throughout] Pulse Rate [ From Monitor] Respiratory 30 H 30 H 30 H Rate Respiratory Rate [Bilateral Throughout] Blood Pressure 103/50 105/52 111/54 O2 Sat by Pulse 92 93 94 Oximetry 01/15/21 01/15/21 01/15/21 01:45 02:00 02:15 Temperature Pulse Rate 102 H 96 H 105 H Pulse Rate [ Bilateral Throughout] Pulse Rate [ From Monitor] Respiratory 30 H 31 H 30 H Rate Respiratory Rate [Bilateral Throughout] Blood Pressure 102/52 106/50 108/53 O2 Sat by Pulse 91 96 91 Oximetry 01/15/21 01/15/21 01/15/21 02:30 02:45 03:00 Temperature Pulse Rate 100 H 105 H 104 H Pulse Rate [ Bilateral Throughout] Pulse Rate [ From Monitor] Respiratory 30 H 30 H 30 H Rate Respiratory Rate [Bilateral Throughout] Blood Pressure 106/50 105/53 107/52 O2 Sat by Pulse 91 90 91 Oximetry 01/15/21 01/15/21 01/15/21 03:14 03:15 03:30 Temperature 100.8 F H Pulse Rate 97 H 103 H Pulse Rate [ Bilateral Throughout] Pulse Rate [ From Monitor] Respiratory 30 H 30 H Rate Respiratory Rate [Bilateral Throughout] Blood Pressure 99/49 85/41 O2 Sat by Pulse 89 87 Oximetry 01/15/21 01/15/21 01/15/21 03:45 04:00 04:16 Temperature Pulse Rate 98 H 98 H 93 H Pulse Rate [ Bilateral Throughout] Pulse Rate [ 98 H From Monitor] Respiratory 30 H 30 H 30 H Rate Respiratory Rate [Bilateral Throughout] Blood Pressure 110/57 105/54 105/54 O2 Sat by Pulse 89 89 88 Oximetry 01/15/21 01/15/21 01/15/21 04:30 04:45 04:50 Temperature Pulse Rate 95 H 99 H 104 H Pulse Rate [ Bilateral Throughout] Pulse Rate [ From Monitor] Respiratory 25 H 30 H Rate Respiratory Rate [Bilateral Throughout] Blood Pressure 105/54 105/58 105/58 O2 Sat by Pulse 90 87 91 Oximetry 01/15/21 01/15/21 01/15/21 05:00 05:15 05:30 Temperature Pulse Rate 99 H 98 H 99 H Pulse Rate [ Bilateral Throughout] Pulse Rate [ From Monitor] Respiratory 30 H 30 H 30 H Rate Respiratory Rate [Bilateral Throughout] Blood Pressure 105/59 103/60 101/56 O2 Sat by Pulse 88 89 89 Oximetry 01/15/21 01/15/21 01/15/21 05:45 06:00 06:15 Temperature Pulse Rate 100 H 101 H 100 H Pulse Rate [ Bilateral Throughout] Pulse Rate [ From Monitor] Respiratory 30 H 30 H 30 H Rate Respiratory Rate [Bilateral Throughout] Blood Pressure 106/59 106/59 106/58 O2 Sat by Pulse 92 88 89 Oximetry 01/15/21 01/15/21 01/15/21 06:30 06:45 07:27 Temperature Pulse Rate 100 H 103 H 102 H Pulse Rate [ 112 H Bilateral Throughout] Pulse Rate [ From Monitor] Respiratory 30 H 31 H Rate Respiratory 30 H Rate [Bilateral Throughout] Blood Pressure 107/55 104/62 106/59 O2 Sat by Pulse 89 90 86 Oximetry 01/15/21 01/15/21 01/15/21 07:31 07:40 09:45 Temperature 100.4 F H Pulse Rate 102 H Pulse Rate [ Bilateral Throughout] Pulse Rate [ From Monitor] Respiratory 30 H Rate Respiratory Rate [Bilateral Throughout] Blood Pressure 96/43 O2 Sat by Pulse 90 Oximetry Constitutional: appears uncomfortable, other (elderly obese male with mildly increased respiratory effort at rest on MVS) Eyes: non-icteric ENT: oropharynx moist, other (ETT 24 cm ASHA) Neck: supple, no lymphadenopathy, no JVD Effort: mildly labored Ascultation: Bilateral: diminished breath sounds, rhonchi Percussion: Bilateral: not dull Cardiovascular: regular rate and rhythm Gastrointestinal: normoactive bowel sounds, soft, non-tender, non-distended Integumentary: erythema (patchy mild) Extremities: no cyanosis, pink and warm, pulses normal, no ischemia or petechiae, edema (trace) Neurologic: pupils equal and round, unable to assess Psychiatric: other (encephalopathic) CBC and BMP: 01/15/21 07:00 01/15/21 07:00 ABG, PT/INR, D-dimer: ABG ABG pH 7.286 (7.320-7.450) L 01/15/21 02:44 POC ABG pCO2 38.6 mmHg (32.0-48.0) 01/15/21 02:44 POC ABG pO2 60.2 mmHg (83-108) L 01/15/21 02:44 POC ABG HCO3 18.0 01/15/21 02:44 ABG O2 Saturation 88.3 (0-100) 01/15/21 02:44 PT/INR, D-dimer PT 15.2 Sec. (12.2-14.9) H 01/11/21 10:05 INR 1.15 (0.87-1.13) H 01/11/21 10:05 D-Dimer 5398.24 ng/mlDDU (0-234) H 01/14/21 10:01 Abnormal lab findings: Abnormal Labs 01/08/21 01/08/21 01/08/21 11:01 11:55 11:55 WBC 23.8 H RBC 3.35 L Hgb 10.5 L Hct 31.6 L MCV MCHC RDW 15.6 H Lymph % (Auto) 4.1 L Lymph # (Auto) 1.[address] [place] # (Auto) 1.2 H Seg Neutrophils % 90.5 H Seg Neutrophils # 21.5 H PT INR APTT D-Dimer Heparin Anti-Xa Level ABG pH 7.204 L POC ABG pCO2 50.7 H POC ABG pO2 ABG Hemoglobin 11.9 L ABG Oxyhemoglobin ABG Sodium ABG Potassium 5.0 H ABG Chloride 110.0 H ABG Glucose 313 H Carboxyhemoglobin 0.1 L Sodium Potassium Chloride Carbon Dioxide BUN Creatinine Glucose POC Glucose Hemoglobin A1c Lactic Acid 4.50 H* Calcium Ferritin Direct Bilirubin AST ALT Lactate Dehydrogenase Troponin T C-Reactive Protein NT-Pro-B Natriuret Pep Total Protein Albumin Triglycerides LDL Cholesterol Direct HDL Cholesterol Arterial Blood Glucose 313 H Urine WBC (Auto) Coronavirus (PCR) 01/08/21 01/08/21 01/08/21 11:55 11:55 13:42 WBC RBC Hgb Hct MCV MCHC RDW Lymph % (Auto) Lymph # (Auto) [place] # (Auto) Seg Neutrophils % Seg Neutrophils # PT INR APTT 23.3 L D-Dimer Heparin Anti-Xa Level ABG pH POC ABG pCO2 POC ABG pO2 ABG Hemoglobin ABG Oxyhemoglobin ABG Sodium ABG Potassium ABG Chloride ABG Glucose Carboxyhemoglobin Sodium Potassium 5.3 H Chloride 107.2 H Carbon Dioxide 21 L BUN 55 H Creatinine 3.9 H Glucose 274 H POC Glucose Hemoglobin A1c Lactic Acid 2.90 H* Calcium 7.9 L Ferritin Direct Bilirubin 0.4 H AST 130 H ALT 70 H Lactate Dehydrogenase Troponin T 0.038 H C-Reactive Protein NT-Pro-B Natriuret Pep 1157 H Total Protein 6.0 L Albumin 2.6 L Triglycerides LDL Cholesterol Direct 28 L HDL Cholesterol 24 L Arterial Blood Glucose Urine WBC (Auto) Coronavirus (PCR) 01/08/21 01/08/21 01/08/21 14:36 14:36 14:36 WBC RBC Hgb Hct MCV MCHC RDW Lymph % (Auto) Lymph # (Auto) [place] # (Auto) Seg Neutrophils % Seg Neutrophils # PT INR APTT D-Dimer 7104.83 H Heparin Anti-Xa Level ABG pH POC ABG pCO2 POC ABG pO2 ABG Hemoglobin ABG Oxyhemoglobin ABG Sodium ABG Potassium ABG Chloride ABG Glucose Carboxyhemoglobin Sodium Potassium Chloride Carbon Dioxide BUN Creatinine Glucose 306 H POC Glucose Hemoglobin A1c Lactic Acid Calcium Ferritin 624.8 H Direct Bilirubin AST ALT Lactate Dehydrogenase 535 H Troponin T C-Reactive Protein 25.40 H NT-Pro-B Natriuret Pep Total Protein Albumin Triglycerides LDL Cholesterol Direct HDL Cholesterol Arterial Blood Glucose Urine WBC (Auto) Coronavirus (PCR) 01/08/21 01/08/21 01/08/21 21:00 Unknown Unknown WBC RBC Hgb Hct MCV MCHC RDW Lymph % (Auto) Lymph # (Auto) [place] # (Auto) Seg Neutrophils % Seg Neutrophils # PT INR APTT D-Dimer Heparin Anti-Xa Level ABG pH POC ABG pCO2 POC ABG pO2 111.6 H ABG Hemoglobin 11.6 L ABG Oxyhemoglobin ABG Sodium ABG Potassium 4.6 H ABG Chloride 112.0 H ABG Glucose 256 H Carboxyhemoglobin 0.3 L Sodium Potassium Chloride Carbon Dioxide BUN Creatinine Glucose POC Glucose Hemoglobin A1c Lactic Acid Calcium Ferritin Direct Bilirubin AST ALT Lactate Dehydrogenase Troponin T C-Reactive Protein NT-Pro-B Natriuret Pep Total Protein Albumin Triglycerides LDL Cholesterol Direct HDL Cholesterol Arterial Blood Glucose 256 H Urine WBC (Auto) > 182.0 H Coronavirus (PCR) Positive A 01/09/21 01/09/21 01/09/21 05:02 05:18 05:18 WBC 19.0 H RBC Hgb 11.7 L Hct MCV 95 H MCHC RDW 16.0 H Lymph % (Auto) Lymph # (Auto) [place] # (Auto) Seg Neutrophils % Seg Neutrophils # PT INR APTT D-Dimer Heparin Anti-Xa Level ABG pH POC ABG pCO2 POC ABG pO2 82.7 L ABG Hemoglobin ABG Oxyhemoglobin ABG Sodium ABG Potassium 4.8 H ABG Chloride 114.0 H ABG Glucose 283 H Carboxyhemoglobin 0.3 L Sodium 146 H Potassium 5.1 H Chloride 112.0 H Carbon Dioxide 20 L BUN 63 H Creatinine 3.0 H Glucose 282 H POC Glucose Hemoglobin A1c Lactic Acid Calcium 8.1 L Ferritin Direct Bilirubin AST ALT Lactate Dehydrogenase Troponin T C-Reactive Protein NT-Pro-B Natriuret Pep Total Protein Albumin Triglycerides LDL Cholesterol Direct HDL Cholesterol Arterial Blood Glucose 283 H Urine WBC (Auto) Coronavirus (PCR) 01/09/21 01/09/21 01/09/21 13:24 20:05 23:24 WBC RBC Hgb Hct MCV MCHC RDW Lymph % (Auto) Lymph # (Auto) [place] # (Auto) Seg Neutrophils % Seg Neutrophils # PT INR APTT D-Dimer Heparin Anti-Xa Level ABG pH POC ABG pCO2 POC ABG pO2 ABG Hemoglobin ABG Oxyhemoglobin ABG Sodium ABG Potassium ABG Chloride ABG Glucose Carboxyhemoglobin Sodium Potassium Chloride Carbon Dioxide BUN Creatinine Glucose POC Glucose 282 H 317 H 325 H Hemoglobin A1c Lactic Acid Calcium Ferritin Direct Bilirubin AST ALT Lactate Dehydrogenase Troponin T C-Reactive Protein NT-Pro-B Natriuret Pep Total Protein Albumin Triglycerides LDL Cholesterol Direct HDL Cholesterol Arterial Blood Glucose Urine WBC (Auto) Coronavirus (PCR) 01/10/21 01/10/21 01/10/21 02:56 05:31 10:46 WBC 22.0 H RBC Hgb 11.2 L Hct 35.0 L MCV MCHC RDW 15.4 H Lymph % (Auto) Lymph # (Auto) [place] # (Auto) Seg Neutrophils % Seg Neutrophils # PT INR APTT D-Dimer Heparin Anti-Xa Level ABG pH POC ABG pCO2 POC ABG pO2 73.8 L ABG Hemoglobin ABG Oxyhemoglobin 93.5 L ABG Sodium 149.1 H ABG Potassium 4.6 H ABG Chloride 119.0 H ABG Glucose 311 H Carboxyhemoglobin 0.4 L Sodium Potassium Chloride Carbon Dioxide BUN Creatinine Glucose POC Glucose 278 H Hemoglobin A1c Lactic Acid Calcium Ferritin Direct Bilirubin AST ALT Lactate Dehydrogenase Troponin T C-Reactive Protein NT-Pro-B Natriuret Pep Total Protein Albumin Triglycerides LDL Cholesterol Direct HDL Cholesterol Arterial Blood Glucose 311 H Urine WBC (Auto) Coronavirus (PCR) 01/10/21 01/10/21 01/10/21 10:46 10:46 10:46 WBC RBC Hgb Hct MCV MCHC RDW Lymph % (Auto) Lymph # (Auto) [place] # (Auto) Seg Neutrophils % Seg Neutrophils # PT INR APTT D-Dimer 5636.29 H Heparin Anti-Xa Level ABG pH POC ABG pCO2 POC ABG pO2 ABG Hemoglobin ABG Oxyhemoglobin ABG Sodium ABG Potassium ABG Chloride ABG Glucose Carboxyhemoglobin Sodium 155 H D Potassium Chloride 121.6 H Carbon Dioxide BUN 65 H Creatinine 2.2 H Glucose 330 H POC Glucose Hemoglobin A1c Lactic Acid Calcium Ferritin 347.2 H Direct Bilirubin AST 104 H ALT 63 H Lactate Dehydrogenase Troponin T C-Reactive Protein NT-Pro-B Natriuret Pep Total Protein Albumin 2.7 L Triglycerides LDL Cholesterol Direct HDL Cholesterol Arterial Blood Glucose Urine WBC (Auto) Coronavirus (PCR) 01/10/21 01/10/2101/10/21 10:46 11:39 18:06 WBC RBC Hgb Hct MCV MCHC RDW Lymph % (Auto) Lymph # (Auto) [place] # (Auto) Seg Neutrophils % Seg Neutrophils # PT INR APTT D-Dimer Heparin Anti-Xa Level ABG pH POC ABG pCO2 POC ABG pO2 ABG Hemoglobin ABG Oxyhemoglobin ABG Sodium ABG Potassium ABG Chloride ABG Glucose Carboxyhemoglobin Sodium Potassium Chloride Carbon Dioxide BUN Creatinine Glucose POC Glucose 289 H 294 H Hemoglobin A1c Lactic Acid Calcium Ferritin Direct Bilirubin AST ALT Lactate Dehydrogenase 448 H Troponin T C-Reactive Protein 10.50 H NT-Pro-B Natriuret Pep Total Protein Albumin Triglycerides LDL Cholesterol Direct HDL Cholesterol Arterial Blood Glucose Urine WBC (Auto) Coronavirus (PCR) 01/11/21 01/11/21 01/11/21 00:57 03:09 04:50 WBC 23.8 H RBC Hgb 11.2 L Hct MCV 95 H MCHC 31 L RDW 16.5 H Lymph % (Auto) Lymph # (Auto) [place] # (Auto) Seg Neutrophils % Seg Neutrophils # PT INR APTT D-Dimer Heparin Anti-Xa Level ABG pH POC ABG pCO2 POC ABG pO2 ABG Hemoglobin ABG Oxyhemoglobin ABG Sodium 154.3 H ABG Potassium 4.8 H ABG Chloride 124.0 H ABG Glucose 381 H Carboxyhemoglobin Sodium Potassium Chloride Carbon Dioxide BUN Creatinine Glucose POC Glucose 300 H Hemoglobin A1c Lactic Acid Calcium Ferritin Direct Bilirubin AST ALT Lactate Dehydrogenase Troponin T C-Reactive Protein NT-Pro-B Natriuret Pep Total Protein Albumin Triglycerides LDL Cholesterol Direct HDL Cholesterol Arterial Blood Glucose 381 H Urine WBC (Auto) Coronavirus (PCR) 01/11/21 01/11/21 01/11/21 04:50 05:46 10:05 WBC RBC Hgb Hct MCV MCHC RDW Lymph % (Auto) Lymph # (Auto) [place] # (Auto) Seg Neutrophils % Seg Neutrophils # PT 15.2 H INR 1.15 H APTT D-Dimer Heparin Anti-Xa Level ABG pH POC ABG pCO2 POC ABG pO2 ABG Hemoglobin ABG Oxyhemoglobin ABG Sodium ABG Potassium ABG Chloride ABG Glucose Carboxyhemoglobin Sodium 158 H Potassium Chloride 124.1 H Carbon Dioxide BUN 72 H Creatinine 2.1 H Glucose 371 H POC Glucose 384 H Hemoglobin A1c Lactic Acid Calcium Ferritin Direct Bilirubin AST 78 H ALT Lactate Dehydrogenase Troponin T C-Reactive Protein NT-Pro-B Natriuret Pep Total Protein Albumin 2.7 L Triglycerides 394 H LDL Cholesterol Direct HDL Cholesterol Arterial Blood Glucose Urine WBC (Auto) Coronavirus (PCR) 01/11/21 01/11/21 01/11/21 12:04 17:17 18:55 WBC RBC Hgb Hct MCV MCHC RDW Lymph % (Auto) Lymph # (Auto) [place] # (Auto) Seg Neutrophils % Seg Neutrophils # PT INR APTT D-Dimer Heparin Anti-Xa Level 1.42 H ABG pH POC ABG pCO2 POC ABG pO2 ABG Hemoglobin ABG Oxyhemoglobin ABG Sodium ABG Potassium ABG Chloride ABG Glucose Carboxyhemoglobin Sodium Potassium Chloride Carbon Dioxide BUN Creatinine Glucose POC Glucose 351 H 330 H Hemoglobin A1c Lactic Acid Calcium Ferritin Direct Bilirubin AST ALT Lactate Dehydrogenase Troponin T C-Reactive Protein NT-Pro-B Natriuret Pep Total Protein Albumin Triglycerides LDL Cholesterol Direct HDL Cholesterol Arterial Blood Glucose Urine WBC (Auto) Coronavirus (PCR) 01/11/21 01/12/21 01/12/21 23:29 01:46 04:29 WBC 24.0 H RBC Hgb 11.4 L Hct MCV 99 H MCHC 31 L RDW 17.0 H Lymph % (Auto) Lymph # (Auto) [place] # (Auto) Seg Neutrophils % Seg Neutrophils # PT INR APTT D-Dimer Heparin Anti-Xa Level ABG pH 7.308 L POC ABG pCO2 POC ABG pO2 ABG Hemoglobin ABG Oxyhemoglobin ABG Sodium 155.1 H ABG Potassium 5.2 H ABG Chloride 124.0 H ABG Glucose 399 H Carboxyhemoglobin 0.2 L Sodium Potassium Chloride Carbon Dioxide BUN Creatinine Glucose POC Glucose 328 H Hemoglobin A1c Lactic Acid Calcium Ferritin Direct Bilirubin AST ALT Lactate Dehydrogenase Troponin T C-Reactive Protein NT-Pro-B Natriuret Pep Total Protein Albumin Triglycerides LDL Cholesterol Direct HDL Cholesterol Arterial Blood Glucose 399 H Urine WBC (Auto) Coronavirus (PCR) 01/12/21 01/12/21 01/12/21 04:29 05:24 08:30 WBC RBC Hgb Hct MCV MCHC RDW Lymph % (Auto) Lymph # (Auto) [place] # (Auto) Seg Neutrophils % Seg Neutrophils # PT INR APTT D-Dimer 4813.23 H Heparin Anti-Xa Level ABG pH POC ABG pCO2 POC ABG pO2 ABG Hemoglobin ABG Oxyhemoglobin ABG Sodium ABG Potassium ABG Chloride ABG Glucose Carboxyhemoglobin Sodium 155 H Potassium 5.4 H Chloride 121.2 H Carbon Dioxide BUN 91 H Creatinine 2.3 H Glucose 427 H POC Glucose 394 H Hemoglobin A1c Lactic Acid Calcium Ferritin Direct Bilirubin AST ALT Lactate Dehydrogenase Troponin T C-Reactive Protein NT-Pro-B Natriuret Pep Total Protein Albumin Triglycerides LDL Cholesterol Direct HDL Cholesterol Arterial Blood Glucose Urine WBC (Auto) Coronavirus (PCR) 01/12/21 01/12/21 01/12/21 08:30 08:30 11:32 WBC RBC Hgb Hct MCV MCHC RDW Lymph % (Auto) Lymph # (Auto) [place] # (Auto) Seg Neutrophils % Seg Neutrophils # PT INR APTT D-Dimer Heparin Anti-Xa Level ABG pH POC ABG pCO2 POC ABG pO2 ABG Hemoglobin ABG Oxyhemoglobin ABG Sodium ABG Potassium ABG Chloride ABG Glucose Carboxyhemoglobin Sodium Potassium Chloride Carbon Dioxide BUN Creatinine Glucose POC Glucose 385 H Hemoglobin A1c Lactic Acid Calcium Ferritin 379.5 H Direct Bilirubin AST ALT Lactate Dehydrogenase 576 H Troponin T C-Reactive Protein 4.50 H NT-Pro-B Natriuret Pep Total Protein Albumin Triglycerides LDL Cholesterol Direct HDL Cholesterol Arterial Blood Glucose Urine WBC (Auto) Coronavirus (PCR) 01/12/21 01/12/21 01/13/21 16:48 23:20 03:40 WBC RBC Hgb Hct MCV MCHC RDW Lymph % (Auto) Lymph # (Auto) [place] # (Auto) Seg Neutrophils % Seg Neutrophils # PT INR APTT D-Dimer Heparin Anti-Xa Level ABG pH POC ABG pCO2 POC ABG pO2 66.6 L ABG Hemoglobin ABG Oxyhemoglobin 92.1 L ABG Sodium 158.0 H ABG Potassium 5.0 H ABG Chloride 129.0 H ABG Glucose 266 H Carboxyhemoglobin 0.2 L Sodium Potassium Chloride Carbon Dioxide BUN Creatinine Glucose POC Glucose 313 H 260 H Hemoglobin A1c Lactic Acid Calcium Ferritin Direct Bilirubin AST ALT Lactate Dehydrogenase Troponin T C-Reactive Protein NT-Pro-B Natriuret Pep Total Protein Albumin Triglycerides LDL Cholesterol Direct HDL Cholesterol Arterial Blood Glucose 266 H Urine WBC (Auto) Coronavirus (PCR) 01/13/21 01/13/21 01/13/21 04:53 11:26 14:23 WBC RBC Hgb Hct MCV MCHC RDW Lymph % (Auto) Lymph # (Auto) [place] # (Auto) Seg Neutrophils % Seg Neutrophils # PT INR APTT D-Dimer Heparin Anti-Xa Level ABG pH POC ABG pCO2 POC ABG pO2 ABG Hemoglobin ABG Oxyhemoglobin ABG Sodium ABG Potassium ABG Chloride ABG Glucose Carboxyhemoglobin Sodium 158 H Potassium 5.6 H Chloride 128.9 H Carbon Dioxide 17 L D BUN 119 H Creatinine 3.3 H Glucose 347 H POC Glucose 221 H 235 H Hemoglobin A1c Lactic Acid Calcium 8.3 L Ferritin Direct Bilirubin AST ALT Lactate Dehydrogenase Troponin T C-Reactive Protein NT-Pro-B Natriuret Pep Total Protein Albumin Triglycerides LDL Cholesterol Direct HDL Cholesterol Arterial Blood Glucose Urine WBC (Auto) Coronavirus (PCR) 01/13/21 01/13/21 01/13/21 17:22 23:46 Unknown WBC RBC Hgb 10.9 L Hct 34.5 L MCV MCHC RDW Lymph % (Auto) Lymph # (Auto) [place] # (Auto) Seg Neutrophils % Seg Neutrophils # PT INR APTT D-Dimer Heparin Anti-Xa Level ABG pH POC ABG pCO2 POC ABG pO2 ABG Hemoglobin ABG Oxyhemoglobin ABG Sodium ABG Potassium ABG Chloride ABG Glucose Carboxyhemoglobin Sodium Potassium Chloride Carbon Dioxide BUN Creatinine Glucose POC Glucose 372 H 426 H Hemoglobin A1c Lactic Acid Calcium Ferritin Direct Bilirubin AST ALT Lactate Dehydrogenase Troponin T C-Reactive Protein NT-Pro-B Natriuret Pep Total Protein Albumin Triglycerides LDL Cholesterol Direct HDL Cholesterol Arterial Blood Glucose Urine WBC (Auto) Coronavirus (PCR) 01/14/21 01/14/21 01/14/21 03:15 04:00 05:02 WBC RBC Hgb Hct MCV MCHC RDW Lymph % (Auto) Lymph # (Auto) [place] # (Auto) Seg Neutrophils % Seg Neutrophils # PT INR APTT D-Dimer Heparin Anti-Xa Level ABG pH 7.305 L POC ABG pCO2 POC ABG pO2 ABG Hemoglobin 8.6 L ABG Oxyhemoglobin ABG Sodium 161.0 H ABG Potassium 5.6 H ABG Chloride 131.0 H ABG Glucose 517 H Carboxyhemoglobin 0.2 L Sodium 159 H Potassium Chloride 131.7 H Carbon Dioxide 19 L BUN 110 H Creatinine 2.8 H Glucose 434 H POC Glucose 428 H Hemoglobin A1c Lactic Acid Calcium 7.0 L D Ferritin Direct Bilirubin AST ALT Lactate Dehydrogenase Troponin T C-Reactive Protein NT-Pro-B Natriuret Pep Total Protein Albumin Triglycerides LDL Cholesterol Direct HDL Cholesterol Arterial Blood Glucose 517 H Urine WBC (Auto) Coronavirus (PCR) 01/14/21 01/14/21 01/14/21 10:01 10:01 10:01 WBC RBC Hgb Hct MCV MCHC RDW Lymph % (Auto) Lymph # (Auto) [place] # (Auto) Seg Neutrophils % Seg Neutrophils # PT INR APTT D-Dimer 5398.24 H Heparin Anti-Xa Level ABG pH POC ABG pCO2 POC ABG pO2 ABG Hemoglobin ABG Oxyhemoglobin ABG Sodium ABG Potassium ABG Chloride ABG Glucose Carboxyhemoglobin Sodium Potassium Chloride Carbon Dioxide BUN Creatinine Glucose POC Glucose Hemoglobin A1c Lactic Acid Calcium Ferritin 575.5 H Direct Bilirubin AST ALT Lactate Dehydrogenase 537 H Troponin T C-Reactive Protein 13.90 H NT-Pro-B Natriuret Pep Total Protein Albumin Triglycerides LDL Cholesterol Direct HDL Cholesterol Arterial Blood Glucose Urine WBC (Auto) Coronavirus (PCR) 01/14/21 01/14/21 01/14/21 10:01 11:25 17:58 WBC RBC Hgb Hct MCV MCHC RDW Lymph % (Auto) Lymph # (Auto) [place] # (Auto) Seg Neutrophils % Seg Neutrophils # PT INR APTT D-Dimer Heparin Anti-Xa Level ABG pH POC ABG pCO2 POC ABG pO2 ABG Hemoglobin ABG Oxyhemoglobin ABG Sodium ABG Potassium ABG Chloride ABG Glucose Carboxyhemoglobin Sodium Potassium Chloride Carbon Dioxide BUN Creatinine Glucose POC Glucose 396 H 429 H Hemoglobin A1c 9.0 H Lactic Acid Calcium Ferritin Direct Bilirubin AST ALT Lactate Dehydrogenase Troponin T C-Reactive Protein NT-Pro-B Natriuret Pep Total Protein Albumin Triglycerides LDL Cholesterol Direct HDL Cholesterol Arterial Blood Glucose Urine WBC (Auto) Coronavirus (PCR) 01/14/21 01/14/21 01/15/21 21:22 23:35 02:44 WBC RBC Hgb Hct MCV MCHC RDW Lymph % (Auto) Lymph # (Auto) [place] # (Auto) Seg Neutrophils % Seg Neutrophils # PT INR APTT D-Dimer Heparin Anti-Xa Level ABG pH 7.286 L POC ABG pCO2 POC ABG pO2 60.2 L ABG Hemoglobin 10.1 L ABG Oxyhemoglobin 88.0 L ABG Sodium 153.1 H ABG Potassium 5.6 H ABG Chloride 129.0 H ABG Glucose 486 H Carboxyhemoglobin 0 L Sodium Potassium Chloride Carbon Dioxide BUN Creatinine Glucose POC Glucose 417 H 438 H Hemoglobin A1c Lactic Acid Calcium Ferritin Direct Bilirubin AST ALT Lactate Dehydrogenase Troponin T C-Reactive Protein NT-Pro-B Natriuret Pep Total Protein Albumin Triglycerides LDL Cholesterol Direct HDL Cholesterol Arterial Blood Glucose 486 H Urine WBC (Auto) Coronavirus (PCR) 01/15/21 01/15/21 01/15/21 05:15 07:00 07:00 WBC RBC Hgb 9.7 L Hct 31.3 L MCV MCHC RDW Lymph % (Auto) Lymph # (Auto) [place] # (Auto) Seg Neutrophils % Seg Neutrophils # PT INR APTT D-Dimer Heparin Anti-Xa Level ABG pH POC ABG pCO2 POC ABG pO2 ABG Hemoglobin ABG Oxyhemoglobin ABG Sodium ABG Potassium ABG Chloride ABG Glucose Carboxyhemoglobin Sodium 158 H Potassium 5.8 H Chloride 126.7 H Carbon Dioxide BUN 132 H Creatinine 2.9 H Glucose 506 H* POC Glucose 351 H Hemoglobin A1c Lactic Acid Calcium Ferritin Direct Bilirubin AST ALT Lactate Dehydrogenase Troponin T C-Reactive Protein NT-Pro-B Natriuret Pep Total Protein Albumin Triglycerides LDL Cholesterol Direct HDL Cholesterol Arterial Blood Glucose Urine WBC (Auto) Coronavirus (PCR) 01/15/21 07:00 WBC RBC Hgb Hct MCV MCHC RDW Lymph % (Auto) Lymph # (Auto) [place] # (Auto) Seg Neutrophils % Seg Neutrophils # PT INR APTT D-Dimer Heparin Anti-Xa Level ABG pH POC ABG pCO2 POC ABG pO2 ABG Hemoglobin ABG Oxyhemoglobin ABG Sodium ABG Potassium ABG Chloride ABG Glucose Carboxyhemoglobin Sodium Potassium Chloride Carbon Dioxide BUN Creatinine Glucose POC Glucose Hemoglobin A1c Lactic Acid Calcium Ferritin Direct Bilirubin AST ALT Lactate Dehydrogenase Troponin T C-Reactive Protein NT-Pro-B Natriuret Pep Total Protein Albumin Triglycerides 252 H LDL Cholesterol Direct HDL Cholesterol Arterial Blood Glucose Urine WBC (Auto) Coronavirus (PCR) Allied health notes reviewed: nursing
[2021-01-15] MEDS ORDERED: FREE WATER PO SCH (12:00)
[2021-01-15] MEDS: SODIUM CHLORIDE 0.45% 1000 ML 1,000 ML IV SCH (12:41)
--- NOTE | 2021-01-15 15:12 | Progress Note ---
Assessment and Plan - Patient Problems (1) Acute renal failure Current Visit: Yes Status: Acute Plan to address problem: overall renal function is stable this morning and he remains nonoliguric. We will continue to closely monitor. No acute indications for renal replacement therapy at present time. Cont supportive care for ATN, avoid further nephro toxins, NSAIDs, IV contrast Renal US did not show any acute abnormalities but likely does have evidence of underlying chronic kidney disease. Cont IV NS at 75m/hr, aggressive glucose control will improved hyperkalemia. Will order lokelma if K remains elevated despite improved serum glucose. will monitor BMP and make further recommendations. (2) Hyperkalemia Current Visit: Yes Status: Acute Plan to address problem: Cont IV NS at 75m/hr, aggressive glucose control will improved hyperkalemia. Will order lokelma if K remains elevated despite improved serum glucose. (3) Hypernatremia Current Visit: Yes Status: Acute Plan to address problem: persistent hypernatremia noted, cont 1/2 NS at 75ml/hr, cont free water flushes 300ml q4hr, (4) Cardiac arrest Current Visit: Yes Status: Acute Plan to address problem: Management and further recommendation per cardiology. (5) Elevated d-dimer Current Visit: Yes Status: Acute Plan to address problem: Likely in the setting of pneumonia. His CTA chest did not show any evidence of PE. He is COVID-19 (+). (6) Bilateral pneumonia Current Visit: Yes Status: Acute Plan to address problem: Please titrate antibiotics accordingly based on diminished renal function. (7) Diabetes mellitus type 2 in obese Current Visit: Yes Status: Chronic Plan to address problem: DM management per primary attending. (8) Pneumonia due to COVID-19 virus Current Visit: Yes Status: Acute Plan to address problem: Treatment per primary team/ID recommendations. (9) Gram-positive bacteremia Current Visit: Yes Status: Acute Plan to address problem: on vancomycin and cefepime. Cultures are indicating MRSA. ID recommendations appreciated. Subjective Date of service: 01/15/21 Principal diagnosis: Cardiac Arrest; Ac Hypoxemic Resp Failure; SepticShock; PNA; SHERICE; PUI COVID Interval history: Events overnight reviewed. Hyperkalemia in the setting of SHERICE and uncontrolled glucose. Chest Xray reviewed, with persistent b/l opacities. Remains intubated. Objective - Exam Narrative Exam: Patient not directly examined in order to preserve PPE and reduce transmission risk of COVID-19. Physical examination by primary team reviewed. - Vital Signs Vital signs: Vital Signs - 12hr 01/15/21 01/15/21 01/15/21 03:14 03:15 03:30 Temperature 100.8 F H Pulse Rate 97 H 103 H Pulse Rate [ Bilateral Throughout] Pulse Rate [ From Monitor] Respiratory 30 H 30 H Rate Respiratory Rate [Bilateral Throughout] Blood Pressure 99/49 85/41 O2 Sat by Pulse 89 87 Oximetry 01/15/21 01/15/21 01/15/21 03:45 04:00 04:16 Temperature Pulse Rate 98 H 98 H 93 H Pulse Rate [ Bilateral Throughout] Pulse Rate [ 98 H From Monitor] Respiratory 30 H 30 H 30 H Rate Respiratory Rate [Bilateral Throughout] Blood Pressure 110/57 105/54 105/54 O2 Sat by Pulse 89 89 88 Oximetry 01/15/21 01/15/21 01/15/21 04:30 04:45 04:50 Temperature Pulse Rate 95 H 99 H 104 H Pulse Rate [ Bilateral Throughout] Pulse Rate [ From Monitor] Respiratory 25 H 30 H Rate Respiratory Rate [Bilateral Throughout] Blood Pressure 105/54 105/58 105/58 O2 Sat by Pulse 90 87 91 Oximetry 01/15/21 01/15/21 01/15/21 05:00 05:15 05:30 Temperature Pulse Rate 99 H 98 H 99 H Pulse Rate [ Bilateral Throughout] Pulse Rate [ From Monitor] Respiratory 30 H 30 H 30 H Rate Respiratory Rate [Bilateral Throughout] Blood Pressure 105/59 103/60 101/56 O2 Sat by Pulse 88 89 89 Oximetry 01/15/21 01/15/21 01/15/21 05:45 06:00 06:15 Temperature Pulse Rate 100 H 101 H 100 H Pulse Rate [ Bilateral Throughout] Pulse Rate [ From Monitor] Respiratory 30 H 30 H 30 H Rate Respiratory Rate [Bilateral Throughout] Blood Pressure 106/59 106/59 106/58 O2 Sat by Pulse 92 88 89 Oximetry 01/15/21 01/15/21 01/15/21 06:30 06:45 07:00 Temperature Pulse Rate 100 H 103 H 95 H Pulse Rate [ Bilateral Throughout] Pulse Rate [ From Monitor] Respiratory 30 H 31 H 31 H Rate Respiratory Rate [Bilateral Throughout] Blood Pressure 107/55 104/62 97/52 O2 Sat by Pulse 89 90 89 Oximetry 01/15/21 01/15/21 01/15/21 07:15 07:27 07:30 Temperature Pulse Rate 105 H 102 H 100 H Pulse Rate [ 112 H Bilateral Throughout] Pulse Rate [ From Monitor] Respiratory 31 H 30 H Rate Respiratory 30 H Rate [Bilateral Throughout] Blood Pressure 105/49 106/59 106/59 O2 Sat by Pulse 89 86 86 Oximetry 01/15/21 01/15/21 01/15/21 07:31 07:40 07:45 Temperature 100.4 F H Pulse Rate 102 H 102 H Pulse Rate [ Bilateral Throughout] Pulse Rate [ From Monitor] Respiratory 30 H Rate Respiratory Rate [Bilateral Throughout] Blood Pressure 96/43 102/56 O2 Sat by Pulse 90 87 Oximetry 01/15/21 01/15/21 01/15/21 08:00 08:15 08:30 Temperature Pulse Rate 103 H 108 H 112 H Pulse Rate [ Bilateral Throughout] Pulse Rate [ 103 H From Monitor] Respiratory 25 H 30 H 30 H Rate Respiratory Rate [Bilateral Throughout] Blood Pressure 88/52 99/48 99/54 O2 Sat by Pulse 88 93 86 Oximetry 01/15/21 01/15/21 01/15/21 08:45 09:00 09:15 Temperature Pulse Rate 113 H 113 H 115 H Pulse Rate [ Bilateral Throughout] Pulse Rate [ From Monitor] Respiratory 30 H 30 H 30 H Rate Respiratory Rate [Bilateral Throughout] Blood Pressure 100/52 98/52 101/54 O2 Sat by Pulse 90 91 Oximetry 01/15/21 01/15/21 01/15/21 09:30 09:45 10:00 Temperature Pulse Rate 115 H 110 H 115 H Pulse Rate [ Bilateral Throughout] Pulse Rate [ From Monitor] Respiratory 30 H 30 H 22 Rate Respiratory Rate [Bilateral Throughout] Blood Pressure 100/48 92/38 91/35 O2 Sat by Pulse 90 84 88 Oximetry 01/15/21 01/15/21 01/15/21 10:15 10:30 10:45 Temperature Pulse Rate 117 H 117 H 118 H Pulse Rate [ Bilateral Throughout] Pulse Rate [ From Monitor] Respiratory 30 H 30 H 30 H Rate Respiratory Rate [Bilateral Throughout] Blood Pressure 92/39 92/38 93/38 O2 Sat by Pulse 91 90 Oximetry 01/15/21 01/15/21 01/15/21 11:00 11:15 11:30 Temperature Pulse Rate 113 H 115 H 113 H Pulse Rate [ Bilateral Throughout] Pulse Rate [ From Monitor] Respiratory 30 H 30 H 30 H Rate Respiratory Rate [Bilateral Throughout] Blood Pressure 96/43 103/46 96/43 O2 Sat by Pulse 90 90 90 Oximetry 01/15/21 01/15/21 01/15/21 11:45 11:55 12:00 Temperature 100.8 F H Pulse Rate 112 H 113 H Pulse Rate [ Bilateral Throughout] Pulse Rate [ 111 H From Monitor] Respiratory 30 H 30 H Rate Respiratory Rate [Bilateral Throughout] Blood Pressure 101/45 97/43 O2 Sat by Pulse 89 89 Oximetry 01/15/21 01/15/21 01/15/21 12:10 12:15 12:30 Temperature Pulse Rate 116 H 115 H 114 H Pulse Rate [ Bilateral Throughout] Pulse Rate [ From Monitor] Respiratory 30 H 30 H Rate Respiratory Rate [Bilateral Throughout] Blood Pressure 100/46 96/42 97/40 O2 Sat by Pulse 87 89 89 Oximetry 01/15/21 01/15/21 12:45 14:33 Temperature Pulse Rate 113 H Pulse Rate [ 117 H Bilateral Throughout] Pulse Rate [ From Monitor] Respiratory 30 H Rate Respiratory 30 H Rate [Bilateral Throughout] Blood Pressure 88/39 O2 Sat by Pulse 88 Oximetry - Lab 01/15/21 07:00 01/15/21 07:00 Most recent lab results ABG pH 7.286 (7.320-7.450) L 01/15/21 02:44 ABG O2 Saturation 88.3 (0-100) 01/15/21 02:44 Calcium 9.0 mg/dL (8.4-10.2) D 01/15/21 07:00 Medications & Allergies - Medications Allergies/Adverse Reactions: Allergies No Known Allergies Allergy (Verified 01/09/21 10:10) Home Medications: Home Medications Medication Instructions Recorded Confirmed Last Taken Type Unobtainable 01/10/21 01/10/21 Unknown History Active Medications: Generic Name Dose Route Start Last Admin Trade Name Freq PRN Reason Stop Dose Admin Acetaminophen 650 mg 01/10/21 08:18 01/15/21 09:45 Acetaminophen 325 Mg/10.15 Ml Oral Liqd Unit Dose FEEDTUBE 650 mg Q6H PRN Administration TEMP >/=100.4 Albuterol 2.5 mg 01/08/21 20:23 Albuterol 2.5 Mg/3 Ml Nebu IH Q3HRT PRN Shortness Of Breath Albuterol/Ipratropium 1 ampul 01/08/21 20:00 01/15/21 14:33 Ipratropium/Albuterol Sulfate 3 Ml Ampul.Neb IH 1 ampul QIDRT MARBELLA Administration Lipase/Protease/Amylase 1 each 01/10/21 17:40 Lipase 10,500/Protease 25,000/Amylase 43,750 (Units) Dr K[place] FEEDTUBE PRN PRN For Clogged Feeding Tube Dexamethasone 6 mg 01/10/21 10:00 01/15/21 09:34 Dexamethasone 4 Mg/Ml Vial IV 01/19/21 10:01 6 mg Q24HR MARBELLA Administration Famotidine 10 mg 01/14/21 22:00 01/15/21 09:35 Famotidine 10 Mg Tab PO 10 mg BID MARBELLA Administration Fentanyl 50 mcg 01/12/21 18:13 Fentanyl 100 Mcg/2 Ml Inj IV Q10MIN PRN ANALGESIA Heparin Sodium (Porcine) 5,000 unit 01/12/21 12:00 Heparin 10,000 Units/10 Ml Vial IV Q6H PRN Anti-Xa Assay < 0.1 units/ml Hydrophilic Ointment 1 applic 01/08/21 16:00 Lip Therapy Vaseline TP Q2HR PRN Dry Lips Propofol 1,000 mg in 100 mls @ 4.082 mls/hr 01/08/21 16:00 01/15/21 10:15 Diprivan 10 Mg/Ml IV 15 mcg/kg/min TITR MARBELLA 12.247 mls/hr Administration Protocol 5 MCG/KG/MIN Heparin Sodium/Sodium Chloride 25,000 unit in 500 mls @ 30 mls/hr 01/11/21 10:00 01/15/21 09:37 Heparin/ 0.45% Nacl-25,000 Unit/500 Ml IV 1,500 units/hr TITR MARBELLA 30 mls/hr Administration Protocol 1,500 UNITS/HR Vasopressin 20 unit/ Sodium 101 mls @ 9.09 mls/hr 01/12/21 14:00 01/15/21 09:34 Chloride IV 0.03 units/min TITR MARBELLA 9.09 mls/hr Administration Protocol 0.03 UNITS/MIN Fentanyl Citrate 2,000 mcg in 100 mls @ 6.804 mls/hr 01/12/21 19:00 01/15/21 11:13 Fentanyl Drip Premix IV 3 mcg/kg/hr TITR MARBELLA 20.412 mls/hr Administration Protocol 1 MCG/KG/HR Sodium Chloride 1,000 mls @ 75 mls/hr 01/14/21 09:00 01/15/21 12:41 Nacl 0.45% 1000 Ml IV 75 mls/hr DIRECT MARBELLA Administration NORepinephrine/NS 8 MG-250 ML 8 mg in 250 mls @ 3.75 mls/hr 01/15/21 15:00 Norepinephrine/Ns 8 Mg-250 Ml (Double Conc) IV TITRATE MARBELLA Protocol 2 MCG/MIN Insulin Glargine 28 units 01/15/21 10:00 01/15/21 09:35 Insulin Glargine 100 Units/Ml SUB-Q 28 units BID MARBELLA Administration Insulin Human Lispro 0 unit 01/09/21 12:00 01/15/21 12:42 Insulin Lispro 100 Unit/Ml SUB-Q 10 unit Q6HR MARBELLA Administration Protocol Multi-Ingred Cream/Lotion/Oil/Oint 1 applic 01/08/21 18:00 Mineral Oil/Petrolatum, White Ophth Oint 3.5 Gm OU Q4HR PRN Dry Eye(s) Senna/Docusate Sodium 1 tab 01/08/21 22:00 01/15/21 09:35 Sennosides/Docusate Sodium 8.6/50 Mg Tab FEEDTUBE 1 tab BID MARBELLA Administration Simple Syrup 15 ml 01/10/21 17:40 Simple Syrup 15 Ml FEEDTUBE PRN PRN Hypoglycemia Simple Syrup 30 ml 01/10/21 17:40 Simple Syrup 15 Ml FEEDTUBE PRN PRN Hypoglycemia Sodium Bicarbonate 325 mg 01/10/21 17:40 Sodium Bicarbonate 325 Mg Tab FEEDTUBE PRN PRN For Clogged Feeding Tube Sodium Chloride 5 ml 01/08/21 15:18 Sodium Chloride 0.9% 500 Ml Ivpb IV DIRECT PRN [employer]ERIAL [employer]ILITY [employer]PER[employer] Sodium Hypochlorite 1 applic 01/12/21 17:00 Sodium Hypochlorite, Dakin's Full Strength (0.5%) 473 Ml Topical Soln TP Q12H PRN Wound Care
--- NOTE | 2021-01-15 15:58 | Progress Note ---
Assessment and Plan Cultures: Blood culture 01/08/21 MRSA COVID PCE: positive A/P: 60-year-old man past medical history diabetes, sleep apnea admitted with COVID-19 pneumonia #Severe COVID-19 pneumonia: Patient presented with a week of symptoms, chest x- ray with diffuse bilateral infiltrates, arrived intubated. Inflammatory markers elevated #Acute hypoxemic respiratory failure: Likely secondary to COVID-19 infection. Currently on the vent #MRSA bacteremia: Source of the left great toe infection TTE without vegetation. #Left great toe infection: Likely source of infection #Diabetes: tight glycemic control for best outcomes. #Morbid obesity #SHERICE: renally dose medications Recs: -Steroids per pulmonary for 10 days -Renal function insufficient for Remdesivir -Given MRSA bacteremia not a candidate for Actemra at present. -Obtain q48-72h inflammatory markers - ferritin, Ddimer, CRP, LDH -Continue vancomycin goal trough 10-20. If upcoming cultures continue to be positive will have to escalate therapy to daptomycin/ceftaroline. -Ordered repeat cultures with morning -Anticoagulation per hospital protocol -Proning as able Thank you for the consult, we will continue to follow. Fran Hubbard MD [facility] ([facility] O: [phone] F: [phone] Subjective Date of service: 01/15/21 Principal diagnosis: Cardiac Arrest; Ac Hypoxemic Resp Failure; SepticShock; PNA; SHERICE; PUI COVID Interval history: Persistently febrile to 101.1 with a white count 24 at last check. Cultures are remain positive for MRSA Imaging personally viewed: Chest x-ray: Bilateral pulmonary opacities Objective - Exam Narrative Exam: Physical exam deferred to reduce risk of transmission of COVID-19. Please refer to primary team's note. - Constitutional Vitals: Vital Signs Temp Pulse Resp BP Pulse Ox 100.8 F H 117 H 30 H 88/39 88 01/15/21 11:55 01/15/21 14:33 01/15/21 14:33 01/15/21 12:45 01/15/21 12:45 Temperature -Last 24 Hours Temperature 100.8 F Temperature 100.4 F Temperature 100.8 F Temperature 101.1 F Temperature 100.8 F Temperature 100.2 F - Labs CBC & Chem 7: 01/15/21 07:00 01/15/21 07:00 Labs: Abnormal lab results 01/14/21 01/14/21 01/14/21 Range/Units 17:58 21:22 23:35 Hgb (11.8-15.2) gm/dl Hct (35.5-45.6) % ABG pH (7.320-7.450) POC ABG pO2 (83-108) mmHg ABG Hemoglobin (12.0-17.5) ABG Oxyhemoglobin (94-98) ABG Sodium (136.0-145.0) mmol/L ABG Potassium (3.40-4.50) mmol/L ABG Chloride (98-107) mmol/L ABG Glucose (65-95) mg/dL Carboxyhemoglobin (0.5-1.5) Sodium (137-145) mmol/L Potassium (3.6-5.0) mmol/L Chloride (98-107) mmol/L BUN (9-20) mg/dL Creatinine (0.8-1.3) mg/dL Glucose (75-100) mg/dL POC Glucose 429 H 417 H 438 H (70-105) mg/dL Triglycerides (2-149) mg/dL Arterial Blood Glucose (65-95) mg/dL 01/15/21 01/15/21 01/15/21 Range/Units 02:44 05:15 07:00 Hgb 9.7 L (11.8-15.2) gm/dl Hct 31.3 L (35.5-45.6) % ABG pH 7.286 L (7.320-7.450) POC ABG pO2 60.2 L (83-108) mmHg ABG Hemoglobin 10.1 L (12.0-17.5) ABG Oxyhemoglobin 88.0 L (94-98) ABG Sodium 153.1 H (136.0-145.0) mmol/L ABG Potassium 5.6 H (3.40-4.50) mmol/L ABG Chloride 129.0 H (98-107) mmol/L ABG Glucose 486 H (65-95) mg/dL Carboxyhemoglobin 0 L (0.5-1.5) Sodium (137-145) mmol/L Potassium (3.6-5.0) mmol/L Chloride (98-107) mmol/L BUN (9-20) mg/dL Creatinine (0.8-1.3) mg/dL Glucose (75-100) mg/dL POC Glucose 351 H (70-105) mg/dL Triglycerides (2-149) mg/dL Arterial Blood Glucose 486 H (65-95) mg/dL 01/15/21 01/15/21 01/15/21 Range/Units 07:00 07:00 11:29 Hgb (11.8-15.2) gm/dl Hct (35.5-45.6) % ABG pH (7.320-7.450) POC ABG pO2 (83-108) mmHg ABG Hemoglobin (12.0-17.5) ABG Oxyhemoglobin (94-98) ABG Sodium (136.0-145.0) mmol/L ABG Potassium (3.40-4.50) mmol/L ABG Chloride (98-107) mmol/L ABG Glucose (65-95) mg/dL Carboxyhemoglobin (0.5-1.5) Sodium 158 H (137-145) mmol/L Potassium 5.8 H (3.6-5.0) mmol/L Chloride 126.7 H (98-107) mmol/L BUN 132 H (9-20) mg/dL Creatinine 2.9 H (0.8-1.3) mg/dL Glucose 506 H* (75-100) mg/dL POC Glucose 422 H (70-105) mg/dL Triglycerides 252 H (2-149) mg/dL Arterial Blood Glucose (65-95) mg/dL
[2021-01-15] MEDS: FREE WATER PO SCH ×3 (17:38→20:10)
[2021-01-15] MEDS: NORepinephrine/NS 8 MG-250 ML 8 MG/250 ML INFUS..BTL IV SCH ×2 (17:53→22:40)
--- NOTE | 2021-01-15 18:22 | Progress Note ---
<JUNAIDLAZARA YanciLilian - Last Filed: 01/15/21 18:20> Assessment and Plan Assessment and plan: This is a 61-year-old male with DM, BIBIANA, HTN, HFp EF (67%), staghorn calculi s/p ureteral stents, renal insufficiency and chronic back pain admitted s/p cardiac arrest, acute hypoxic respiratory failure, acute kidney injury, possible osteomyelitis and electrolyte balances Neuro: Metabolic encephalopathy -Neurology consulted, appreciate recommendations -01/08 CT head shows no evidence of acute intracranial hemorrhage -01/11 EEG shows findings suggestive of severe encephalopathic process and/or drug effect, possibility of post anoxic brain injury cannot be totally excluded-> repeat study when off sedation -Sedated with fentanyl and propofol -Goal RASS -3 to -4 -Reorientation as needed Cardio: S/p cardiac arrest, hypotension, h/o HFpEF -Cardiology consulted, patient recommendations -Presented with elevated BNP 1157 -01/10 echocardiogram shows LVEF of 50 to 55% with mild diastolic dysfunction -Vasopressor support with/vasopressin (map goal 65 and greater) Respiratory: Acute hypoxic respiratory failure -Intubated by EMS -Ventilation, wean as tolerated -Current ventilatory settings: Assist control tidal volume 500, rate of 30, PEEP of 16, FiO2 of 100% -Recent AB.2 / on 90% FiO2 -01/15 we will start proning patient today -RT to advance O ETT. -Serial CXR and ABGs GI: transaminitis, malnutrition, morbid obesity -Tube feeding: Nepro 40 mL/h -01/08 CT abdomen/pelvis reviewed, see results -PPI -BM: Senokot -Nutrition consulted, patient recommendations -Tube feeding on hold due to increased vasopressor requirements -Free water flush 300 mL every 4 -Trend LFTs : Acute kidney injury secondary to ATN, hyperkalemia, hyponatremia bilateral staghorn calculi with posterior obstruction of the left s/p right double-J stent placement -Nephrology consulted, appreciate recommendations -Strict intake and output -Renal dose medications -Daily weights -Avoid nephrotoxic medications -No indication for renal replacement therapy per nephrology -IVF -Renal ultrasound did not show any acute abnormalities but likely does have evidence of underlying chronic kidney disease -Hyperkalemia medically treated with Kionex D50, insulin Endo: Uncontrolled diabetes -SSI, long-acting insulin (titrate as needed) -Hemoglobin A1c pending -Accu-Cheks every 6 -Avoid hypoglycemia ID: Severe sepsis, septic shock, MRSA bacteremia/COVID-19 pneumonia, left great toe abscess with MRSA, bilateral pneumonia, UTI -Infectious disease consulted, appreciate recommendations -Steroids -Contact/droplet precautions -Not candidate for remdesivir given renal function -Per ID given MRSA bacteremia patient is on a candidate for Actemra -Vancomycin -01/12: Left foot surgical cultures show with MRSA -01/11 blood cultures x2 with coag negative staph -01/08 sputum culture with MRSA -01/08 blood cultures x2 with MRSA -Trend COVID-19 from 2 markers -Vitamin C, vitamin D, zinc -TTE without vegetation -Prone as needed Heme: Acute DVT in right external iliac and right common femoral vein, elevated D-dimer -Systemic anticoagulation with heparin -01/10 bilateral lower extremity Doppler ultrasound shows acute DVT in the right external iliac vein and right common femoral vein -Trend CBC -Transfuse to hemoglobin less than 7 The high probability of a clinically significant, sudden or life threatening deterioration of the [multi] system(s) required my full and direct attention, intervention and personal management. The aggregate critical care time was [90] minutes. This time is in addition to time spent performing reported procedures but includes the following: [x] Data Review and interpretation [x] Patient assessment and monitoring of vital signs [x] Documentation [x] Medication orders and management Disposition Plan: icu Total Time Spent with Patient (Minutes): 90 History Interval history: This is 61-year-old female with diabetes, sleep apnea, per [facility] HTN, CHF with a preserved ejection fraction of 60 to 70% in 2017, staghorn calculi, renal insufficiency, respiratory insufficiency, chronic back pain and per he has a reported history of a PE and kidney stones. Who presented to the emergency department on 01/08 s/p cardiac arrest. Upon EMS arrival patient was found initially awake and somewhat conversive however he became unresponsive and apneic. EMS states the patient started CPR and patient CPAP was used for oxy genation. Per EMS there was approximately 10-minute delay upon intubating and getting medications due to the patient's location in the home and they were unable to get the patient up out of the room through the door and he was taken through the window. Patient was found to be in PEA upon removal and intubated by EMS and achieved ROSC however he lost his pulse again and was given epinephrine ROSC was achieved. Per family patient received Giving Assistant COVID-19 vaccine approximately 3 to 4 months prior. Work-up in the emergency department revealed elevated BUN/creatinine of 3.9/, slight hyperkalemia, elevated troponin, CTA chest showed no pulmonary embolism but bilateral pneumonia. X-ray of his left foot showed possible osteomyelitis. Patient was admitted to the hospital service with consults to nephrology, CCM, cardiology, infectious disease, neurology, vascular surgery and wound care. 01/09/2021 Patient still intubated Weaning in progress Covid positive 01/10/2021 Covid positive 01/11/2021 Covid positive On ventilator Weaning in progress 01/12/2021; Severely hypotensive septic shock On Levophed, add vasopressin if needed I called [place] physician Dr. Parsons at [phone] and discussed in detail patient's critical condition, all the diagnosis, tests and reports, consultants recommendation, poor prognosis, answered all her questions, she recommended to continue current management here in the hospital as he is critically ill. I answered all her questions, and I informed the patient's nurse of my conversation with [place] physician. 01/13/2021; Patient remains in septic shock on nor epi and vasopressin Intubated on vent, very poor prognosis Surgical procedure I&D of abscess great toe Amputation of left great toe 01/14/2021; Uncontrolled blood sugars, increase Lantus to 20 units subcu twice daily Patient also has worsening hypernatremia, continue free water flushes Very poor prognosis, recommend palliative care/hospice 01/15: Patient is sedated on propofol and fentanyl, RT advanced: ETT, patient is on Levophed and vasopressin., Examination patient is on assist control tidal volume 500, rate of 30, PEEP of 16 and 100% FiO2. Patient had hyper kalemia and was given Kionex, D50, 10 units of insulin. Patient will be proned today. Hospitalist Physical - Constitutional Vitals: Temp Pulse Resp BP Pulse Ox 101.5 F H 123 H 30 H 97/39 84 01/15/21 16:00 01/15/21 16:30 01/15/21 17:37 01/15/21 16:30 01/15/21 16:30 General appearance: Present: well-nourished, other (Intubated on ventilatory support) - EENT Eyes: Present: PERRL ENT: poor dentition - Neck Neck: Absent: masses or JVD, cervical LAD - Respiratory Respiratory effort: normal Respiratory: bilateral: diminished - Cardiovascular Rhythm: regular Heart Sounds: Present: S1 & S2. Absent: systolic murmur, diastolic murmur - Extremities Extremities: no ischemia, pulses intact, pulses symmetrical, normal color Extremity abnormal: edema, cold Peripheral Pulses: within normal limits - Abdominal General gastrointestinal: soft, non-tender, non-distended, normal bowel sounds - Integumentary Integumentary: Present: warm, dry - Psychiatric Psychiatric: other (sedated) - Neurologic Neurologic: other (sedated) - Allied Health Allied health notes reviewed: nursing, RT, social work HEART Score - HEART Score Age: 45-65 Risk factors: 1-2 risk factors Troponin: Troponin T < 0.010 ng/mL (0.00-0.029) 01/10/21 10:46 - Critical Actions Critical Actions: 4-6 pts:12-16.6% risk of adverse cardiac event. Should be admitted Results - Labs CBC & Chem 7: 01/15/21 07:00 01/15/21 07:00 Labs: Laboratory Last Values WBC 24.0 K/mm3 (4.5-11.0) H 01/12/21 04:29 RBC 3.78 M/mm3 (3.65-5.03) 01/12/21 04:29 Hgb 9.7 gm/dl (11.8-15.2) L 01/15/21 07:00 Hct 31.3 % (35.5-45.6) L 01/15/21 07:00 MCV 99 fl (84-94) H 01/12/21 04:29 MCH 30 pg (28-32) 01/12/21 04:29 MCHC 31 % (32-34) L 01/12/21 04:29 RDW 17.0 % (13.2-15.2) H 01/12/21 04:29 Plt Count 181 K/mm3 (140-440) 01/15/21 07:00 Lymph % (Auto) 4.1 % (13.4-35.0) L 01/08/21 11:55 [place] % (Auto) 5.2 % (0.0-7.3) 01/08/21 11:55 Eos % (Auto) 0.0 % (0.0-4.3) 01/08/21 11:55 Baso % (Auto) 0.2 % (0.0-1.8) 01/08/21 11:55 Lymph # (Auto) 1.0 K/mm3 (1.2-5.4) L 01/08/21 11:55 [place] # (Auto) 1.2 K/mm3 (0.0-0.8) H 01/08/21 11:55 Eos # (Auto) 0.0 K/mm3 (0.0-0.4) 01/08/21 11:55 Baso # (Auto) 0.1 K/mm3 (0.0-0.1) 01/08/21 11:55 Add Manual Diff Complete 01/08/21 11:55 Seg Neutrophils % 90.5 % (40.0-70.0) H 01/08/21 11:55 Seg Neutrophils # 21.5 K/mm3 (1.8-7.7) H 01/08/21 11:55 PT 15.2 Sec. (12.2-14.9) H 01/11/21 10:05 INR 1.15 (0.87-1.13) H 01/11/21 10:05 APTT 23.3 Sec. (24.2-36.6) L 01/08/21 11:55 D-Dimer 5398.24 ng/mlDDU (0-234) H 01/14/21 10:01 Heparin Anti-Xa Level 1.42 U.I./ml (0.3-0.7) H 01/11/21 18:55 ABG pH 7.286 (7.320-7.450) L 01/15/21 02:44 POC ABG pCO2 38.6 mmHg (32.0-48.0) 01/15/21 02:44 POC ABG pO2 60.2 mmHg (83-108) L 01/15/21 02:44 POC ABG HCO3 18.0 01/15/21 02:44 ABG O2 Saturation 88.3 (0-100) 01/15/21 02:44 POC ABG Base Excess -8.0 01/15/21 02:44 ABG Hemoglobin 10.1 (12.0-17.5) L 01/15/21 02:44 ABG Oxyhemoglobin 88.0 (94-98) L 01/15/21 02:44 ABG Methemoglobin 0.3 (0.0-1.5) 01/15/21 02:44 ABG Sodium 153.1 mmol/L (136.0-145.0) H 01/15/21 02:44 ABG Potassium 5.6 mmol/L (3.40-4.50) H 01/15/21 02:44 ABG Chloride 129.0 mmol/L (98-107) H 01/15/21 02:44 ABG Glucose 486 mg/dL (65-95) H 01/15/21 02:44 Carboxyhemoglobin 0 (0.5-1.5) L 01/15/21 02:44 FiO2 % 90.0 01/15/21 02:44 Sodium 158 mmol/L (137-145) H 01/15/21 07:00 Potassium 5.8 mmol/L (3.6-5.0) H 01/15/21 07:00 Chloride 126.7 mmol/L (98-107) H 01/15/21 07:00 Carbon Dioxide 23 mmol/L (22-30) 01/15/21 07:00 Anion Gap 14 mmol/L 01/15/21 07:00 BUN 132 mg/dL (9-20) H 01/15/21 07:00 Creatinine 2.9 mg/dL (0.8-1.3) H 01/15/21 07:00 Estimated GFR 22 ml/min 01/15/21 07:00 BUN/Creatinine Ratio 46 % 01/15/21 07:00 Glucose 506 mg/dL (75-100) H* 01/15/21 07:00 POC Glucose 303 mg/dL (70-105) H 01/15/21 17:33 Hemoglobin A1c 9.0 % (4-6) H 01/14/21 10:01 Lactic Acid 1.50 mmol/L (0.7-2.0) 01/10/21 00:44 Calcium 9.0 mg/dL (8.4-10.2) D 01/15/21 07:00 Ferritin 575.5 ng/mL (30.0-300.0) H 01/14/21 10:01 Total Bilirubin 0.30 mg/dL (0.1-1.2) 01/11/21 04:50 Direct Bilirubin 0.4 mg/dL (0-0.2) H 01/08/21 11:55 Indirect Bilirubin 0.2 mg/dL 01/08/21 11:55 AST 78 units/L (5-40) H 01/11/21 04:50 ALT 54 units/L (7-56) 01/11/21 04:50 Alkaline Phosphatase 94 units/L (35-129) 01/11/21 04:50 Lactate Dehydrogenase 537 units/L (91-180) H 01/14/21 10:01 Troponin T < 0.010 ng/mL (0.00-0.029) 01/10/21 10:46 C-Reactive Protein 13.90 mg/dL (0.00-1.30) H 01/14/21 10:01 NT-Pro-B Natriuret Pep 1157 pg/mL (0-900) H 01/08/21 11:55 Total Protein 6.3 g/dL (6.3-8.2) 01/11/21 04:50 Albumin 2.7 g/dL (3.9-5) L 01/11/21 04:50 Albumin/Globulin Ratio 0.8 % 01/11/21 04:50 Triglycerides 252 mg/dL (2-149) H 01/15/21 07:00 Cholesterol 63 mg/dL (50-199) 01/08/21 11:55 LDL Cholesterol Direct 28 mg/dL (50-130) L 01/08/21 11:55 HDL Cholesterol 24 mg/dL (40-59) L 01/08/21 11:55 Cholesterol/HDL Ratio 2.62 % 01/08/21 11:55 Procalcitonin 24.79 ng/mL (<0.15) 01/08/21 14:36 Arterial Blood Glucose 486 mg/dL (65-95) H 01/15/21 02:44 Arterial Blood Ionized Calcium 5.0 mg/dL (4.6-5.3) 01/15/21 02:44 Urine Color Red (Yellow) 01/08/21 Unknown Urine Turbidity Turbid (Clear) 01/08/21 Unknown Urine pH 7.0 (5.0-7.0) 01/08/21 Unknown Ur Specific [place] 1.013 (1.003-1.030) 01/08/21 Unknown Urine Protein 100 mg/dl mg/dL (Negative) 01/08/21 Unknown Urine Glucose (UA) Neg mg/dL (Negative) 01/08/21 Unknown Urine Ketones Neg mg/dL (Negative) 01/08/21 Unknown Urine Blood Lg (Negative) 01/08/21 Unknown Urine Nitrite Neg (Negative) 01/08/21 Unknown Urine Bilirubin Neg (Negative) 01/08/21 Unknown Urine Urobilinogen < 2.0 mg/dL (<2.0) 01/08/21 Unknown Ur Leukocyte Esterase Mod (Negative) 01/08/21 Unknown Urine WBC (Auto) > 182.0 /HPF (0.0-6.0) H 01/08/21 Unknown Urine RBC (Auto) > 182.0 /HPF (0.0-6.0) 01/08/21 Unknown Urine Bacteria (Auto) 3+ /HPF (Negative) 01/08/21 Unknown Urine WBC Clumps 3+ /HPF 01/08/21 Unknown Urine Yeast (Budding) 3+ /HPF 01/08/21 Unknown Random Vancomycin 17.0 ug/mL (0-40.0) 01/15/21 07:00 Coronavirus (PCR) Positive (Negative) A 01/08/21 Unknown Microbiology: Microbiology 01/08/21 11:55 Peripheral/Venous Blood Culture - Final Methicillin Resist S. Aureus 01/12/21 Unknown Foot - Left Anaerobic Culture - Preliminary Cleaning/IV: Voiding Method Indwelling Catheter Active Medications - Current Medications Current Medications: Generic Name Dose Route Start Last Admin Trade Name Freq PRN Reason Stop Dose Admin Acetaminophen 650 mg 01/10/21 08:18 01/15/21 17:37 Acetaminophen 325 Mg/10.15 Ml Oral Liqd Unit Dose FEEDTUBE 650 mg Q6H PRN Administration TEMP >/=100.4 Albuterol 2.5 mg 01/08/21 20:23 Albuterol 2.5 Mg/3 Ml Nebu IH Q3HRT PRN Shortness Of Breath Albuterol/Ipratropium 1 ampul 01/08/21 20:00 01/15/21 17:09 Ipratropium/Albuterol Sulfate 3 Ml Ampul.Neb IH Not Given QIDRT MARBELLA Lipase/Protease/Amylase 1 each 01/10/21 17:40 Lipase 10,500/Protease 25,000/Amylase 43,750 (Units) Dr Cap FEEDTUBE PRN PRN For Clogged Feeding Tube Dexamethasone 6 mg 01/10/21 10:00 01/15/21 09:34 Dexamethasone 4 Mg/Ml Vial IV 01/19/21 10:01 6 mg Q24HR MARBELLA Administration Famotidine 10 mg 01/14/21 22:00 01/15/21 09:35 Famotidine 10 Mg Tab PO 10 mg BID MARBELLA Administration Fentanyl 50 mcg 01/12/21 18:13 Fentanyl 100 Mcg/2 Ml Inj IV Q10MIN PRN ANALGESIA Heparin Sodium (Porcine) 5,000 unit 01/12/21 12:00 Heparin 10,000 Units/10 Ml Vial IV Q6H PRN Anti-Xa Assay < 0.1 units/ml Hydrophilic Ointment 1 applic 01/08/21 16:00 Lip Therapy Vaseline TP Q2HR PRN Dry Lips Propofol 1,000 mg in 100 mls @ 4.082 mls/hr 01/08/21 16:00 01/15/21 17:54 Diprivan 10 Mg/Ml IV 15 mcg/kg/min TITR MARBELLA 12.247 mls/hr Administration Protocol 5 MCG/KG/MIN Heparin Sodium/Sodium Chloride 25,000 unit in 500 mls @ 30 mls/hr 01/11/21 10:00 01/15/21 09:37 Heparin/ 0.45% Nacl-25,000 Unit/500 Ml IV 1,500 units/hr TITR MARBELLA 30 mls/hr Administration Protocol 1,500 UNITS/HR Vasopressin 20 unit/ Sodium 101 mls @ 9.09 mls/hr 01/12/21 14:00 01/15/21 09:34 Chloride IV 0.03 units/min TITR MARBELLA 9.09 mls/hr Administration Protocol 0.03 UNITS/MIN Fentanyl Citrate 2,000 mcg in 100 mls @ 6.804 mls/hr 01/12/21 19:00 01/15/21 16:25 Fentanyl Drip Premix IV 3 mcg/kg/hr TITR MARBELLA 20.412 mls/hr Administration Protocol 1 MCG/KG/HR Sodium Chloride 1,000 mls @ 75 mls/hr 01/14/21 09:00 01/15/21 12:41 Nacl 0.45% 1000 Ml IV 75 mls/hr DIRECT MARBELLA Administration NORepinephrine/NS 8 MG-250 ML 8 mg in 250 mls @ 3.75 mls/hr 01/15/21 15:00 01/15/21 17:53 Norepinephrine/Ns 8 Mg-250 Ml (Double Conc) IV 11.73 mcg/min TITRATE MARBELLA 22 mls/hr Administration Protocol 2 MCG/MIN Insulin Glargine 28 units 01/15/21 10:00 01/15/21 09:35 Insulin Glargine 100 Units/Ml SUB-Q 28 units BID MARBELLA Administration Insulin Human Lispro 0 unit 01/09/21 12:00 01/15/21 17:39 Insulin Lispro 100 Unit/Ml SUB-Q 8 unit Q6HR MARBELLA Administration Protocol Multi-Ingred Cream/Lotion/Oil/Oint 1 applic 01/08/21 18:00 Mineral Oil/Petrolatum, White Ophth Oint 3.5 Gm OU Q4HR PRN Dry Eye(s) Senna/Docusate Sodium 1 tab 01/08/21 22:00 01/15/21 09:35 Sennosides/Docusate Sodium 8.6/50 Mg Tab FEEDTUBE 1 tab BID MARBELLA Administration Simple Syrup 15 ml 01/10/21 17:40 Simple Syrup 15 Ml FEEDTUBE PRN PRN Hypoglycemia Simple Syrup 30 ml 01/10/21 17:40 Simple Syrup 15 Ml FEEDTUBE PRN PRN Hypoglycemia Sodium Bicarbonate 325 mg 01/10/21 17:40 Sodium Bicarbonate 325 Mg Tab FEEDTUBE PRN PRN For Clogged Feeding Tube Sodium Chloride 5 ml 01/08/21 15:18 Sodium Chloride 0.9% 500 Ml Ivpb IV DIRECT PRN ARTERIAL WASHER MACHINE Sodium Hypochlorite 1 applic 01/12/21 17:00 Sodium Hypochlorite, Dakin's Full Strength (0.5%) 473 Ml Topical Soln TP Q12H PRN Wound Care Nutrition/Malnutrition Assess - Dietary Evaluation Nutrition/Malnutrition Findings: Nutrition Notes Start: 01/09/21 15:14 Freq: Status: Active Protocol: Document 01/15/21 12:27 GIULIA (Rec: 01/15/21 12:33 GIULIA [id number]) Nutrition Notes Need for Assessment generated from: MD Order Initial or Follow up Reassessment Current Diagnosis Acute Kidney Injury,CKD(stage I-IV),Diabetes,Heart Failure, Hyperlipidemia Other Pertinent Diagnosis Cardiac arrest, Bilat pneu, r/ o COVID-19 (+), UTI, Sleep apnea Current Diet Nepro at 40 ml/hr Labs/Tests Na 158 K 5.8 BG 506 Pertinent Medications Levophed Propofol at 12.247 ml/hr (323 kcal) Vasopressin Decadron Humalog Height 5 ft 11 in Weight 136.078 kg [place] Body Weight (kg) 78.18 BMI 41.8 Weight Status Morbidly Obese Subjective/Other Information MD reorder for TF. Per WATER AND FIRE TECHNICIAN, water flush 400 ml q4h. TF was running at 45 ml/hr, per chart. Percent of energy/protein needs met: 100%/45% Burn Absent Trauma Absent Current % PO Negligible Minimum of two criteria No #1 Nutrition Diagnosis Inadequate oral intake Diagnosis Progress(for reassessment Continues documentation) Is patient on ventilator? Yes Is Patient Ambulatory and/or Out of Bed No REE-([facility]-confined to bed) 2623.800 Kcal/Kg value to use for calculation 14 Approximate Energy Requirements Using 1905 kcal/Kg Calculation Used for Recommendations Kcal/kg Additional Notes Pro needs 2.5g/kg IBW: up to 195g/day Fluid needs 1ml/kcal Nutrition Intervention Change Diet Order: Continue Nutrition Support: Nepro 1.8 at 40 ml/hr Flush 400 ml q4h per MD. Once hypernatermia resolved, flush 175 ml q4h or per MD Kcal 1,728 Protein (gm) 78 Fluid (mL) 698 Goal #1 Meet at least 75% of energy and protein needs as best as possible via TF Anticipated Discharge Needs: Unable to identify at this time Follow-Up By: 01/17/21 Additional Comments F/u: TF tolerance, propofol rate <JAMES DOS SANTOS - Last Filed: 01/15/21 19:20> History Interval history: I have seen and examined the patient at the bedside, patient's chart and medications reviewed, isolation precautions and PPE protocols strictly followed per COVID-19 guidelines, Patient with cardiac arrest, anoxic brain injury, intubated on ventilatory support. Very poor prognosis, full CODE STATUS I reviewed and agree with the nurse practitioners documentation above with few additions. Plan of care reviewed with the patient's nurse, periodically discussed with [facility] physician. Hospitalist Physical - Constitutional Vitals: Temp Pulse Resp BP Pulse Ox 101.5 F H 108 H 30 H 92/49 89 01/15/21 16:00 01/15/21 19:00 01/15/21 19:00 01/15/21 19:00 01/15/21 19:00 HEART Score - HEART Score Troponin: Troponin T < 0.010 ng/mL (0.00-0.029) 01/10/21 10:46 Results - Labs CBC & Chem 7: 01/15/21 07:00 01/15/21 07:00 Labs: Laboratory Last Values WBC 24.0 K/mm3 (4.5-11.0) H 01/12/21 04:29 RBC 3.78 M/mm3 (3.65-5.03) 01/12/21 04:29 Hgb 9.7 gm/dl (11.8-15.2) L 01/15/21 07:00 Hct 31.3 % (35.5-45.6) L 01/15/21 07:00 MCV 99 fl (84-94) H 01/12/21 04:29 MCH 30 pg (28-32) 01/12/21 04:29 MCHC 31 % (32-34) L 01/12/21 04:29 RDW 17.0 % (13.2-15.2) H 01/12/21 04:29 Plt Count 181 K/mm3 (140-440) 01/15/21 07:00 Lymph % (Auto) 4.1 % (13.4-35.0) L 01/08/21 11:55 [place] % (Auto) 5.2 % (0.0-7.3) 01/08/21 11:55 Eos % (Auto) 0.0 % (0.0-4.3) 01/08/21 11:55 Baso % (Auto) 0.2 % (0.0-1.8) 01/08/21 11:55 Lymph # (Auto) 1.0 K/mm3 (1.2-5.4) L 01/08/21 11:55 [place] # (Auto) 1.2 K/mm3 (0.0-0.8) H 01/08/21 11:55 Eos # (Auto) 0.0 K/mm3 (0.0-0.4) 01/08/21 11:55 Baso # (Auto) 0.1 K/mm3 (0.0-0.1) 01/08/21 11:55 Add Manual Diff Complete 01/08/21 11:55 Seg Neutrophils % 90.5 % (40.0-70.0) H 01/08/21 11:55 Seg Neutrophils # 21.5 K/mm3 (1.8-7.7) H 01/08/21 11:55 PT 15.2 Sec. (12.2-14.9) H 01/11/21 10:05 INR 1.15 (0.87-1.13) H 01/11/21 10:05 APTT 23.3 Sec. (24.2-36.6) L 01/08/21 11:55 D-Dimer 5398.24 ng/mlDDU (0-234) H 01/14/21 10:01 Heparin Anti-Xa Level 0.55 U.I./ml (0.3-0.7) 01/15/21 17:39 ABG pH 7.286 (7.320-7.450) L 01/15/21 02:44 POC ABG pCO2 38.6 mmHg (32.0-48.0) 01/15/21 02:44 POC ABG pO2 60.2 mmHg (83-108) L 01/15/21 02:44 POC ABG HCO3 18.0 01/15/21 02:44 ABG O2 Saturation 88.3 (0-100) 01/15/21 02:44 POC ABG Base Excess -8.0 01/15/21 02:44 ABG Hemoglobin 10.1 (12.0-17.5) L 01/15/21 02:44 ABG Oxyhemoglobin 88.0 (94-98) L 01/15/21 02:44 ABG Methemoglobin 0.3 (0.0-1.5) 01/15/21 02:44 ABG Sodium 153.1 mmol/L (136.0-145.0) H 01/15/21 02:44 ABG Potassium 5.6 mmol/L (3.40-4.50) H 01/15/21 02:44 ABG Chloride 129.0 mmol/L (98-107) H 01/15/21 02:44 ABG Glucose 486 mg/dL (65-95) H 01/15/21 02:44 Carboxyhemoglobin 0 (0.5-1.5) L 01/15/21 02:44 FiO2 % 90.0 01/15/21 02:44 Sodium 158 mmol/L (137-145) H 01/15/21 07:00 Potassium 5.8 mmol/L (3.6-5.0) H 01/15/21 07:00 Chloride 126.7 mmol/L (98-107) H 01/15/21 07:00 Carbon Dioxide 23 mmol/L (22-30) 01/15/21 07:00 Anion Gap 14 mmol/L 01/15/21 07:00 BUN 132 mg/dL (9-20) H 01/15/21 07:00 Creatinine 2.9 mg/dL (0.8-1.3) H 01/15/21 07:00 Estimated GFR 22 ml/min 01/15/21 07:00 BUN/Creatinine Ratio 46 % 01/15/21 07:00 Glucose 506 mg/dL (75-100) H* 01/15/21 07:00 POC Glucose 303 mg/dL (70-105) H 01/15/21 17:33 Hemoglobin A1c 9.0 % (4-6) H 01/14/21 10:01 Lactic Acid 1.50 mmol/L (0.7-2.0) 01/10/21 00:44 Calcium 9.0 mg/dL (8.4-10.2) D 01/15/21 07:00 Ferritin 575.5 ng/mL (30.0-300.0) H 01/14/21 10:01 Total Bilirubin 0.30 mg/dL (0.1-1.2) 01/11/21 04:50 Direct Bilirubin 0.4 mg/dL (0-0.2) H 01/08/21 11:55 Indirect Bilirubin 0.2 mg/dL 01/08/21 11:55 AST 78 units/L (5-40) H 01/11/21 04:50 ALT 54 units/L (7-56) 01/11/21 04:50 Alkaline Phosphatase 94 units/L (35-129) 01/11/21 04:50 Lactate Dehydrogenase 537 units/L (91-180) H 01/14/21 10:01 Troponin T < 0.010 ng/mL (0.00-0.029) 01/10/21 10:46 C-Reactive Protein 13.90 mg/dL (0.00-1.30) H 01/14/21 10:01 NT-Pro-B Natriuret Pep 1157 pg/mL (0-900) H 01/08/21 11:55 Total Protein 6.3 g/dL (6.3-8.2) 01/11/21 04:50 Albumin 2.7 g/dL (3.9-5) L 01/11/21 04:50 Albumin/Globulin Ratio 0.8 % 01/11/21 04:50 Triglycerides 252 mg/dL (2-149) H 01/15/21 07:00 Cholesterol 63 mg/dL (50-199) 01/08/21 11:55 LDL Cholesterol Direct 28 mg/dL (50-130) L 01/08/21 11:55 HDL Cholesterol 24 mg/dL (40-59) L 01/08/21 11:55 Cholesterol/HDL Ratio 2.62 % 01/08/21 11:55 Procalcitonin 24.79 ng/mL (<0.15) 01/08/21 14:36 Arterial Blood Glucose 486 mg/dL (65-95) H 01/15/21 02:44 Arterial Blood Ionized Calcium 5.0 mg/dL (4.6-5.3) 01/15/21 02:44 Urine Color Red (Yellow) 01/08/21 Unknown Urine Turbidity Turbid (Clear) 01/08/21 Unknown Urine pH 7.0 (5.0-7.0) 01/08/21 Unknown Ur Specific [place] 1.013 (1.003-1.030) 01/08/21 Unknown Urine Protein 100 mg/dl mg/dL (Negative) 01/08/21 Unknown Urine Glucose (UA) Neg mg/dL (Negative) 01/08/21 Unknown Urine Ketones Neg mg/dL (Negative) 01/08/21 Unknown Urine Blood Lg (Negative) 01/08/21 Unknown Urine Nitrite Neg (Negative) 01/08/21 Unknown Urine Bilirubin Neg (Negative) 01/08/21 Unknown Urine Urobilinogen < 2.0 mg/dL (<2.0) 01/08/21 Unknown Ur Leukocyte Esterase Mod (Negative) 01/08/21 Unknown Urine WBC (Auto) > 182.0 /HPF (0.0-6.0) H 01/08/21 Unknown Urine RBC (Auto) > 182.0 /HPF (0.0-6.0) 01/08/21 Unknown Urine Bacteria (Auto) 3+ /HPF (Negative) 01/08/21 Unknown Urine WBC Clumps 3+ /HPF 01/08/21 Unknown Urine Yeast (Budding) 3+ /HPF 01/08/21 Unknown Random Vancomycin 17.0 ug/mL (0-40.0) 01/15/21 07:00 Coronavirus (PCR) Positive (Negative) A 01/08/21 Unknown Microbiology: Microbiology 01/08/21 11:55 Peripheral/Venous Blood Culture - Final Methicillin Resist S. Aureus 01/12/21 Unknown Foot - Left Anaerobic Culture - Preliminary Cleaning/IV: Voiding Method Indwelling Catheter Active Medications - Current Medications Current Medications: Generic Name Dose Route Start Last Admin Trade Name Freq PRN Reason Stop Dose Admin Acetaminophen 650 mg 01/10/21 08:18 01/15/21 17:37 Acetaminophen 325 Mg/10.15 Ml Oral Liqd Unit Dose FEEDTUBE 650 mg Q6H PRN Administration TEMP >/=100.4 Albuterol 2.5 mg 01/08/21 20:23 Albuterol 2.5 Mg/3 Ml Nebu IH Q3HRT PRN Shortness Of Breath Albuterol/Ipratropium 1 ampul 01/08/21 20:00 01/15/21 17:09 Ipratropium/Albuterol Sulfate 3 Ml Ampul.Neb IH Not Given QIDRT MARBELLA Lipase/Protease/Amylase 1 each 01/10/21 17:40 Lipase 10,500/Protease 25,000/Amylase 43,750 (Units) Dr Kearney FEEDTUBE PRN PRN For Clogged Feeding Tube Dexamethasone 6 mg 01/10/21 10:00 01/15/21 09:34 Dexamethasone 4 Mg/Ml Vial IV 01/19/21 10:01 6 mg Q24HR MARBELLA Administration Famotidine 10 mg 01/14/21 22:00 01/15/21 09:35 Famotidine 10 Mg Tab PO 10 mg BID MARBELLA Administration Fentanyl 50 mcg 01/12/21 18:13 Fentanyl 100 Mcg/2 Ml Inj IV Q10MIN PRN ANALGESIA Heparin Sodium (Porcine) 5,000 unit 01/12/21 12:00 Heparin 10,000 Units/10 Ml Vial IV Q6H PRN Anti-Xa Assay < 0.1 units/ml Hydrophilic Ointment 1 applic 01/08/21 16:00 Lip Therapy Vaseline TP Q2HR PRN Dry Lips Propofol 1,000 mg in 100 mls @ 4.082 mls/hr 01/08/21 16:00 01/15/21 17:54 Diprivan 10 Mg/Ml IV 15 mcg/kg/min TITR MARBELLA 12.247 mls/hr Administration Protocol 5 MCG/KG/MIN Heparin Sodium/Sodium Chloride 25,000 unit in 500 mls @ 30 mls/hr 01/11/21 10:00 01/15/21 09:37 Heparin/ 0.45% Nacl-25,000 Unit/500 Ml IV 1,500 units/hr TITR MARBELLA 30 mls/hr Administration Protocol 1,500 UNITS/HR Vasopressin 20 unit/ Sodium 101 mls @ 9.09 mls/hr 01/12/21 14:00 01/15/21 09:34 Chloride IV 0.03 units/min TITR MARBELLA 9.09 mls/hr Administration Protocol 0.03 UNITS/MIN Fentanyl Citrate 2,000 mcg in 100 mls @ 6.804 mls/hr 01/12/21 19:00 01/15/21 16:25 Fentanyl Drip Premix IV 3 mcg/kg/hr TITR MARBELLA 20.412 mls/hr Administration Protocol 1 MCG/KG/HR Sodium Chloride 1,000 mls @ 75 mls/hr 01/14/21 09:00 01/15/21 12:41 Nacl 0.45% 1000 Ml IV 75 mls/hr DIRECT MARBELLA Administration NORepinephrine/NS 8 MG-250 ML 8 mg in 250 mls @ 3.75 mls/hr 01/15/21 15:00 01/15/21 18:15 Norepinephrine/Ns 8 Mg-250 Ml (Double Conc) IV 24 mcg/min TITRATE MARBELLA 45 mls/hr Titration Protocol 2 MCG/MIN Insulin Glargine 28 units 01/15/21 10:00 01/15/21 09:35 Insulin Glargine 100 Units/Ml SUB-Q 28 units BID MARBELLA Administration Insulin Human Lispro 0 unit 01/09/21 12:00 01/15/21 17:39 Insulin Lispro 100 Unit/Ml SUB-Q 8 unit Q6HR MARBELLA Administration Protocol Multi-Ingred Cream/Lotion/Oil/Oint 1 applic 01/08/21 18:00 Mineral Oil/Petrolatum, White Ophth Oint 3.5 Gm OU Q4HR PRN Dry Eye(s) Senna/Docusate Sodium 1 tab 01/08/21 22:00 01/15/21 09:35 Sennosides/Docusate Sodium 8.6/50 Mg Tab FEEDTUBE 1 tab BID MARBELLA Administration Simple Syrup 15 ml 01/10/21 17:40 Simple Syrup 15 Ml FEEDTUBE PRN PRN Hypoglycemia Simple Syrup 30 ml 01/10/21 17:40 Simple Syrup 15 Ml FEEDTUBE PRN PRN Hypoglycemia Sodium Bicarbonate 325 mg 01/10/21 17:40 Sodium Bicarbonate 325 Mg Tab FEEDTUBE PRN PRN For Clogged Feeding Tube Sodium Chloride 5 ml 01/08/21 15:18 Sodium Chloride 0.9% 500 Ml Ivpb IV DIRECT PRN ARTERIAL WASHER MACHINE Sodium Hypochlorite 1 applic 01/12/21 17:00 Sodium Hypochlorite, Dakin's Full Strength (0.5%) 473 Ml Topical Soln TP Q12H PRN Wound Care Nutrition/Malnutrition Assess - Dietary Evaluation Nutrition/Malnutrition Findings: Nutrition Notes Start: 01/09/21 15:14 Freq: Status: Active Protocol: Document 01/15/21 12:27 (Rec: 01/15/21 12:33 [email or web address]) Nutrition Notes Need for Assessment generated from: MD Order Initial or Follow up Reassessment Current Diagnosis Acute Kidney Injury,CKD(stage I-IV),Diabetes,Heart Failure, Hyperlipidemia Other Pertinent Diagnosis Cardiac arrest, Bilat pneu, r/ o COVID-19 (+), UTI, Sleep apnea Current Diet Nepro at 40 ml/hr Labs/Tests Na 158 K 5.8 BG 506 Pertinent Medications Levophed Propofol at 12.247 ml/hr (323 kcal) Vasopressin Decadron Humalog Height 5 ft 11 in Weight 136.078 kg [place] Body Weight (kg) 78.18 BMI 41.8 Weight Status Morbidly Obese Subjective/Other Information MD reorder for TF. Per WATER AND FIRE TECHNICIAN, water flush 400 ml q4h. TF was running at 45 ml/hr, per chart. Percent of energy/protein needs met: 100%/45% Burn Absent Trauma Absent Current % PO Negligible Minimum of two criteria No #1 Nutrition Diagnosis Inadequate oral intake Diagnosis Progress(for reassessment Continues documentation) Is patient on ventilator? Yes Is Patient Ambulatory and/or Out of Bed No REE-([facility]-confined to bed) 2623.800 Kcal/Kg value to use for calculation 14 Approximate Energy Requirements Using 1905 kcal/Kg Calculation Used for Recommendations Kcal/kg Additional Notes Pro needs 2.5g/kg IBW: up to 195g/day Fluid needs 1ml/kcal Nutrition Intervention Change Diet Order: Continue Nutrition Support: Nepro 1.8 at 40 ml/hr Flush 400 ml q4h per MD. Once hypernatermia resolved, flush 175 ml q4h or per MD Kcal 1,728 Protein (gm) 78 Fluid (mL) 698 Goal #1 Meet at least 75% of energy and protein needs as best as possible via TF Anticipated Discharge Needs: Unable to identify at this time Follow-Up By: 01/17/21 Additional Comments F/u: TF tolerance, propofol rate
[2021-01-15] MEDS: PHENYLEPHRINE 100 MG in SODIUM CHLORIDE 0.9% 90 ML IV SCH (20:30)
[2021-01-16] MEDS: INSULIN LISPRO 100 UNIT/ML SUB-Q SCH ×2 (00:21→06:50)
[2021-01-16] MEDS: FREE WATER PO SCH ×2 (00:21→04:05)
[2021-01-16] MEDS: fentaNYL DRIP Premix 2,000 MCG/100 ML BAG IV SCH ×2 (01:34→06:00)
[2021-01-16] MEDS: SODIUM CHLORIDE 0.45% 1000 ML 1,000 ML IV SCH (01:39)
[2021-01-16] MEDS: NORepinephrine/NS 8 MG-250 ML 8 MG/250 ML INFUS..BTL IV SCH ×2 (02:55→06:32)
[2021-01-16] MEDS: HEPARIN/ 0.45% NACL DRIP 25,000 UNIT/500 ML BAG IV SCH (02:59)
[2021-01-16] MEDS ORDERED: DOPamine/D5W 800 MG/250 ML 800 MG/250 ML BAG IV SCH (03:00)
[2021-01-16] MEDS: PHENYLEPHRINE 100 MG in SODIUM CHLORIDE 0.9% 90 ML IV SCH (03:13)
[2021-01-16] MEDS: IPRATROPIUM/ALBUTEROL SULFATE 3 ML AMPUL.NEB IH SCH (07:35)
--- NOTE | 2021-01-16 08:23 | Death Summary ---
Summary - Providers Consults: 01/08/21 13:00 Consult to Physician [CONS] Stat Comment: Consulting Provider: ERLINDA IVEY Physician Instructions: Reason For Exam: cardiac arrest 01/08/21 14:57 Consult to Physician [CONS] Stat Comment: Consulting Provider: JUD BECKER Physician Instructions: Reason For Exam: post cardiac arrest; critical care 01/08/21 15:18 Consult to Dietitian/Nutrition [CONS] Routine Physician Instructions: Reason For Exam: Reason for Consult: Evaluate nutritional intake 01/08/21 19:27 Consult to Physician [CONS] Routine Comment: Consulting Provider: VASHTI PISANO Physician Instructions: Reason For Exam: S/p cardiac arrest 01/09/21 22:14 Consult to Wound/ET Nurse [CONS] Routine Reason For Exam: SACRUM DTI, LEFT GREAT TOE PRESSURE ULCER 01/10/21 15:17 Consult to Dietitian/Nutrition [CONS] Stat Physician Instructions: Reason For Exam: Reason for Consult: Write/Manage Tube Feeding 01/10/21 16:10 Consult to Physician [CONS] Routine Comment: Consulting Provider: TEMI SANCHEZ Physician Instructions: Reason For Exam: MRSA bacteremia; sepsis 01/10/21 16:11 Consult to Physician [CONS] Routine Comment: Consulting Provider: TAVON CLAY Physician Instructions: Reason For Exam: AMS s/p cardiac arrest 01/10/21 17:35 Consult to Physician [CONS] Routine Comment: Consulting Provider: BRANDY SNYDER Physician Instructions: Reason For Exam: Right femoral DVT 01/15/21 10:24 Consult to Dietitian/Nutrition [CONS] Routine Physician Instructions: Assess nutrtn needs, initiate, modify, manage TF Reason For Exam: Reason for Consult: Write/Manage Tube Feeding Reason for Consult: Write/Manage Tube Feeding 01/15/21 14:46 Consult to Dietitian/Nutrition [CONS] Routine Physician Instructions: Reason For Exam: Reason for Consult: Write/Manage Tube Feeding Attending: SANDRA CONRAD MD - summary Date of admission: 01/08/21 14:44 Date of : 01/16/21 Significant findings: This is 61-year-old female with diabetes, sleep apnea, per [facility] HTN, CHF with a preserved ejection fraction of 60 to 70% in 2017, staghorn calculi, renal insufficiency, respiratory insufficiency, chronic back pain and per he has a reported history of a PE and kidney stones. Who presented to the emergency department on 01/08 s/p cardiac arrest. Upon EMS arrival patient was found initially awake and somewhat conversive however he became unresponsive and apneic. EMS states the patient started CPR and patient CPAP was used for oxygenation. Per EMS there was approximately 10-minute delay upon intubating and getting medications due to the patient's location in the home and they were unable to get the patient up out of the room through the door and he was taken through the window. Patient was found to be in PEA upon removal and intubated by EMS and achieved ROSC however he lost his pulse again and was given epinephrine ROSC was achieved. Per family patient received Evirx COVID-19 vaccine approximately 3 to 4 months prior. Work-up in the emergency department revealed elevated BUN/creatinine of 3.9/55, slight hyperkalemia, elevated troponin, CTA chest showed no pulmonary embolism but bilateral pneumonia. X-ray of his left foot showed possible osteomyelitis. Patient was admitted to the hospital service with consults to nephrology, CCM, cardiology, infectious disea se, neurology, vascular surgery and wound care. On 01/09 his COVID PCR was positive. On 01/12 the patient was severely hypotensive septic shock on Levophed, add vasopressin if needed. On 01/13 patient underwent a I&D with surgery and amputation of left great toe at bedside. on 01/15 patient was hyperkalemic and was given Kionex. He was also proned. This morning the patient was found in ST with a short run of what looked like Vtach on the monitor before asystole by RN and ACLS was initiated around 0740. RT had danii a blood gas prior to this event. After several rounds of ACLS the patient unfortunately . Dr. Kortney Conrad informed the patients' family. Time of 0800 -Metabolic encephalopathy -S/p cardiac arrest -h/o HFpEF -Acute hypoxic respiratory failure -Transaminitis -Malnutrition -Morbid obesity -Acute kidney injury secondary to ATN -Hyperkalemia -Hyponatremia -Bilateral staghorn calculi with posterior obstruction of the left s/p right double-J stent placement -Uncontrolled diabetes -Severe sepsis with septic shock -MRSA bacteremia/PNA -COVID-19 pneumonia -Left great toe abscess with MRSA -UTI -Acute DVT in right external iliac and right common femoral vein - Final diagnosis (1) Sepsis Note: Final diagnosis: (2) Pneumonia due to COVID-19 virus Note: Final diagnosis: (3) Abscess of left foot including toes Note: Final diagnosis: (4) Acute kidney injury superimposed on CKD Note: Final diagnosis: (5) Acute respiratory failure with hypoxia and hypercapnia Note: Final diagnosis: (6) Cardiac arrest Note: Final diagnosis: (7) Gram-positive bacteremia Note: Final diagnosis: (8) Septic shock Note: Final diagnosis: (9) Transaminitis Note: Final diagnosis: (10) Congestive heart failure Qualifiers: Heart failure type: combined systolic and diastolic Note: Final diagnosis: (11) Diabetes mellitus type 2 in obese Note: Final diagnosis: (12) Osteomyelitis of great toe of left foot Note: Final diagnosis:
--- NOTE | 2021-01-16 08:40 | Event Note ---
Date: 01/16/21 TWILA SALDAÑA called at approximately 0740. On my arrival, patient was without a pulse with rhythm showing asystole on the monitor. Per TOURIST CAMP ATTENDANT, initial rhythm prior to code was sinus tachycardia which progressed to vtach and eventual asystole. ACLS protocol initiated with a total of 6 rounds of high quality CPR. CHest compression quality was continuously monitor with . Epinephrine x 5, bicarb x 2, calcium gluconate x 2 were administered. Karen Levy was contacted mid code and stated she wanted full measures. Despite heroic measures by ICU team, patient was not able to be resuscitated. Time of 0800. notified of patient . She states that she and patient's daughter will visit this afternoon.
[2021-01-16 08:57] VITALS: BP 95/27
== END 2021-01-16 12:30 | DRG 853 ==
LOC: ED 10:44 → CC1 14:44
PROVIDERS: ADMIT Internal Medicine; ATTEND Internal Medicine
PROC: 4A033R1 Measurement of Arterial Saturation, Peripheral, Percutaneous Approach (ICD-10-PCS; principal; 2021-01-08)
PROC: 5A1955Z Respiratory Ventilation, Greater than 96 Consecutive Hours (ICD-10-PCS; 2021-01-08)
PROC: 0BH17EZ Insertion of Endotracheal Airway into Trachea, Via Natural or Artificial Opening (ICD-10-PCS; 2021-01-08)
PROC: 06HY33Z Insertion of Infusion Device into Lower Vein, Percutaneous Approach (ICD-10-PCS; 2021-01-08)
PROC: 0J9R0ZZ Drainage of Left Foot Subcutaneous Tissue and Fascia, Open Approach (ICD-10-PCS; 2021-01-12)
PROC: 0Y6Q0Z0 Detachment at Left 1st Toe, Complete, Open Approach (ICD-10-PCS; 2021-01-12)
DX: A41.9 Sepsis, unspecified organism (principal); J96.01 Acute respiratory failure with hypoxia; I21.4 Non-ST elevation (NSTEMI) myocardial infarction; J96.02 Acute respiratory failure with hypercapnia; U07.1 COVID-19; J12.82 Pneumonia due to coronavirus disease 2019; N17.9 Acute kidney failure, unspecified; I42.9 Cardiomyopathy, unspecified; G93.40 Encephalopathy, unspecified; N39.0 Urinary tract infection, site not specified; M86.8X7 Other osteomyelitis, ankle and foot; I13.0 Hypertensive heart and chronic kidney disease with heart failure and stage 1 through stage 4 chronic kidney disease, or unspecified chronic kidney disease; E44.1 Mild protein-calorie malnutrition; L02.612 Cutaneous abscess of left foot; I46.9 Cardiac arrest, cause unspecified; E66.01 Morbid (severe) obesity due to excess calories; G47.33 Obstructive sleep apnea (adult) (pediatric); Z79.899 Other long term (current) drug therapy; Z79.891 Long term (current) use of opiate analgesic; Z79.01 Long term (current) use of anticoagulants; D64.9 Anemia, unspecified; D72.829 Elevated white blood cell count, unspecified; E87.5 Hyperkalemia; E11.69 Type 2 diabetes mellitus with other specified complication; E11.22 Type 2 diabetes mellitus with diabetic chronic kidney disease; I50.9 Heart failure, unspecified
CPT/HCPCS: 36415; 36600; 70450; 71045; 71275; 74018; 74177; 76770; 80048; 80053; 80061; 80076; 80202; 81001; 82140; 82728; 82805; 82947; 82962; 83036; 83615; 83880; 84145; 84478; 84484; 85014; 85018; 85025; 85027; 85049; 85379; 85520; 85610; 85730; 86140; 86403; 87040; 87070; 87075; 87076; 87116; 87186; 87205; 88304; 88305; 88311; 93005; 93306; 93970; 94002; 94003; 94640; 95819; 99291; G0378; A6260; J0692; J1100; J1265; J1644; J1815; J1940; J2310; J2370; J2704; J2930; J3010; J3370; J7030; J7040; Q9967; U0003